=== PATIENT | male | born 1960 | race Caucasian/White ===

== ENCOUNTER → 2022-09-23 | Outpatient (CLI) | payer MEDICAID, SELFPAY ==
--- NOTE | 2022-09-24 12:21 | BRONCHALL ---
Bronchoprovocation Challenge Bronchoprovocation Challenge Bronchoprovocation Challenge: INTRODUCTION: The patient is a 62-year-old male who presents for a methacholine inhalation challenge secondary to a diagnosis of shortness of breath. Respiratory therapy reported good patient effort and reproducible results. INTERPRETATION: Initial spirometry did not show any large airways obstructive ventilatory defect with preserved airflows throughout. The patient was then given progressively increasing doses of methacholine in a standardized fashion. At no point during testing did the patient's FEV1 drop to the threshold level to be considered a positive test. IMPRESSION: Negative methacholine inhalation challenge.
== END | disposition home or self-care (01) ==
PROVIDERS: PCP Family Medicine
DX: R06.02 Shortness of breath (principal)
CPT/HCPCS: 94070; 95070; J3490; J7674

== ENCOUNTER → 2024-01-14 | Outpatient (CLI) | payer MEDICAID, SELFPAY ==
[2024-01-14 10:29] LABS: Absolute Lymphocyte Count 1.19 X10^3/uL (0.83-4.51); Absolute Neutrophil Count 2.8 X10^3/uL (2.0-7.7); Basophil# 0.03 X10^3/uL; Basophil% 0.7 % (0-1); Eosinophils% 2.2 % (0-5); Hematocrit 45.6 % (40-54); Hemoglobin 14.8 g/dL (13.0-16.5); Lymphocyte # 1.19 X10^3/ul (0.83-4.51); Mean Corp Hgb Conc 32.5 g/dL (32-36); Mean Corpuscular Volume 92.3 fL (80-94); Mean Platelet Vol. 10.8 fl (6.2-12.0); Monocyte# 0.41 X10^3/uL; NRBC Flagged by Analyzer 0 % (0-5); Neutrophil # 2.82 X10^3/uL (2.7-7.7); Neutrophil % 61.7 % (47-70); Platelet Count 156 K/mm3 (150-450); RBC Distribution Width CV 14.6 % (11.6-14.6); RBC Distribution Width SD 49.7 fl (35.1-43.9); Red Blood Count 4.94 M/mm3 (4.6-6.2); White Blood Count 4.6 K/mm3 (4.4-11.0)
[2024-01-14 11:15] LABS: Anion Gap 5 (5-15); BUN 21 mg/dL (7-18); BUN/Creat Ratio 24.9 RATIO (10-20); Chloride 110 mmol/L (98-107); Creatinine, Serum 0.84 mg/dL (0.70-1.30); EST Glomerular Filtration Rate 98 mL/min (>60); Est Glom Filt Rate - Afr Amer 119 mL/min (>60); Glucose 113 mg/dL (74-106); Potassium 4.2 mmol/L (3.5-5.1); Sodium Level 140 mmol/L (136-145)
== END | disposition home or self-care (01) ==
PROVIDERS: PCP Family Medicine; Referring Provider Internal Medicine Cardiovascular Disease; Visit Provider Internal Medicine Cardiovascular Disease
DX: R06.02 Shortness of breath (principal); I10 Essential (primary) hypertension
CPT/HCPCS: 36415; 80048; 85025

== ENCOUNTER 2024-02-11 06:51 | Day surgery (SDC) | payer MEDICAID, SELFPAY ==
[2024-01-29 08:23] VITALS: BMI 30.2
[2024-02-11 08:59] LABS: Base Excess -5 mmol/L (-2 to +2); Blood Gas Specimen Type ART; Mode Not entered; O2 Delivery Device Not entered; PO2 69 mmHG (75-100); SITE Not entered; SO2 92 % (95-99); Total Carbon Dioxide 22 mmol/L; pCO2 40.1 mmHg (35-45); pH 7.33 (7.35-7.45)
[2024-02-11 09:01] LABS: Blood Gas Specimen Type VEN; O2 Delivery Device Not entered; SITE Not entered; VBG BASE EXCESS -4 mmol/L (-1.0-3.5); VBG Bicarbonate 22 mmol/L (22-26); VBG PO2 45 mmHg (25-40); VBG SO2 77 % (50-70); VBG TCO2 23 mmol/L (23-33); VBG pCO2 41.5 mmHg (41-51); VBG pH 7.33 (7.32-7.42)
[2024-02-11 09:06] LABS: Blood Gas Specimen Type VEN; O2 Delivery Device Not entered; SITE Not entered; VBG BASE EXCESS -4 mmol/L (-1.0-3.5); VBG Bicarbonate 22 mmol/L (22-26); VBG PO2 41 mmHg (25-40); VBG SO2 73 % (50-70); VBG TCO2 24 mmol/L (23-33); VBG pCO2 42.2 mmHg (41-51); VBG pH 7.33 (7.32-7.42)
--- NOTE | 2024-02-11 09:30 | CL.D_ITS ---
Patient Name: BERNARDO CARVER Study Date: 02/11/2024 Performing: Lavon Frost MD Ht: 71 inches 180.34 cm : 1960 Wt: 217 lbs 98.43 kg Age: 63 Gender: male BSA: 2.18 PROCEDURE(S) PERFORMED DC05-(34956)RHC/LHC/COR/LV IC12-(06777/C9600)SEEMA W/WO PTCA, SINGLE CORONARY ARTERY CLINICAL PROFILE AND INDICATIONS Indications: Other Heart Failure: None Stress/Imaging Date: 01/20/24Cardiac CTA: 1VDStress Test with SPECT MPI: Negative CONCLUSIONS Moderately severe one-vessel disease in the large codominant right coronary artery with preserved ejection fraction RECOMMENDATIONS Consider IFR and PCI. Especially with progressive shortness of breath. DESCRIPTION OF PROCEDURE The patient arrived to the procedure lab. The risks and benefits of the procedure as well as a full description of our services here and current unavailability of surgical backup were fully explained to the patient and/or their significant other prior to the catheterization. The Timeout was completed, verifying the correct patient and procedure. The patient's procedural site was prepped and draped in the usual fashion. Local anesthetic was given subcutaneously to right brachial region with Lidocaine 2%. Local anesthetic was given subcutaneously to right radial region with Lidocaine 2%. Using a modified Seldinger technique, arterial access was obtained via the right radial artery, a 6Fr sheath was inserted. Venous access was obtained via the right brachiocephalic vein, a 7Fr sheath was inserted. Left Coronary Artery selective angiography was performed in multiple views using a 5 Fr. 4.0 [place] catheter. Right Coronary Artery selective angiography was then performed in multiple views using a 5 Fr. 4.0 [place] catheter. Left Ventriculography was performed in MULLER projection using a 5 Fr. Pigtail catheter. LV to AO pullback pressures were then recorded. Arterial O2 Saturations were obtained. A 7Fr thermal dilution catheter was inserted and right heart pressures were recorded, it was then advanced to PA position for cardiac outputs. Thermal dilution cardiac outputs were then recorded. The Thermal dilution catheter was then removed.The venous sheath was then pulled and manual compression applied until hemostasis achieved CORONARY ANGIOGRAPHY DOMINANCE: Co- Dominant LEFT HEART ASSESSMENT Left Ventricular Ejection Fraction: by LV Gram 60 % Normal LV wall motion Normal Left Ventricular systolic function RIGHT HEART ASSESSMENT Thermal CO: 7 Thermal CI: 3.2 PW: 21 PA: 41/ 28 RV: 41/11 21 RA: 17 PVR: 80 SVR: 480 Right Heart pressures - elevated LEFT MAIN: Angiographically normal LEFT ANTERIOR DESCENDING ARTERY: No significant disease noted CIRCUMFLEX ARTERY: No significant disease noted RIGHT CORONARY ARTERY: PROX RCA: Large codominant vessel with almost 70% stenosis noted in the proximal area with an eccentric plaque. Minimal distal disease is noted. COMPLICATIONS PROCEDURE MEDICATIONS Versed 1 mg IV Fentanyl 50 mcg IV Brilinta 180 mg PO @ 02/11/2024 09:12:35 Heparin given IA 02/11/2024 08:36:21 Heparin 7000 unit(s) IV 02/11/2024 09:21:45 Verapamil 2.5mg, Ntg 100mcgs, 3000 units of Heparin given IA 02/11/2024 08:36:21 IV Bolus: .9 NaCl ml total 02/11/2024 08:39:34 SUMMARY OF HEMODYNAMIC DATA Time AIR REST ECG 07:12:52 AO 72/51 (59) SA 08:41:14 AO 84/58 (70) 08:47:56 LV 91/11, 17 08:49:44 LV 89/12, 18 08:49:52 LV 86/16, 19 08:50:24 LV 87/14, 18 08:50:32 LVp 78/10, 19 08:50:37 AOp 93/58 (72) 08:50:44 RA (17) SV 08:54:07 RV 41/11, 21 08:54:26 PA (28) PA 08:54:57 PW (21) PV 08:55:13 PW (20) 08:59:04 PA 42/11 (24) 08:59:33 RA (18) 09:00:01 AO 108/67 (87) 09:22:33 AO 118/70 (92) 09:34:15 09:48:28 Type SV CO (l/m) CI (l/m/ HR Time AIR REST Thermal 106.00 7.00 3.20 66 07:12:53 Label % O2 Pres/Loc Time AIR REST AO 92 PV 09:05:09 RA 77 SV 09:05:14 PA 73 PA 09:05:18 Signed By Lavon Frost MD On 02/11/2024 09:53:54 Signed By Lavon Frost MD On 02/11/2024 09:29:21 Lavon Frost MD
--- NOTE | 2024-02-11 10:51 | CL.I_ITS ---
Patient Name: BERNARDO CARVER Study Date: 02/11/2024 Performing: Henny Hanely MD Ht: 71 inches 180.34 cm : 1960 Wt: 217 lbs 98.43 kg Age: 63 Gender: male BSA: 2.18 PROCEDURE(S) PERFORMED IC12-(97002/C9600)SEEMA W/WO PTCA, SINGLE CORONARY ARTERY CLINICAL PROFILE AND CO-MORBIDITIES Indications: Other Heart Failure: None Stress/Imaging Date: 01/20/24 Cardiac CTA: 1VDStress Test with SPECT MPI: Negative CONCLUSIONS Successful SEEMA to mRCA RECOMMENDATIONS DESCRIPTION OF PROCEDURE The patient arrived to the procedure lab. The risks and benefits of the procedure as well as a full description of our services here and current unavailability of surgical backup were fully explained to the patient and/or their significant other prior to the catheterization. The Timeout was completed, verifying the correct patient and procedure. The patient's procedural site was prepped and draped in the usual fashion. Local anesthetic was given subcutaneously to right brachial region with Lidocaine 2%. Local anesthetic was given subcutaneously to right radial region with Lidocaine 2% Using a modified Seldinger technique,arterial access was obtained via the right radial artery, a 6Fr sheath was inserted.Venous access was obtained via the right brachiocephalic vein, a 7Fr sheath was inserted. Left Coronary Artery selective angiography was performed in multiple views using a 5 Fr. 4.0 [place] catheter. Right Coronary Artery selective angiography was then performed in multiple views using a 5 Fr. 4.0 [place] catheter. Left Ventriculography was performed in MULLER projection using a 5 Fr. Pigtail catheter. LV to AO pullback pressures were then recorded. Arterial O2 Saturations were obtained. A 7Fr thermal dilution catheter was inserted and right heart pressures were recorded, it was then advanced to PA position for cardiac outputs. Thermal dilution cardiac outputs were then recorded. The Thermal dilution catheter was then removed.The images were reviewed and options discussed. A decision was then made to proceed with an Intervention, IVUS or other adjunct procedure. JR4 Guide catheter was inserted and engaged into the RCA. BMW Guide wire was advanced to the RCA. Edvin [place] 3.5x18 Drug Eluting stent was inserted. The venous sheath was then pulled and manual compression applied until hemostasis achieved. The arterial sheath was pulled and a TR Band was applied for hemostasis w/ 10ml air INTERVENTION INFORMATION LESION SITE: RCA (Mid) Lesion Complexity: High/C, chronic total occlusion: No, lesion at bifurcation: No, thrombus present: No, lesion length: 15 mm, culprit lesion: Yes, Previously treated lesion: No Pre Stenosis: 70 % Pre intervention MARGARITA flow: 3 PROCEDURE: Drug Eluting Stent Post Stenosis: 0 % Post intervention MARGARITA flow: 3 Lesion Devices: Turner .014 190cm BMW [place] Straight Cordis 6 Fr JR4 100cm Guide Catheter [place] 3.5 x 18 EDVIN FRONTIER SEEMA COMPLICATIONS No Complications PROCEDURE MEDICATIONS Versed 1 mg IV Fentanyl 50 mcg IV Brilinta 180 mg PO @ 02/11/2024 09:12:35 Heparin given IA 02/11/2024 08:36:21 Heparin 7000 unit(s) IV 02/11/2024 09:21:45 Nitro 200 mcg IC 02/11/2024 09:33:08 Verapamil 2.5mg, Ntg 100mcgs, 3000 units of Heparin given IA 02/11/2024 08:36:21 IV Bolus: .9 NaCl 425ml total 02/11/2024 08:39:34 SUMMARY OF HEMODYNAMIC DATA Time AIR REST ECG 07:12:52 AO 72/51 (59) SA 08:41:14 AO 84/58 (70) 08:47:56 LV 91/11, 17 08:49:44 LV 89/12, 18 08:49:52 LV 86/16, 19 08:50:24 LV 87/14, 18 08:50:32 LVp 78/10, 19 08:50:37 AOp 93/58 (72) 08:50:44 RA (17) SV 08:54:07 RV 41/11, 21 08:54:26 PA 41/21 (28) PA 08:54:57 PW (21) PV 08:55:13 PW (20) 08:59:04 PA 42/11 (24) 08:59:33 RA (18) 09:00:01 AO 108/67 (87) 09:22:33 AO 118/70 (92) 09:34:15 AIR REST 09:55:01 Type SV CO (l/m) CI (l/m/ HR Time AIR REST Thermal 106.00 7.00 3.20 66 07:12:53 Label % O2 Pres/Loc Time AIR REST AO 92 PV 09:05:09 RA 77 SV 09:05:14 PA 73 PA 09:05:18 Signed By Henny Hanley MD On 02/11/2024 10:50:19 Henny Hanley MD
--- NOTE | 2024-02-11 11:50 | CRPHASE1 ---
Patient Communication Patient Information Former Patient:: Phase I PHII Cardiac Rehab Discussed with Patient:: Yes Guide to Cardiac Rehab Given to Patient:: Yes Cardiac Rehab Facility Choice List Given to Patient:: Yes Communication to Cardiac Rehab Choice Program [facility] CR PHII:: Communication Given to CR Choice Program Other:: Communication Given to CR Motor Boss:: Regla Hanley Sessions:: 36 sessions - 3 days/wk, 12 weeks Cardiac Rehabilitation Info Program Information Cardiac Rehabilitation Program Information: Cardiac Rehab The cardiac rehab team at [facility] consists of highly skilled exercise physiologists, nurses, respiratory therapists and physicians working together with you. Our purpose is to help you have a full recovery and achieve the goals you set for yourself. Over the years many of our patients have returned to activities they assumed they would never do again! We can help restore your confidence and motivation to make lifestyle changes that can have a significant impact on your health and quality of life! We can help answer questions and concerns you may have about exercise, lifestyle, medications, diet, stress and anxiety which are common following a hospitalization. WE monitor ECG and vital signs during exercise and discuss your progress with you and report to your physician(s). Cardiac Rehab is proven to help reduce readmissions, improve functional capacity and lower recurrence of problems with your heart. Our Cardiac Rehab program is Certified by the [place] [employer]monary [employer] (AACVPR) and Accredited by the [place] [employer] through our [facility]. You can contact us at . We invite you to call us with your questions or to get started in our program. If you have other questions or concerns be sure to ask your physician/provider during your follow-up visit. WE look forward to seeing you!
--- NOTE | 2024-02-11 11:51 | CRPH1.INST_ITS ---
General Education Discussed with Patient CAD and cardiac anatomy and function:: Patient communicates acknowledgment Explanation of diagnoses and procedures:: Patient communicates acknowledgment Sign/Symptoms of [place]:: Patient communicates acknowledgment Antiplatelet therapy: Patient communicates acknowledgment Proper use of NTG-SL: Patient communicates acknowledgment Emergency procedures and activation of EMS: Patient communicates acknowledgment Compliance of all prescribed medications: Patient communicates acknowledgment Smoking Risk Factors Patient Nicotine/Smoking Risk Factors Are:: Second-hand smoke Recommendations Recommendations Include:: Previous smoker; encourage continued cessation Response Code Nicotine/Smoking Response Code:: Patient communicates acknowledgment Dyslipidemia Risk Factors Patient Dyslipidemia Risk Factors Are:: Total Cholesterol, Triglycerides, HDL and LDL Recommendations Recommendations Include:: Lipid profile not available, Reviewed NCEP/ATP guidelines and Therapeutic Lifestyle Change dietary guidelines Response Code Dyslipidemia Response Code:: Patient communicates acknowledgment Overweight/Obesity Risk Factors Patient Overweight/Obesity Risk Factors Are:: Obesity - > or = 30 Recommendations Recommendations Include:: Weight loss of 5-10%, Reduced calorie diet and E xercise 5-7 times/week Response Code Overweight/Obesity:: Patient communicates acknowledgment Hypertension Recommendations Recommendations Include:: Maintain BP <130/85, DASH dietary guidelines, Decrease/maintain normal body weight and Moderation of ETOH Response Code Hypertension:: Patient communicates acknowledgment Heart Disease Risk Factors Patient Heart Disease Risk Factors Are:: Family history of heart disease < 65 years old Recommendations Recommendations Include:: Educated family members of their risk and Educated family members of importance of prevention of heart disease Response Code Heart Disease Response Code:: Patient communicates acknowledgment Metabolic Syndrome Risk Factors Patient Metabolic Syndrome Risk Factors Are [3 of 5]:: Waist circumference > 35 [female] or 40 [male], High triglyceride >150 and Hypertension Recommendations Recommendations Include:: Does not meet criteria, Reinforce compliance to risk factor modifications and Encouraged follow-up with Primary Care Physician Response Code Metabolic Syndrome Response Code:: Patient communicates acknowledgment Sedentary Risk Factors Patient Sedentary Risk Factors Are:: Lack of regular exercise Recommendations Recommendations Include:: Aerobic exercise 5-7 times/week for 20-30 minutes continuously, Benefits of regular exercise, Discussed home walking program and Monitored Outpatient Cardiac Rehab Response Code Sedentary Response Code:: Patient communicates acknowledgment Stress Risk Factors Patient Stress Risk Factors Are:: Patient denies stress as a risk factor Recommendations Recommendations Include:: Identification of stressors, and assessment of coping skills and Stress management techniques Response Code Stress Response Code:: Patient communicates acknowledgment
== END 2024-02-11 13:40 | disposition home or self-care (01) ==
PROVIDERS: PCP Family Medicine; Referring Provider Internal Medicine Cardiovascular Disease; Visit Provider Internal Medicine Cardiovascular Disease
DX: I25.10 Atherosclerotic heart disease of native coronary artery without angina pectoris (principal); R06.02 Shortness of breath; Z79.82 Long term (current) use of aspirin; Z79.899 Other long term (current) drug therapy; E78.5 Hyperlipidemia, unspecified; I10 Essential (primary) hypertension; Z87.891 Personal history of nicotine dependence; Z95.5 Presence of coronary angioplasty implant and graft
CPT/HCPCS: 92928; 82803; 93005; 93460; 99152; 99153; J7040; Q9967; C1751; C1769; C1874; C1887; C1894; C9600; J1327

== ENCOUNTER → 2025-04-11 | Outpatient (CLI) | payer MEDICAID, SELFPAY ==
--- OUTSIDE RECORDS SUMMARY | 2025-04-11 06:04 | XMS RPT_ITS | CCD ---
Author Organization [facility] CliniSyfl Care Team Providers Care Zone Maintenance Technician Name Role Phone Michael Jarquin MD Primary Care Provider Reji Galvez Unavailable Reji Galvez Unavailable Brad Cui MD Unavailable Dr. Sonja Jackson Referring Provider Dr. Sonja Jackson Other Provider Dr. Eveline Cruz Primary Care Provider Dr. Navneet Jackson Attending Provider Michael Jarquin MD Primary Care Provider Reji Galvez Unavailable Reji Galvezk Unavailable Brad Cui MD Unavailable MICHAEL JARQUIN Primary Care Unavailable CHRISTIANO VASQUES Referring Unavailable Michael Jarquin Primary Care Provider Michael Jarquin MD Primary Care Provider DR MICHAEL JARQUIN MD Primary Care Unavailab Norberto FOREMAN, MR DARWIN S Attending Unavailable Brad Cui MD Unavailable DR MICHAEL JARQUIN MD Primary Care Physician DR MICHAEL JARQUIN MD Primary Care Unavailab Norberto FOREMAN, MR DARWIN S Attending Unavailable Michael Jarquin Primary Care Provider Jose Eduardo CASTING MACHINE SET UP OPERATOR.Jen CHAVES Unavailable Clarence CASTING MACHINE SET UP OPERATOR.PROFESSOR OF COMMUNICATION AND WRITING, Adriano Unavailable DESTINEE MANN Attending Unavailable ELDERBROCK, MICHAEL Primary Care Unavailable Tannhof CASTING MACHINE SET UP OPERATOR.Jen CHAVES Unavailable MIKEY NERI Admitting Unavailable MIKEY NERI Attending Unavailable ELDERBROCK, MICHAEL D Primary Care Unavailable Tannhof CLOSET BUILDER-C, Jen Primary Care Provider Tannhof CLOSET BUILDER-C, Jen Referring Provider Ginny Arenas Attending Provider TRISTAN URBINA Attending Unavailable ELDERBROCK, MICHAEL D Primary Care Unavailable Tannhof, Jen Primary Care Unavailable Ginny Arenas Referring Unavail able Ginny Arenas Attending Unavail able Denilson Marinelli NP Attending Unavailable Eveline Cruz Referring Unavailable Elderbrock, Michael Primary Care Unavailable Tannhof, Jen Referring Unavailable Tannhof, Jen Primary Care Unavailable Ginny Arenas Attending Unavail able Denilson Marinelli NP Attending Unavailable Tannhof, Jen Primary Care Unavailable Elderbrock, Michael Referring Unavailable SHAILESH CONCEPCION Attending Unavailabl e ELDERBROCK, MICHAEL D Primary Care Unavailable DAVID JACOBSEN Attending Unavailable ELDERBROCK, MICHAEL D Primary Care Unavailable ELDERBROCK, MICHAEL D Primary Care Unavailable ESPERANZA OWENS Attending Unavailabl e CLARENCE, ADRIANO Referring Unavailable ELDERBROCK, MICHAEL D Primary Care Unavailable TANNHOF, JEN ARLYN Referring Unavailabl ELENA Moreno Attending Unavailable ELDERBROCK, MICHAEL D Primary Care Unavailable TANNHOF, JEN ARLYN Referring Unavailabl e ELDERBROCK, MICHAEL D Primary Care Unavailable RUSSELL KAY Attending Unavailable ELDERBROCK, MICHAEL D Primary Care Unavailable ELDERBROCK, MICHAEL D Referring Unavailable CLARENCE, ADRIANO Referring Unavailable ELDERBROCK, MICHAEL D Primary Care Unavailable MIKEY NERI Attending Unavailable ELDERBROCK, MICHAEL D Primary Care Unavailable MIKEY NERI Referring Unavailable CLARENCEADRIANO BELLO Referring Unavailable GEO LORENZO Attending Unavailable ELDERBROCK, MICHAEL D Primary Care Unavailable CLARENCE, ADRIANO Referring Unavailable ELDERBROCK, MICHAEL D Primary Care Unavailable ELDERBROCK, MICHAEL D Primary Care Unavailable MIKEY NERI Referring Unavailable MIKEY NERI Attending Unavailable ELDERBROCK, MICHAEL D Primary Care Unavailable ELDERBROCK, MICHAEL D Primary Care Unavailable SELF Referring Unavailable MADSEN, TIMMY Attending Unavailable ELDERBROCK, MICHAEL D Primary Care Unavailable YUDITH MOSQUERA Attending Unavailable ELDERBROCK, MICHAEL D Primary Care Unavailable MELLORS, ANAIS Referring Unavailable ELDERBROCK, MICHAEL D Primary Care Unavailable CALE, TIMMY Attending Unavailable DAVID JACOBSEN Attending Unavailable ELDERBROCK, MICHAEL D Primary Care Unavailable JEN WHITT Attending Unavailabl e ELDERBROCK, MICHAEL D Primary Care Unavailable TANNHOJEN Maldonado Referring Unavailabl e ELDERBROCK, MICHAEL D Primary Care Unavailable ELDERBROCK, MICHAEL D Primary Care Unavailable MELLORS, ANAIS Referring Unavailable MELLORS, ANAIS Attending Unavailable BRETT LIMAE Attending Unavailable ELDERBROCK, MICHAEL D Primary Care Unavailable VANESSA BENAVIDES Attending Unavailable ELENA CABRAL Referring Unavailable ELDERBROCK, MICHAEL D Primary Care Unavailable CLARENCE, ADRIANO Referring Unavailable ELDERBROCK, MICHAEL D Primary Care Unavailable FRANCES BARAKAT Attending Unavailable CLARENCE, ADRIANO Referring Unavailable ELDERBROCK, MICHAEL D Primary Care Unavailable CLARENCE, ADRIANO Referring Unavailable ELDERBROCK, MICHAEL D Primary Care Unavailable ELDERBROCK, MICHAEL D Primary Care Unavailable DAVID JACOBSEN Referring Unavailable ELDERBROCK, MICHAEL Wilfredo Primary Care Unavailable ROBERT HURLEY Attending Unavailable CLARENCE, ADRIANO Referring Unavailable GOLMAYELIN GUARDADONT Attending Unavailable ELDERBROCK, MICHAEL D Primary Care Unavailable CLARENCE, ADRIANO Referring Unavailable MAYELIN LORENZONT Attending Unavailable ELDERBROCK, MICHAEL D Primary Care Unavailable ELDERBROCK, MICHAEL D Primary Care Unavailable TESTELOY ROBERT Referring Unavailable Allergies Allergy Classification Reported Allergen(s) Allergy Type Date of Onset Reaction(s) Facility (20 sources) Seasonal allergy; Translations: [SEASONAL ALLERGIES] Allergy to substance 07-26-2014 Itching [facility] Work Phone: (4 sources) beta Sitosterol / ZINC CITRATE Drug Allergy 07-26-2014 Itching [facility] Medications Current Medications Medication Drug Class(es) Dates Sig (Normalized) Sig (Original) acetaminophen 325 mg / HYDROcodone bitartrate 5 mg oral tablet (1 source) Opioid Agonist Start: 02-09-2025 End: 08-13-2025 take 1 tablet by mouth every six hours as needed for pain HYDROcodone-acetam inophen (NORCO) 5-325 mg per tablet Indications: Tear of lateral meniscus of left knee, current, unspecified tear type, subsequent encounter Take 1 tablet by mouth every 6 hours as needed for pain for up to 7 days. 28 tablet 02/09/2025 02/16/2025 Active acetaminophen 325 mg / oxyCODONE hydrochloride 5 mg oral tablet (1 source) Opioid Agonist Start: 08-13-2017 take 1 tablet by mouth every four hours as needed for pain Percocet 325/5 oral tablet Dose = 1 tab(s), Oral, q4h, PRN as needed for pain, # 28 tab(s), 0 Refill(s) Start Date: 08/13/17 Status: Ordered amoxicillin 875 mg / clavulanate 125 mg oral tablet (1 source) Penicillin-class Antibacterial Start: 11-23-2021 End: 11-28-2021 take 1 tablet by mouth twice daily amoxicillin-clavul anic acid (AUGMENTIN) 875-125 mg per tablet Take 1 tablet by mouth twice daily for 5 days. 10 tablet 0 11/23/2021 11/28/2021 Active Comment on above: Take 1 tablet by evelyn th twice daily for 5 days. aspirin 81 mg delayed release oral tablet (20 sources) Platelet Aggregation Inhibitor, Nonsteroidal Anti-inflammatory Drug Start: 06-12-2023 End: 04-15-2025 take 1 tablet by mouth once daily aspirin, enteric coated (ADULT LOW DOSE ASPIRIN) 81 mg EC tablet Indications: Hyperlipidemia, mixed Take 1 tablet by mouth once daily. 30 tablet 11 04/15/2024 04/15/2025 Active Comment on above: Take 1 tablet by evelyn th once daily. atorvastatin 40 mg oral tablet (20 sources) HMG-CoA Reductase Inhibitor Start: 06-12-2023 End: 02-07-2025 take 1 tablet by mouth once daily at bedtime atorvastatin (LIPITOR) 40 mg tablet Take 40 mg by mouth daily at bedtime. 05/15/2024 Active Comment on above: Take 1 tablet by evelyn th once daily. Take 1 tablet by evelyn th daily at bedtime. For cholesterol. benoxinate hydrochloride 4 mg/ml / fluorescein sodium 3 mg/ml ophthalmic solution (5 sources) Diagnostic Dye Start: 03-23-2025 End: 03-23-2025 fluorescein-benoxi dejuan 0.3-0.4 % 1 drop (FLURESS) Start: 02-16-2025 End: 02-16-2025 fluorescein-benoxinate 0.3-0 .4 % 1 drop (FLURESS) Start: 02-16-2025 End: 02-16-2025 1 drop, BOTH EYES, DIRECT ED, Starting on Fri02/16/25 at 0900, Until Fri02/16/25 at 2059, Administer for applanation tonometry. In the event of a Fluress shortage, administer [place]-Fluor 1 drop into both eyes as directed for applanation tonometry, OPHT CLINIC MED ORDERS Start: 02-03-2025 End: 02-04-2025 fluorescein-benoxinate 0.3-0 .4 % 1 drop (FLURESS) Start: 02-03-2025 End: 02-04-2025 1 drop, BOTH EYES, DIRECT ED, Starting on Ruth 02/03/25 at 1330, Until Fri02/04/25 at 0129, Administer for applanation tonometry. In the event of a Fluress shortage, administer [place]-Fluor 1 drop into both eyes as directed for applanation tonometry cetirizine hydrochloride 10 mg oral tablet (20 sources) Histamine-1 Receptor Antagonist Start: 07-28-2023 take 1 tablet by mouth once daily cetirizine (ZYRTEC) 10 mg tablet Take 1 tablet by mouth once daily. 90 tablet 3 07/28/2023 Active Start: 08-10-2017 End: 07-26-2023 take 1 tablet by mouth in the morning cetirizine (ZyrTEC) 10 MG tablet Take 10 mg by mouth in the morning. 09/10/2021 Active Comment on above: Take 1 tablet by evelyn once daily. clopidogrel 75 mg oral tablet (8 sources) P2Y12 Platelet Inhibitor Start: 01-21-2025 clopidogrel (PLAVIX) 75 mg tablet TAKE 1 TABLET BY MOUTH TAKE 4 TABLETS ON DAY 1 FOLLOWED BY 1 TABLET DAILY 01/21/2025 Active Start: 07-21-2024 clopidogrel (P lavix) 75 MG tablet 75 mg. 07/21/2024 Active Start: 07-21-2024 take 2 tablets by mo [facility] once daily Clopidogrel (Plavix) 75 mg tablet Active 75 mg PO daily 93 July 21, 2024 1:00am 300mg (4 pills) on day one followed by 75mg (1 pill) Daily on day 2 CPAP (20 sources) Start: 08-06-2021 CPAP Indicatio ns: JEFFREY on CPAP Initiate CPAP @ 12 cm of water with humidification. Mask (per patient preference) optional chin strap (if indicated) , filters, tubing, humidifier and lifetime supplies. ResMed Mirage Quattro, size medium 1 Each 08/06/2021 Active Start: 08-06-2021 CPAP Indicatio ns: JEFFREY on CPAP Initiate CPAP @ 12 cm of water with humidification. Mask (per patient preference) optional chin strap (if indicated) , filters, tubing, humidifier and lifetime supplies. ResMed Mirage Quattro, size medium 1 Each 0 08/06/2021 Active Comment on above: Initiate CPAP @ 12 c m of water with humidification. Mask (per patient preference) optional chin strap (if indicated) , filters, tubing, humidifier and lifetime supplies. ResMed Mirage Quattro, size medium dutasteride 0.5 mg oral capsule (20 sources) 5-alpha Reductase Inhibitor Start: 04-15-20 End: 08-08-19 take 1 capsule by mouth once daily dutasteride (AVODART) 0.5 mg capsule Take 1 capsule by mouth once daily. 90 capsule 05/10/2024 Active Start: 08-05-2022 End: 06-26-2023 take 1 capsule by mouth once daily dutasteride (AVODART) 0.5 mg capsule Take 1 capsule by mouth once daily. 90 capsule 3 08/05/2022 06/26/2023 Discontinued Comment on above: Take 1 capsule by [facility] once daily. fexofenadine hydrochloride 180 mg oral tablet (12 sources) Histamine-1 Receptor Antagonist Start: take 1 tablet by mouth once daily fexofenadine (TANESHA) 180 mg tablet Take 1 tablet by mouth once daily. 01/16/2025 Active Start: 04-15-2024 End: 08-08-2024 take 1 tablet by mouth once daily fexofenadine (TANESHA) 180 mg tablet Take 1 tablet by mouth once daily. 01/16/2025 Active fluticasone propionate 0.05 mg/actuat metered dose nasal spray (15 sources) Corticosteroid Start: 04-15-2024 End: 11-22-2024 take 2 spray(s) by mouth once daily fluticasone (FLONASE) 50 mcg/actuation nasal spray Use 2 Sprays in each nostril once daily. Rinse mouth after use. 18.2 mL 5 04/15/2024 11/22/2024 Discontinued (Course of therapy completed) iv contrast (will be provided with radiology test) (2 sources) Start: 03-21-2023 End: 03-22-2023 inject 1 dose intravenously once iv contrast (will be provided with radiology test) CTA Coronary. No IV access, insert saline lock prior to the sedation, infusion, injection for imaging exam. Discontinue saline lock post exam. If Pt. has a central line or IVAD, may access for administration according to line specific nursing protocol. Once exam is complete flush line and de-access according to line specific nursing protocol in the CT contrast administration guidelines link. 1 Each 0 03/21/2023 03/22/2023 Active Start: 01-14-2023 End: 01-15-2023 inject 1 dose intravenously once iv contrast (will be provided with radiology test) MRI Brain Inject, intravenously, once for 1 dose.No IV access, insert saline lock prior to beginning of sedation, infusion, injection of imaging exam.Discontinue saline lock post exam. If Pt. has a central line or IVAD, may access for administration according to line specific nursing protocol.Once exam is complete flush line and de-access according to line specific nursing protocol in the MR contrast administration guidelines link 1 Each 0 01/14/2023 01/15/2023 Active Comment on above: MRI Brain Inject, in travenously, once for 1 dose.No IV access, insert saline lock prior to beginning of sedation, infusion, injection of imaging exam.Discontinue saline lock post exam. If Pt. has a central line or IVAD, may access for administration according to line specific nursing protocol.Once exam is complete flush line and de-access according to line specific nursing protocol in the MR contrast administration guidelines link CTA Coronary. No IV access, insert saline lock prior to the sedation, infusion, injection for imaging exam. Discontinue saline lock post exam. If Pt. has a central line or IVAD, may access for administration according to line specific nursing protocol. Once exam is complete flush line and de-access according to line specific nursing protocol in the CT contrast administration guidelines link. lisinopril 20 mg oral tablet (20 sources) Angiotensin Converting Enzyme Inhibitor Start : 08-10 End: 11-22 take 1 tablet by mouth once daily lisinopril (ZESTRIL) 20 mg tablet Take 1 tablet by mouth once daily. 90 tablet 3 11/22/2024 11/22/2025 Active Comment on above: Take 1 tablet by evelyn th once daily. take 1 tablet by evelyn th once daily methylPREDNISolone (3 sources) Corticosteroid Start : 11-22 End: 11-28 methylPREDNISolone (MEDROL, PRIMITIVO,) 4 mg Dose-Pack Indications: Acute pain of left knee Follow dosing instructions, take with food. 21 tablet 11/22/2024 11/28/2024 Active phenylephrine hydrochloride 25 mg/ml ophthalmic solution (9 sources) alpha-1 Adrenergic Agonist Start : 03-23 End: 03-23 PHENYLephrine 2.5 % 1 drop (AK-DILATE, SHARI-SYNEPHRINE) Start: 02-16-2025 End: 02-16-2025 PHENYLephrine 2.5 % 1 drop ( AK-DILATE, SHARI-SYNEPHRINE) Start: 02-16-2025 End: 02-16-2025 1 drop, BOTH EYES, DIRECT ED, Starting on Fri02/16/25 at 0900, Until Fri02/16/25 at 2059, Administer for dilation PROTECT FROM LIGHT, OPHT CLINIC MED ORDERS Start: 02-03-2025 End: 02-04-2025 PHENYLephrine 2.5 % 1 drop ( AK-DILATE, SHARI-SYNEPHRINE) Start: 02-03-2025 End: 02-04-2025 1 drop, BOTH EYES, DIRECT ED, Starting on Fri02/03/25 at 1330, Until Fri02/04/25 at 0129, Administer for dilation PROTECT FROM LIGHT Start: 01-10-2025 End: 01-11-2025 PHENYLephrine 2.5 % 1 drop ( AK-DILATE, SHARI-SYNEPHRINE) Start: 01-10-2025 End: 01-11-2025 1 drop, BOTH EYES, DIRECT ED, Starting on Fri01/10/25 at 1400, Until Fri01/11/25 at 0159, Administer for dilation PROTECT FROM LIGHT Start: 08-25-2023 End: 08-25-2023 PHENYLephrine 2.5 % 1 Drop ( AK-DILATE, SHARI-SYNEPHRINE) polyethylene glycol 3350 822410 mg / potassium chloride 2970 mg / sodium bicarbonate 6740 mg / sodium chloride 5860 mg / sodium sulfate 89624 mg powder for oral solution (1 source) Osmotic Laxative Start: 05-31-2024 End: 05-31-2024 peg 3350-Electrolytes (GOLYTELY) 236-22.74-6.74 -5.86 gram suspension Indications: Colon cancer screening Take 4,000 mL by mouth one time only for 1 dose. Refer to printed prep instructions from your provider. 4000 mL 05/31/2024 05/31/2024 Active predniSONE 10 mg oral tablet (3 sources) Start: 12-14-2024 End: 12-26-2024 predniSONE (DELTASONE) 10 mg tablet Take 4 tabs daily x 3 days, then 3 tabs x 3 days, 2 tabs x 3 days, then 1 tab x3 days with food. 30 tablet 12/14/2024 12/26/2024 Active proparacaine hydrochloride 5 mg/ml ophthalmic solution (6 sources) Local Anesthetic Start: 03-23-2025 End: 03-23-2025 proparacaine 0.5 % 1 drop (ALCAINE) Start: 02-16-2025 End: 02-16-2025 proparacaine 0.5 % 1 drop (A LCAINE) Start: 01-10-2025 End: 01-11-2025 proparacaine 0.5 % 1 drop (A LCAINE) Start: 01-10-2025 End: 01-11-2025 1 drop, BOTH EYES, DIRECT ED, Starting on Fri01/10/25 at 1400, Until Fri01/11/25 at 0159, Administer for pneumo tonometry, tonopen tonometry, or pachymetry. In the event of a proparacaine shortage, administer tetracaine 0.5% ophthalmic drops 1 drop in the left eye as directed for pneumo tonometry, tonopen tonometry, or pachymetry Start: 08-25-2023 End: 08-25-2023 proparacaine 0.5 % 1 Drop (A LCAINE) tamsulosin hydrochloride 0.4 mg oral capsule (20 sources) alpha-Adrenergic Marilia Start: 03-15-2022 End: 01-27-2025 take 2 capsules by mouth at bedtime Tamsulosin 0.4 mg capsule Active 0.8 mg PO AT BEDTIME August 01, 2023 1:00am Start: 08-06-2021 End: 03-15-2022 take 1 capsule by mouth once daily at bedtime tamsulosin (FLOMAX) 0.4 mg Indications: Benign prostatic hyperplasia with weak urinary stream Take 1 capsule by mouth daily at bedtime. 90 capsule 3 08/06/2021 03/15/2022 Discontinued (Adjust Sig - Block E-Cancel) Comment on above: Take 1 capsule by mo uth daily at bedtime. Take 2 capsules by m outh daily at bedtime. tropicamide 10 mg/ml ophthalmic solution (9 sources) Anticholinergic Start: 03-23-2025 End: 03-23-2025 tropicamide 1 % 1 drop (MYDRIACYL) Start: 02-16-2025 End: 02-16-2025 tropicamide 1 % 1 drop (MYDR IACYL) Start: 02-16-2025 End: 02-16-2025 1 drop, BOTH EYES, DIRECT ED, Starting on Fri02/16/25 at 0900, Until Fri02/16/25 at 2059, Administer for dilation, OPHT CLINIC MED ORDERS Start: 02-03-2025 End: 02-04-2025 tropicamide 1 % 1 drop (MYDR IACYL) Start: 02-03-2025 End: 02-04-2025 1 drop, BOTH EYES, DIRECT ED, Starting on Ruth 02/03/25 at 1330, Until Fri02/04/25 at 0129, Administer for dilation Start: 01-10-2025 End: 01-11-2025 tropicamide 1 % 1 drop (MYDR IACYL) Start: 01-10-2025 End: 01-11-2025 1 drop, BOTH EYES, DIRECT ED, Starting on Fri01/10/25 at 1400, Until Fri01/11/25 at 0159, Administer for dilation Start: 08-25-2023 End: 08-25-2023 tropicamide 1 % 1 Drop (MYDR IACYL) Completed/Discontinued Medications Medication Drug Class(es) Dates Sig (Normalized) Sig (Original) [id number] 200 actuat albuterol 0.09 mg/actuat metered dose inhaler (8 sources) beta2-Adrenergic Agonist Start: 08-01-2023 End: 01-14-2024 Albuterol Sulfate 90 mcg/actuation HFA aerosol inhaler Discontinued 2 NMA INHALATION Q4H as needed for shortness of breath or wheezing August 01, 2023 1:00am January 14, 2024 8:51am Start: 06-26-2023 End: 09-09-2023 take 2 puff(s) by inhalation every four hours as needed for wheezing albuterol HFA (VENTOLIN HFA) 90 mcg/actuation inhaler Indications: SOB (shortness of breath) Inhale 2 Puffs as instructed every 4 hours as needed for wheezing/shortness of breath. 1 Each 3 06/26/2023 09/09/2023 Discontinued Comment on above: Inhale 2 Puffs as in structed every 4 hours as needed for wheezing/shortness of breath. benzonatate 100 mg oral capsule (7 sources) Non-narcotic Antitussive Start: End: take 2 capsules by mouth three times daily as needed benzonatate (TESSALON PERLE) 100 mg capsule Indications: Viral bronchitis Take 2 capsules by mouth three times a day as needed. 30 capsule 0 07/14/2023 09/09/2023 Discontinued Start: 11-19-2021 End: 03-15-2022 take 1 capsule by mouth every eight hours as needed benzonatate (TESSALON PERLE) 100 mg capsule Take 1 capsule by mouth three times daily as needed. 30 capsule 0 11/19/2021 03/15/2022 Discontinued (Course of therapy completed) Comment on above: Take 1 capsule by mo uth three times daily as needed. Take 2 capsules by m outh three times a day as needed. bevacizumab (Daisy's) 1.25 mg intravitreal syringe (AVASTIN) (8 sources) Start: 03-23-2025 End: 09-17-2025 bevacizumab (Daisy's) 1.25 mg intravitreal syringe (AVASTIN) Start: 03-23-2025 End: 03-23-2025 1.25 mg, ONCE, 1 dose, Start ing on Fri03/23/25 at 1225, Until Fri03/23/25 at 1225 Start: 02-16-2025 End: 02-16-2025 bevacizumab (Daisy's) 1.25 mg intravitreal syringe (AVASTIN) Start: 02-16-2025 End: 02-16-2025 1.25 mg, ONCE, 1 dose, Start ing on Fri02/16/25 at 1045, Until Fri02/16/25 at 1045 30 ml bupivacaine hydrochloride 5 mg/ml injection (1 source) Amide Local Anesthetic Start: 09-09-2023 End: 09-09-2023 BUPivacaine (PF) 0.5 % (5 mg/mL) 2.5 mg injection Start: 09-09-2023 End: 09-09-2023 BUPivacaine (PF) 0.5 % (5 mg /mL) 2.5 mg injection calcium chloride 0.0014 meq/ml / potassium chloride 0.004 meq/ml / sodium chloride 0.103 meq/ml / sodium lactate 0.028 meq/ml injectable solution (1 source) Start: 09-08-2024 End: 09-08-2024 take 30 mL intravenously every hour 30 mL/hr, INTRAVENOUS, CONTINUOUS, Starting on Fri09/08/24 at 0830, Until Fri09/08/24 at 1032, Preprocedure cephalexin 500 mg oral capsule (2 sources) Cephalosporin Antibacterial Start: 08-18-2024 End: 08-18-2024 cephALEXin 500 mg cap(s) (KEFLEX) Start: 08-18-2024 End: 08-18-2024 take 1 dose by mouth once 500 mg, ORAL, ONCE, 1 dose, On Fri08/18/24 at 0930, Antimicrobial indication: Prophylaxis 1 ml dexamethasone phosphate 4 mg/ml injection (1 source) Corticosteroid Start: 09-09-2023 End: 09-09-2023 dexAMETHasone sodium phosphate 2 mg injection (DECADRON) Start: 09-09-2023 End: 09-09-2023 dexAMETHasone sodium phospha te 2 mg injection (DECADRON) 1 ml fentaNYL 0.05 mg/ml injection (1 source) Opioid Agonist Start: 09-08-2024 End: 09-08-2024 25-100 mcg, INTRAVENOUS, DIRECTED, Starting on Fri09/08/24 at 1030, Until Fri09/08/24 at 1429, DOSING DIRECTED BY PHYSICIAN FOR PROCEDURAL SEDATION ONLY, Intraprocedure 12 hr guaiFENesin 600 mg extended release oral tablet (2 sources) Start: 11-19-2021 End: 03-15-2022 take 2 tablets by mouth twice daily guaiFENesin (MUCINEX) 600 mg 12 hr tablet Take 2 tablets by mouth twice daily. 24 tablet 0 11/19/2021 03/15/2022 Discontinued (Course of therapy completed) Comment on above: Take 2 tablets by [facility] twice daily. lidocaine hydrochloride 0.02 mg/mg topical gel (2 sources) Antiarrhythmic, Amide Local Anesthetic Start: 08-18-2024 End: 08-18-2024 lidocaine urojet 2 % 11 mL topical gel (GLYDO) Start: 08-18-2024 End: 08-18-2024 11 mL, URETHRAL, ONCE (UP TO 30 DAYS AMB), 1 dose, On Fri08/18/24 at 0930, FOR EXTERNAL USE ONLY APPLY TO: PENIS meloxicam 15 mg oral tablet (13 sources) Nonsteroidal Anti-inflammatory Drug Start: 12-13-2024 End: 01-27-2025 take 1 tablet by mouth once daily meloxicam (MOBIC) 15 mg tablet Indications: Acute pain of left knee Take 1 tablet by mouth once daily. 14 tablet 1 12/13/2024 01/27/2025 Discontinued 5 ml midazolam 1 mg/ml injection (1 source) Benzodiazepine Start: 09-08-2024 End: 09-08-2024 1-5 mg, INTRAVENOUS, DIRECTED, Starting on Fri09/08/24 at 1030, Until Fri09/08/24 at 1429, DOSING DIRECTED BY PHYSICIAN FOR PROCEDURAL SEDATION ONLY, Intraprocedure naproxen 500 mg oral tablet (2 sources) Nonsteroidal Anti-inflammatory Drug Start: 06-20-2021 End: 03-15-2022 take 1 tablet by mouth twice daily as needed for pain naproxen (NAPROSYN) 500 mg tablet Indications: Lateral epicondylitis of right elbow Take 1 tablet by mouth twice daily as needed (for pain/inflammation). Take with food. 30 tablet 1 06/20/2021 03/15/2022 Discontinued (Course of therapy completed) Comment on above: Take 1 tablet by evelyn th twice daily as needed (for pain/inflammation). Take with food. nitroglycerin 0.3 mg sublingual tablet (10 sources) Nitrate Vasodilator Start: 03-21-2023 End: 09-09-2023 take 1 tablet under the tongue once nitroglycerin sublingual (NITROQUICK) 0.3 mg SL tablet Dissolve 1 tablet under the tongue one time only for 1 dose. To be administered in Radiology for CTA exam 1 tablet 03/21/2023 09/09/2023 Discontinued Comment on above: Dissolve 1 tablet un jose juan the tongue one time only for 1 dose. To be administered in Radiology for CTA exam perflutren lipid microspheres 1.3 mL in NaCl (PF) 0.9% 10 mL injection (DEFINITY) (20 sources) Start: 03-15-2022 End: 06-14-2023 perflutren lipid microspheres 1.3 mL in NaCl (PF) 0.9% 10 mL injection (DEFINITY) 125 ml sodium chloride 9 mg/ml prefilled syringe (20 sources) Start: 03-15-2022 End: 06-14-2023 sodium chloride 0.9 % (flush) 10 mL (BD POSIFLUSH) ticagrelor 90 mg oral tablet (20 sources) Start: 02-11-2024 End: 07-21-2024 take 1 tablet by mouth twice daily Ticagrelor (Brilinta) 90 mg tablet Discontinued 90 mg PO TWICE A DAY 60 11 February 11, 2024 12:00am July 21, 2024 10:28am triamcinolone acetonide 10 mg/ml injectable suspension (1 source) Corticosteroid Start: 09-09-2023 End: 09-09-2023 triamcinolone acetonide 5 mg injection (KeNALog 10) Start: 09-09-2023 End: 09-09-2023 triamcinolone acetonide 5 mg injection (KeNALog 10) Problems Active Problems Problem Classification Problem Date Documented Da te Episodic/Chronic Allergic reactions (1 source) H/O: non-drug allergy; Translations: [Other allergy status, other than to drugs and biological substances] Episodic Blindness and vision defects (7 sources) Bilateral hyperopia of eyes; Translations: [Hypermetropia, bilateral] 08-25-2023 Episodic Coronary atherosclerosis and other heart disease (10 sources) Coronary arteriosclerosis; Translations: [Atherosclerotic heart disease of [place] coronary artery without angina pectoris] Onset: 01-27-2025 01-27-2025 Chronic Coronary atherosclerosis and other heart disease (4 sources) History of cardiovascular surgery; Translations: [Presence of coronary angioplasty implant and graft] Onset: 05-27-2024 01-17-2025 Episodic Disorders of lipid metabolism (20 sources) Mixed hyperlipidemia; Translations: [Mixed hyperlipidemia] Onset: 08-22-2014 04-10-2017 Chronic Essential hypertension (20 sources) Hypertensive disorder; Translations: [Essential (primary) hypertension] Onset: 08-09-2014 07-02-2021 Chronic Headache; including migraine (1 source) Headache 08-10-2017 Episodic Hyperplasia of prostate (20 sources) Weak urinary stream due to benign prostatic hypertrophy; Translations: [Benign prostatic hyperplasia with lower urinary tract symptoms] Onset: 08-18-2024 Chronic Immunizations and screening for infectious disease (1 source) Contact with or exposure to other viral diseases; Translations: [Exposure to COVID-19 virus] Episodic Joint disorders and dislocations; trauma-related (20 sources) Tear of lateral meniscus of knee; Translations: [Acute tear of medial meniscus of left knee] Onset: 01-12-2025 01-13-2025 Episodic Mycoses (3 sources) Histoplasmosis syndrome of bilateral eyes; Translations: [Histoplasmosis, unspecified] Onset: 01-10-2025 01-10-2025 Episodic Neoplasms of unspecified nature or uncertain behavior (1 source) Intracranial tumor 08-10-2017 Chronic Neoplasms of unspecified nature or uncertain behavior (5 sources) Neoplasm of uncertain behavior of skin; Translations: [Neoplasm of uncertain behavior of skin] Onset: 07-27-2024 Episodic Nonspecific chest pain (2 sources) Chest pain; Translations: [Other chest pain] Episodic Osteoarthritis (3 sources) Osteoarthritis of left knee joint; Translations: [Unilateral primary osteoarthritis, left knee] Onset: 01-17-2025 01-17-2025 Chronic Other and unspecified benign neoplasm (20 sources) Acoustic neuroma; Translations: [Benign neoplasm of cranial nerves] Onset: 11-13-2016 11-22-2016 Chronic Other and unspecified benign neoplasm (1 source) Benign neoplasm of cranial nerves; Translations: [Vestibular schwannoma (HCC)] Onset: 11-22-2016 Chronic Other and unspecified benign neoplasm (3 sources) Multiple benign melanocytic nevi ; Translations: [Melanocytic nevi of right upper limb, including shoulder] 07-21-2023 Episodic Other and unspecified benign neoplasm (3 sources) Senile angioma; Translations: [Hemangioma of skin and subcutaneous tissue] 07-21-2023 Episodic Other and unspecified benign neoplasm (2 sources) Melanocytic nevi of right upper limb, including shoulder; Translations: [Melanocytic nevi of right upper limb, including shoulder] Onset: 07-27-2024 Episodic Other and unspecified benign neoplasm (2 sources) Melanocytic nevi of trunk; Translations: [Melanocytic nevi of trunk] Onset: 07-27-2024 Episodic Other and unspecified benign neoplasm (2 sources) Melanocytic nevi of left upper limb, including shoulder; Translations: [Melanocytic nevi of left upper limb, including shoulder] Onset: 07-27-2024 Episodic Other and unspecified benign neoplasm (2 sources) Melanocytic nevi of right lower limb, including hip; Translations: [Melanocytic nevi of right lower limb, including hip] Onset: 07-27-2024 Episodic Other and unspecified benign neoplasm (2 sources) Melanocytic nevi of left lower limb, including hip; Translations: [Melanocytic nevi of left lower limb, including hip] Onset: 07-27-2024 Episodic Other and unspecified benign neoplasm (2 sources) Hemangioma of skin and subcutaneous tissue; Translations: [Hemangioma of skin and subcutaneous tissue] Onset: 07-27-2024 Episodic Other congenital anomalies (1 source) Discoid lateral meniscus; Translations: [Discoid meniscus] 01-17-2025 Chronic Other congenital anomalies (1 source) Discoid meniscus of left knee; Translations: [Discoid meniscus] 01-19-2025 Chronic Other congenital anomalies (1 source) Discoid meniscus; Translations: [Discoid lateral meniscus of left knee] Onset: 01-17-2025 Chronic Other connective tissue disease (1 source) Plantar fasciitis; Translations: [Plantar fascial fibromatosis] 09-09-2023 Episodic Other connective tissue disease (1 source) Pain of left heel; Translations: [Pain in left foot] 09-09-2023 Episodic Other connective tissue disease (1 source) Plantar fascial fibromatosis; Translations: [Plantar fasciitis] Onset: 04-04-2025 Episodic Other connective tissue disease (1 source) Calcaneal spur, left foot; Translations: [Heel spur, left] Onset: 04-04-2025 Episodic Other ear and sense organ disorders (20 sources) Hearing loss in left ear; Translations: [Unspecified hearing loss, left ear] Onset: 10-25-2016 10-25-2016 Chronic Other eye disorders (2 sources) Bilateral chorioretinal scar of eyes; Translations: [Unspecified chorioretinal scars, bilateral] 08-25-2023 Chronic Other eye disorders (5 sources) Hemorrhage of left vitreous body; Translations: [Vitreous hemorrhage, left eye] 01-10-2025 Chronic Other eye disorders (1 source) Vitreous hemorrhage, left eye; Translations: [Vitreous hemorrhage of left eye (HCC)] Onset: 02-16-2025 Chronic Other eye disorders (1 source) Chorioretinal disorders in diseases classified elsewhere; Translations: [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] Onset: 01-10-2025 Chronic Other eye disorders (2 sources) Disorder of lacrimal gland; Translations: [Dry eye syndrome of bilateral lacrimal glands] 08-25-2023 Episodic Other lower respiratory disease (9 sources) Dyspnea; Translations: [Shortness of breath] Episodic Other lower respiratory disease (1 source) Dyspnea on exertion; Translations: [Shortness of breath] Episodic Other lower respiratory disease (3 sources) Shortness of breath; Translations: [SOB (shortness of breath)] Onset: 06-12-2023 Episodic Other nutritional; endocrine; and metabolic disorders (11 sources) Simple obesity ; Translations: [Other obesity due to excess calories] Onset: 11-13-2016 11-13-2016 Chronic Other nutritional; endocrine; and metabolic disorders (20 sources) Obese class I; Translations: [Obesity, unspecified] Onset: 07-19-2019 07-19-2019 Chronic Other nutritional; endocrine; and metabolic disorders (20 sources) Obesity caused by energy imbalance; Translations: [Other obesity due to excess calories] Onset: 11-13-2016 11-13-2016 Chronic Other nutritional; endocrine; and metabolic disorders (1 source) Obesity; Translations: [Obesity, unspecified] 08-01-2023 Chronic Other nutritional; endocrine; and metabolic disorders (3 sources) Overweight in adulthood with body mass index of 25 or more but less than 30; Translations: [Overweight] 11-22-2024 Episodic Other skin disorders (3 sources) Seborrheic keratosis; Translations: [Other seborrheic keratosis] 07-21-2023 Episodic Other skin disorders (3 sources) Solar lentigo; Translations: [Other melanin hyperpigmentation] 07-21-2023 Episodic Other skin disorders (2 sources) Inflamed seborrheic keratosis; Translations: [Inflamed seborrheic keratosis] 07-27-2024 Episodic Other skin disorders (2 sources) Other seborrheic keratosis; Translations: [Other seborrheic keratosis] Onset: 07-27-2024 Episodic Other skin disorders (2 sources) Other melanin hyperpigmentation; Translations: [Other melanin hyperpigmentation] Onset: 07-27-2024 Episodic Other upper respiratory disease (20 sources) Allergic rhinitis; Translations: [Allergic rhinitis, unspecified] Onset: 01-12-2016 01-12-2016 Chronic Other upper respiratory disease (3 sources) Seasonal allergy; Translations: [Other seasonal allergic rhinitis] 04-15-2024 Chronic Other upper respiratory disease (1 source) Other seasonal allergic rhinitis; Translations: [Seasonal allergies] Onset: 05-27-2024 Chronic Other upper respiratory infections (1 source) Viral upper respiratory tract infection; Translations: [Acute upper respiratory infection, unspecified] Episodic Pancreatic disorders (not diabetes) (1 source) Pancreatitis 08-10-2017 Episodic Residual codes; unclassified (20 sources) Sleep apnea; Translations: [Sleep apnea, unspecified] Onset: 08-22-2014 08-22-2014 Chronic Residual codes; unclassified (20 sources) Obstructive sleep apnea syndrome; Translations: [Obstructive sleep apnea (adult) (pediatric)] Onset: 11-13-2016 11-13-2016 Chronic Residual codes; unclassified (1 source) Obstructive sleep apnea (adult) (pediatric); Translations: [JEFFREY on CPAP] Onset: 11-13-2016 Chronic Retinal detachments; defects; vascular occlusion; and retinopathy (10 sources) Hemorrhage of left retina; Translations: [Retinal hemorrhage, left eye] Onset: 01-10-2025 01-10-2025 Chronic Retinal detachments; defects; vascular occlusion; and retinopathy (5 sources) Retinal "U" tear; Translations: [Horseshoe tear of retina without detachment, left eye] Onset: 02-16-2025 01-10-2025 Episodic Substance-related disorders (20 sources) Moderate smoker (20 or less per day) ; Translations: [Nicotine dependence, cigarettes, uncomplicated] Onset: 11-13-2016 11-13-2016 Chronic Unclassified (5 sources) Acute pain of left knee 11-22-2024 Unclassified (1 source) Acute tear of medial meniscus of left knee 01-13-2025 Unclassified (1 source) Post Op Onset: 03-21-2025 Past or Other Problems Problem Classification Problem Date Documented Date Episodic/Chronic Diabetes mellitus without complication (20 sources) Increased glucose level; Translations: [Other abnormal glucose] Onset: 08-22-2014 08-22-2014 Episodic Genitourinary symptoms and ill-defined conditions (5 sources) Nocturia; Translations: [Nocturia] Onset: 07-19-2024 05-27-2024 Episodic Other nervous system disorders (20 sources) Postoperative pain ; Translations: [Other acute postprocedural pain] Onset: 11-22-2016 Resolved: 12-05-2016 12-05-2016 Episodic Other non-traumatic joint disorders (20 sources) Chronic pain of right upper limb; Translations: [Pain in right shoulder] Onset: 10-03-2015 10-03-2015 Episodic Other non-traumatic joint disorders (20 sources) Pain in left knee; Translations: [Pain in joint, lower leg] Onset: 12-01-2024 11-22-2024 Episodic Other nutritional; endocrine; and metabolic disorders (1 source) Overweight; Translations: [Overweight with body mass index (BMI) of 29 to 29.9 in adult] Onset: 11-22-2024 Episodic Other nutritional; endocrine; and metabolic disorders (1 source) Body mass index (BMI) 29.0-29.9, adult; Translations: [Overweight with body mass index (BMI) of 29 to 29.9 in adult] Onset: 11-22-2024 Episodic Other screening for suspected conditions (not mental disorders or infectious disease) (10 sources) Patient encounter status; Translations: [Encounter for screening for malignant neoplasm of colon] Onset: 05-27-2024 05-27-2024 Episodic Respiratory failure; insufficiency; arrest (adult) (20 sources) Acute respiratory failure; Translations: [Acute respiratory failure, unspecified whether with hypoxia or hypercapnia] Onset: 11-22-2016 Resolved: 12-05-2016 12-05-2016 Episodic Screening and history of mental health and substance abuse codes (9 sources) Ex-smoker; Translations: [Personal history of nicotine dependence] Onset: 11-13-2016 01-27-2025 Episodic Spondylosis; intervertebral disc disorders; other back problems (20 sources) Lumbago with sciatica; Translations: [Lumbago with sciatica, right side] Onset: 03-06-2016 03-06-2016 Episodic Unclassified (1 source) Patient encounter status 09-08-2024 Results Test Name Value Interpretation Reference Range Facility [facility] 04-04-2025 CNOV Office Visit (PODIWS ) BERNARDO CARVER ([id number]) 1960 M Date Time Provider Department 04/04/25 3:15 PM ROBERT HURLEY PODIWS During your visit today, we recorded the following information about you: Arpita Conley RN 04/04/2025 9:47 PM Signed Patient presents with: Left Foot - Established Patient, Follow Up, Pain AMB ROOMING INTAKE FLOWSHEET DATA Pain Pain Level: 7 Pain Location: Heel-Left Duration Amount of Time: 5 Duration Units: Weeks Frequency: Intermittent Intervention/Comfort measure: Relaxation, Reposition Patient presents for left heel pain. States that it is similar to the pain he had last year. Recent left knee surgery and pain began again after that. Pain worse in the mornings and when getting up after a period of rest. Does wear powerstep inserts. Hx of plantar fasciitis to left foot and received steroid injection and Powerstep inserts at [facility]. [facility] 09/09/23 Robert Hurley 04/04/2025 3:26 PM Signed Powerstep Original Full length. Can purchase at [facility] [employer] and boots,shoes and more here in [place], [employer] in [place] or [place]. Also can find in [place] in [facility]. Powersteps can also be purchased online, starting around $45.00 If you have a metatarsal or dancer pad for your feet apply the pad directly to the insole so you can interchange between your shoes. Find a shoe with a removable insole and take this out and replace with your powerstep insole. Always bring powersteps with you when shopping for shoes so that you can make sure that everything fits well together What is Plantar Fasciitis? Plantar fasciitis is the most common cause of heel pain. The pain is caused by inflammation of the plantar fascia. If you strain your plantar fascia, it becomes weak, swollen and irritated (inflamed). The resulting pain may be isolated in the heel or may appear at different points on the bottom of the foot, from time to time; it may occur in one foot or both. Some think that plantar fasciitis pain is caused by irritation of nerves from tissue swelling or inflammation, but it is debatable. Plantar fasciitis is common in middle-aged people; it also occurs in younger people who are on their feet a lot, such as athletes or soldiers. The plantar fascia is a strong band of connective tissue that extends from the base of the toes, along the bottom of the foot, to the bottom of the heel (calcaneous bone); it acts like a bowstring to maintain the arch of the foot. What are heel spurs? The inflammatory reaction of the heel bone may produce spike-like projections of new bone, called heel spurs. The spurs sometimes show on X-rays. They neither cause the initial pain nor do they cause the initial problem. However, later, having to walk on spurs may cause sharp pain. What causes plantar fasciitis? Plantar fasciitis is caused by straining the ligament that supports your arch. Repeated strain can cause tiny tears in the ligament. These lead to pain and swelling. During walking, the plantar fascia experiences tension up to twice the body weight with each step. While this is normal, those who spend much time on their feet, such as nurses, brake drum molder/waiters, and mail carriers, often experience plantar fasciitis. Athletes involved in tennis or other racquet sports, race walking, jogging or running also show a higher incidence of plantar fasciitis than do those participating in other activities. Thus, it's clear that plantar fasciitis is predominantly an overuse injury. In fact, any activity that results in prolonged tension and stress on the plantar fascia may cause plantar fasciitis. It is possible that changes in footwear may play a role in causing plantar fasciitis, no matter what activity is occurring. Those who are overweight are prone to plantar fasciitis. This is true even for sedentary people who get little physical activity. Abnormalities of the foot and ankle joints may predispose some individuals to development of plantar fasciitis (specifically, over pronation of the subtalar joint). Contributing Factors * Flat feet * Toe running, hill running * Sudden weight increase * High-arched, rigid feet * Soft terrain, e.g. running on sand * Obesity * Pronated feet (rolled inward) * Sudden increase in activity * Family tendency * Poor shoe support * Worn out or poorly fitted shoes * Increasing age * Walking, standing or running for long periods of time, especially on hard surfaces. How is the Injury Treated? Rest Your Feet: Limit, or if possible, stop activities that are causing your heel pain. Try to avoid running or walking on hard surfaces, such as concrete. Use pain as your guide. If your foot is too painful, rest it. Ice: Ice the sore area for 30 to 60 minutes, several times a day, to reduce inflammation and relieve pain. Apply a plastic bag of crushed ice (or a (more content not included)... Normal [facility] XR FOOT 3V AP/LAT/OBL LTon 0 04-04-2025 XR FOOT 3V AP/LAT/OBL LT * * *Final Report* * * DATE OF EXAM: Apr 04 2025 4:01PM [id number] - XR FOOT 3V AP/LAT/OBL LT / PROCEDURE REASON: multiple diagnoses * * * * Physician Interpretation * * * * Left foot HISTORY: 64 years old Clinical information: Plantar fasciitis Heel spur, left PT STATES LEFT FOOT HEEL PAIN TECHNIQUE: Images: XR FOOT 3V AP/LAT/OBL LT Comparison: 09/09/2023. RESULT: Findings: There is a calcaneal enthesophyte at the origin the plantar fascia. The enthesophyte appears unchanged from prior study. No evidence of recent fracture or bony destruction. Joint spaces unremarkable. Soft tissue calcification. IMPRESSION: No acute bony finding. Calcaneal spur. Medical Intern: PSCB Transcribe Date/Time: Apr 08 2025 4:59P Dictated by : MICHAEL FORD MD This examination was interpreted and the report reviewed and electronically signed by: MICHAEL FORD MD on Apr 08 2025 5:01PM EST [id number] Normal [facility] AVASTIN (BEVACIZUMAB) 1.25MG INTRAVITREAL INJECTION OD (RIGHT EYE)on 03-23-2025 [facility] AVASTIN (BEVACIZUMAB) 1.25MG INTRAVITREAL INJECTION OS (LEFT EYE)on 03-23-2025 [facility] OCT ANGIOGRAPHY OU (BOTH EYE S)on 03-23-2025 [facility] Radiology Study observation (narrative) [facility] OCT MACULA CIRRUS OU (BOTH E YES)on 03-23-2025 [facility] Radiology Study observation (narrative) [facility] Cardiology Visit Reporton Cardiology Visit Report [facility] [address] [place] [address] OFFICE VISIT Date of Service: 02/24/25 MR#: [id number] Acct: [id number] Name: BERNARDO CARVER Rep #: [id number] : 1960 Provider: MISAEL Omer Age/Sex: 64/M Location: [facility] Status: Signed HPI HPI History of Present Illness Details: Pleasant 64-year-old man who presented for evaluation and a second opinion regarding persistent shortness of breath in January of 2024. He has been evaluated extensively at the [facility] with a stress test with a treadmill in June 2022 where he exercised 8 metabolic equivalents without any evidence of ischemia. He also had a stress echocardiogram and it demonstrated no wall motion abnormalities. In September 2022, he underwent a pulmonary function test with a bronco provocation challenge which did not show any evidence of large airways obstructive ventilatory defect and there was a negative methacholine inhalation challenge. He also subsequently underwent an event monitor for 10 days and the predominant rhythm was sinus rhythm with isolated premature ventricular and ventricular ectopic beats. He then underwent a coronary CTA angiogram (07/2022) which demonstrated no plaque in the left main coronary artery, left anterior descending artery with no plaque or luminal irregularities, circumflex artery with no significant stenosis in the right coronary artery which is dominant with no significant stenosis. The estimated intermediate severity of luminal stenosis was approximately 50%. His previous NT proBNP has been normal. Patient underwent a diagnostic heart catheterization on 02/2024 which demonstrated large codominant proximal RCA with almost 70% stenosis noted in the proximal area with eccentric plaque. He did undergo stenting of this vessel. Pt notes that until approx 2 months ago he was not SOB. Initially this had resolved after his stenting. He notes that at times he is SOB with both rest and exertion and then other times he is okay. These symptoms are similar to what he had prior to his stenting. He does not have any chest pain. Intake Vital Signs 07/21/24 08:58 02/24/25 07:29 Height 5 ft 11 in 5 ft 11 in Weight: 211 lb 218 lb BMI 29.4 30.4 BP 118/78 133/89 H Blood Pressure Location Lt brachial Lt brachial Position Sitting Sitting Respiration 16 18 Pulse 61 57 L Pulse Source NIBP Monitor Pulse Oximetry (%) 93 95 Oxygen Delivery Method room air Intake Visit Reasons: 6 M FU Dog Breeder Required: No Is patient in pain?: No Allergies No Known Allergies Allergy (Verified 07/21/24 09:02) Medications ???Medication ???Instructions ???Recorded ???Confirmed ???Type aspirin 81 mg tablet,delayed 81 mg PO DAILY 08/01/23 02/24/25 H istory release cetirizine 10 mg tablet 10 mg PO DAILY 08/01/23 02/24/25 H istory lisinopril 20 mg tablet 20 mg PO DAILY 08/01/23 02/24/25 H istory tamsulosin 0.4 mg capsule 0.8 mg PO QHS 08/01/23 02/24/25 Hi story clopidogrel 75 mg tablet (Plavix) 75 mg PO QDAY #93 tabs 07/21/24 0 02/24/25 Rx dutasteride 0.5 mg capsule 0.5 mg PO QDAY 07/21/24 02/24/25 H istory fexofenadine 180 mg tablet 180 mg PO QDAY 07/21/24 02/24/25 H istory atorvastatin 40 mg tablet 40 mg PO QHS #90 tabs 02/07/25 Rx Have you fallen in the past year?: No PFSH Medical History Atherosclerosis of coronary artery of [place] heart without angina pectoris CAD S/P percutaneous coronary angioplasty COVID Obesity Hyperlipidemia SOB (shortness of breath) Vestibular schwannoma Allergies Snoring JEFFREY on CPAP Essential hypertension Surgical History History of coronary artery stent placement (02/11/24) Hx of craniotomy Hx laparoscopic cholecystectomy Family History Mother No problems noted. Social History Smoking Status: Former smoker quit date: 06/02/19 how long ago did patient quit smokin06/02/2019 alcohol intake: never substance use type: does not use caffeine: Yes Type: coffee Number of servings: 6 ROS Const Const: Negative for fatigue, weakness, headache(s) or frequent falls Eyes Eyes: Negative for blurry vision ENT ENT: Negative for headache(s), dizziness or Nosebleed/epistaxis Cardio Chest Pain: No Palpitations: No Edema: None Muscle aches with walking: None Resp Respiratory: Positive for SOB with activity and SOB at rest; Negative for SOB orthopnea SOB lying down GI GI: Negative nausea, vomiting, heartburn, bright, red blood in stools or black,tarry stools (more content not included)... [facility]ZAIDA [facility] BERNARDO CARVER ([id number]) 1960 M Date Time Provider Department 02/21/25 8:30 AM YUDITH MOSQUERA During your visit today, we recorded the following information about you: Jannette BardalesROYA 02/21/2025 10:39 AM Signed Patient presents with: Left Knee - Post Op: 1 week 5 days post op Left knee arthroscopic medial menisectomy, medial and PF chondroplasties AMB ROOMING INTAKE FLOWSHEET DATA Pain Pain Level: 2 Pain Location: Knee-Left Description: Dull Duration Amount of Time: (Post op) Frequency: Continuous Intervention/Comfort measure: (None) Patient taking no med's for the pain. No redness or drainage at incision sites. Yudith Mosquera PA-C 02/21/2025 10:39 AM Signed Yudith Mosquera PA-C Department of Orthopaedics Orthopaedics [address] [facility] [address] Dept: [phone] Dept February 21, 2025 CHIEF COMPLAINT: Post Op of the Left Knee (1 week 5 days post op Left knee arthroscopic medial menisectomy, medial and PF chondroplasties). ASSESSMENT: S83.242A Acute medial meniscus tear of left knee, initial encounter (primary encounter diagnosis) SUMMARY/PLAN: Patient presents 1 week and 5 days status post a left knee arthroscopy with medial meniscectomy and patellofemoral chondroplasty. He is doing well, complains of some 2 out of 10 tightness in the knee, overall is doing much better. We discussed continuing with activities as tolerated, discussed compression, [id number] NSAIDs and icing for residual swelling. Will see him back in 1 month as planned. Exam: Incision sites are all well-approximated, there is mild but appropriate edema in the knee, no significant joint effusion noted. Some resolving ecchymosis along the medial distal thigh. Full extension of the knee with flexion to about 120 degrees. Imaging: Deferred today. Mr. Bernardo Carver was advised as to contrast therapies and/or to take analgesics/anti-inflammator ies as needed and all contraindications were reviewed. Supporting Information Below: Medications: Current Outpatient Medications Medication Sig fexofenadine (TANESHA) 180 mg tablet Take 1 tablet by mouth once daily. clopidogrel (PLAVIX) 75 mg tablet TAKE 1 TABLET BY MOUTH TAKE 4 TABLETS ON DAY 1 FOLLOWED BY 1 TABLET DAILY lisinopril (ZESTRIL) 20 mg tablet Take 1 tablet by mouth once daily. BRILINTA 90 mg tablet Take 90 mg by mouth two times a day. atorvastatin (LIPITOR) 40 mg tablet Take 40 mg by mouth daily at bedtime. aspirin, enteric coated (ADULT LOW DOSE ASPIRIN) 81 mg EC tablet Take 1 tablet by mouth once daily. cetirizine (ZYRTEC) 10 mg tablet Take 1 tablet by mouth once daily. CPAP Initiate CPAP @ 12 cm of water with humidification. Mask (per patient preference) optional chin strap (if indicated) , filters, tubing, humidifier and lifetime supplies. [employer]Med [employer] Quattro, size medium dutasteride (AVODART) 0.5 mg capsule Take 1 capsule by mouth once daily. No current facility-administered medications for this visit. Allergies: Seasonal Allergies This note was partially generated using [employer] voice recognition system, and there may be some incorrect words, spellings, and punctuation that were not noted in checking the note before saving. Yudith Mosquera PA-C Allergies As of Date: 02/21/2025 Noted Allergy Reaction SEASONAL ALLERGIES 07/26/2014 9 - Itching Date Reviewed: 02/21/2025 Reviewed by: Jannette Bardales MA - Fully Assessed Reason for Visit: Post Op [174] Cmt: 1 week 5 days post op Left knee arthroscopic medial menisectomy, medial and PF chondroplasties Primary Visit Diagnosis:Acute medial meniscus tear of left knee, initial encounter [S83.242A] Prescriptions as of 02/21/2025 - fexofenadine (TANESHA) 180 mg tablet Take 1 tablet by mouth once daily. - clopidogrel (PLAVIX) 75 mg tablet TAKE 1 TABLET BY MOUTH TAKE 4 TABLETS ON DAY 1 FOLLOWED BY 1 TABLET DAILY - lisinopril (ZESTRIL) 20 mg tablet Take 1 tablet by mouth once daily. - BRILINTA 90 mg tablet Take 90 mg by mouth two times a day. - atorvastatin (LIPITOR) 40 mg tablet Take 40 mg by mouth daily at bedtime. - dutasteride (AVODART) 0.5 mg capsule Take 1 capsule by mouth once daily. - aspirin, enteric coated (ADULT LOW DOSE ASPIRIN) 81 mg EC tablet Take 1 tablet by mouth once daily. - cetirizine (ZYRTEC) 10 mg tablet Take 1 tablet by mouth once daily. - CPAP Initiate CPAP @ 12 cm of water with humidification. Mask (per patient preference) optional chin strap (if indicated) , filters, tubing, humidifier and lifetime supplies. [employer] Mirage Quattro, size medium Problem List As Of Date 02/21/2025 Noted Resolved Hypertension [I10] 08/09/2014 Sleep apnea [G47.30] 08/22/2014 Hyperlipidemia, mixed [E78.2] 08/22/2014 Elevated glucose [R73.09] 08/22/2014 Chronic right shoulder pain [M25.511 (more content not included)... Normal [facility] AVASTIN (BEVACIZUMAB) 1.25MG INTRAVITREAL INJECTION OD (RIGHT EYE)on 02-16-2025 [facility] AVASTIN (BEVACIZUMAB) 1.25MG INTRAVITREAL INJECTION OS (LEFT EYE)on 02-16-2025 [facility] OCT ANGIOGRAPHY OU (BOTH EYE S)on 02-16-2025 [facility] Radiology Study observation (narrative) [facility] OCT MACULA CIRRUS OU (BOTH E YES)on 02-16-2025 [facility] Radiology Study observation (narrative) [facility] ANES POSTPROC EVALon 025 ANES POSTPROC EVAL HNO ID: [id number] Author: NACHO MINAYA DO Service: Anesthesiology Author Type: Anesthesiologist Type: Anesthesia Postprocedure Evaluation Filed: 02/09/2025 11:22 Note Text: POST ANESTHESIA EVALUATION NOTE : 1960 Procedure Summary Date: 02/09/25 Room / Location: [place] [address] / [place] Anesthesia Start: 730 Anesthesia Stop: 845 Procedure: ARTHROSCOPY KNEE MENISCECTOMY MEDIAL OR LATERAL (Left: Knee) Diagnosis: Acute pain of left knee Acute medial meniscus tear of left knee, initial encounter Osteoarthritis of left knee, unspecified osteoarthritis type Discoid meniscus of left knee (Acute pain of left knee [M25.562]) (Acute medial meniscus tear of left knee, initial encounter [S83.242A]) (Osteoarthritis of left knee, unspecified osteoarthritis type [M17.12]) (Discoid meniscus of left knee [Q68.6]) Surgeons: Mikey Neri MD Responsible Provider: Nacoh Minaya DO Anesthesia Type: general ASA Status: 3 Anesthesia Type: general Airway Type: LMA Last Vitals Vitals Value Taken Time BP 155/79 02/09/25 0918 Temp 36.7 ?C (98.1 ?F) 02/09/25 0850 Pulse 42 02/09/25 0921 Resp 11 02/09/25 0921 SpO2 97 % 02/09/25920 Vitals shown include unfiled device data. Post Anesthesia Patient Status Patient Evaluation: PACU. PACU/ICU Patient Condition: stable. Anticipated Disposition: phase 2 then home. Neurological Status: aware and responsive. Pulmonary Status: breathing comfortably on room air Airway Control: returned to baseline unsupported. Cardiovascular Status: stable. Pain Management: clinically adequate - multimodal analgesia pain management approach Postoperative Hydration: acceptable. Intraoperative Events: no significant anesthesia events Post Operative Nausea/Vomiting Status: no significant post operative nausea or vomiting Recommendation: continue current plan of care and further care per PACU/ICU/floor team. Anesthesia Observations No Documentation SIGNATURE: Nacho Minaya DO PATIENT NAME: Bernardo Carver DATE: February 09, 2025 TIME: 11:21 AM CSN: [id number] [facility] ANES PRE-OPon 02-09-2025 ANES PRE-OP HNO ID: [id number] Author: NACHO MINAYA DO Service: Anesthesiology Author Type: Anesthesiologist Type: Anesthesia Preprocedure Evaluation Filed: 02/09/2025 06:59 Note Text: ANESTHESIOLOGY DAY OF SURGERY NOTE : 1960 Procedure Information Date/Time: 02/09/25729 Procedure: ARTHROSCOPY KNEE MENISCECTOMY MEDIAL OR LATERAL (Left: K[place] Surgeons: Mikey Neri MD Estimated body mass index is 30.68 kg/m? as calculated from the following: Height as of this encounter: 180.3 cm (5' 11"). Weight as of this encounter: 99.8 kg (220 lb). Most recent hematocrit and potassium results: Hematocrit 46.6 11/22/2024 Potassium 4.6 11/22/2024 Relevant Problems ANESTHESIA (+) JEFFREY on CPAP (+) Sleep apnea CARDIO (+) Coronary artery disease involving [place] coronary artery of [place] heart without angina pectoris (+) Essential hypertension (+) Hypertension PULMONARY (+) JEFFREY on CPAP (+) Sleep apnea I - PHYSICAL EVALUATION AIRWAY Patient intubated: No. Tracheostomy tube not present Mallampati: II. TM distance: >3 FB. Neck ROM: full ROM without neurological symptoms. Mouth opening: adequate. Short neck: no. Thick neck: no DENTAL Dental findings: teeth intact. II - ANESTHESIA PLAN ASA Score: 3 Anesthetic Plan: general Airway type: LMA NPO Status: adequate Beta Marilia Monitoring Plan Monitoring plan: standard ASA. Post Procedure Analgesic Plan Postoperative analgesic plan: parenteral or oral opioids, multimodal analgesia and per surgical service. Informed Consent Anesthetic risks, benefits, alternatives, personnel and consent discussed: yes. Patient / Responsible Democrat agrees to proceed: yes Patient / Surrogate agrees to blood products: Yes DNR status not reviewed with patient and/or family prior to surgery. Significant changes in the patient condition since the History and Physical, not otherwise documented in primary service progress note: no. Potential Anesthesia issues that may suggest increased risk of complications or contraindication to planned procedure: none. Discussed the possibility of lip / dental damage: yes Vitals Value Taken Time BP 161/90 02/09/25619 Pulse 47 02/09/25619 Resp 18 02/09/25619 Temp 36 ?C (96.8 ?F) 02/09/25619 SpO2 98 % 02/09/25619 Facility-Administered Medications as of 02/09/2025 Medication Dose Route Frequency lidocaine (PF) 10 mg/mL (1 %) 1-2 mg injection (XYLOCAINE) 0.1-0.2 mL INTRADERMAL PRN lactated ringers iv infusion 5-30 mL/hr INTRAVENOUS CONTINUOUS NaCl 0.9% iv flush bag 20 mL INTRAVENOUS PRN ceFAZolin iv piggyback 2 g in D5W (iso-osmotic) 100 mL (ANCEF) 2 g INTRAVENOUS Pre-Op Once [COMPLETED] acetaminophen 1,000 mg tab(s) (TYLENOL) 1,000 mg ORAL Pre-Op Once [COMPLETED] promethazine 12.5 mg tab(s) (PHENERGAN) 12.5 mg ORAL Pre-Op Once lactated ringers iv infusion 30 mL/hr INTRAVENOUS CONTINUOUS Outpatient Medications as of 02/09/2025 Medication Sig fexofenadine (TANESHA) 180 mg tablet Take 1 tablet by mouth once daily. lisinopril (ZESTRIL) 20 mg tablet Take 1 tablet by mouth once daily. atorvastatin (LIPITOR) 40 mg tablet Take 40 mg by mouth daily at bedtime. aspirin, enteric coated (ADULT LOW DOSE ASPIRIN) 81 mg EC tablet Take 1 tablet by mouth once daily. cetirizine (ZYRTEC) 10 mg tablet Take 1 tablet by mouth once daily. BRILINTA 90 mg tablet Take 90 mg by mouth two times a day. dutasteride (AVODART) 0.5 mg capsule Take 1 capsule by mouth once daily. CPAP Initiate CPAP @ 12 cm of water with humidification. Mask (per patient preference) optional chin strap (if indicated) , filters, tubing, humidifier and lifetime supplies. [employer]ustic Graphicso, size medium I have interviewed and examined the patient. I have reviewed the medical record and/or the pre-anesthesia evaluation, pertinent labs, and test results. This contains updated information obtained within 48 hours of Surgery/Procedure. SIGNATURE: Nacho Minaya DO PATIENT NAME: Bernardo Carver DATE: February 09, 2025 TIME: 6:57 AM CSN: [id number] [facility] OPERATIVE NOon 02-09-2025 OPERATIVE NO HNO ID: [id number] Author: MIKEY NERI MD Service: Orthopaedic Surgery Author Type: Physician Type: Operative Report Filed: 02/09/2025 08:55 Note Text: OPERATIVE/PROCEDURE REPORT LOG ID: [id number] Surgery/Procedure Date: 02/09/2025 Incision/Procedure Start Time: 8:00 AM Incision Close/Procedure End Time: 8:38 AM Surgeon(s)/Proceduralist(s) and Drainlayer(s): Surgeons and Role: * Mikey Neri MD - Primary Nurse Practitioner: Tarah Flores APRN Physician Drainlayer: Yudith Mosquera PA-C Procedure(s): Left knee, arthroscopic medial meniscectomy, medial and patellofemoral chondroplast(ies). Anesthesia: General with Intraarticular analgesia. 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 Please contact your linux network systems administrator to configure this SmartLink., who had an injury to the knee causing mechanical symptoms, recurrent swelling and pain. Patient attempted conservative management with activity modification, medications, and an MRI reported a meniscus tear medially, with an intact discoid laterally and some scattered OA. I discussed with him multiple options including the risks, benefits, alternatives, and potential complications involving surgery and he wished to pursue surgical intervention. Procedure Details: On 02/09/2025, the patient was clearly identified in the preoperative area and marked accordingly on the left knee by myself. He received 2g of Ancef in the IV within 1 hour incision or tourniquet. Patient was taken to the operative suite and placed in the supine position. Anesthesia assumed care of the head and neck for the remainder of the case and began a general anesthetic. All other bony landmarks were appropriately padded in standard fashion. The well lower extremity was placed in a semi-lithotomy position, again with neurovascular bundles appropriately padded. The surgical lower extremity had a well-padded upper thigh tourniquet placed with Webril padding and set at 250 mmHg, but not yet inflated. After a betadine swab, the patient was provided a intra-articular injection with 20 mL of 0.5% ropivacaine plain and 2 mg of morphine sulfate at the superior lateral knee joint. Patient was then placed in a well-padded arthroscopic leg rankin. Patient was sterilely prepped and draped in standard fashion. Appropriate time-out was conducted and all in the room were in agreement, signed consent form was on the chart and images were available for viewing. The lower extremity was then exsanguinated with an Esmarch bandage and the tourniquet was applied at 300 mmHg. Next, the portal incisions were injected with 1% lidocaine with 1:100,000 epinephrine and 0.5% ropivacaine for total of 10 mL. A stab incision was then made with an #11 blade at the inferolateral, parapatellar area and I entered into the joint atraumatically with 1 pass with blunt trocar and camera. A stab incision was made at the superomedial joint for placement of an outflow cannulae. Arthroscopic diagnostic exam was completed that showed Grade I chondrosis and Grade II chondrosis on the undersurface of the both medial and lateral patellar facets as well as in the trochlea. I came down in the medial and lateral gutters, which were free of any debris. I entered into the medial joint line and under spinal needle identification, made my standard working portal at the inferomedial, parapatellar tendon location. I entered in with a hooked probe and explored the joint. The medial distal femoral condyle was showing focal, Grade II chondrosis. The medial tibial plateau surface appeared with Grade I chondrosis. The ACL and PCL were found to be intact and rather funes. The lateral joint line showed Pristine cartilage of the lateral distal femoral condyle. The lateral tibial plateau surface appeared with Pristine cartilage and a minor, discoid meniscus was identified with only some frayed edges that did not require a take down, just some shaving of the internal rim. I next identified a tear of the medial meniscus; characterized as medial, chronic, complex, and posterior from the posterior horn to the posterior mid body of about 2cm total. I worked my way with both arthroscopic biter tools as well as the 4.5mm resector shaver and made a stable rim in the meniscus, without any fragments or flaps noted. Again, the entire meniscus was taken to a stable base without any further concerns. I did an appropriate chondroplasty of the medial and patellofemoral compartments to smoothen out any areas of fibrillation and smaller flaps which appeared unstable. Arthroscopic chondroplasty, performed as a substantiative procedure needed to produce a significant improvement in the patient?s condition, performed in difference compartment of the same knee, where no other coded procedure was performed. I did excise a medial plicae, I then explored the three compartments one last time for any loo (more content not included)... [facility] 02-04-2025 [facility] Telephone ([facility]) BERNARDO CARVER ([id number]) 1960 M Date Time Provider Department 02/04/25 ESPERANZA MORRIS During your visit today, we recorded the following information about you: Edmund, Kaitlyn 02/04/2025 10:24 AM Signed Bernardo Carver [id number] (home) Pt was supposed to be seen in [facility] today with Dr. Gambino but the pt waited over an hour and had to leave. It is for a retinal tear. I saw Dr. Morris has 8am new pt slot open on Friday02/08/25. Is it ok to add the pt then? LV 02/03/[address] Jacobsen Assessment AND Plan David Jacobsen, OD filed at 02/03/2025 4:32 PM Status: Signed 1. Horseshoe retinal tear of left eye (Primary) S/P: RETINOPEXY LASER PROPHYLAXIS BREAK(S) OS (LEFT EYE) 01/10/2025 Retinal intact upon dilated exam 02/03/25 2. Vitreous hemorrhage of left eye (HCC) Trauma to left eye (tree branch) Vitreous heme along with pre-retinal heme and dot blot hemes still apparent with minimal resolution Sent patient to [facility] clinic today and has appt at 3:45 with residents 3. 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 Presbyopia Finalized spec rx today for computer/work-shop glasses +worsening sub-retinal fluid OD with decrease in BCVA since 01/10 Stable SRF left eye Patient supposed to have follow-up with retina around 01/24/25 for PO laser and FA +ICGA but not scheduled Patient scheduled tomorrow with Dr. Owens I have confirmed and edited as necessary the relevant HPI, ophthalmic history, ROS, and the neuro exam findings as obtained by others. I have seen and examined Bernardo Carver. I have discussed the case and the management of this patient's care with the Resident/Fellow, if applicable. I also have reviewed and agree with the assessment and plan as stated above and agree with all of its relevant components. David Jacobsen, OD February 03, 2025 4:21 PM Kaitlyn Shaffer 02/04/2025 11:29 AM Signed Cortes, it?s actually an 8:30 AM new patient slough that I took for patient Murtaza Carter just scheduled her. We don?t have any more availability on Friday It looks like possibly there?s a [address] Lala?s on Friday Kaitlyn Adame 02/04/2025 11:29 AM Signed Kylah Lala or Erica, Would either of you be able to see this pt this coming Friday02/08/25 for horseshoe retinal tear? They were supposed to be seen in [facility] today, but left due to waiting over an hour. Kaitlyn Shaffer 02/04/2025 2:07 PM Signed We do not have an opening. Erica can see Friday at 3pm Reese Kaitlyn Li 02/04/2025 2:07 PM Signed Called pt and offered with Erica at 3pm. He refused and said he is already busy Friday and will make an appt on Mismi to see someone else. Lela Villareal 02/08/2025 9:48 AM Signed Patient called and lm for him to come in at either 10:30am or 2:00pm with Dr. Garcia in [place]. [employer] message also sent to patient about appointment today. Allergies As of Date: 02/04/2025 Noted Allergy Reaction SEASONAL ALLERGIES 07/26/2014 9 - Itching Date Reviewed: 02/03/2025 Reviewed by: Rufina Klein COA - Fully Assessed Reason for Visit: Appointment [186] Prescriptions as of 02/08/2025 - fexofenadine (TANESHA) 180 mg tablet Take 1 tablet by mouth once daily. - clopidogrel (PLAVIX) 75 mg tablet TAKE 1 TABLET BY MOUTH TAKE 4 TABLETS ON DAY 1 FOLLOWED BY 1 TABLET DAILY - lisinopril (ZESTRIL) 20 mg tablet Take 1 tablet by mouth once daily. - BRILINTA 90 mg tablet Take 90 mg by mouth two times a day. - atorvastatin (LIPITOR) 40 mg tablet Take 40 mg by mouth daily at bedtime. - dutasteride (AVODART) 0.5 mg capsule Take 1 capsule by mouth once daily. - aspirin, enteric coated (ADULT LOW DOSE ASPIRIN) 81 mg EC tablet Take 1 tablet by mouth once daily. - cetirizine (ZYRTEC) 10 mg tablet Take 1 tablet by mouth once daily. - CPAP Initiate CPAP @ 12 cm of water with humidification. Mask (per patient preference) optional chin strap (if indicated) , filters, tubing, humidifier and lifetime supplies. [employer] Quattro, size medium Problem List As Of Date 02/04/2025 Noted Resolved Hypertension [I10] 08/09/2014 Sleep apnea [G47.30] 08/22/2014 Hyperlipidemia, mixed [E78.2] 08/22/2014 Elevated glucose [R73.09] 08/22/2014 Chronic right shoulder pain [M25.511, G89.29] 10/03/2015 Allergic rhinitis [J30.9] 01/12/2016 Right-sided low back pain with right-sided scia*03/06/2016 Hearing loss in left ear [H91.92] 10/25/2016 Vestibular schwannoma (HCC) [D33.3] 11/13/2016 Essential hypertension [I10] 11/13/2016 JEFFREY on CPAP [G47.33] 11/13/2016 Non morbid obesity due to excess calories [E66.*11/13/2016 Former smoker [Z87.891] 11/13/2016 Post-op pain [G89.18] 11/22/2016 12/05/2016 Acute respiratory failure (HCC) [J96.00] 11/22/2016 12/05/2016 Obesity, Class I (more content not included)... Normal [facility] OCT MACULA CIRRUS OU (BOTH E YES)on 02-03-2025 [facility] Radiology Study observation (narrative) [facility] HISTORY PHYSICALon HISTORY PHYSICAL HNO ID: [id number] Author: CARLOTA HUFFMAN APRN.PROFESSOR OF COMMUNICATION AND WRITING Service: ? Author Type: Nurse Practitioner Type: H&P Filed: 01/27/2025 08:54 Note Text: [facility] HISTORY AND PHYSICAL EXAMINATION SERVICE DATE: 01/27/2025 SERVICE TIME: 8:54 AM PRIMARY CARE PHYSICIAN: Michael Jarquin MD Assessment Patient has the following medical conditions which may affect michele-operative course: Essential hypertension Assessment: controlled on rx Last 14 BP Last 14 Encounter BP Readings: Date: BP: 01/27/2025 120/64 12/01/2024 118/75 11/22/2024 118/76 09/08/2024 110/65 08/18/2024 112/68 07/19/2024 104/70 05/31/2024 117/72 05/27/2024 104/66 07/09/2023 130/82 06/26/2023 130/84 06/12/2023 100/60 03/21/2023 120/70 01/16/2023 122/76 07/11/2022 128/80 Hyperlipidemia, mixed Assessment: c/w statin Coronary artery disease involving [place] coronary artery of [place] heart without angina pectoris Assessment: s/p stent, c/w Brilinta and ASA, following WHG, received AC instructions and optimization with last OV below: Scan on 01/18/2025 8:07 AM by Provider, External, PA-C: Presurgical Documents Vestibular schwannoma (HCC) Assessment: s/p resection, left ear hearing loss JEFFREY on CPAP Assessment: c/w CPAP Former smoker Assessment: 0.3ppd/30 years, denies asthma or COPD, lungs CTA pulse ox 95% on RA Elevated glucose Assessment: diet controlled Hemoglobin A1C (%) Date Value 03/15/2022 5.7 06/11/2021 5.8 Obesity, Class I, BMI 30-34.9 Assessment: Body mass index is 30.71 kg/m?. BPH (benign prostatic hyperplasia) Assessment: controlled on rx ANESTHESIA FINDINGS: Intubation History: No history of difficult intubation Significant Anesthesia Considerations: none Airway History: No history of difficult airway Olson Activity Status Index: METS: Climb a flight of stairs or walk up a hill (5.50 METs) DASI Score: 5.5 Patient denies any chest pain or undue shortness of breath with the above physical activity. Clinical Frailty Scale: 3. Well, with treated comorbid disease STOP-Bang Score: Snores loudly Often feels tired, fatigued, or sleepy during the daytime Has been observed to stop breathing or choking/gasping during sleep Has or is being treated for high blood pressure Patient over 50 years old Has a large neck Male patient BMI less than or equal to 35 kg/m2 STOP-Bang Score: 7 [id number] Score: Age: <65 Sex: male CHF history: No Hypertension history: Yes Stroke/TIA/thromboembolism history: No Vascular disease history: Yes Diabetes history: No [id number] Score: 2 ARISCAT Score: Age: 51-80 Preoperative SpO2: 91-95% Respiratory infection in the last month: No Preoperative anemia: No Surgical incision: peripheral Duration of surgery: <2 hrs Emergency procedure: No ARISCAT Score: 11 I - PHYSICAL EVALUATION AIRWAY Patient intubated: No. Tracheostomy tube not present Mallampati: I. TM distance: >3 FB. Neck ROM: full ROM without neurological symptoms. Mouth opening: adequate. Short neck: no. Thick neck: yes Polo present: yes Lip Bite Test: I Microretrognathia/Micronagt hia/Recessed Chin: No DENTAL Dental findings: teeth intact. II - ANESTHESIA PLAN Anesthetic Plan: other Beta Marilia Monitoring Plan Post Procedure Analgesic Plan Prepared for Surgery: optimally prepared for surgery. CONSULTS: Patient does not require consults for optimization at this time Planned Anesthetic: other anesthesia choice The Following Tests/Procedures Have Been Initiated: No orders of the defined types were placed in this encounter. REASON FOR VISIT: Bernardo Carver is a 64 year old male who is scheduled for Procedure(s): ARTHROSCOPY KNEE MENISCECTOMY MEDIAL OR LATERAL (Left) at the request of Dr. Mikey Neri for consultation. My final recommendation will be communicated back to the requesting physician by way of shared medical record or letter. Subjective The patient has the following: COVID-19 Immunization Status This patient has no relevant Health Maintenance data. CHIEF COMPLAINT: Pre-op exam HPI: Bernardo Carver is a 64 year old seen for PAC due to scheduled above surgery because of left knee pain. 01/17/25, Dr. Mikey Neri HPI Eliceo Carver is a 64-year-old male presenting with left knee pain. Eliceo reports left knee pain that began after assisting his niece with moving into a new house. The pain is localized to the medial and posterior aspects of the knee and is described as soreness. The onset of pain was gradual, with no specific traumatic event preceding it. The pain became severe enough that Eliceo had difficulty ambulating the following day. He notes that the pain is exacerbated by lateral movements and pressure. 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 (more content not included)... [facility] BERNARDO CARVER ([id number]) 1960 [place] Date Time Provider Department 01/19/25 MIKEY NERI During your visit today, we recorded the following information about you: Jannette Bardales MA 01/19/2025 11:35 AM Signed Patient scheduled for Left knee arthroscopic medial menisectomy on 02/09/25. Jannette Bardales MA 01/19/2025 2:47 PM Signed Surgical clearance letter sent to Dr Frost. Patient is on Brilinta and had a heart stent placement 02/27. Jannette Bardales MA 01/20/2025 4:25 PM Signed Received letter from Dr Frost's office. Per Denilson Marinelli CLOSET BUILDER patient is to stop Plavix 5 days prior to surgery. Records scanned into [employer]. Patient was notified. Surgical request completed. Post op appointments mailed to the patient. Liliana Andrews MA 01/21/2025 7:56 AM Signed Surgery has been scheduled as requested. 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 - lisinopril (ZESTRIL) 20 mg tablet Take 1 tablet by mouth once daily. - BRILINTA 90 mg tablet Take 90 mg by mouth two times a day. - atorvastatin (LIPITOR) 40 mg tablet Take 40 mg by mouth daily at bedtime. - dutasteride (AVODART) 0.5 mg capsule Take 1 capsule by mouth once daily. - tamsulosin (FLOMAX) 0.4 mg Take 2 capsules by mouth daily at bedtime. - aspirin, enteric coated (ADULT LOW DOSE ASPIRIN) 81 mg EC tablet Take 1 tablet by mouth once daily. - cetirizine (ZYRTEC) 10 mg tablet Take 1 tablet by mouth once daily. - CPAP Initiate CPAP @ 12 cm of water with humidification. Mask (per patient preference) optional chin strap (if indicated) , filters, tubing, humidifier and lifetime supplies. ResMed Mirage Quattro, size medium Problem List As Of Date 01/19/2025 Noted Resolved Hypertension [I10] 08/09/2014 Sleep apnea [G47.30] 08/22/2014 Hyperlipidemia, mixed [E78.2] 08/22/2014 Elevated glucose [R73.09] 08/22/2014 Chronic right shoulder pain [M25.511, G89.29] 10/03/2015 Allergic rhinitis [J30.9] 01/12/2016 Right-sided low back pain with right-sided scia*03/06/2016 Hearing loss in left ear [H91.92] 10/25/2016 Vestibular schwannoma (HCC) [D33.3] 11/13/2016 Essential hypertension [I10] 11/13/2016 JEFFREY on CPAP [G47.33] 11/13/2016 Non morbid obesity due to excess calories [E66.*11/13/2016 Moderate smoker (20 or less per day) [F17.210] 11/13/2016 Post-op pain [G89.18] 11/22/2016 12/05/2016 Acute respiratory failure (HCC) [J96.00] 11/22/2016 12/05/2016 Obesity, Class I, BMI 30-34.9 [E66.811] 07/19/2019 Acute pain of left knee [M25.562] 12/01/2024 Acute medial meniscus tear of left knee [S83.24*01/12/2025 Tear of lateral meniscus of left knee, current *01/12/2025 Letter Text Encounter Status:Closed by LILIANA ANDREWS on 01/21/25 [facility] CNOVon 01-17-2025 CNOV Office Visit (ORTHWS ) BERNARDO CARVER ([id number]) 1960 M Date Time Provider Department 01/17/25 8:15 AM MIKEY NERI During your visit today, we recorded the following information about you: Mikey Neri MD 01/17/2025 8:51 AM Signed AMB ROOMING INTAKE FLOWSHEET DATA Pain Pain Level: 3 Description: Aching, Dull, Sore, Tightness Duration Amount of Time: 24 Duration Units: Hours Frequency: Continuous Patient presents with: Left Knee - New, Knee Pain Patient present to office for left knee meniescus tear. Referred by adriano lima. Xray 11/22/2024 MRI 01/12/2024. 2.5 month ago patient injured knee while helping niece move. SHIVA Pastrana MD Department of Orthopaedics Orthopaedics [address] [place] [id number] Dept: [phone] Dept January 17, 2025 CHIEF COMPLAINT: New and Knee Pain of the Left Knee HPI Eliceo Carver is a 64-year-old male presenting with left knee pain. Eliceo reports left knee pain that began after assisting his niece with moving into a new house. The pain is localized to the medial and posterior aspects of the knee and is described as soreness. The onset of pain was gradual, with no specific traumatic event preceding it. The pain became severe enough that Eliceo had difficulty ambulating the following day. He notes that the pain is exacerbated by lateral movements and pressure. 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 He has completed 2 months of physical therapy, which he reports aggravated the pain. He has been taking meloxicam without relief but notes significant improvement with a previous steroid taper. Eliceo has a history of a cardiac stent placement in February of last year, following a cardiac catheterization due to dyspnea. He was prescribed a blood thinner for 6-8 months post-procedure. He denies any history of blood clots. ASSESSMENT: M25.562 Acute pain of left knee (primary encounter diagnosis) S83.242A Acute medial meniscus tear of left knee, initial encounter M17.12 Primary osteoarthritis of left knee Q68.6 Discoid lateral meniscus of left knee Z95.5 Presence of coronary angioplasty implant and graft 1. Acute medial meniscus tear of left knee, initial encounter (S83.242A) Acute pain of left knee (M25.562) MRI reveals a tear in the medial meniscus, correlating with tenderness along the medial joint line. Effusion and mild fullness in the popliteal space noted. Cyndee's test positive; ligamentous exam stable. Previous treatments, including meloxicam and physical therapy, were ineffective; steroid taper provided temporary relief. - Discussed surgical intervention via arthroscopic meniscectomy to address the meniscal tear. - Patient educated on the procedure, including risks and benefits, and agreed to proceed. - Jannette to assist with scheduling the surgery; patient to coordinate timing based on work commitments. - Advised patient to consult with stem sizer Dr. Santiago for clearance due to history of coronary stent placement. 2. Primary osteoarthritis of left knee (M17.12) MRI indicates mild degenerative changes; cartilage appears well-preserved. 3. Discoid lateral meniscus of left knee (Q68.6) MRI shows a discoid lateral meniscus with minor fraying at the inner margin; no significant pathology. No surgical intervention required for the discoid meniscus. 4. Presence of coronary angioplasty implant and graft (Z95.5) Coronary stent placed in February of the previous year; patient on antiplatelet therapy. - Patient to confirm current antiplatelet regimen with stem sizer. - Obtain cardiology clearance prior to surgical intervention. Will continue to monitor patient for Acute medial meniscus tear of left knee, initial encounter Acute pain of left knee (primary encounter diagnosis) Primary osteoarthritis of left knee Discoid lateral meniscus of left knee Presence of coronary angioplasty implant and graft, patient to schedule visit as per follow up discussed. We have made the decision to move forward with a major orthopaedic surgery today, and this represents the moderate form of medical decision-making complexity. The patient's diagnosis of Acute medial meniscus tear of left knee, initial encounter Acute pain of left knee (primary encounter diagnosis) Primary osteoarthritis of left knee Discoid lateral meniscus of left knee Presence of coronary angioplasty implant and graft represents an acute pathology/diagnosis/injury that represents a current or possible direct threat to bodily function. The risks, benefits, alternatives and potential complications involving both operative and nonoperative treatment were reviewed patient understands and wishes to pursue surgical procedure outlined. Will get the pa (more content not included)... Normal [facility] MR Knee - left WO contraston 01-12-2025 IMPRESSION: 1. Medial meniscus tear with a component extruded to the inferomedial gutter. 2. Mild discoid lateral meniscus with inner margin fraying. 3. Osteoarthritis, moderate in the patellofemoral compartment and mild to moderate in the medial compartment.. 4. Joint effusion with small leaking Oneal's cyst. Medical Intern: DINO Transcribe Date/Time: Jan 11 2025 8:28A Dictated by : POLO GARCIA, DO This examination was interpreted and the report reviewed and electronically signed by: SRI BRUSH MD on Jan 12 2025 5:53AM [facility] DIVISION OF RADIOLOGY * * *Final Report* * * DATE OF EXAM: Jan 11 2025 7:34AM [facility] 0212 - MRI KNEE WO IVCON LT / PROCEDURE REASON: Acute pain of left knee * * * * Physician Interpretation * * * * EXAMINATION: MRI LEFT KNEE WITHOUT CONTRAST CLINICAL HISTORY: Internal derangement Knee pain, chronic, negative xray (Age >= 5y) TECHNIQUE: Routine non-contrast MRI of the knee MQ: MRK_2B COMPARISON: Knee radiograph dated 11/22/2024 RESULT: MENISCI: Medial Meniscus: Complex tear in the posterior horn and body with a component extruded towards the medial gutter. Lateral Meniscus: Nonspecific changes in the body with mild discoid meniscus and horizontal signal which reaches to some inner margin fraying at the body LIGAMENTS: ACL: Intact PCL: Intact MCL: Intact with medial bowing and adjacent edema from extruded meniscus component LCL Complex: Intact CARTILAGE: Medial Femoral Condyle: Moderate sized area(s) of predominantly low grade (less than 50% thickness) cartilage loss and or fissuring with smaller area(s) of full thickness cartilage loss and or fissuring Medial Tibial Plateau: Moderate sized area(s) of low grade (less than 50% thickness) partial thickness cartilage loss and or fissuring Lateral Femoral Condyle: Normal Lateral Tibial Plateau: Normal Patella: Moderate sized area(s) of predominantly high grade (greater than 50% thickness) cartilage loss and or fissuring with smaller area(s) of full thickness cartilage loss and or fissuring Trochlea: Moderate sized area(s) of predominantly low grade (less than 50% thickness) cartilage loss and or fissuring with smaller area(s) of full thickness cartilage loss and or fissuring TENDONS: The distal quadriceps tendon is intact. The popliteus tendon is intact. Intact patellar tendon with some deeper surface enthesophytes and associated focal deeper surface fraying at the insertion. BONES AND MARROW: No evidence of fracture or bone marrow replacing process. MUSCLES: Muscle bulk and signal intensity are normal. JOINT FLUID AND SYNOVIUM: Moderate joint effusion. Mild synovitis. Small leaking Oneal's cyst. OTHER: No other significant abnormality identified. Localizer images: Unremarkable. DIVISION OF RADIOLOGY Provider, [facility] - 01/12/2025 * * *Final Report* * * DATE OF EXAM: Jan 11 2025 7:34AM [facility] 0212 - MRI KNEE WO IVCON LT / PROCEDURE REASON: Acute pain of left knee * * * * Physician Interpretation * * * * EXAMINATION: MRI LEFT KNEE WITHOUT CONTRAST CLINICAL HISTORY: Internal derangement Knee pain, chronic, negative xray (Age >= 5y) TECHNIQUE: Routine non-contrast MRI of the knee MQ: MRK_2B COMPARISON: Knee radiograph dated 11/22/2024 RESULT: MENISCI: Medial Meniscus: Complex tear in the posterior horn and body with a component extruded towards the medial gutter. Lateral Meniscus: Nonspecific changes in the body with mild discoid meniscus and horizontal signal which reaches to some inner margin fraying at the body LIGAMENTS: ACL: Intact PCL: Intact MCL: Intact with medial bowing and adjacent edema from extruded meniscus component LCL Complex: Intact CARTILAGE: Medial Femoral Condyle: Moderate sized area(s) of predominantly low grade (less than 50% thickness) cartilage loss and or fissuring with smaller area(s) of full thickness cartilage loss and or fissuring Medial Tibial Plateau: Moderate sized area(s) of low grade (less than 50% thickness) partial thickness cartilage loss and or fissuring Lateral Femoral Condyle: Normal Lateral Tibial Plateau: Normal Patella: Moderate sized area(s) of predominantly high grade (greater than 50% thickness) cartilage loss and or fissuring with smaller area(s) of full thickness cartilage loss and or fissuring Trochlea: Moderate sized area(s) of predominantly low grade (less than 50% thickness) cartilage loss and or fissuring with smaller area(s) of full thickness cartilage loss and or fissuring TENDONS: The distal quadriceps tendon is intact. The popliteus tendon is intact. Intact patellar tendon with some deeper surface enthesophytes and associated focal deeper surface fraying at the insertion. BONES AND MARROW: No evidence of fracture or bone marrow replacing process. MUSCLES: Muscle bulk and signal intensity are normal. JOINT FLUID AND SYNOVIUM: Moderate joint effusion. Mild synovitis. Small leaking Oneal's cyst. OTHER: No other significant abnormality identified. Localizer images: Unremarkable. IMPRESSION IMPRESSION: 1. Medial meniscus tear with a component extruded to the inferomedial gutter. 2. Mild discoid lateral meniscus with inner margin fraying. 3. Osteoarthritis, moderate in the patellofemoral compartment and mild to moderate in the medial compartment.. 4. Joint effusion with small leaking Oneal's cyst. Medical Intern: DINO Transcribe Date/Time: Jan 11 2025 8:28A Dictated by : POLO GARCIA DO This examination was interpreted and the report reviewed and electronically signed by: SRI BRUSH MD on Jan 12 2025 5:53AM EST [facility] MR Knee - left WO contrastOr dered By: [facility] Provider on 01-12-2025 [facility] MR Knee - left WO contraston 01-11-2025 Radiology Study observation (narrative) [facility] MRI KNEE WO IVCON LTon 01-11 MRI KNEE WO IVCON LT * * *Final Report* * * DATE OF EXAM: Jan 11 2025 7:34AM [facility] 0212 - MRI KNEE WO IVCON LT / PROCEDURE REASON: Acute pain of left knee * * * * Physician Interpretation * * * * EXAMINATION: MRI LEFT KNEE WITHOUT CONTRAST CLINICAL HISTORY: Internal derangement Knee pain, chronic, negative xray (Age >= 5y) TECHNIQUE: Routine non-contrast MRI of the knee MQ: MRK_2B COMPARISON: Knee radiograph dated 11/22/2024 RESULT: MENISCI: Medial Meniscus: Complex tear in the posterior horn and body with a component extruded towards the medial gutter. Lateral Meniscus: Nonspecific changes in the body with mild discoid meniscus and horizontal signal which reaches to some inner margin fraying at the body LIGAMENTS: ACL: Intact PCL: Intact MCL: Intact with medial bowing and adjacent edema from extruded meniscus component LCL Complex: Intact CARTILAGE: Medial Femoral Condyle: Moderate sized area(s) of predominantly low grade (less than 50% thickness) cartilage loss and or fissuring with smaller area(s) of full thickness cartilage loss and or fissuring Medial Tibial Plateau: Moderate sized area(s) of low grade (less than 50% thickness) partial thickness cartilage loss and or fissuring Lateral Femoral Condyle: Normal Lateral Tibial Plateau: Normal Patella: Moderate sized area(s) of predominantly high grade (greater than 50% thickness) cartilage loss and or fissuring with smaller area(s) of full thickness cartilage loss and or fissuring Trochlea: Moderate sized area(s) of predominantly low grade (less than 50% thickness) cartilage loss and or fissuring with smaller area(s) of full thickness cartilage loss and or fissuring TENDONS: The distal quadriceps tendon is intact. The popliteus tendon is intact. Intact patellar tendon with some deeper surface enthesophytes and associated focal deeper surface fraying at the insertion. BONES AND MARROW: No evidence of fracture or bone marrow replacing process. MUSCLES: Muscle bulk and signal intensity are normal. JOINT FLUID AND SYNOVIUM: Moderate joint effusion. Mild synovitis. Small leaking Oneal's cyst. OTHER: No other significant abnormality identified. Localizer images: Unremarkable. IMPRESSION: 1. Medial meniscus tear with a component extruded to the inferomedial gutter. 2. Mild discoid lateral meniscus with inner margin fraying. 3. Osteoarthritis, moderate in the patellofemoral compartment and mild to moderate in the medial compartment.. 4. Joint effusion with small leaking Oneal's cyst. Medical Intern: DINO Transcribe Date/Time: Jan 11 2025 8:28A Dictated by : POLO GARCIA, DO This examination was interpreted and the report reviewed and electronically signed by: SRI BRUSH MD on Jan 12 2025 5:53AM EST [id number] Normal [facility] RETINOPEXY LASER PROPHYLAXIS BREAK(S) OS (LEFT EYE)on 01-11-2025 [facility] OCT MACULA CIRRUS OU (BOTH E YES)on 01-10-2025 [facility] Radiology Study observation (narrative) [facility] CNTHERAPYon 12-27-2024 CNTHERAPY OT/PT/Speech Visit ( PTWS) BERNARDO CARVER ([id number]) 1960 M Date Time Provider Department 12/27/24 7:45 AM GEO LORENZO PTJUSTO Date Time Provider Department Center 12/27/2024 7:45 AM [id number], BRENT PTJUSTO Aponte Reason for Visit: Physical Therapy [503] PT Discharge [752] Primary Visit Diagnosis:Acute pain of left knee [M25.562] Allergies As of Date: 12/27/2024 Noted Allergy Reaction SEASONAL ALLERGIES 07/26/2014 9 - Itching Date Reviewed: 11/22/2024 Reviewed by: Deb Moseley LPN - Fully Assessed Prescriptions as of 12/27/2024 - meloxicam (MOBIC) 15 mg tablet Take 1 tablet by mouth once daily. - lisinopril (ZESTRIL) 20 mg tablet Take 1 tablet by mouth once daily. - BRILINTA 90 mg tablet Take 90 mg by mouth two times a day. - atorvastatin (LIPITOR) 40 mg tablet Take 40 mg by mouth daily at bedtime. - dutasteride (AVODART) 0.5 mg capsule Take 1 capsule by mouth once daily. - tamsulosin (FLOMAX) 0.4 mg Take 2 capsules by mouth daily at bedtime. - aspirin, enteric coated (ADULT LOW DOSE ASPIRIN) 81 mg EC tablet Take 1 tablet by mouth once daily. - cetirizine (ZYRTEC) 10 mg tablet Take 1 tablet by mouth once daily. - CPAP Initiate CPAP @ 12 cm of water with humidification. Mask (per patient preference) optional chin strap (if indicated) , filters, tubing, humidifier and lifetime supplies. ResMed Mirage Quattro, size medium [facility]PT/Speech Visit ( PTWS) BERNARDO CARVER ([id number]) 1960 M Date Time Provider Department 12/21/24 11:00 AM BETZAIDA VELASQUEZ PTWS Date Time Provider Department Center 12/21/2024 11:00 AM [id number], MARIAH PTJUSTO Aponte Reason for Visit: Physical Therapy [503] Primary Visit Diagnosis:Acute pain of left knee [M25.562] Allergies As of Date: 12/21/2024 Noted Allergy Reaction SEASONAL ALLERGIES 07/26/2014 9 - Itching Date Reviewed: 11/22/2024 Reviewed by: Deb Moseley LPN - Fully Assessed Prescriptions as of 12/21/2024 - predniSONE (DELTASONE) 10 mg tablet Take 4 tabs daily x 3 days, then 3 tabs x 3 days, 2 tabs x 3 days, then 1 tab x3 days with food. - meloxicam (MOBIC) 15 mg tablet Take 1 tablet by mouth once daily. - lisinopril (ZESTRIL) 20 mg tablet Take 1 tablet by mouth once daily. - BRILINTA 90 mg tablet Take 90 mg by mouth two times a day. - atorvastatin (LIPITOR) 40 mg tablet Take 40 mg by mouth daily at bedtime. - dutasteride (AVODART) 0.5 mg capsule Take 1 capsule by mouth once daily. - tamsulosin (FLOMAX) 0.4 mg Take 2 capsules by mouth daily at bedtime. - aspirin, enteric coated (ADULT LOW DOSE ASPIRIN) 81 mg EC tablet Take 1 tablet by mouth once daily. - cetirizine (ZYRTEC) 10 mg tablet Take 1 tablet by mouth once daily. - CPAP Initiate CPAP @ 12 cm of water with humidification. Mask (per patient preference) optional chin strap (if indicated) , filters, tubing, humidifier and lifetime supplies. ResMed Mirage Quattro, size medium Mat Sewer: Therapy (PT/OT/Speech/Resp) ID: [id number] 12/21/2024 11:13 AM Author: BETZAIDA VELASQUEZ Signed by BETZAIDA VELASQUEZ LOG SCALER on 12/21/2024 at 11:13 AM Document text: Program_ID:[id number] Access Code: [email or web address] URL: [email or web address] Date: 12-21-2024 Prepared By: Geo Lorenzo Program Notes Exercises - Supine Heel Slide - 3 x daily - 7 x weekly - 2 sets - 10 reps - Lying Prone - 3 x daily - 5-7 x weekly - sets - reps - Static Prone on Elbows - 3 x daily - 5-7 x weekly - sets - reps - Prone Press Up - 3 x daily - 5-7 x weekly - 2 sets - 10 reps - Seated Transversus Abdominis Bracing - 2-3 x daily - 7 x weekly - 2 sets - 10 reps - Seated March - 2-3 x daily - 7 x weekly - 2 sets - 10 reps - Seated Marching with Opposite Shoulder Flexion - 2-3 x daily - 7 x weekly - 2 sets - 10 reps Normal [facility] THERAPY NTon 12-21-2024 THERAPY NT HNO ID: [id number] Author: BETZAIDA VELASQUEZ PTA Service: ? Author Type: Spray Blender Type: Therapy (PT/OT/Speech/Resp) Filed: 12/21/2024 11:13 Note Text: Program_ID:[id number] Access Code: [email or web address] URL: [email or web address] Date: 12-21-2024 Prepared By: Geo Lorenzo Program Notes Exercises - Supine Heel Slide - 3 x daily - 7 x weekly - 2 sets - 10 reps - Lying Prone - 3 x daily - 5-7 x weekly - sets - reps - Static Prone on Elbows - 3 x daily - 5-7 x weekly - sets - reps - Prone Press Up - 3 x daily - 5-7 x weekly - 2 sets - 10 reps - Seated Transversus Abdominis Bracing - 2-3 x daily - 7 x weekly - 2 sets - 10 reps - Seated March - 2-3 x daily - 7 x weekly - 2 sets - 10 reps - Seated Marching with Opposite Shoulder Flexion - 2-3 x daily - 7 x weekly - 2 sets - 10 reps Normal [facility] CNTHERAPYon 12-16-2024 CNTHERAPY OT/PT/Speech Visit ( PTWS) BERNARDO CARVER ([id number]) 1960 Date Time Provider Department 12/16/24 11:45 AM BETZAIDA VELASQUEZ PTJUSTO Date Time Provider Department Center 12/16/2024 11:45 AM [id number], MARIAH PTJUSTO Aponte Reason for Visit: Physical Therapy [503] Primary Visit Diagnosis:Acute pain of left knee [M25.562] Allergies As of Date: 12/16/2024 Noted Allergy Reaction SEASONAL ALLERGIES 07/26/2014 9 - Itching Date Reviewed: 11/22/2024 Reviewed by: Deb Moseley LPN - Fully Assessed Prescriptions as of 12/17/2024 - predniSONE (DELTASONE) 10 mg tablet Take 4 tabs daily x 3 days, then 3 tabs x 3 days, 2 tabs x 3 days, then 1 tab x3 days with food. - meloxicam (MOBIC) 15 mg tablet Take 1 tablet by mouth once daily. - lisinopril (ZESTRIL) 20 mg tablet Take 1 tablet by mouth once daily. - BRILINTA 90 mg tablet Take 90 mg by mouth two times a day. - atorvastatin (LIPITOR) 40 mg tablet Take 40 mg by mouth daily at bedtime. - dutasteride (AVODART) 0.5 mg capsule Take 1 capsule by mouth once daily. - tamsulosin (FLOMAX) 0.4 mg Take 2 capsules by mouth daily at bedtime. - aspirin, enteric coated (ADULT LOW DOSE ASPIRIN) 81 mg EC tablet Take 1 tablet by mouth once daily. - cetirizine (ZYRTEC) 10 mg tablet Take 1 tablet by mouth once daily. - CPAP Initiate CPAP @ 12 cm of water with humidification. Mask (per patient preference) optional chin strap (if indicated) , filters, tubing, humidifier and lifetime supplies. ResMed Mirage Quattro, size medium Normal [facility] CNTHERAPYon 12-08-2024 CNTHERAPY OT/PT/Speech Visit ( PTWS) BERNARDO CARVER ([id number]) 1960 M Date Time Provider Department 12/08/24 10:00 AM GEO LORENZO PTWS Date Time Provider Department Center 12/08/2024 10:00 AM [id number], BRENT PTWS Jesus Aponte Reason for Visit: Physical Therapy [503] Primary Visit Diagnosis:Acute pain of left knee [M25.562] Allergies As of Date: 12/08/2024 Noted Allergy Reaction SEASONAL ALLERGIES 07/26/2014 9 - Itching Date Reviewed: 11/22/2024 Reviewed by: Deb Moseley LPN - Fully Assessed Prescriptions as of 12/08/2024 - lisinopril (ZESTRIL) 20 mg tablet Take 1 tablet by mouth once daily. - BRILINTA 90 mg tablet Take 90 mg by mouth two times a day. - atorvastatin (LIPITOR) 40 mg tablet Take 40 mg by mouth daily at bedtime. - dutasteride (AVODART) 0.5 mg capsule Take 1 capsule by mouth once daily. - tamsulosin (FLOMAX) 0.4 mg Take 2 capsules by mouth daily at bedtime. - aspirin, enteric coated (ADULT LOW DOSE ASPIRIN) 81 mg EC tablet Take 1 tablet by mouth once daily. - cetirizine (ZYRTEC) 10 mg tablet Take 1 tablet by mouth once daily. - CPAP Initiate CPAP @ 12 cm of water with humidification. Mask (per patient preference) optional chin strap (if indicated) , filters, tubing, humidifier and lifetime supplies. ResMed Mirage Quattro, size medium Normal [facility] [id number] 12-01-2024 [id number] HNO ID: [id number] Author: GEO LORENZO PT Service: ? Author Type: Physical Therapist Type: [id number] Filed: 12/01/2024 19:59 Note Text: [facility] Physical Therapy Plan of Care Certification Patient Name: Bernardo Carver : 1960 CC #: [id number] Date: 12/01/2024 To: Adriano Lima APRN.PROFESSOR OF COMMUNICATION AND WRITING From Therapist: Geo Lorenzo PT RE: Patient Certification/ Recertification Your review, approval and electronic signature are required in order to comply with Payor: [facility] MEDICAID / Plan: [facility] COMMUNITY PLAN MEDICAID [facility] / Product Type: Medicaid / regulations. The identified Physical Therapy PLAN OF CARE for the patient is as follows: M25.562 Acute pain of left knee PLAN OF CARE: Assessment: Bernardo Carver presents with chief complaint of L knee, hip and calf pain that interferes with working, walking, squatting, stair negotiation, sleeping (climbing) . The patient presents with impairments in ADL's, gait, independence in exercise, overall function, patient reported outcome measures, posture, range of motion, strength, and symptom management. PROMIS? (Patient-Reported Outcomes Measurement Information System) scores were reviewed and identified as a rehabilitation concern. Prognosis for therapy is Good due to: current objective clinical presentation, good overall health status, within-session changes. The patient will benefit from skilled therapy services to meet the goals established for this plan of care as noted below. Classification Pain Mechanism Classification: Neuropathic Low Back Pain Classification: Symptom Modulation Goals for Episode of Care: established 12/01/24 Patient reported outcome of physical function will increase T-score by a minimum 5 points. Independent in home exercises. Patient will decrease pain to 0/10 at rest and with functional activities to allow patient to improve ambulation, transfers, and standing tolerance for ADLs. Restore pain-free lumbar ROM to WFL to allow for improved work tolerance. Stand / Walk without limitations, without pain/symptoms. Sleep through night without pain/symptoms. Patient will be able to tolerate walking, squatting, stairs, climbing and sleeping without increased symptoms. Patient will increase strength of posture muscles to WFL to allow for return to prior functional status. Patient Goals: eliminate pain Time Frame for Goals and Treatment : 01/12/25 Planned Interventions, Frequency, and Duration: Current Frequency: 1x/week Duration: 6 weeks Total Number of Visits Planned: 6 Planned Treatment Interventions: Therapeutic exercise (46419), Neuromuscular re-education (08994), Manual therapy (27609), Therapeutic activities (78265), Self-long term management (62979), Patient/Family/Caregiver Education, Body Mechanics Training PLAN FOR NEXT VISIT: Review, correct and progress HEP to tolerance. Continue with plan of care to address L knee ROM, pain and functional difficulties but focus on likely L lumbar radiculopathy with extension directional preference. Continue with postural stretching and strengthening with extension directional preference. Consider manual lumbar belt traction prn. Patient demonstrates good understanding of plan of care and treatment. The above goals and plan of care were discussed and agreed upon by patient/family. For further details regarding this patient refer to the Physical Therapy electronically documented visit dated 12/01/2024. Provider Attestation I have reviewed the treatment plan for Bernardo Carver, [facility]# [id number] for the period of 12/01/24 -- 01/12/25, established on 12/01/2024. Signature certifies the need for therapy services. Normal [facility] CNTHERAPYon 12-01-2024 CNTHERAPY OT/PT/Speech Visit ( PTWS) BERNARDO CARVER ([id number]) 1960 M Date Time Provider Department 12/01/24 4:00 PM GEO LORENZO PTWS Date Time Provider Department Center 12/01/2024 4:00 PM [id number], [facility] PTWS Jesus Aponte Reason for Visit: PT Eval [747] Physical Therapy [503] Visit Diagnosis:Acute pain of left knee [M25.562] Allergies As of Date: 12/01/2024 Noted Allergy Reaction SEASONAL ALLERGIES 07/26/2014 9 - Itching Date Reviewed: 11/22/2024 Reviewed by: Deb Moseley LPN - Fully Assessed Prescriptions as of 12/01/2024 - lisinopril (ZESTRIL) 20 mg tablet Take 1 tablet by mouth once daily. - BRILINTA 90 mg tablet Take 90 mg by mouth two times a day. - atorvastatin (LIPITOR) 40 mg tablet Take 40 mg by mouth daily at bedtime. - dutasteride (AVODART) 0.5 mg capsule Take 1 capsule by mouth once daily. - tamsulosin (FLOMAX) 0.4 mg Take 2 capsules by mouth daily at bedtime. - aspirin, enteric coated (ADULT LOW DOSE ASPIRIN) 81 mg EC tablet Take 1 tablet by mouth once daily. - cetirizine (ZYRTEC) 10 mg tablet Take 1 tablet by mouth once daily. - CPAP Initiate CPAP @ 12 cm of water with humidification. Mask (per patient preference) optional chin strap (if indicated) , filters, tubing, humidifier and lifetime supplies. ResMed Mirage Quattro, size medium Mat Sewer: Addendum Therapy (PT/OT/Speech/Resp) ID: [id number] 12/01/2024 4:40 PM Author: GEO LORENZO Signed by GEO LORENZO PT on 12/01/2024 at 4:40 PM * * * This document replaces document [id number] * * * Document text: Program_ID:[id number] Access Code: [email or web address] URL: [email or web address]/ Date: 12-01-2024 Prepared By: Geo Lorenzo Program Notes Exercises - Supine Heel Slide - 3 x daily - 7 x weekly - 2 sets - 10 reps - Lying Prone - 3 x daily - 5-7 x weekly - sets - reps - Static Prone on Elbows - 3 x daily - 5-7 x weekly - sets - reps - Prone Press Up - 3 x daily - 5-7 x weekly - 2 sets - 10 reps Normal [facility] THERAPY NTon 12-01-2024 THERAPY NT HNO ID: [id number] Author: GEO LORENZO PT Service: ? Author Type: Physical Therapist Type: Therapy (PT/OT/Speech/Resp) Filed: 12/01/2024 16:40 Note Text: Program_ID:[id number] Access Code: [email or web address] URL: [email or web address] Date: 12-01-2024 Prepared By: Geo Lorenzo Program Notes Exercises - Supine Heel Slide - 3 x daily - 7 x weekly - 2 sets - 10 reps - Lying Prone - 3 x daily - 5-7 x weekly - sets - reps - Static Prone on Elbows - 3 x daily - 5-7 x weekly - sets - reps - Prone Press Up - 3 x daily - 5-7 x weekly - 2 sets - 10 reps Normal [facility] CBC W Auto Differential pane l (Bld)on 11-22-2024 Basophils (Bld) [#/Vol] 0.04 10*3/uL Normal <0.11 [facility] Comment on above: Order Comment: Speci men Type: BLOOD SPECIMENOrdering Facility: [facility] Address: [address] [place] [address] Performed By: #### 5 7021-8 ####[facility] LABCLIA [id number] [place] [address] [place] Basophils/100 WBC (Bld) 0.7 % Normal [facility] Comment on above: Order Comment: Speci men Type: BLOOD SPECIMENOrdering Facility: [facility] Address: [address] [place] [address] Performed By: #### 5 7021-8 ####[facility] LABCLIA [id number] [place] [address] [place] Differential cell count method Nom (Bld) Auto Normal [facility] Comment on above: Order Comment: Speci men Type: BLOOD SPECIMENOrdering Facility: [facility] Address: [address] [place] [address] Performed By: #### 5 7021-8 ####[facility] LABCLIA [id number] [place] [address] [place] Eosinophils (Bld) [#/Vol] 0.12 10*3/uL Normal <0.46 [facility] Comment on above: Order Comment: Speci men Type: BLOOD SPECIMENOrdering Facility: [facility] Address: [address] [place] [address] Performed By: #### 5 7021-8 ####[facility] LABCLIA [id number] [address] [place] Eosinophils/100 WBC (Bld) 2.2 % Normal [facility] Comment on above: Order Comment: Speci men Type: BLOOD SPECIMENOrdering Facility: [facility] Address: [address] [place] [address] Performed By: #### 5 7021-8 ####[facility] LABCLIA [id number] [place] [address] [place] Erythrocyte distribution width (RBC) [Ratio] 14.4 % Normal 11.5-15.0 [facility] Comment on above: Order Comment: Speci men Type: BLOOD SPECIMENOrdering Facility: [facility] Address: [address] [place] [address] Performed By: #### 5 7021-8 ####[facility] LABCLIA [id number] [place] [address] [place] Hematocrit (Bld) [Volume fraction] 46.6 % Normal 39.0-51.0 [facility] Comment on above: Order Comment: Speci men Type: BLOOD SPECIMENOrdering Facility: [facility] Address: [address] [place] [address] Performed By: #### 5 7021-8 ####[facility] LABIA [id number] [place] [address] [place] Hemoglobin (Bld) [Mass/Vol] 15.4 g/dL Normal 13.0-17.0 [facility] Comment on above: Order Comment: Speci men Type: BLOOD SPECIMENOrdering Facility: [facility] Address: [address] [place] [address] Performed By: #### 5 7021-8 ####[facility] LABIA [id number] [place] [address] [place] Immature granulocytes (Bld) [#/Vol] 0.03 10*3/uL Normal <0.10 [facility] Comment on above: Order Comment: Speci men Type: BLOOD SPECIMENOrdering Facility: [facility] Address: [address] [place] [address] Performed By: #### 5 7021-8 ####[facility] LABIA [id number] [place] [address] [place] Immature granulocytes/100 WBC (Bld) 0.5 % Normal [facility] Comment on above: Order Comment: Speci men Type: BLOOD SPECIMENOrdering Facility: [facility] Address: [address] [place] [address] Performed By: #### 5 7021-8 ####[facility] LABIA [id number] [place] [address] [place] Lymphocytes (Bld) [#/Vol] 1.31 10*3/uL Normal 1.00-4.00 [facility] Comment on above: Order Comment: Speci men Type: BLOOD SPECIMENOrdering Facility: [facility] Address: [address] [place] [address] Performed By: #### 5 7021-8 ####[facility] LABIA [id number] [place] [address] [place] Lymphocytes/100 WBC (Bld) 23.6 % Normal [facility] Comment on above: Order Comment: Speci men Type: BLOOD SPECIMENOrdering Facility: [facility] Address: [address] [place] [address] Performed By: #### 5 7021-8 ####[facility] LABIA [id number] [place] [address] [place] MCH (RBC) [Entitic mass] 30.1 pg Normal 26.0-34.0 [facility] Comment on above: Order Comment: Speci men Type: BLOOD SPECIMENOrdering Facility: [facility] Address: [address] [place] [address] Performed By: #### 5 7021-8 ####[facility] LABIA [id number] [place] [address] [place] MCHC (RBC) [Mass/Vol] 33.0 g/dL Normal 30.5-36.0 [facility] Comment on above: Order Comment: Speci men Type: BLOOD SPECIMENOrdering Facility: [facility] Address: [address] [place] [address] Performed By: #### 5 7021-8 ####[facility] LABIA [id number] [place] [address] [place] MCV (RBC) [Entitic vol] 91.2 fL Normal 80.0-100.0 [facility] Comment on above: Order Comment: Speci men Type: BLOOD SPECIMENOrdering Facility: [facility] Address: [address] [place] [address] Performed By: #### 5 7021-8 ####[facility] LABCLIA [id number] [facility] [address], [facility] [place] Monocytes (Bld) [#/Vol] 0.57 10*3/uL Normal <0.87 [facility] Comment on above: Order Comment: Speci men Type: BLOOD SPECIMENOrdering Facility: [facility] Address: [address] [place] [address] Performed By: #### 5 7021-8 ####[facility] LABCLIA [id number] [address], [place] [address] [place] Monocytes/100 WBC (Bld) 10.3 % Normal [facility] Comment on above: Order Comment: Speci men Type: BLOOD SPECIMENOrdering Facility: [facility] Address: [address] [place] [address] Performed By: #### 5 7021-8 ####[facility] LABCLIA [id number] [address], [facility] [place] Neutrophils (Bld) [#/Vol] 3.49 10*3/uL Normal 1.45-7.50 [facility] Comment on above: Order Comment: Speci men Type: BLOOD SPECIMENOrdering Facility: [facility] Address: [address] [place] [address] Performed By: #### 5 7021-8 ####[facility] LABCLIA [id number] [place] [address] [place] Neutrophils/100 WBC (Bld) 62.7 % Normal [facility] Comment on above: Order Comment: Speci men Type: BLOOD SPECIMENOrdering Facility: [facility] Address: [address] [place] [address] Performed By: #### 5 7021-8 ####[facility] LABCLIA [id number] [address] [place] [address] [place] Nucleated RBC (Bld) [#/Vol] 10*3/uL Normal <0.01 [facility] Comment on above: Order Comment: Speci men Type: BLOOD SPECIMENOrdering Facility: [facility] Address: [address] [place] [address] Performed By: #### 5 7021-8 ####[facility] LABCLIA [id number] [place] [address] [place] Nucleated RBC/100 WBC (Bld) [Ratio] 0.0 /100 WBC Normal [facility] Comment on above: Order Comment: Speci men Type: BLOOD SPECIMENOrdering Facility: [facility] Address: [address] [place] [address] Performed By: #### 5 7021-8 ####[facility] LABCLIA [id number] [place] [address] [place] Platelet mean volume (Bld) [Entitic vol] 11.0 fL Normal 9.0-12.7 [facility] Comment on above: Order Comment: Speci men Type: BLOOD SPECIMENOrdering Facility: [facility] Address: [address] [place] [address] Performed By: #### 5 7021-8 ####[facility] LABIA [id number] [place] [address] [place] Platelets (Bld) [#/Vol] 171 10*3/uL Normal 150-400 [facility] Comment on above: Order Comment: Speci men Type: BLOOD SPECIMENOrdering Facility: [facility] Address: [address] [place] [address] Performed By: #### 5 7021-8 ####[facility] LABCLIA [id number] [place] [address] [place] RBC (Bld) [#/Vol] 5.11 10*6/uL Normal 4.20-6.00 [facility] Comment on above: Order Comment: Speci men Type: BLOOD SPECIMENOrdering Facility: [facility] Address: [address] [place] [address] Performed By: #### 5 7021-8 ####[facility] [id number] [place] [address] [place] WBC (Bld) [#/Vol] 5.56 10*3/uL Normal 3.70-11.00 [facility] Comment on above: Order Comment: Speci men Type: BLOOD SPECIMENOrdering Facility: [facility] Address: [address] [place] [address] Performed By: #### 5 7021-8 ####[facility] [id number] [place] [address] [place] CNOVon 11-22-2024 CNOV Office Visit (FAMWS ) BERNARDO CARVER ([id number]) 1960 M Date Time Provider Department 11/22/24 7:20 AM [facility] During your visit today, we recorded the following information about you: Pulse Respiration Blood pressure Weight 52/minute 16/minute 118/76 96.6 kg Adriano Lima APRN.PROFESSOR OF COMMUNICATION AND WRITING 11/22/2024 7:47 AM Signed Chief Complaint Patient presents with: 6 Month Exam HPI Bernardo Jolly Mehul is a 64 year old male who presents here today for above reason. Eliceo is a 64-year-old male with a history of HTN, BPH, CAD s/p stent placement 6-8 months ago, and JEFFREY, presenting for follow-up and medication refill. Eliceo reports well-controlled blood pressure at home and denies any side effects from lisinopril, including dry cough or tongue swelling. He requests a refill of lisinopril. He is also taking Flomax and Avodart for BPH but reports they are ineffective. He is awaiting a TURP procedure and is currently on Brilinta due to a stent placement 6-8 months ago. He follows up with [facility] and is due for a follow-up in 2 months. He denies ongoing chest pain, syncope, or dyspnea, noting that dyspnea is "95% gone." He is also on a cholesterol medication and uses a CPAP machine nightly with good benefit. Eliceo also reports left knee pain that started 1.5 months ago, initially presenting as severe pain upon waking, making ambulation difficult. The pain is now constant and prevents him from using the treadmill. He denies swelling, popping, or snapping sounds in the knee. The pain is located on the sides of the patella and is described as deep. He denies pain with palpation. 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 Patient is frustrated by difficulty in weight loss efforts. He goes to the gym, eats no processed foods. No sugar. Does not go out to eat. Drinks about 100 oz of water daily. He keeps carbs to a minimium. No results. Wants ideas to improve diet. Past medical history, appointments, medications, allergies reviewed. EXAM: BP 118/76 (BP Position: Sitting) Pulse (!) 52 Resp 16 Wt 96.6 kg (213 lb) SpO2 97% BMI 29.71 kg/m? General Appearance: Well appearing, alert, in no acute distress, well-hydrated, well nourished.. Lungs: Lungs clear to auscultation. No wheezing, rhonchi, rales.. Heart: RRR without murmur, gallop, or rubs. No ectopy. Musculoskeletal: KNEE:Location: Left Redness: No. Warmth: No. Crepitus: No. Effusion: No. Joint line tenderness: No. Lateral tenderness: No. Medial tenderness: No. Drawer sign negative: No. Medial or lateral laxity: No. Cyndee's sign: No. Assessment and plan 1. Essential hypertension (I10) Blood pressure is well-controlled on current regimen of lisinopril without any reported side effects such as cough or angioedema. - Refilled lisinopril prescription and sent to [facility] in [place]. - Scheduled follow-up in 6 months. 2. Hyperlipidemia, mixed (E78.2) Patient is on cholesterol medication. Last labs in May were within normal limits. - Ordered lipid panel. 3. Benign prostatic hyperplasia with weak urinary stream (N40.1) Currently managed with Flomax and Avodart, but patient reports inadequate symptom relief. Patient is considering TURP procedure; awaiting confirmation due to current Brilinta therapy. - Continue current medications. - Follow up with urology regarding TURP procedure. 4. JEFFREY on CPAP (G47.33) Patient is compliant with CPAP therapy and reports significant benefit. 5. H/O right coronary artery stent placement (Z95.5) Stent placed approximately 6 months ago. Patient is on Brilinta and cholesterol medication. No reports of chest pain, syncope, or significant dyspnea. - Ordered lipid panel and liver function tests. - Advised patient to contact [facility] to schedule follow-up. 6. Acute pain of left knee (M25.562) Persistent pain for 1.5 months, localized to the sides of the knee, with difficulty ambulating and inability to perform usual physical activities. No swelling or tenderness on examination, but crepitus noted. Lateral and medial menisci appear intact. - Ordered X-ray of the left knee. - Initiated short course of Medrol to reduce inflammation. - Referred to physical therapy. - If no improvement in 2-3 weeks, consider MRI. 7. Overweight with body mass index (BMI) of 29 to 29.9 in adult (E66.3) - Appears that he is doing everything he can in terms of lifestyle. - Not eligible for Adipex. - Likely insurance will not cover GLP-1 - Refer to nutrition. Adriano Lima APRN.PROFESSOR OF COMMUNICATION AND WRITING RTO in 6 months, sooner if needed. This note was partly generated using [employer] voice recognition dictation and may contain some misspelled or inaccurate words missed on review. Recording using [employer] software for draft documentation of the visit was discussed with the (more content not included)... Normal [facility] Comprehensive metabolic 2000 panelon 11-22-2024 Albumin [Mass/Vol] 4.5 g/dL Normal 3.9-4.9 [facility] Comment on above: Order Comment: Speci men Type: BLOOD SPECIMENOrdering Facility: [facility] Address: [address] [place] [address] Performed By: #### 2 4323-8, 55090-3 ####[facility] LABCLIA [id number] [facility] [address] [place] [address] [place] ALP [Catalytic activity/Vol] 49 U/L Normal 38-113 [facility] Comment on above: Order Comment: Speci men Type: BLOOD SPECIMENOrdering Facility: [facility] Address: [address] [place], [place] [address] Performed By: #### 2 4323-8, 44369-2 ####[facility] LABCLIA [id number] [facility] [address] [place] [address] [place] ALT [Catalytic activity/Vol] 21 U/L Normal 10-54 [facility] Comment on above: Order Comment: Speci men Type: BLOOD SPECIMENOrdering Facility: [facility] Address: [address] [place], [place] [address] Performed By: #### 2 4323-8, 68279-8 ####[facility] LABCLIA [id number] [facility] [address] [place] [address] [place] Anion gap [Moles/Vol] 9 mmol/L Normal 8-15 [facility] Comment on above: Order Comment: Speci men Type: BLOOD SPECIMENOrdering Facility: [facility] Address: [address] [place], [place] [id number] Performed By: #### 2 4323-8, 51596-8 ####[facility] LABCLIA [id number] [facility] [address] [place] [address] [place] AST [Catalytic activity/Vol] 23 U/L Normal 14-40 [facility] Comment on above: Order Comment: Speci men Type: BLOOD SPECIMENOrdering Facility: [facility] Address: [address] [place], [place] [address] Performed By: #### 2 4323-8, 40596-1 ####[facility] LABCLIA [id number] [facility] [address], [facility] [place] Bilirubin [Mass/Vol] 0.4 mg/dL Normal 0.2-1.3 [facility] Comment on above: Order Comment: Speci men Type: BLOOD SPECIMENOrdering Facility: [facility] Address: [address] [place] [address] Performed By: #### 2 4323-8, 31726-7 ####[facility] LABCLIA [id number] [address], [facility] [place] Calcium [Mass/Vol] 9.3 mg/dL Normal 8.5-10.2 [facility] Comment on above: Order Comment: Speci men Type: BLOOD SPECIMENOrdering Facility: [facility] Address: [address] [place] [address] Performed By: #### 2 4323-8, 39718-2 ####[facility] LABCLIA [id number] [place] [address] [place] Chloride [Moles/Vol] 103 mmol/L Normal 98-107 [facility] Comment on above: Order Comment: Speci men Type: BLOOD SPECIMENOrdering Facility: [facility] Address: [address] [place] [address] Performed By: #### 2 4323-8, 09303-3 ####[facility] LABCLIA [id number] [address], [facility] [place] CO2 [Moles/Vol] 24 mmol/L Normal 22-30 [facility] Comment on above: Order Comment: Speci men Type: BLOOD SPECIMENOrdering Facility: [facility] Address: [address] [place], [place] [address] Performed By: #### 2 4323-8, 84474-9 ####[facility] LABCLIA [id number] [address], [facility] [place] Creatinine [Mass/Vol] 0.88 mg/dL Normal 0.73-1.22 [facility] Comment on above: Order Comment: Speci men Type: BLOOD SPECIMENOrdering Facility: [facility] Address: [address] [place] [address] Performed By: #### 2 4323-8, 47353-3 ####[facility] LABIA [id number] [place] [address] [place] Creatinine and Glomerular filtration rate.predicted panel (S/P/Bld) 97 mL/min/1.73m??? Normal >=60 [facility] Comment on above: Order Comment: Jen ying Type: BLOOD SPECIMENOrdering Facility: [facility] Address: [address] [place] [address] Result Comment: Filomena mated Glomerular Filtration Rate (eGFR) is calculated using the 2020 CKD-EPI creatinine equation. This equation utilizes serum creatinine, sex, and age as parameters. The creatinine assay has traceable calibration to isotope dilution-mass spectrometry. Refer to KDIGO guidelines for clinical interpretation. In patients with unstable renal function, e.g. those with acute kidney injury, the eGFR may not accurately reflect actual GFR. Performed By: #### 2 4323-8, 60731-4 ####[facility] LABIA [id number] [place] [id number] [place] Glucose [Mass/Vol] 116 mg/dL High 74-99 [facility] Comment on above: Order Comment: Jen ying Type: BLOOD SPECIMENOrdering Facility: [facility] Address: [address] [place] [address] Result Comment: The [place] Diabetes Association (ADA) provides guidance for cutoff values for fasting glucose and random glucose. The ADA defines fasting as no caloric intake for at least 8 hours. Fasting plasma glucose results between 100 to 125 mg/dL indicate increased risk for diabetes (prediabetes). Fasting plasma glucose results greater than or equal to 126 mg/dL meet the criteria for diagnosis of diabetes. In the absence of unequivocal hyperglycemia, results should be confirmed by repeat testing. In a patient with classic symptoms of hyperglycemia or hyperglycemic crisis, random plasma glucose results greater than or equal to 200 mg/dL meet the criteria for diagnosis of diabetes. Reference: Standards of Medical Care in Diabetes 2016, [place] Diabetes Association. Diabetes Care. 2016.39(Suppl 1). Performed By: #### 2 4323-8, 69215-0 ####[facility] LABCLIA [id number] [address] [address] [place] Potassium [Moles/Vol] 4.6 mmol/L Normal 3.7-5.1 [facility] Comment on above: Order Comment: Speci men Type: BLOOD SPECIMENOrdering Facility: [facility] Address: [address] [place] [address] Performed By: #### 2 4323-8, 55737-6 ####[facility] LABCLIA [id number] [address] [address] [place] Protein [Mass/Vol] 6.9 g/dL Normal 6.3-8.0 [facility] Comment on above: Order Comment: Speci men Type: BLOOD SPECIMENOrdering Facility: [facility] Address: [address] [place] [address] Performed By: #### 2 4323-8, 52524-1 ####[facility] LABCLIA [id number] [place] [address] [place] Sodium [Moles/Vol] 136 mmol/L Normal 136-144 [facility] Comment on above: Order Comment: Speci men Type: BLOOD SPECIMENOrdering Facility: [facility] Address: [address] [place] [address] Performed By: #### 2 4323-8, 63779-6 ####[facility] LABCLIA [id number] [address] [address] [place] Urea nitrogen [Mass/Vol] 25 mg/dL High 9-24 [facility] Comment on above: Order Comment: Speci men Type: BLOOD SPECIMENOrdering Facility: [facility] Address: [address] [place], [place] [address] Performed By: #### 2 4323-8, 58123-1 ####[facility] LABCLIA [id number] [address] [address] [place] Lipid 1996 panelon 5 Cholesterol [Mass/Vol] 175 mg/dL Normal <200 [facility] Comment on above: Order Comment: Speci men Type: BLOOD SPECIMENOrdering Facility: [facility] Address: [address] [place] [address] Result Comment: <200 mg/dL, Desirable 200-239 mg/dL, Borderline high >239 mg/dL, High Performed By: #### 2 4323-8, 15708-8 ####[facility] LABCLIA [id number] [place] [address] [place] Cholesterol in HDL [Mass/Vol] 46 mg/dL Normal >39 [facility] Comment on above: Order Comment: Speci men Type: BLOOD SPECIMENOrdering Facility: [facility] Address: [address] [place] [address] Result Comment: 40-5 9 mg/dL, Acceptable >59 mg/dL, High: Negative risk factor for coronary heart disease <40 mg/dL, Low: Positive risk factor for coronary heart disease Performed By: #### 2 4323-8, 56422-5 ####[facility] LABCLIA [id number] [address], [address] [place] Cholesterol in LDL [Mass/Vol] 118 mg/dL High <100 [facility] Comment on above: Order Comment: Speci men Type: BLOOD SPECIMENOrdering Facility: [facility] Address: [address] [place] [address] Result Comment: <100 mg/dL, Optimal 100-129 mg/dL, Near optimal/above optimal 130-159 mg/dL, Borderline high 160-189 mg/dL, High >189 mg/dL, Very high Secondary prevention optimal LDL Cholesterol levels are recommended to be <70 mg/dL LDL cholesterol is calculated using the Koch-NIH equation. Performed By: #### 2 4323-8, 45713-9 ####[facility] LABCLIA [id number] [address] [facility] Cholesterol in LDL/Cholesterol in HDL [Mass ratio] 2.57 {ratio} High <2.54 [facility] Comment on above: Order Comment: Jen men Type: BLOOD SPECIMENOrdering Facility: [facility] Address: [address] [place] [address] Result Comment: Aryan veloz: 1. National Cholesterol Education Program ATP III Guideline At-A-Glance Quick Desk Reference: National Heart, Lung, and Blood [place]. National Institutes of Health. 2001: NIH Publication No. 01-3305. 2. An International Atherosclerosis Society position paper: global recommendations for the management of dyslipidemia: executive summary, Atherosclerosis. 2014: 232(2):410-413. Performed By: #### 2 4323-8, 60342-8 ####[facility] LABCLIA [id number] [address] [place] Cholesterol in VLDL [Mass/Vol] 10 mg/dL Normal <30 [facility] Comment on above: Order Comment: Jen ying Type: BLOOD SPECIMENOrdering Facility: [facility] Address: [address] [place] [address] Performed By: #### 2 4323-8, 66790-8 ####[facility] LABCLIA [id number] [place] [address] [place] [facility] Cholesterol non HDL [Mass/Vol] 129 mg/dL Normal <130 [facility] Comment on above: Order Comment: Sergeyi men Type: BLOOD SPECIMENOrdering Facility: [facility] Address: [address] [place] [address] Result Comment: <130 mg/dL, Optimal 130-159 mg/dL, Near optimal/above optimal 160-189 mg/dL, Borderline high 190-219 mg/dL, High >219 mg/dL, Very high Secondary prevention optimal non HDL Cholesterol levels are recommended to be <100 mg/dL Performed By: #### 2 4323-8, 26552-5 ####[facility] LABCLIA [id number] [place] [id number] [place] [address] [place] Cholesterol.total/ Cholesterol in HDL [Mass ratio] 3.80 {ratio} Normal <5.10 [facility] Comment on above: Order Comment: Speci men Type: BLOOD SPECIMENOrdering Facility: [facility] Address: [address] [place] [address] Performed By: #### 2 4323-8, 62449-2 ####[facility] LABCLIA [id number] [address] [place] FASTING TIME 12 hrs Normal [facility] Comment on above: Order Comment: Speci men Type: BLOOD SPECIMENOrdering Facility: [facility] Address: [address] [place] [address] Performed By: #### 2 4323-8, 68904-1 ####[facility] LABCLIA [id number] [address] [place] Triglyceride [Mass/Vol] 59 mg/dL Normal <150 [facility] Comment on above: Order Comment: Speci men Type: BLOOD SPECIMENOrdering Facility: [facility] Address: [address] [place] [address] Result Comment: <150 mg/dL, Normal 150-199 mg/dL, Borderline high 200-499 mg/dL, High >499 mg/dL, Very high Performed By: #### 2 4323-8, 34147-4 ####[facility] LABCLIA [id number] [place] [address] [place] XR KNEE 4V AP/PA BOTH+LAT/ME R LTon 11-22-2024 XR KNEE 4V AP/PA BOTH+LAT/BRENDON LT * * *Final Report* * * DATE OF EXAM: Nov 22 2024 8:24AM WOX [id number] - XR KNEE 4V AP/PA BOTH+LAT/BRENDON LT / PROCEDURE REASON: Acute pain of left knee * * * * Physician Interpretation * * * * EXAMINATION / TECHNIQUE: XR KNEE 4V AP/PA BOTH+LAT/BRENDON LT HISTORY: left knee pain x 1 month, no known injury. Acute pain of left knee COMPARISON: None RESULT: No acute fracture or dislocation. Joint spaces are maintained. Chronic ossification in the distal patellar tendon. Small joint effusion. IMPRESSION: No acute bony abnormality. Medical Intern: PSCB Transcribe Date/Time: Nov 24 2024 8:30P Dictated by : ESPERANZA STATON MD This examination was interpreted and the report reviewed and electronically signed by: ESPERANZA STATON MD on Nov 24 2024 8:30PM EST [id number] Normal [facility] CNPNon 11-10-2024 CNPN Telephone (URCANT) BERNARDO CARVER ([id number]) 1960 Date Time Provider Department 11/10/24 TRISTAN URBINA During your visit today, we recorded the following information about you: Albert Connelly 11/10/2024 12:09 PM Signed Called to set up surgery but pt states he had a stent placed 3-4 months ago. Aware we cannot schedule until he is cleared. Albert Arceo 12/21/2024 4:01 PM Signed Called [facility] to check on clearance and they state they need it re-sent. Confirmed fax number and re sent it. Albert Arceo 01/04/2025 1:36 PM Signed Called [facility] ) and the nurse has the form. Albert Arceo 01/12/2025 11:10 AM Signed Called [facility] ) and she is going to check with the nurse why it has not be finished yet. Sana Rangel MA 01/13/2025 9:25 AM Signed [facility] called, unfortunately they lost the copy of the fax that was sent. Can you refax it to them at [phone]? Thank you, ROYA MckeonAlbert leie 01/13/2025 9:54 AM Signed Re faxed form. Albert Sullivan Maricel ConnellyAlberte 01/25/2025 12:12 PM Signed Pt is cleared called pt to schedule surgery and had to leave message Albert Sullivan MinDorisJocelynequique MaricelAlberte 02/09/2025 3:09 PM Signed Called to schedule surgery and had to leave message. Albert Sullivan Maricel Connelly Albert Christiane 02/17/2025 3:08 PM Signed Called pt and he wants to see heart doctor first and then call us. RochelleTristan Blanca MD 03/24/2025 2:29 PM Signed OK.It has been a while since we saw him. After he sees cardiology, we should see him a well to review procedure. Allergies As of Date: 11/10/2024 Noted Allergy Reaction SEASONAL ALLERGIES 07/26/2014 9 - Itching Date Reviewed: 11/09/2024 Reviewed by: Meghna Su - Fully Assessed Reason for Visit: surgery [Other] Prescriptions as of 03/24/2025 - fexofenadine (TANESHA) 180 mg tablet Take 1 tablet by mouth once daily. - clopidogrel (PLAVIX) 75 mg tablet TAKE 1 TABLET BY MOUTH TAKE 4 TABLETS ON DAY 1 FOLLOWED BY 1 TABLET DAILY - lisinopril (ZESTRIL) 20 mg tablet Take 1 tablet by mouth once daily. - BRILINTA 90 mg tablet Take 90 mg by mouth two times a day. - atorvastatin (LIPITOR) 40 mg tablet Take 40 mg by mouth daily at bedtime. - dutasteride (AVODART) 0.5 mg capsule Take 1 capsule by mouth once daily. - aspirin, enteric coated (ADULT LOW DOSE ASPIRIN) 81 mg EC tablet Take 1 tablet by mouth once daily. - cetirizine (ZYRTEC) 10 mg tablet Take 1 tablet by mouth once daily. - CPAP Initiate CPAP @ 12 cm of water with humidification. Mask (per patient preference) optional chin strap (if indicated) , filters, tubing, humidifier and lifetime supplies. [employer] Quattro, size medium Problem List As Of Date 11/10/2024 Noted Resolved Hypertension [I10] 08/09/2014 Sleep apnea [G47.30] 08/22/2014 Hyperlipidemia, mixed [E78.2] 08/22/2014 Elevated glucose [R73.09] 08/22/2014 Chronic right shoulder pain [M25.511, G89.29] 10/03/2015 Allergic rhinitis [J30.9] 01/12/2016 Right-sided low back pain with right-sided scia*03/06/2016 Hearing loss in left ear [H91.92] 10/25/2016 Vestibular schwannoma (HCC) [D33.3] 11/13/2016 Essential hypertension [I10] 11/13/2016 JEFFREY on CPAP [G47.33] 11/13/2016 Non morbid obesity due to excess calories [E66.*11/13/2016 Moderate smoker (20 or less per day) [F17.210] 11/13/2016 Post-op pain [G89.18] 11/22/2016 12/05/2016 Acute respiratory failure (HCC) [J96.00] 11/22/2016 12/05/2016 Obesity, Class I, BMI 30-34.9 [E66.811] 07/19/2019 Encounter Status:Closed by ALBERT CONNELLY on 11/10/24 [facility] BLADDER SCANon 11-09-2024 78mL [facility] CNOVon 11-09-2024 CNOV Office Visit (URCANT ) BERNARDO CARVER ([id number]) 1960 M Date Time Provider Department 11/09/24 10:00 AM TRISTAN URBINA During your visit today, we recorded the following information about you: Tristan Urbina MD 11/09/2024 10:28 AM Signed ESTABLISHED PATIENT OFFICE VISIT The patient is a 64-year-old male with a history of BPH, presenting for evaluation of persistent nocturia and urinary frequency. The patient reports minimal improvement in urinary symptoms despite current pharmacological management with Avodart and tamsulosin. He continues to experience nocturia, waking up four times per night to urinate. He expresses a desire to discontinue medication and is interested in exploring procedural options for symptom relief. LAB RESULTS Creatinine Date Value Ref Range Status 05/27/2024 0.85 0.73 - 1.22 mg/dL Final PSA (ng/mL) Date Value 03/15/2022 1.04 06/11/2021 1.0 PSA Screening (ng/mL) Date Value 05/27/2024 1.33 08/09/2014 0.88 GLUCOSE UA (POCT) (mg/dL) Date Value 08/18/2024 Negative BILIRUBIN UA (POCT) (no units) Date Value 08/18/2024 Negative KETONE UA (POCT) (mg/dL) Date Value 08/18/2024 Negative SPECIFIC GRAVITY UA (POCT) (no units) Date Value 08/18/2024 1.020 HEMOGLOBIN/BLOOD UA (POCT) (no units) Date Value 08/18/2024 Negative PH UA (POCT) (no units) Date Value 08/18/2024 5.5 PROTEIN UA (POCT) (mg/dL) Date Value 08/18/2024 Negative UROBILINOGEN UA (POCT) (E.U./dL) Date Value 08/18/2024 0.2 NITRITE UA (POCT) (no units) Date Value 08/18/2024 Negative LEUKOCYTES UA (POCT) (no units) Date Value 08/18/2024 Negative COLOR UA (POCT) (no units) Date Value 08/18/2024 Yellow CLARITY UA (POCT) (no units) Date Value 08/18/2024 Clear ] ALLERGIES Allergen Reactions Seasonal Allergies Itching MEDICATIONS: lisinopril (ZESTRIL) 20 mg tablet Take 1 tablet by mouth once daily. BRILINTA 90 mg tablet Take 90 mg by mouth two times a day. atorvastatin (LIPITOR) 40 mg tablet Take 40 mg by mouth daily at bedtime. tamsulosin (FLOMAX) 0.4 mg Take 2 capsules by mouth daily at bedtime. aspirin, enteric coated (ADULT LOW DOSE ASPIRIN) 81 mg EC tablet Take 1 tablet by mouth once daily. fluticasone (FLONASE) 50 mcg/actuation nasal spray Use 2 Sprays in each nostril once daily. Rinse mouth after use. cetirizine (ZYRTEC) 10 mg tablet Take 1 tablet by mouth once daily. CPAP Initiate CPAP @ 12 cm of water with humidification. Mask (per patient preference) optional chin strap (if indicated) , filters, tubing, humidifier and lifetime supplies. [employer] Mirage Quattro, size medium dutasteride (AVODART) 0.5 mg capsule Take 1 capsule by mouth once daily. REVIEW OF SYSTEMS GENERAL:no unintentional weight loss, malaise or fevers. NEUROLOGIC: pt is alert and oriented GASTROINTESTINAL: No nausea, vomiting, or diarrhea GENITOURINARY: See HPI MUSCULOSKELETAL: Negative for joint pain or swelling, back pain or muscle pain SKIN: Negative for lesions, rash, and itching. ACTIVE PROBLEM LIST Hypertension Sleep Apnea Hyperlipidemia, Mixed Elevated Glucose Chronic Right Shoulder Pain Allergic Rhinitis Right-Sided Low Back Pain With Right-Sided Sciatica Hearing Loss in Left Ear Vestibular Schwannoma (Hcc) Essential Hypertension Jeffrey On Cpap Non Morbid Obesity Due to Excess Calories Moderate Smoker (20 Or Less Per Day) Obesity, Class I, Bmi 30-34.9 HISTORIES PAST MEDICAL HISTORY Diagnosis Date Allergies Hypertension JEFFREY on CPAP 2014 Snoring 2014 Vestibular schwannoma (HCC) 2016 PAST SURGICAL HISTORY Procedure Laterality Date COLONOSCOPY FLX DX W/COLLJ SPEC WHEN PFRMD 09/05/2014 Colonoscopy [facility] CHOLECYSTECTOMY 08/12/2017 Dr. Rolando Valdez PAST SURGICAL HISTORY OF Craniotomy. Vestibular Schwannoma FAMILY HISTORY Problem Relation Age of Onset other (Pacemaker) Mother other (HTN) Mother No Known Problems Father No Known Problems Half-brother No Known Problems Half-sister SOCIAL HISTORY Social History Tobacco Use Smoking status: Former Current packs/day: 0.00 Average packs/day: 0.3 packs/day for 30.0 years (9.0 ttl pk-yrs) Types: Cigarettes Start date: 07/16/2015 Quit date: 03/09/2019 Years since quittin.6 Smokeless tobacco: Never Tobacco comments: Father smoked occasional cigar in home. NO ETS in adult home. Vaping Use Vaping status: Never Used Substance Use Topics Alcohol use: Yes Comment: weekends Drug use: No PHYSICAL EXAMINATION General appearance: Well appearing, alert, in no acute distress, well-hydrated, well nourished Psych Alert and oriented to person, place and time Cardiac: no peripheral edema Pulmonary: normal respiratory effort Genitourinary: MALE EXAM: Exam NOT Indicated ASSESSMENT/PLAN: 1. Benign prostatic hyperplasia with urinary frequency [N40 (more content not included)... [facility] BERNARDO CARVER ([id number]) 1960 M Date Time Provider Department 10/06/24 TRISTAN URBINA During your visit today, we recorded the following information about you: Bushra Dunne 10/06/2024 9:23 AM Signed Please refer this patient to see Dr. Urbina for BPH management, possible UroLift versus I-Tind. Notify patient of appointment date and time I called and left a message and I also sent a message in his [employer] Allergies As of Date: 10/06/2024 Noted Allergy Reaction SEASONAL ALLERGIES 07/26/2014 9 - Itching Date Reviewed: 09/08/2024 Reviewed by: Nicolle Suárez, NETTIE - Fully Assessed Reason for Visit: Appointment [186] Prescriptions as of 10/06/2024 - lisinopril (ZESTRIL) 20 mg tablet Take 1 tablet by mouth once daily. - BRILINTA 90 mg tablet Take 90 mg by mouth two times a day. - atorvastatin (LIPITOR) 40 mg tablet Take 40 mg by mouth daily at bedtime. - dutasteride (AVODART) 0.5 mg capsule Take 1 capsule by mouth once daily. - tamsulosin (FLOMAX) 0.4 mg Take 2 capsules by mouth daily at bedtime. - aspirin, enteric coated (ADULT LOW DOSE ASPIRIN) 81 mg EC tablet Take 1 tablet by mouth once daily. - fluticasone (FLONASE) 50 mcg/actuation nasal spray Use 2 Sprays in each nostril once daily. Rinse mouth after use. - cetirizine (ZYRTEC) 10 mg tablet Take 1 tablet by mouth once daily. - CPAP Initiate CPAP @ 12 cm of water with humidification. Mask (per patient preference) optional chin strap (if indicated) , filters, tubing, humidifier and lifetime supplies. [employer], size medium Problem List As Of Date 10/06/2024 Noted Resolved Hypertension [I10] 08/09/2014 Sleep apnea [G47.30] 08/22/2014 Hyperlipidemia, mixed [E78.2] 08/22/2014 Elevated glucose [R73.09] 08/22/2014 Chronic right shoulder pain [M25.511, G89.29] 10/03/2015 Allergic rhinitis [J30.9] 01/12/2016 Right-sided low back pain with right-sided scia*03/06/2016 Hearing loss in left ear [H91.92] 10/25/2016 Vestibular schwannoma (HCC) [D33.3] 11/13/2016 Essential hypertension [I10] 11/13/2016 JEFFREY on CPAP [G47.33] 11/13/2016 Non morbid obesity due to excess calories [E66.*11/13/2016 Moderate smoker (20 or less per day) [F17.210] 11/13/2016 Post-op pain [G89.18] 11/22/2016 12/05/2016 Acute respiratory failure (HCC) [J96.00] 11/22/2016 12/05/2016 Obesity, Class I, BMI 30-34.9 [E66.811] 07/19/2019 Encounter Status:Closed by BUSHRA DUNNE on 10/06/24 [facility] [id number] 09-08-2024 [id number] HNO ID: [id number] Author: NICOLLE SUÁREZ RN Service: ? Author Type: Registered Nurse Type: [id number] Filed: 09/08/2024 10:39 Note Text: The patient received a copy of Colonoscopy discharge instructions that contain information for how to contact the physician who performed the procedure and when to seek medical care. Normal [facility] Colonoscopyon 09-08-2024 Colonoscopy [facility] Gastrointestinal Endoscopy Patient Name: Bernardo Carver Procedure Date: 09/08/2024 9:46 AM Date of : 1960 Admit Type: Outpatient Age: 63 Gender: Male Note Status: Price Analyst Override Procedure: Colonoscopy Indications: Screening for colorectal malignant neoplasm Providers: Vanessa Benavides MD Patient Profile: This is a 63 year old male. Refer to note in patient chart for documentation of history and physical. Last Colonoscopy: 10 years ago. Referring Physician: Elena Cabral (Referring MD) Medicines: Fentanyl 100 micrograms IV, Midazolam 5 mg IV Complications: No immediate complications. Requesting Provider: Procedure: Pre-Anesthesia Assessment: - Prior to the procedure, a History and Physical was performed, and patient medications and allergies were reviewed. The patient is competent. The risks and benefits of the procedure and the sedation options and risks were discussed with the patient. All questions were answered and informed consent was obtained. Patient identification and proposed procedure were verified by the physician and the nurse in the procedure room. Mental Status Examination: alert and oriented. Respiratory Examination: clear to auscultation. Prophylactic Antibiotics: The patient does not require prophylactic antibiotics. Prior Anticoagulants: The patient has taken Brilinta (ticagrelor), last dose was 1 day prior to procedure. ASA Grade Assessment: III - A patient with severe systemic disease. After reviewing the risks and benefits, the patient was deemed in satisfactory condition to undergo the procedure. The anesthesia plan was to use moderate sedation / analgesia (conscious sedation). Immediately prior to administration of medications, the patient was re-assessed for adequacy to receive sedatives. The heart rate, respiratory rate, oxygen saturations, blood pressure, adequacy of pulmonary ventilation, and response to care were monitored throughout the procedure. The physical status of the patient was re-assessed after the procedure. After I obtained informed consent, the scope was passed under direct vision. Throughout the procedure, the patient's blood pressure, pulse, and oxygen saturations were monitored continuously. The Colonoscope was introduced through the anus and advanced to the cecum, identified by the appendiceal orifice, ileocecal valve and palpation. The colonoscopy was performed without difficulty. The patient tolerated the procedure well. The quality of the bowel preparation was good. The ileocecal valve, appendiceal orifice, and rectum were photographed. Moderate Sedation: Moderate (conscious) sedation was personally administered by the endoscopist. The following parameters were monitored: oxygen saturation, heart rate, blood pressure, and response to care. Total physician intraservice time was 18 minutes. The administration of moderate sedation was initiated at 10:05. Findings: The perianal and digital rectal examinations were normal. Multiple medium-mouthed diverticula were found in the entire colon. The exam was otherwise without abnormality on direct and retroflexion views. Impression: - Diverticulosis in the entire examined colon. - The examination was otherwise normal on direct and retroflexion views. - No specimens collected. Recommendation: - Discharge patient to home. - Resume previous diet. - Continue present medications. - Repeat colonoscopy in 10 years for screening purposes. - Resume Brilinta (ticagrelor) at prior dose today. - Resume Brilinta (ticagrelor) today at prior dose. - Patient has a contact number available for emergencies. The signs and symptoms of potential delayed complications were discussed with the patient. Return to normal activities tomorrow. Written discharge instructions were provided to the patient. Procedure Code(s): --- Professional --- 00469, Colonoscopy, flexible; diagnostic, including collection of specimen(s) by brushing or washing, when performed (separate procedure) G0500, Moderate sedation services provided by the same physician or other qualified health director medicare sales performing a gastrointestinal endoscopic service that sedation supports, requiring the presence of an independent trained observer to assist in the monitoring of the patient's level of consciousness and physiological status; initial 15 minutes of intra-service time; patient age 5 years or older (additional time may be reported with 28465, as appropriate) CPT copyright 2020 [employer]. All rights reserved. The codes documented in this report are preliminary and upon steam and power supervisor review may be revised to meet current compliance requirements. Attending Participation: I was present and participated during the entire procedure, including non-crooks portions, and during the administration and monitoring of Moder (more content not included)... Normal [facility] Colonoscopy Study observatio non 09-08-2024 [facility] Gastrointestinal Endoscopy Patient Name: Bernardo Carver Procedure Date: 09/08/2024 9:46 AM Date of : 1960 Admit Type: Outpatient Age: 63 Gender: Male Note Status: Finalized Procedure: Colonoscopy Indications: Screening for colorectal malignant neoplasm Providers: Vanessa Benavides MD Patient Profile: This is a 63 year old male. Refer to note in patient chart for documentation of history and physical. Last Colonoscopy: 10 years ago. Referring Physician: Elena Cabral (Referring ) Medicines: Fentanyl 100 micrograms IV, Midazolam 5 mg IV Complications: No immediate complications. Requesting Provider: Procedure: Pre-Anesthesia Assessment: - Prior to the procedure, a History and Physical was performed, and patient medications and allergies were reviewed. The patient is competent. The risks and benefits of the procedure and the sedation options and risks were discussed with the patient. All questions were answered and informed consent was obtained. Patient identification and proposed procedure were verified by the physician and the nurse in the procedure room. Mental Status Examination: alert and oriented. Respiratory Examination: clear to auscultation. Prophylactic Antibiotics: The patient does not require prophylactic antibiotics. Prior Anticoagulants: The patient has taken Brilinta (ticagrelor), last dose was 1 day prior to procedure. ASA Grade Assessment: III - A patient with severe systemic disease. After reviewing the risks and benefits, the patient was deemed in satisfactory condition to undergo the procedure. The anesthesia plan was to use moderate sedation / analgesia (conscious sedation). Immediately prior to administration of medications, the patient was re-assessed for adequacy to receive sedatives. The heart rate, respiratory rate, oxygen saturations, blood pressure, adequacy of pulmonary ventilation, and response to care were monitored throughout the procedure. The physical status of the patient was re-assessed after the procedure. After I obtained informed consent, the scope was passed under direct vision. Throughout the procedure, the patient's blood pressure, pulse, and oxygen saturations were monitored continuously. The Colonoscope was introduced through the anus and advanced to the cecum, identified by the appendiceal orifice, ileocecal valve and palpation. The colonoscopy was performed without difficulty. The patient tolerated the procedure well. The quality of the bowel preparation was good. The ileocecal valve, appendiceal orifice, and rectum were photographed. Moderate Sedation: Moderate (conscious) sedation was personally administered by the endoscopist. The following parameters were monitored: oxygen saturation, heart rate, blood pressure, and response to care. Total physician intraservice time was 18 minutes. The administration of moderate sedation was initiated at 10:05. Findings: The perianal and digital rectal examinations were normal. Multiple medium-mouthed diverticula were found in the entire colon. The exam was otherwise without abnormality on direct and retroflexion views. Impression: - Diverticulosis in the entire examined colon. - The examination was otherwise normal on direct and retroflexion views. - No specimens collected. Recommendation: - Discharge patient to home. - Resume previous diet. - Continue present medications. - Repeat colonoscopy in 10 years for screening purposes. - Resume Brilinta (ticagrelor) at prior dose today. - Resume Brilinta (ticagrelor) today at prior dose. - Patient has a contact number available for (more content not included)... PROVATION [facility] Radiology Study observation (narrative) [facility] HISTORY PHYSICALon HISTORY PHYSICAL HNO ID: [id number] Author: VANESSA BENAVIDES MD Service: General Surgery Author Type: Physician Type: H&P Filed: 09/08/2024 09:51 Note Text: HISTORY AND PHYSICAL Bernardo Carver : 1960 REFERRING PHYSICIAN: Jen Whitt [address] [facility] [id number] CHIEF COMPLAINT: Patient presents with: Consult: Colonoscopy consultation HPI: Bernardo is a 63 year old male referred for endoscopy. Bernardo notes due for screening colonoscopy. Bernardo denies abdominal pain.. Bernardo denies diarrhea. Bernardo denies constipation. Bernardo denies a change in bowel habits. Bernardo denies melena. Bernardo denies bright red blood per rectum. Bernardo denies hemorrhoids. Bernardo denies heartburn. Bernardo denies dysphagia. Bernardo denies a history of ulcers/ peptic ulcer disease. Bernardo denies family history of colon issues. Medical history is significant for HLD, HTN, JEFFREY compliant with CPAP. Eliceo follows with [facility] for CAD with stent placement in February. Must continue Brilinta for 1 year. Last OV 02/25/24. Denies CP, dizziness, palpitations, syncope, edema, recent hospitalizations. Eliceo refers some residual SOB, but nothing new or worsening. Bernardo has undergone prior endoscopy. Last colonoscopy was 09/[address] Troy at [facility]. Sedation:Fentanyl 50 micrograms IV, Diphenhydramine 50 mg IV,Midazolam 5 mg IV Impression: - Diverticulosis in the sigmoid colon. CURRENT MEDICATIONS Current Outpatient Medications Medication Sig BRILINTA 90 mg tablet Take 90 mg by mouth two times a day. atorvastatin (LIPITOR) 40 mg tablet Take 40 mg by mouth daily at bedtime. lisinopril (ZESTRIL) 20 mg tablet Take 1 tablet by mouth once daily. dutasteride (AVODART) 0.5 mg capsule Take 1 capsule by mouth once daily. fexofenadine (TANESHA ALLERGY) 180 mg tablet Take 1 tablet by mouth once daily. tamsulosin (FLOMAX) 0.4 mg Take 2 capsules by mouth daily at bedtime. aspirin, enteric coated (ADULT LOW DOSE ASPIRIN) 81 mg EC tablet Take 1 tablet by mouth once daily. fluticasone (FLONASE) 50 mcg/actuation nasal spray Use 2 Sprays in each nostril once daily. Rinse mouth after use. cetirizine (ZYRTEC) 10 mg tablet Take 1 tablet by mouth once daily. CPAP Initiate CPAP @ 12 cm of water with humidification. Mask (per patient preference) optional chin strap (if indicated) , filters, tubing, humidifier and lifetime supplies. ResMed Mirage Quattro, size medium peg 3350-Electrolytes (GOLYTELY) 236-22.74-6.74 -5.86 gram suspension Take 4,000 mL by mouth one time only for 1 dose. Refer to printed prep instructions from your provider. No current facility-administered medications for this visit. ALLERGIES: Seasonal Allergies PAST MEDICAL HISTORY PAST MEDICAL HISTORY Diagnosis Date Allergies Hypertension JEFFREY on CPAP 2014 Snoring 2014 Vestibular schwannoma (HCC) 2016 PAST SURGICAL HISTORY PAST SURGICAL HISTORY Procedure Laterality Date COLONOSCOPY FLX DX W/COLLJ SPEC WHEN PFRMD 09/05/2014 Colonoscopy L'SCOPE CHOLECYSTECTOMY 08/12/2017 Dr. Rolando Valdez PAST SURGICAL HISTORY OF Craniotomy. Vestibular Schwannoma FAMILY HISTORY FAMILY HISTORY Problem Relation Age of Onset other (Pacemaker) Mother other (HTN) Mother No Known Problems Father No Known Problems Half-brother No Known Problems Half-sister SOCIAL HISTORY Social History Tobacco Use Smoking status: Former Current packs/day: 0.00 Average packs/day: 0.3 packs/day for 30.0 years (9.0 ttl pk-yrs) Types: Cigarettes Start date: 07/16/2015 Quit date: 03/09/2019 Years since quittin.2 Smokeless tobacco: Never Tobacco comments: Father smoked occasional cigar in home. NO ETS in adult home. Vaping Use Vaping status: Never Used Substance Use Topics Alcohol use: Yes Comment: weekends Drug use: No REVIEW OF SYMPTOMS: REVIEW OF SYSTEMS: General: The patient denies fatigue, denies weight loss, denies weight gain, denies feeling hot, and feelings of cold. Eyes: The patient denies glaucoma, denies eye injury/surgery, denies glasses or contacts. Ear/Nose/Throat: The patient denies allergies, denies hayfever, denies ear infections, and denies bloody noses. Cardiovascular: The patient denies chest pain, denies heart disease, denies high blood pressure, denies high cholesterol, and denies poor circulation. Respiratory: The patient denies tuberculosis, denies pneumonia, denies frequent cough, + shortness of breath, and denies coughing up blood. Gastrointestinal: The patient denies difficulty swallowing, denies acid reflux, denies ulcers, denies jaundice/hepatitis, denies gallbladder problems, denies vomiting, denies black or tarry stools, denies hemorrhoids, denies bleeding from rectum, denies diverticulitis, denies constipation, denies diarrhea, denies loss of stool control, and denies hernias. Kidney/Bladder: The patient denies kidney stones, denies urine infections, and denies bloody uri (more content not included)... Normal [facility] MR Brain WO and W contrast I Von 09-06-2024 IMPRESSION: Postop changes with slight interval reduction in caliber of the residual left vestibular schwannoma since 03/04/2023. Otherwise stable appearance of the brain. Medical Intern: [facility] Transcribe Date/Time: Sep 06 2024 10:28A Dictated by : ELIZABETH RG MD This examination was interpreted and the report reviewed and electronically signed by: ELIZABETH RG MD on Sep 06 2024 10:41AM [facility] DIVISION OF RADIOLOGY * * *Final Report* * * DATE OF EXAM: Sep 06 2024 9:17AM [facility] 0295 - MRI BRAIN WO/W IVCON / PROCEDURE REASON: Vestibular schwannoma (HCC) * * * * Physician Interpretation * * * * EXAMINATION: MRI BRAIN WO/W IVCON CLINICAL HISTORY: Prior subtotal resection of left vestibular schwannoma November 2016 with subsequent gamma knife therapy June 2017. TECHNIQUE: IAC protocol with and without gadolinium. MQ: [id number]_2 Contrast: 10 mL Elucirem IV COMPARISON: 03/04/2023 RESULT: Acute Change: There is no evidence of an acute intracranial process. Hemorrhage: No clear evidence of prior parenchymal hemorrhage within the constraints of the acquisition. Mass Lesion/ Mass Effect: Again noted is evidence of a left retrosigmoid craniectomy and mesh cranioplasty with underlying encephalomalacia involving arreguin and white matter in the lateral aspect of left cerebellar hemisphere and left brachium pontis. There continues to be mild hyperintensity along the margins of the proximal defect on FLAIR and T2 which is stable in appearance. There continues to be residual extra-axial soft tissue mass in the left CP angle cistern that marginally extends into the left IAC, extend superiorly to the tentorial hiatus and caudally to the level of the vestibular aqueduct. This mass remains hyperintense on FLAIR, hypointense on T1 and prominently enhances with gadolinium. Overall, the residual mass measures approximately 1.2 x 2.1 x 1.8 cm in greatest AP, transverse, and CC dimensions, respectively. When compared to the prior study, this residual mass is mildly reduced in size. The mass again causes mild mass effect on the adjacent basis pontis and focal mass effect in the region of the root entry zone for the left 5th cranial nerve. There is also made of a vertically oriented vein abutting the medial margin of the root entry zone of the right 5th cranial nerve. There is no evidence of an intracranial mass elsewhere. No abnormal parenchymal or leptomeningeal enhancement is appreciated otherwise following gadolinium administration. Chronic Change: The white matter is otherwise within normal limits of signal intensity for age. Parenchyma: No significant volume loss for age. The brain parenchyma is otherwise within normal limits of signal intensity and morphology. Ventricles: Normal caliber and morphology. Skull Base: Hypothalamic and pituitary region are normal. Craniocervical junction is normal. No significant marrow replacement process. Vasculature: There is uniform enhancement of the superior sagittal, straight, and both transverse and both sigmoid sinuses suggesting patency. Other: The visualized paranasal sinuses and mastoid air cells are clear. The orbits and extracranial soft tissues are unremarkable. DIVISION OF RADIOLOGY Provider, [facility] - 09/06/2024 * * *Final Report* * * DATE OF EXAM: Sep 06 2024 9:17AM [facility] 0295 - MRI BRAIN WO/W IVCON / PROCEDURE REASON: Vestibular schwannoma (HCC) * * * * Physician Interpretation * * * * EXAMINATION: MRI BRAIN WO/W IVCON CLINICAL HISTORY: Prior subtotal resection of left vestibular schwannoma November 2016 with subsequent gamma knife therapy June 2017. TECHNIQUE: IAC protocol with and without gadolinium. MQ: [id number]_2 Contrast: 10 mL Elucirem IV COMPARISON: 03/04/2023 RESULT: Acute Change: There is no evidence of an acute intracranial process. Hemorrhage: No clear evidence of prior parenchymal hemorrhage within the constraints of the acquisition. Mass Lesion/ Mass Effect: Again noted is evidence of a left retrosigmoid craniectomy and mesh cranioplasty with underlying encephalomalacia involving arreguin and white matter in the lateral aspect of left cerebellar hemisphere and left brachium pontis. There continues to be mild hyperintensity along the margins of the proximal defect on FLAIR and T2 which is stable in appearance. There continues to be residual extra-axial soft tissue mass in the left CP angle cistern that marginally extends into the left IAC, extend superiorly to the tentorial hiatus and caudally to the level of the vestibular aqueduct. This mass remains hyperintense on FLAIR, hypointense on T1 and prominently enhances with gadolinium. Overall, the residual mass measures approximately 1.2 x 2.1 x 1.8 cm in greatest AP, transverse, and CC dimensions, respectively. When compared to the prior study, this residual mass is mildly reduced in size. The mass again causes mild mass effect on the adjacent basis pontis and focal mass effect in the region of the root entry zone for the left 5th cranial nerve. There is also made of a vertically oriented vein abutting the medial margin of the root entry zone of the right 5th cranial nerve. There is no evidence of an intracranial mass elsewhere. No abnormal parenchymal or leptomeningeal enhancement is appreciated otherwise following gadolinium administration. Chronic Change: The white matter is otherwise within normal limits of signal intensity for age. Parenchyma: No significant volume loss for age. The brain parenchyma is otherwise within normal limits of signal intensity and morphology. Ventricles: Normal caliber and morphology. Skull Base: Hypothalamic and pituitary region are normal. Craniocervical junction is normal. No significant marrow replacement process. Vasculature: There is uniform enhancement of the superior sagittal, straight, and both transverse and both sigmoid sinuses suggesting patency. Other: The visualized paranasal sinuses and mastoid air cells are clear. The orbits and extracranial soft tissues are unremarkable. IMPRESSION IMPRESSION: Postop changes with slight interval reduction in caliber of the residual left vestibular schwannoma since 03/04/2023. Otherwise stable appearance of the brain. Medical Intern: [facility] Transcribe Date/Time: Sep 06 2024 10:28A Dictated by : ELIZABETH RG MD This examination was interpreted and the report reviewed and electronically signed by: ELIZABETH RG MD on Sep 06 2024 10:41AM EST [facility] Radiology Study observation (narrative) [facility] MR Brain WO and W contrast I VOrdered By: [facility] Provider on 09-06-2024 [facility] MRI BRAIN WO/W IVCONon 09-06 MRI BRAIN WO/W IVCON * * *Final Report* * * DATE OF EXAM: Sep 06 2024 9:17AM [facility] 0295 - MRI BRAIN WO/W IVCON / PROCEDURE REASON: Vestibular schwannoma (HCC) * * * * Physician Interpretation * * * * EXAMINATION: MRI BRAIN WO/W IVCON CLINICAL HISTORY: Prior subtotal resection of left vestibular schwannoma November 2016 with subsequent gamma knife therapy June 2017. TECHNIQUE: IAC protocol with and without gadolinium. MQ: [id number]_2 Contrast: 10 mL Elucirem IV COMPARISON: 03/04/2023 RESULT: Acute Change: There is no evidence of an acute intracranial process. Hemorrhage: No clear evidence of prior parenchymal hemorrhage within the constraints of the acquisition. Mass Lesion/ Mass Effect: Again noted is evidence of a left retrosigmoid craniectomy and mesh cranioplasty with underlying encephalomalacia involving arreguin and white matter in the lateral aspect of left cerebellar hemisphere and left brachium pontis. There continues to be mild hyperintensity along the margins of the proximal defect on FLAIR and T2 which is stable in appearance. There continues to be residual extra-axial soft tissue mass in the left CP angle cistern that marginally extends into the left IAC, extend superiorly to the tentorial hiatus and caudally to the level of the vestibular aqueduct. This mass remains hyperintense on FLAIR, hypointense on T1 and prominently enhances with gadolinium. Overall, the residual mass measures approximately 1.2 x 2.1 x 1.8 cm in greatest AP, transverse, and CC dimensions, respectively. When compared to the prior study, this residual mass is mildly reduced in size. The mass again causes mild mass effect on the adjacent basis pontis and focal mass effect in the region of the root entry zone for the left 5th cranial nerve. There is also made of a vertically oriented vein abutting the medial margin of the root entry zone of the right 5th cranial nerve. There is no evidence of an intracranial mass elsewhere. No abnormal parenchymal or leptomeningeal enhancement is appreciated otherwise following gadolinium administration. Chronic Change: The white matter is otherwise within normal limits of signal intensity for age. Parenchyma: No significant volume loss for age. The brain parenchyma is otherwise within normal limits of signal intensity and morphology. Ventricles: Normal caliber and morphology. Skull Base: Hypothalamic and pituitary region are normal. Craniocervical junction is normal. No significant marrow replacement process. Vasculature: There is uniform enhancement of the superior sagittal, straight, and both transverse and both sigmoid sinuses suggesting patency. Other: The visualized paranasal sinuses and mastoid air cells are clear. The orbits and extracranial soft tissues are unremarkable. IMPRESSION: Postop changes with slight interval reduction in caliber of the residual left vestibular schwannoma since 03/04/2023. Otherwise stable appearance of the brain. Medical Intern: [facility] Transcribe Date/Time: Sep 06 2024 10:28A Dictated by : ELIZABETH RG MD This examination was interpreted and the report reviewed and electronically signed by: ELIZABETH RG MD on Sep 06 2024 10:41AM EST [id number] Normal [facility] CNOVon 08-18-2024 CNOV Office Visit (UROLMD ) BERNARDO CARVER ([id number]) 1960 M Date Time Provider Department 08/18/24 8:30 AM SHAILESH CONCEPCION UROELANA During your visit today, we recorded the following information about you: Pulse Respiration Blood pressure Weight 55/minute 14/minute 112/68 95.7 kg Height 1.803 m Shailesh Concepcion MD 10/05/2024 11:42 PM Signed CYSTOSCOPY PROCEDURE History and physical exam within the last 30 days: yes. Exam notes reviewed: yes Risks, benefits, alternatives, and personnel discussed with patient who consents to proceed with Cystoscopy and Transrectal ultrasound of the prostate exam . Patient verified by name and date of : Yes Procedure/Site verified: Yes Physician: Dr. Shailesh Concepcion Asst: David Herbert MA Audible Time Out: Yes Anesthetics given: 10 cc 2% Lidocaine-Urethral and Administered by nurse - see Pre-Procedure Nurse's Notes. Operative Findings Urethra: Normal Prostate:Bilobar hypertrophy Bladder: no stones, no tumors, no lesions Radiologic Studies Urogram: N/A Complications: None Recommendations: Discussed findings with patient TRUS PROCEDURE without Biopsy History and physical exam within the last 30 days: yes. Exam notes reviewed: yes Informed consent obtained Yes. Discussed procedure, risks, and options with patient. Patient agrees to proceed. Pre-Op Diagnosis: BPH with LUTS Anesthetic given: None Findings Prostate volume: 41.80 grams Complications: None Recommendations: Discussed findings with patient. 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 David Herbert MA [facility] UROLOGY PROCEDURE NOTE [facility]) FLEXIBLE CYSTOURETHROSCOPY AND TRUS UROLOGY OUTPATIENT PROCEDURE NOTE UNIVERSAL PROTOCOL AND SAFETY CHECKLISTUNIVERSAL PROTOCOL / SAFETY CHECKLIST Procedure to be Performed: Cysto/TRUS Indication: BPH with LUTS Referred by Niall Kay APRN.PROFESSOR OF COMMUNICATION AND WRITING.DNP sign In: A Moment of CARE was completed. Personnel directly involved with the procedure wore the appropriate PPE (Personal Protective Equipment). Patient/Surrogate Stated/Verified: PATIENT VERIFIED(optional for EMERGENT procedures): Patient name, Date of , Relevant allergies and The intended procedure Time Out Communication: Intended patient and procedure match the source documents. Consent documented and matches the intended procedure. Sign Out: SIGN OUT (optional for EMERGENT procedures): All specimen containers correctly labeled. PHYSICIAN NOTE: FLEXIBLE CYSTOURETHROSCOPY AND TRANSRECTAL ULTRASOUND PROCEDURE DATE: October 05, 2024 FINDINGS Urethra: Normal Sphincter: Normal / Coapted Prostate: Enlarged lateral Lobes /relatively normal median Lobe Bladder Neck: Patent Urothelium: normal appearing, no evidence of tumor, no erythema, no foreign body Trabeculation: No Inflammation: No Diverticulum: No Ureteral Orifices: normal appearing, orthotopic position, clear efflux bilaterally Trigone: normal appearing Procedure: Flexible cystoscopy and transrectal ultrasound Anesthesia: Lidocaine Gel Procedure Details: In the cystoscopy suite, the patient was placed in the supine position, prepped, and draped in the usual manner. Lidocaine gel was placed per urethra for local anasthesia. No michele-procedural antibiotics were given. Cystourethroscopy was performed using a flexible scope. Sterile technique was maintained throughout. The urethra, prostate, and bladder were inspected in their entirety. Specific findings from the procedure are detailed in the corresponding section of this note. The cystoscope was carefully removed. The patient was placed in the lateral decubitus position. Digital rectal exam was normal. The ultrasound probe was placed into the rectum and the prostate visualized. The prostate was visualized in sagittal and transverse planes and no hypoechoic lesion identified. The total prostate volume was 41.80 gm Complications: None Estimated Blood Loss: None Preoperative diagnosis: BPH with obstruction Postoperative diagnosis: Same Disposition / Plan: - I discussed the potential etiologies of his urinary symptoms which sound most consistent with an enlarged prostate - I discussed the treatment options which include medications, which he is already on dutasteride and tamsulosin, or surgery - We discussed surgical options for BPH including transurethral resection of prostate (TURP), versus Urolift, I-TIND, since he has bilobar enlargement -Patient would like to proceed with surgical option therefore he will be referred to urologic surgery. Shailesh Lewis (more content not included)... Normal [facility] UA DIP, URINE (POC)on 2024 BILIRUBIN UA (POCT) Negative Negative [facility] CLARITY UA (POCT) Clear [facility] COLOR UA (POCT) Yellow [facility] GLUCOSE UA (POCT) Negative Negative mg/dL [facility] Hemoglobin Ql (U) Negative Negative [facility] KETONE UA (POCT) Negative Negative mg/dL [facility] LEUKOCYTES UA (POCT) Negative Negative [facility] NITRITE UA (POCT) Negative Negative [facility] PH UA (POCT) 5.5 4.5 - 8.0 [facility] Protein Ql (U) Negative Negative mg/dL [facility] SPECIFIC GRAVITY UA (POCT) 1.02 1.005 - 1.030 [facility] UROBILINOGEN UA (POCT) 0.2 Normal E.U./dL [facility] Location:[facility], [address] [place], [address] [facility] POINT OF CARE [facility] US Prostate transrectalon [facility] Radiology Study observation (narrative) [facility] 36on 07-29-2024 36 Spoke with patient - aware. No concerns or issues. Healing well Normal [facility] 36 ----- Message from Destinee Mann DO sent at 07/29/2024 11:25 AM EST ----- Please call patient and after confirming name and inform patient of the following results: Biopsy results on left malar cheek revealed Inflamed seborrheic keratosis. This is a benign lesion, and no further treatment is needed at this time. Remind patient to return for any additional follow up as scheduled, including annual full skin exam, or call for sooner appointment if issues or concerns arise. Destinee Mann DO Normal [facility] 37on 07-27-2024 37 BIOPSY / SURGICAL AF TERCARE 1. If a dressing is in place, please leave it for 24 hours unless given other instructions. 2. After that time, remove the initial bandage, and cleanse the area with a mild, fragrance free soap such as Dove, Cetaphil, or CeraVe. 3. Apply Vaseline to the area and cover with a new bandage. Please do not use Neosporin, Polysporin, or Bacitracin, as these may cause unwanted allergic reactions in some patients, and are not necessary for good healing. 4. Repeat the above steps every day for 7 days unless otherwise directed by physician or nurse. 5. If any bleeding occurs, use a clean cotton or gauze, apply firm, direct pressure to the area for 10 to 15 minutes. If the bleeding does not stop, call our office at [phone]. 6. The wound should improve daily. If you notice any increased redness, swelling, drainage, warmth, or pain in the area, please notify our office. Please be advised that it can take up to 2 weeks for these sites to heal. In some patients it may take even longer depending on location (lower legs / feet) and / or if the patient has history of diabetes. Our office will notify you of the results in about 2 weeks. Sunscreen Use & Sun Safety It is recommended a water-resistant, broad-spectrum sunscreen with SPF of at least 15 to 30. Apply sunscreen to all exposed skin 30 minutes before sun exposure, and then every 2 hours. Apply sooner if sweating or coming out of pool/water. Using the proper amount of sunscreen in important. An adult should use about 1-1.5 oz of sunscreen to the entire body, about 2-3 tablespoons per application. Use a lip balm with SPF 30 or higher to protect the lips from sun damage. Limit time in the sun, especially between 10 AM and 2 PM when the sun?s rays are the strongest. Clothing labeled with a UPF (ultra-emanuel protection factor) rating indicates that it?s protective against UV rays. Also, wear wide-brimmed hats, and sunglasses for sun protection. Normal [facility] No Panel Informationon 07-27 [facility] Type of biopsy: guzman ential Informed consent: discussed and consent obtained Timeout: patient name, date of , surgical site, and procedure verified Procedure prep: Patient was prepped and draped in usual sterile fashion Prep type: Isopropyl alcohol Anesthesia: the lesion was anesthetized in a standard fashion Anesthetic: 1% lidocaine w/ epinephrine 1-100,000 buffered w/ 8.4% NaHCO3 Instrument used: DermaBlade Outcome: patient tolerated procedure well Post-procedure details: sterile dressing applied and wound care instructions given Dressing type: bandage and petrolatum [facility] Office Visiton 07-27-2024 Follow-up visit [id number] Eliceo Carver 1960 M Date Provider Department Center 07/27/2024 [id number] None No family history on file Level of Service:19037 PA OFFICE/OUTPATIENT NEW LOW MDM 30 MINUTES (25) Reason for Visit and Comments: Annual Exam [83] - Karson 07/21/2023 (ds) [facility] Progress Noteon 07-27-2024 Progress Note DATE OF SERVICE: 07/08 PATIENT NAME: Bernardo Carver : 1960 AGE: 63 y.o. CLINIC NUMBER: [id number] Visit type: Established patient Chief Complaint Patient presents with Annual Exam Karson 07/21/2023 (ds) Subjective HISTORY OF PRESENT ILLNESS: Bernardo Carver is a 63 y.o. who presents to the office for a check up. Patient's last FSE was done on 07/21/2023. Pt has lesions on bilateral temples and under left eye that he reports are enlarging and itching. The lesion under left eye has grown. Denies any other new, changing or symptomatic lesions. Patient has no h/o of ATN. Patient has no h/o of AKs. ? Patient has no personal h/o skin cancer. Patient has no family h/o melanoma. Up to date on dental and eye exams. History of pacemaker/ defibrillator? No History of HIV/ Hep C? No Allergies to Lidocaine, Epinephrine, Latex or Adhesive? No Social History: Born/raised in [place]. Excessive sun exposure: Yes Used tanning beds: No Patient does not wear SPF. Patient does use additional sun protection measures. Review of Systems Dermatology: as per HPI, otherwise negative There were no vitals filed for this visit. PHYSICAL EXAM: GENERAL APPEARANCE:?alert and oriented x3, well developed and well nourished. PSYCH: appropriate mood and affect DERMATOLOGY: Declined removal of socks and underwear. 1. Neoplasm of uncertain behavior of skin Left Malar Cheek 4 mm soft brown pedunculated papule Skin Biopsy Type of biopsy: tangential Informed consent: discussed and consent obtained Timeout: patient name, date of , surgical site, and procedure verified Procedure prep: Patient was prepped and draped in usual sterile fashion Prep type: Isopropyl alcohol Anesthesia: the lesion was anesthetized in a standard fashion Anesthetic: 1% lidocaine w/ epinephrine 1-100,000 buffered w/ 8.4% NaHCO3 Instrument used: DermaBlade Outcome: patient tolerated procedure well Post-procedure details: sterile dressing applied and wound care instructions given Dressing type: bandage and petrolatum Specimen A - Tissue exam Differential Diagnosis: r/o isk vs irritated skin tag Check Margins: No Biopsy recommended. Patient expresses understanding and is in agreement with the plan. Biopsy (x1) obtained today. Patient educated that we will call with the biopsy results within 2 weeks. Care instructions reviewed and written instructions provided to patient. Confirmed with pt after biopsy completed that vision intact and pt able to see without disturbances to vision. No swelling or visual changes following biopsy. 2. Multiple benign melanocytic nevi of both upper extremities, both lower extremities, and trunk Multiple uniformly pigmented brown macules/ papules with regular network pattern on dermoscopy; please see diagram under patient examination Reassured that this is a benign lesion and does not require any treatment. Educated that if the lesion changes color, becomes larger, bleeds, becomes bothersome or painful then it should be reevaluated. Patient expresses understanding and is agreeable to plan. Patient advised to perform monthly skin exams; checking the skin for any new or changing lesions. Any lesions that are new, elevated, firm and/or growing should be evaluated in our office. Also look for ABCDEs of Melanoma (warning signs): Asymmetry- the appearance of one side of the mole doesn't look like the other side. Borders- the borders of the mole are jagged, notched or smeared. Color- there are multiple colors in the mole, or it has changed colors. It can become darker, red or even lose pigment. Diameter- diameter greater than 6mm or the size of a pencil eraser. Evolution- Any change or evolving in size, shape or color of a mole. Also, any new symptom like bleeding, pain or itching may be a warning sign. You can visit the [employer] Cancer [employer] at skincancer.org for more information on melanoma and other skin cancers. 3. Seborrheic keratosis (6) Generalized, Left Lower Leg - Anterior, Left Parietal Scalp, Left Orthodox, Right Orthodox (2) Kurtz-brown waxy papule(s) and plaque(s) with stuck on appearance Reassured that this is a benign lesion and does not require any treatment. Educated that if the lesion changes color, becomes larger, bleeds, becomes bothersome or painful then it should be reevaluated. Patient expresses understanding and is agreeable to plan. 4. Solar lentigo Light brown well-circumscribed macule(s) Educated and reassured, benign finding secondary to sun exposure. Patient educated on the proper use of sunscreen, SPF, and how often to reapply. Recommend use of OTC mineral sun block, like Neutrogena or [place] Posay. Patient advised to look for zinc or titanium as the active ingredient(s). Try to limit sun exposure to clerk specialist or late evening hours. Patient advised to perform self-skin checks and call for follow up appointment if any new or (more content not included)... Normal [facility] Cardiology Visit Reporton Cardiology Visit Report [facility] Heart [facility] [address] [place] [address] OFFICE VISIT Date of Service: 07/21/24 MR#: [id number] Acct: [id number] Name: BERNARDO CARVER Rep #: [id number] : 1960 Provider: ENRIQUE maldonado Age/Sex: 63/M Location: [facility] Status: Signed HPI HPI History of Present Illness Details: Pleasant 63-year-old man who presented for evaluation and a second opinion regarding persistent shortness of breath. He denies chest pain per se but he has had significant shortness of breath with exertion. He tells me that this has been getting worse over the last few months. He has been evaluated extensively at the [facility] with a stress test with a treadmill in June 2022 where he exercised 8 metabolic equivalents without any evidence of ischemia. He also had a stress echocardiogram and it demonstrated no wall motion abnormalities. In September 2022, he underwent a pulmonary function test with a bronco provocation challenge which did not show any evidence of large airways obstructive ventilatory defect and there was a negative methacholine inhalation challenge. He also subsequently underwent an event monitor for 10 days and the predominant rhythm was sinus rhythm with isolated premature ventricular and ventricular ectopic beats. He then underwent a coronary CTA angiogram which demonstrated no plaque in the left main coronary artery, left anterior descending artery with no plaque or luminal irregularities, circumflex artery with no significant stenosis in the right coronary artery which is dominant with no significant stenosis. The estimated intermediate severity of luminal stenosis was approximately 50%. His previous NT proBNP has been normal. Patient underwent a diagnostic heart catheterization on 02/2024 which demonstrated large codominant proximal RCA with almost 70% stenosis noted in the proximal area with eccentric plaque. He did undergo stenting of this vessel. He denies chest, arm, jaw, or neck discomfort. He denies palpitations. He denies bilateral lower extremity edema. He denies claudication. He states shortness of breath with activity ans shortness of breath at rest. This is intermittent, random, and not self limiting. He denies orthopnea or PND. He denies chronic cough. He denies significant, sudden weight gain. He denies lightheadedness, dizziness, near-syncope, or syncope. He denies blood in urine, blood in stool, or epistaxis. He denies fever with chills. He denies myalgia. He denies fatigue. His exercise level has remained stable with regular trips to the gym. Intake Vital Signs 02/25/24 09:24 07/21/24 08:58 Height 5 ft 11 in 5 ft 11 in Weight: 211 lb BMI 29.4 BP 118/78 Blood Pressure Location Lt brachial Position Sitting Respiration 16 Pulse 61 Pulse Source NIBP Pulse Oximetry (%) 93 Oxygen Delivery Method room air Intake Visit Reasons: 6 M FU Dog Breeder Required: No Is patient in pain?: No Allergies No Known Allergies Allergy (Verified 07/21/24 09:02) Medications ???Medication ???Instructions ???Recorded ???Confirmed ???Type aspirin 81 mg tablet,delayed 81 mg PO DAILY 08/01/23 07/21/24 History release cetirizine 10 mg tablet 10 mg PO DAILY 08/01/23 07/21/24 History lisinopril 20 mg tablet 20 mg PO DAILY 08/01/23 07/21/24 History tamsulosin 0.4 mg capsule 0.8 mg PO QHS 08/01/23 07/21/24 History atorvastatin 40 mg tablet 40 mg PO QHS #30 tabs 02/11/24 07/21/24 Rx clopidogrel 75 mg tablet (Plavix) 75 mg PO QDAY #93 tabs 07/21/24 07/21/24 Rx dutasteride 0.5 mg capsule 0.5 mg PO QDAY 07/21/24 07/21/24 History fexofenadine 180 mg tablet 180 mg PO QDAY 07/21/24 07/21/24 History Ejection fraction %: 66 Have you fallen in the past year?: No PFSH Medical History Atherosclerosis of coronary artery of [place] heart without angina pectoris CAD S/P percutaneous coronary angioplasty COVID Obesity Hyperlipidemia SOB (shortness of breath) Vestibular schwannoma Allergies Snoring JEFFREY on CPAP Essential hypertension Surgical History History of coronary artery stent placement (02/11/24) Hx of craniotomy Hx laparoscopic cholecystectomy Family History Mother No problems noted. Social History (Updated 07/21/24 @ 09:05 by Rosa Delaney) Smoking Status: Former smoker quit date: 06/02/19 how long ago did patient quit smokin06/02/2019 alcohol intake: never substance use type: does not use caffeine: Yes Type: coffee Number of servings: 6 ROS Const Const: Negative for fatigue or weakness Eyes Eyes: Negative for change in vision ENT ENT: Negative for dizziness or balance problems Cardio Chest Pain: No (more content not included)... [facility] (UROLWS ) BERNARDO CARVER ([id number]) 1960 M Date Time Provider Department 07/19/24 9:00 AM RUSSELL KAY During your visit today, we recorded the following information about you: Respiration Blood pressure Weight 12/minute 104/70 96.6 kg Russell Kay APRN.PROFESSOR OF COMMUNICATION AND WRITING, CARA 07/19/2024 10:05 AM Signed [facility] MALE PATIENT - HISTORY AND PHYSICAL EXAMINATION PATIENT: Bernardo Carver (63 year old) PCP: Michael Jarquin MD Consultation requested by Dr. Jen Whitt [address] [facility] [address] for an opinion regarding BPH/LUTS and my final recommendations will be communicated back to the requesting physician by way of shared Medical record or letter via US mail. CHIEF COMPLAINT: BPH/LUTS HISTORY OF PRESENT ILLNESS: 63 year old year old male with BPH/LUTS. Worsening symptoms Past med Hx: JEFFREY, Overweight, HTN, HLD, BPH On Flomax 2 cap a day and dutasteride 0.5mg daily. PSA in MAY 2024 = 1.33 Worst urinary symptom is = weak stream, NTF and daytime freq. No family hx of prostate cancer. PRESENTING HISTORY: Hematuria: none Obstructive voiding symptoms: weak stream. Irritative voiding symptoms: frequency and nocturia Urinary retention: no Urinary incontinence: no Urinary tract infection: no Patient Entered Questionnaires: INTERNATIONAL PROSTATE SYMPTOM SCORE (I-PSS) 1)INCOMPLETE EMPTYING Over the past month, how often have you had a sensation of not emptying your bladder completely after you finished urinating? SCORE: 4- More than half the time 2)FREQUENCY Over the past month, how often have you had to urinate again less than two hours after you finished urinating? SCORE: 5- Almost always 3)INTERMITTENCY Over the past month, how often have you found you stopped and started again several times when you urinated? SCORE: 3- About half the time 4)URGENCY Over the past month, how often have you found it difficult to postpone urination? SCORE: 1- Less than 1 time in 5 5)WEAK STREAM Over the past month, how often have you had a weak stream? SCORE: 5- Almost always 6)STRAINING Over the past month, how often have you had to push or strain to begin urination SCORE: 0- Not at all 7)NOCTURIA Over the past month, how many times did you most typically get up to urinate from the time you went to bed at night until the time you get up in the morning? SCORE:3 TOTAL I-PSS SCORE: 18 QUALITY OF LIFE DUE TO URINARY SYMPTOMS If you were to spend the rest of yur life with your urinary condition just the way it is now, how would you feel about that? 0- Delighted PROMIS Global Health 01/14/2023 06/23/2023 05/27/2024 PROMIS Global Health Scale Physical Health Percentile 78 78 66 Mental Health Percentile 96 96 96 Percentiles provide an indication of how the patient's score ranks in relation to the general population. Higher percentile rankings indicate better function/quality of life. 50th percentile is the average of the general population and indicates half of respondents had a worse score. HISTORY: PAST MEDICAL HISTORY Diagnosis Date Allergies Hypertension JEFFREY on CPAP 2014 Snoring 2014 Vestibular schwannoma (HCC) 2016 PAST SURGICAL HISTORY Procedure Laterality Date COLONOSCOPY FLX DX W/COLLJ SPEC WHEN PFRMD 09/05/2014 Colonoscopy L'SCOPE CHOLECYSTECTOMY 08/12/2017 Dr. Rolando Valdez PAST SURGICAL HISTORY OF Craniotomy. Vestibular Schwannoma Social History Tobacco Use Smoking status: Former Current packs/day: 0.00 Average packs/day: 0.3 packs/day for 30.0 years (9.0 ttl pk-yrs) Types: Cigarettes Start date: 07/16/2015 Quit date: 03/09/2019 Years since quittin.3 Smokeless tobacco: Never Tobacco comments: Father smoked occasional cigar in home. NO ETS in adult home. Vaping Use Vaping status: Never Used Substance Use Topics Alcohol use: Yes Comment: weekends Drug use: No FAMILY HISTORY Problem Relation Age of Onset other (Pacemaker) Mother other (HTN) Mother No Known Problems Father No Known Problems Half-brother No Known Problems Half-sister MEDICATIONS: Current Outpatient Medications Medication Sig BRILINTA 90 mg tablet Take 90 mg by mouth two times a day. atorvastatin (LIPITOR) 40 mg tablet Take 40 mg by mouth daily at bedtime. lisinopril (ZESTRIL) 20 mg tablet Take 1 tablet by mouth once daily. dutasteride (AVODART) 0.5 mg capsule Take 1 capsule by mouth once daily. fexofenadine (TANESHA ALLERGY) 180 mg tablet Take 1 tablet by mouth once daily. tamsulosin (FLOMAX) 0.4 mg Take 2 capsules by mouth daily at bedtime. aspirin, enteric coated (ADULT LOW DOSE ASPIRIN) 81 mg EC tablet Take 1 tablet by mouth once daily. cetirizine (ZYRTEC) 10 mg tablet Take 1 tablet by mouth once daily. CPAP Initiate CPAP @ 12 cm of water with humidification. Mask (per patient (more content not included)... Normal [facility] UA DIP, URINE (POC)on 2024 BILIRUBIN UA (POCT) Negative Negative [facility] CLARITY UA (POCT) Clear [facility] COLOR UA (POCT) Yellow [facility] GLUCOSE UA (POCT) Negative Negative mg/dL [facility] Hemoglobin Ql (U) Negative Negative [facility] KETONE UA (POCT) Negative Negative mg/dL [facility] LEUKOCYTES UA (POCT) Negative Negative [facility] NITRITE UA (POCT) Negative Negative [facility] PH UA (POCT) 5.5 4.5 - 8.0 [facility] Protein Ql (U) Negative Negative mg/dL [facility] SPECIFIC GRAVITY UA (POCT) 1.020 1.005 - 1.030 [facility] UROBILINOGEN UA (POCT) 0.2 Normal E.U./dL [facility] Location:[facility], [address], [place], [address] [facility] POINT OF CARE [facility] CNOVon 05-31-2024 CNOV Office Visit (GENSWS ) BERNARDO CARVER ([id number]) 1960 Date Time Provider Department 05/31/24 9:30 AM ELENA CABRAL GENSWS During your visit today, we recorded the following information about you: Temperature Pulse Blood pressure Weight 97.3 degrees 65/minute 117/72 96.5 kg Height 1.803 m Elena Cabral APRN.CNP 05/31/2024 9:43 AM Signed HISTORY AND PHYSICAL Bernardo Carver : 1960 REFERRING PHYSICIAN: Jen Whitt [address] [id number] CHIEF COMPLAINT: Patient presents with: Consult: Colonoscopy consultation HPI: Bernardo is a 63 year old male referred for endoscopy. Bernardo notes due for screening colonoscopy. Bernardo denies abdominal pain.. Bernardo denies diarrhea. Bernardo denies constipation. Bernardo denies a change in bowel habits. Bernardo denies melena. Bernardo denies bright red blood per rectum. Bernardo denies hemorrhoids. Bernardo denies heartburn. Bernardo denies dysphagia. Bernardo denies a history of ulcers/ peptic ulcer disease. Bernardo denies family history of colon issues. Medical history is significant for HLD, HTN, JEFFREY compliant with CPAP. Eliceo follows with [facility] for CAD with stent placement in February. Must continue Brilinta for 1 year. Last OV 02/25/24. Denies CP, dizziness, palpitations, syncope, edema, recent hospitalizations. Eliceo refers some residual SOB, but nothing new or worsening. Bernardo has undergone prior endoscopy. Last colonoscopy was 09/[address] Troy at [facility]. Sedation:Fentanyl 50 micrograms IV, Diphenhydramine 50 mg IV,Midazolam 5 mg IV Impression: - Diverticulosis in the sigmoid colon. Current Outpatient Medications Medication Sig BRILINTA 90 mg tablet Take 90 mg by mouth two times a day. atorvastatin (LIPITOR) 40 mg tablet Take 40 mg by mouth daily at bedtime. lisinopril (ZESTRIL) 20 mg tablet Take 1 tablet by mouth once daily. dutasteride (AVODART) 0.5 mg capsule Take 1 capsule by mouth once daily. fexofenadine (TANESHA ALLERGY) 180 mg tablet Take 1 tablet by mouth once daily. tamsulosin (FLOMAX) 0.4 mg Take 2 capsules by mouth daily at bedtime. aspirin, enteric coated (ADULT LOW DOSE ASPIRIN) 81 mg EC tablet Take 1 tablet by mouth once daily. fluticasone (FLONASE) 50 mcg/actuation nasal spray Use 2 Sprays in each nostril once daily. Rinse mouth after use. cetirizine (ZYRTEC) 10 mg tablet Take 1 tablet by mouth once daily. CPAP Initiate CPAP @ 12 cm of water with humidification. Mask (per patient preference) optional chin strap (if indicated) , filters, tubing, humidifier and lifetime supplies. [employer] Quattro, size medium peg 3350-Electrolytes (GOLYTELY) 236-22.74-6.74 -5.86 gram suspension Take 4,000 mL by mouth one time only for 1 dose. Refer to printed prep instructions from your provider. No current facility-administered medications for this visit. ALLERGIES: Seasonal Allergies PAST MEDICAL HISTORY Diagnosis Date Allergies Hypertension JEFFREY on CPAP 2014 Snoring 2014 Vestibular schwannoma (HCC) 2016 PAST SURGICAL HISTORY Procedure Laterality Date COLONOSCOPY FLX DX W/COLLJ SPEC WHEN PFRMD 09/05/2014 Colonoscopy L'SCOPE CHOLECYSTECTOMY 08/12/2017 Dr. Rolando Valdez PAST SURGICAL HISTORY OF Craniotomy. Vestibular Schwannoma FAMILY HISTORY Problem Relation Age of Onset other (Pacemaker) Mother other (HTN) Mother No Known Problems Father No Known Problems Half-brother No Known Problems Half-sister Social History Tobacco Use Smoking status: Former Current packs/day: 0.00 Average packs/day: 0.3 packs/day for 30.0 years (9.0 ttl pk-yrs) Types: Cigarettes Start date: 07/16/2015 Quit date: 03/09/2019 Years since quittin.2 Smokeless tobacco: Never Tobacco comments: Father smoked occasional cigar in home. NO ETS in adult home. Vaping Use Vaping status: Never Used Substance Use Topics Alcohol use: Yes Comment: weekends Drug use: No REVIEW OF SYMPTOMS: REVIEW OF SYSTEMS: General: The patient denies fatigue, denies weight loss, denies weight gain, denies feeling hot, and feelings of cold. Eyes: The patient denies glaucoma, denies eye injury/surgery, denies glasses or contacts. Ear/Nose/Throat: The patient denies allergies, denies hayfever, denies ear infections, and denies bloody noses. Cardiovascular: The patient denies chest pain, denies heart disease, denies high blood pressure, denies high cholesterol, and denies poor circulation. Respiratory: The patient denies tuberculosis, denies pneumonia, denies frequent cough, + shortness of breath, and denies coughing up blood. Gastrointestinal: The patient denies difficulty swallowing, denies acid reflux, denies ulcers, denies jaundice/hepatitis, denies gallbladder problems, denies vomiting, denies black or tarry stools, denies hemorrhoids, denies bleeding from rectum, denies divert (more content not included)... Normal [facility] Janak 05-31-2024 CNPN Telephone (iAdvizeS) CARVERBERNARDO CABRAL ([id number]) 1960 M Date Time Provider Department 05/31/24 ELENA CABRAL During your visit today, we recorded the following information about you: María Sheth 05/31/2024 9:43 AM Signed 09-08-[address] [facility], provider went over all prep information and gave direct number to call if they have any questions. María Sheth Allergies As of Date: 05/31/2024 Noted Allergy Reaction SEASONAL ALLERGIES 07/26/2014 9 - Itching Date Reviewed: 05/31/2024 Reviewed by: Elena Cabral APRN.PROFESSOR OF COMMUNICATION AND WRITING - Fully Assessed Reason for Visit: 09-08-2024 Colon [facility] [Other] Prescriptions as of 09/29/2024 - BRILINTA 90 mg tablet Take 90 mg by mouth two times a day. - atorvastatin (LIPITOR) 40 mg tablet Take 40 mg by mouth daily at bedtime. - lisinopril (ZESTRIL) 20 mg tablet Take 1 tablet by mouth once daily. - dutasteride (AVODART) 0.5 mg capsule Take 1 capsule by mouth once daily. - tamsulosin (FLOMAX) 0.4 mg Take 2 capsules by mouth daily at bedtime. - aspirin, enteric coated (ADULT LOW DOSE ASPIRIN) 81 mg EC tablet Take 1 tablet by mouth once daily. - fluticasone (FLONASE) 50 mcg/actuation nasal spray Use 2 Sprays in each nostril once daily. Rinse mouth after use. - cetirizine (ZYRTEC) 10 mg tablet Take 1 tablet by mouth once daily. - CPAP Initiate CPAP @ 12 cm of water with humidification. Mask (per patient preference) optional chin strap (if indicated) , filters, tubing, humidifier and lifetime supplies. [employer] Quattro, size medium Problem List As Of Date 05/31/2024 Noted Resolved Hypertension [I10] 08/09/2014 Sleep apnea [G47.30] 08/22/2014 Hyperlipidemia, mixed [E78.2] 08/22/2014 Elevated glucose [R73.09] 08/22/2014 Chronic right shoulder pain [M25.511, G89.29] 10/03/2015 Allergic rhinitis [J30.9] 01/12/2016 Right-sided low back pain with right-sided scia*03/06/2016 Hearing loss in left ear [H91.92] 10/25/2016 Vestibular schwannoma (HCC) [D33.3] 11/13/2016 Essential hypertension [I10] 11/13/2016 JEFFREY on CPAP [G47.33] 11/13/2016 Non morbid obesity due to excess calories [E66.*11/13/2016 Moderate smoker (20 or less per day) [F17.210] 11/13/2016 Post-op pain [G89.18] 11/22/2016 12/05/2016 Acute respiratory failure (HCC) [J96.00] 11/22/2016 12/05/2016 Obesity, Class I, BMI 30-34.9 [E66.811] 07/19/2019 Encounter Status:Closed by MARÍA SHETH on 09/29/24 Normal [facility] CBC W Auto Differential pane l (Bld)on 05-27-2024 Basophils (Bld) [#/Vol] 0.03 10*3/uL [facility] Basophils/100 WBC (Bld) 0.6 % [facility] Differential cell count method Nom (Bld) Auto [facility] Eosinophils (Bld) [#/Vol] 0.08 10*3/uL [facility] Eosinophils/100 WBC (Bld) 1.5 % [facility] Erythrocyte distribution width (RBC) [Ratio] 14.5 % 11.5 - 15.0 % [facility] Hematocrit (Bld) [Volume fraction] 47.4 % 39.0 - 51.0 % [facility] Hemoglobin (Bld) [Mass/Vol] 15.6 g/dL 13.0 - 17.0 g/dL [facility] Immature granulocytes (Bld) [#/Vol] 0.04 10*3/uL [facility] Immature granulocytes/100 WBC (Bld) 0.7 % [facility] Lymphocytes (Bld) [#/Vol] 1.41 10*3/uL [facility] Lymphocytes/100 WBC (Bld) 26.2 % [facility] MCH (RBC) [Entitic mass] 30.1 pg 26.0 - 34.0 pg [facility] MCHC (RBC) [Mass/Vol] 32.9 g/dL 30.5 - 36.0 g/dL [facility] MCV (RBC) [Entitic vol] 91.5 fL 80.0 - 100.0 fL [facility] Monocytes (Bld) [#/Vol] 0.45 10*3/uL [facility] Monocytes/100 WBC (Bld) 8.3 % [facility] Neutrophils (Bld) [#/Vol] 3.38 10*3/uL [facility] Neutrophils/100 WBC (Bld) 62.7 % [facility] Nucleated RBC (Bld) [#/Vol] [facility] Nucleated RBC/100 WBC (Bld) [Ratio] 0.0 % /100 WBC [facility] Platelet mean volume (Bld) [Entitic vol] 11.5 fL 9.0 - 12.7 fL [facility] Platelets (Bld) [#/Vol] 198 10*3/uL [facility] RBC (Bld) [#/Vol] 5.18 10*6/uL 4.20 - 6.0 0 m/uL [facility] WBC (Bld) [#/Vol] 5.39 10*3/uL [facility] Basophils (Bld) [#/Vol] 0.03 10*3/uL Normal <0.11 [facility] Comment on above: Order Comment: Speci men Type: BLOOD SPECIMENOrdering Facility: [facility] Address: [address] [place] [address] Performed By: #### 5 7021-8 ####[facility] LABCLIA [id number] [address] [place] Basophils/100 WBC (Bld) 0.6 % Normal [facility] Comment on above: Order Comment: Speci men Type: BLOOD SPECIMENOrdering Facility: [facility] Address: [address] [place] [address] Performed By: #### 5 7021-8 ####[facility] LABCLIA [id number] [place] [address] [place] Differential cell count method Nom (Bld) Auto Normal [facility] Comment on above: Order Comment: Speci men Type: BLOOD SPECIMENOrdering Facility: [facility] Address: [address] [place] [address] Performed By: #### 5 7021-8 ####[facility] LABCLIA [id number] [place] [address] [place] Eosinophils (Bld) [#/Vol] 0.08 10*3/uL Normal <0.46 [facility] Comment on above: Order Comment: Speci men Type: BLOOD SPECIMENOrdering Facility: [facility] Address: [address] [place] [address] Performed By: #### 5 7021-8 ####[facility] LABCLIA [id number] [place] [address] [place] Eosinophils/100 WBC (Bld) 1.5 % Normal [facility] Comment on above: Order Comment: Speci men Type: BLOOD SPECIMENOrdering Facility: [facility] Address: [address] [place] [address] Performed By: #### 5 7021-8 ####[facility] LABCLIA [id number] [place] [address] [place] Erythrocyte distribution width (RBC) [Ratio] 14.5 % Normal 11.5-15.0 [facility] Comment on above: Order Comment: Speci men Type: BLOOD SPECIMENOrdering Facility: [facility] Address: [address] [place] [address] Performed By: #### 5 7021-8 ####[facility] LABCLIA [id number] [place] [address] [place] Hematocrit (Bld) [Volume fraction] 47.4 % Normal 39.0-51.0 [facility] Comment on above: Order Comment: Speci men Type: BLOOD SPECIMENOrdering Facility: [facility] Address: [address] [place] [address] Performed By: #### 5 7021-8 ####[facility] LABCLIA [id number] [place] [address] [place] Hemoglobin (Bld) [Mass/Vol] 15.6 g/dL Normal 13.0-17.0 [facility] Comment on above: Order Comment: Speci men Type: BLOOD SPECIMENOrdering Facility: [facility] Address: [address] [place] [address] Performed By: #### 5 7021-8 ####[facility] LABCLIA [id number] [place] [address] [place] Immature granulocytes (Bld) [#/Vol] 0.04 10*3/uL Normal <0.10 [facility] Comment on above: Order Comment: Speci men Type: BLOOD SPECIMENOrdering Facility: [facility] Address: [address] [place] [address] Performed By: #### 5 7021-8 ####[facility] LABCLIA [id number] [place] [address] [place] Immature granulocytes/100 WBC (Bld) 0.7 % Normal [facility] Comment on above: Order Comment: Speci men Type: BLOOD SPECIMENOrdering Facility: [facility] Address: [address] [place] [address] Performed By: #### 5 7021-8 ####[facility] LABCLIA [id number] [place] [address] [place] Lymphocytes (Bld) [#/Vol] 1.41 10*3/uL Normal 1.00-4.00 [facility] Comment on above: Order Comment: Speci men Type: BLOOD SPECIMENOrdering Facility: [facility] Address: [address] [place] [address] Performed By: #### 5 7021-8 ####[facility] LABCLIA [id number] [place] [address] [place] Lymphocytes/100 WBC (Bld) 26.2 % Normal [facility] Comment on above: Order Comment: Speci men Type: BLOOD SPECIMENOrdering Facility: [facility] Address: [address] [place] [address] Performed By: #### 5 7021-8 ####[facility] LABIA [id number] [place] [address] [place] MCH (RBC) [Entitic mass] 30.1 pg Normal 26.0-34.0 [facility] Comment on above: Order Comment: Speci men Type: BLOOD SPECIMENOrdering Facility: [facility] Address: [address] [place] [address] Performed By: #### 5 7021-8 ####[facility] LABIA [id number] [place] [address] [place] MCHC (RBC) [Mass/Vol] 32.9 g/dL Normal 30.5-36.0 [facility] Comment on above: Order Comment: Speci men Type: BLOOD SPECIMENOrdering Facility: [facility] Address: [address] [place] [address] Performed By: #### 5 7021-8 ####[facility] LABIA [id number] [place] [address] [place] MCV (RBC) [Entitic vol] 91.5 fL Normal 80.0-100.0 [facility] Comment on above: Order Comment: Speci men Type: BLOOD SPECIMENOrdering Facility: [facility] Address: [address] [place] [address] Performed By: #### 5 7021-8 ####[facility] LABIA [id number] [place] [address] [place] Monocytes (Bld) [#/Vol] 0.45 10*3/uL Normal <0.87 [facility] Comment on above: Order Comment: Speci men Type: BLOOD SPECIMENOrdering Facility: [facility] Address: [address] [place] [address] Performed By: #### 5 7021-8 ####[facility] LABCLIA [id number] [place] [address] [place] Monocytes/100 WBC (Bld) 8.3 % Normal [facility] Comment on above: Order Comment: Speci men Type: BLOOD SPECIMENOrdering Facility: [facility] Address: [address] [place] [address] Performed By: #### 5 7021-8 ####[facility] LABCLIA [id number] [place] [address] [place] Neutrophils (Bld) [#/Vol] 3.38 10*3/uL Normal 1.45-7.50 [facility] Comment on above: Order Comment: Speci men Type: BLOOD SPECIMENOrdering Facility: [facility] Address: [address] [place] [address] Performed By: #### 5 7021-8 ####[facility] LABCLIA [id number] [place] [address] [place] Neutrophils/100 WBC (Bld) 62.7 % Normal [facility] Comment on above: Order Comment: Speci men Type: BLOOD SPECIMENOrdering Facility: [facility] Address: [address] [place] [address] Performed By: #### 5 7021-8 ####[facility] LABCLIA [id number] [place] [address] [place] Nucleated RBC (Bld) [#/Vol] 10*3/uL Normal <0.01 [facility] Comment on above: Order Comment: Speci men Type: BLOOD SPECIMENOrdering Facility: [facility] Address: [address] [place] [address] Performed By: #### 5 7021-8 ####[facility] LABCLIA [id number] [place] [address] [place] Nucleated RBC/100 WBC (Bld) [Ratio] 0.0 /100 WBC Normal [facility] Comment on above: Order Comment: Speci men Type: BLOOD SPECIMENOrdering Facility: [facility] Address: [address] [place] [address] Performed By: #### 5 7021-8 ####[facility] LABCLIA [id number] [place] [address] [place] Platelet mean volume (Bld) [Entitic vol] 11.5 fL Normal 9.0-12.7 [facility] Comment on above: Order Comment: Speci men Type: BLOOD SPECIMENOrdering Facility: [facility] Address: [address] [place] [address] Performed By: #### 5 7021-8 ####[facility] LABIA [id number] [place] [address] [place] Platelets (Bld) [#/Vol] 198 10*3/uL Normal 150-400 [facility] Comment on above: Order Comment: Speci men Type: BLOOD SPECIMENOrdering Facility: [facility] Address: [address] [place] [address] Performed By: #### 5 7021-8 ####[facility] LABIA [id number] [place] [address] [place] RBC (Bld) [#/Vol] 5.18 10*6/uL Normal 4.20-6.00 [facility] Comment on above: Order Comment: Speci men Type: BLOOD SPECIMENOrdering Facility: [facility] Address: [address] [place] [address] Performed By: #### 5 7021-8 ####[facility] LABIA [id number] [address] [id number] [address] [place] WBC (Bld) [#/Vol] 5.39 10*3/uL Normal 3.70-11.00 [facility] Comment on above: Order Comment: Speci men Type: BLOOD SPECIMENOrdering Facility: [facility] Address: [address] [place] [address] Performed By: #### 5 7021-8 ####[facility] LABCLIA [id number] [address] [address] [place] CNOVon 05-27-2024 CNOV Office Visit (FAMPWS ) BERNARDO CARVER ([id number]) 1960 [place] Date Time Provider Department 05/27/24 2:20 PM [facility] During your visit today, we recorded the following information about you: Pulse Respiration Blood pressure Weight 56/minute 16/minute 104/66 94.9 kg Height 1.76 m Jen Whitt APRN.PROFESSOR OF COMMUNICATION AND WRITING 05/27/2024 3:55 PM Signed This is a 63 year old male who presents today with: Patient presents with: Medicare Wellness Exam HISTORY OF PRESENT ILLNESS: Bernardo Jolly Mehul is a 63 year old male. Patient presents with: Medicare Wellness Exam Wellness Exam Diet: Eating a we balanced diet. Exercise: Cardiac rehab 3 times weekly and gym 3 times weekly. Vision: Had exam, wearing readers as needed. Dental: Had exam. Sleep: 8 hours per night. Mood: Denies any increased sadness, anxiety, or SI/Hi. HTN/Stent: Taking lisinopril 20 mg daily. Not currently checking blood pressure at home. Denies chest pain, palpitations, dizziness, or edema. Had 1 stent placed about 4 months ago. Following with Cardiology, [facility]. Next Follow up in July. Taking Liptor 40 mg daily, Brilinta 90 mg BID, and ASA 81 mg daily/ BPH: Taking Flomax 0.4 mg, 2 capsules at bedtime. Avodart 0.5 mg daily. Still getting up 2 times at night to urinate. No difficulty with urine stream. JEFFREY: Using CPAP, tolerating well. Seasonal allergies: Using Tanesha and Flonase as needed. Vestibular schwannoma: Follow-up with neurology. Will complete MRI brain. Colonoscopy: completed in 2014 due in 2024 PSA: Last completed in 2021 WNL Vaccines: Denies wanting any vaccines at this time. PAST MEDICAL HISTORY: PAST MEDICAL HISTORY Diagnosis Date Allergies Hypertension JEFFREY on CPAP 2014 Snoring 2014 Vestibular schwannoma (HCC) 2016 PAST SURGICAL HISTORY Procedure Laterality Date COLONOSCOPY FLX DX W/COLLJ SPEC WHEN PFRMD 09/05/2014 Colonoscopy L'SCOPE CHOLECYSTECTOMY 08/12/2017 Dr. Rolando Valdez PAST SURGICAL HISTORY OF Craniotomy. Vestibular Schwannoma ALLERGIES Seasonal Allergies MEDICATIONS Current Outpatient Medications Medication Sig lisinopril (ZESTRIL) 20 mg tablet Take 1 tablet by mouth once daily. dutasteride (AVODART) 0.5 mg capsule Take 1 capsule by mouth once daily. fexofenadine (TANESHA ALLERGY) 180 mg tablet Take 1 tablet by mouth once daily. tamsulosin (FLOMAX) 0.4 mg Take 2 capsules by mouth daily at bedtime. aspirin, enteric coated (ADULT LOW DOSE ASPIRIN) 81 mg EC tablet Take 1 tablet by mouth once daily. fluticasone (FLONASE) 50 mcg/actuation nasal spray Use 2 Sprays in each nostril once daily. Rinse mouth after use. cetirizine (ZYRTEC) 10 mg tablet Take 1 tablet by mouth once daily. CPAP Initiate CPAP @ 12 cm of water with humidification. Mask (per patient preference) optional chin strap (if indicated) , filters, tubing, humidifier and lifetime supplies. [employer] Quattro, size medium No current facility-administered medications for this visit. FAMILY HISTORY Problem Relation Age of Onset other (Pacemaker) Mother other (HTN) Mother No Known Problems Father No Known Problems Half-brother No Known Problems Half-sister Social History Tobacco Use Smoking status: Former Current packs/day: 0.00 Average packs/day: 0.3 packs/day for 30.0 years (9.0 ttl pk-yrs) Types: Cigarettes Start date: 07/16/2015 Quit date: 03/09/2019 Years since quittin.2 Smokeless tobacco: Never Tobacco comments: Father smoked occasional cigar in home. NO ETS in adult home. Vaping Use Vaping status: Never Used Substance Use Topics Alcohol use: Yes Comment: weekends Drug use: No REVIEW OF SYSTEMS GENERAL: No weight loss, malaise or fevers/chills HEENT: Negative for frequent or significant headaches, No changes in hearing or vision. NECK: Negative for lumps, goiter, pain and significant neck swelling RESPIRATORY: Negative for cough, hemoptysis, wheezing, dyspnea or shortness of breath CARDIOVASCULAR: Negative for chest pain, leg swelling, orthopnea, or palpitations GI: No nausea, vomiting, or diarrhea/constipation. No hematochezia/melena. No heartburn or reflux symptoms. : No history of dysuria, frequency or incontinence MUSCULOSKELETAL: Negative for joint pain or swelling. SKIN: Negative for lesions, rash, and itching ENDOCRINE: Negative for cold or heat intolerance, polyuria, polydipsia and goiter NEURO: No history of headaches, syncope, paralysis, seizures or tremors MOOD: Negative for depression, anxiety, or suicidal ideation. EXAM: BP 104/66 Pulse (!) 56 Resp 16 Ht 176 cm (5' 9.29") Wt 94.9 kg (209 lb 3.5 oz) SpO2 94% BMI 30.64 kg/m? PHYSICAL EXAM: General Appearance: Well appearing, alert, in no acute distress, well-hydrated, well nourished. Skin: Skin color, texture, turgor normal, no suspicious rashes or lesions. Head: N (more content not included)... Normal [facility] Comprehensive metabolic 2000 panelon 05-27-2024 Albumin [Mass/Vol] 4.6 g/dL Normal 3.9-4.9 [facility] Comment on above: Order Comment: Speci men Type: BLOOD SPECIMENOrdering Facility: [facility] Address: [address] [place] [address] Performed By: #### 2 4331-1, 33367-8 ####[facility] LABCLIA [id number] [place] [address] [place] ALP [Catalytic activity/Vol] 63 U/L Normal 38-113 [facility] Comment on above: Order Comment: Speci men Type: BLOOD SPECIMENOrdering Facility: [facility] Address: [address] [place] [id number] Performed By: #### 2 4331-1, 69022-5 ####[facility] LABCLIA [id number] [place] [address] [place] ALT [Catalytic activity/Vol] 22 U/L Normal 10-54 [facility] Comment on above: Order Comment: Speci men Type: BLOOD SPECIMENOrdering Facility: [facility] Address: [address] [place] [address] Performed By: #### 2 4331-1, 46157-0 ####[facility] LABCLIA [id number] [place] [address] [place] Anion gap [Moles/Vol] 13 mmol/L Normal 8-15 [facility] Comment on above: Order Comment: Speci men Type: BLOOD SPECIMENOrdering Facility: [facility] Address: [address] [place], [place] [id number] Performed By: #### 2 4331-1, 60127-8 ####[facility] LABCLIA [id number] [place] [address] [place] AST [Catalytic activity/Vol] 18 U/L Normal 14-40 [facility] Comment on above: Order Comment: Speci men Type: BLOOD SPECIMENOrdering Facility: [facility] Address: [address] [id number] Performed By: #### 2 4331-1, 50956-5 ####[facility] LABCLIA [id number] [place] [address] [place] Bilirubin [Mass/Vol] 0.4 mg/dL Normal 0.2-1.3 [facility] Comment on above: Order Comment: Speci men Type: BLOOD SPECIMENOrdering Facility: [facility] [facility] Address: [address] [place] [address] Performed By: #### 2 4331-1, 20780-2 ####[facility] LABCLIA [id number] [address] [address] [place] Calcium [Mass/Vol] 9.2 mg/dL Normal 8.5-10.2 [facility] Comment on above: Order Comment: Speci men Type: BLOOD SPECIMENOrdering Facility: [facility] Address: [address] [place] [address] Performed By: #### 2 4331-1, 03767-3 ####[facility] LABCLIA [id number] [place] [address] [place] Chloride [Moles/Vol] 106 mmol/L Normal 98-107 [facility] Comment on above: Order Comment: Speci men Type: BLOOD SPECIMENOrdering Facility: [facility] Address: [address] [place] [address] Performed By: #### 2 4331-, ####[facility] LABCLIA [id number] [place] [address] [place] CO2 [Moles/Vol] 21 mmol/L Low 22-30 [facility] Comment on above: Order Comment: Speci men Type: BLOOD SPECIMENOrdering Facility: [facility] Address: [address] [place], [place] [address] Performed By: #### 2 4331-1, 08629-3 ####[facility] LABCLIA [id number] [address] [address] [place] Creatinine [Mass/Vol] 0.85 mg/dL Normal 0.73-1.22 [facility] Comment on above: Order Comment: Speci men Type: BLOOD SPECIMENOrdering Facility: [facility] Address: [address] [place], [place] [address] Performed By: #### 2 4331-1, 99830-7 ####[facility] LABCLIA [id number] [place] [address] [place] Creatinine and Glomerular filtration rate.predicted panel (S/P/Bld) 99 mL/min/1.73m??? Normal >=60 [facility] Comment on above: Order Comment: Jen ying Type: BLOOD SPECIMENOrdering Facility: [facility] Address: [address] [place] [address] Result Comment: Filomena mated Glomerular Filtration Rate (eGFR) is calculated using the 2020 CKD-EPI creatinine equation. This equation utilizes serum creatinine, sex, and age as parameters. The creatinine assay has traceable calibration to isotope dilution-mass spectrometry. Refer to KDIGO guidelines for clinical interpretation. In patients with unstable renal function, e.g. those with acute kidney injury, the eGFR may not accurately reflect actual GFR. Performed By: #### 2 4331-1, 94101-6 ####[facility] LABIA [id number] [place] [address] [place] Glucose [Mass/Vol] 95 mg/dL Normal 74-99 [facility] Comment on above: Order Comment: Jen ying Type: BLOOD SPECIMENOrdering Facility: [facility] Address: [address] [place] [address] Result Comment: The [place] Diabetes Association (ADA) provides guidance for cutoff values for fasting glucose and random glucose. The ADA defines fasting as no caloric intake for at least 8 hours. Fasting plasma glucose results between 100 to 125 mg/dL indicate increased risk for diabetes (prediabetes). Fasting plasma glucose results greater than or equal to 126 mg/dL meet the criteria for diagnosis of diabetes. In the absence of unequivocal hyperglycemia, results should be confirmed by repeat testing. In a patient with classic symptoms of hyperglycemia or hyperglycemic crisis, random plasma glucose results greater than or equal to 200 mg/dL meet the criteria for diagnosis of diabetes. Reference: Standards of Medical Care in Diabetes 2016, [place] Diabetes Association. Diabetes Care. 2016.39(Suppl 1). Performed By: #### 2 4331-1, 86909-4 ####[facility] LABIA [id number] [place] [id number] [place] Potassium [Moles/Vol] 4.3 mmol/L Normal 3.7-5.1 [facility] Comment on above: Order Comment: Speci men Type: BLOOD SPECIMENOrdering Facility: [facility] Address: [address] [place] [address] Performed By: #### 2 4331-1, ####[facility] LABCLIA [id number] [place] [address] [place] Protein [Mass/Vol] 7.1 g/dL Normal 6.3-8.0 [facility] Comment on above: Order Comment: Speci men Type: BLOOD SPECIMENOrdering Facility: [facility] Address: [address] [place] [address] Performed By: #### 2 4331-1, ####[facility] LABCLIA [id number] [place] [address] [place] Sodium [Moles/Vol] 140 mmol/L Normal 136-144 [facility] Comment on above: Order Comment: Speci men Type: BLOOD SPECIMENOrdering Facility: [facility] Address: [address] [place] [address] Performed By: #### 2 4331-1, ####[facility] LABCLIA [id number] [place] [address] [place] Urea nitrogen [Mass/Vol] 26 mg/dL High 9-24 [facility] Comment on above: Order Comment: Speci men Type: BLOOD SPECIMENOrdering Facility: [facility] Address: [address] [place] [address] Performed By: #### 2 4331-1, ####[facility] LABCLIA [id number] [place] [id number] [place] Lipid 1996 panelon 4 Cholesterol [Mass/Vol] 143 mg/dL Normal <200 [facility] Comment on above: Order Comment: Speci men Type: BLOOD SPECIMENOrdering Facility: [facility] Address: [address] [place] [address] Result Comment: <200 mg/dL, Desirable 200-239 mg/dL, Borderline high >239 mg/dL, High Performed By: #### 2 4331-1, 39354-0 ####[facility]CLIA [id number] [facility] [address] [place] Cholesterol in HDL [Mass/Vol] 49 mg/dL Normal >39 [facility] Comment on above: Order Comment: Speci men Type: BLOOD SPECIMENOrdering Facility: [facility] Address: [address] [place] [address] Result Comment: 40-5 9 mg/dL, Acceptable >59 mg/dL, High: Negative risk factor for coronary heart disease <40 mg/dL, Low: Positive risk factor for coronary heart disease Performed By: #### 2 4331-1, 73181-8 ####[facility] LABCLIA [id number] [address] [place] Cholesterol in LDL [Mass/Vol] 84 mg/dL Normal <100 [facility] Comment on above: Order Comment: Speci men Type: BLOOD SPECIMENOrdering Facility: [facility] Address: [address] [place] [address] Result Comment: <100 mg/dL, Optimal 100-129 mg/dL, Near optimal/above optimal 130-159 mg/dL, Borderline high 160-189 mg/dL, High >189 mg/dL, Very high Secondary prevention optimal LDL Cholesterol levels are recommended to be < 70 mg/dL Performed By: #### 2 4331-1, 27313-5 ####[facility] LABCLIA [id number] [address] [place] Cholesterol in LDL/Cholesterol in HDL [Mass ratio] 1.71 {ratio} Normal <2.54 [facility] Comment on above: Order Comment: Speci men Type: BLOOD SPECIMENOrdering Facility: [facility] Address: [address] [place] [address] Result Comment: Refe rence: 1. National Cholesterol Education Program ATP III Guideline At-A-Glance Quick Desk Reference: National Heart, Lung, and Blood [place]. National Institutes of Health. 2001: NIH Publication No. 01-3305. 2. An International Atherosclerosis Society position paper: global recommendations for the management of dyslipidemia: executive summary, Atherosclerosis. 2014: 232(2):410-413. Performed By: #### 2 4331-1, 03999-8 ####[facility] LABCLIA [id number] [place] [address] [place] Cholesterol in VLDL [Mass/Vol] 10 mg/dL Normal <30 [facility] Comment on above: Order Comment: Sergeyi men Type: BLOOD SPECIMENOrdering Facility: [facility] Address: [address] [place] [address] Performed By: #### 2 4331-1, 51872-5 ####[facility] LABCLIA [id number] [place] [address] [place] Cholesterol non HDL [Mass/Vol] 94 mg/dL Normal <130 [facility] Comment on above: Order Comment: Jen ying Type: BLOOD SPECIMENOrdering Facility: [facility] Address: [address] [place] [address] Result Comment: <130 mg/dL, Optimal 130-159 mg/dL, Near optimal/above optimal 160-189 mg/dL, Borderline high 190-219 mg/dL, High >219 mg/dL, Very high Secondary prevention optimal non HDL Cholesterol levels are recommended to be <100 mg/dL Performed By: #### 2 4331-1, 10114-9 ####[facility] LABCLIA [id number] [place] [address] [place] Cholesterol.total/ Cholesterol in HDL [Mass ratio] 2.92 {ratio} Normal <5.10 [facility] Comment on above: Order Comment: Jen men Type: BLOOD SPECIMENOrdering Facility: [facility] Address: [address] [place] [address] Performed By: #### 2 4331-1, 72056-3 ####[facility] LABCLIA [id number] [place] [address] [place] FASTING TIME 15 hrs Normal [facility] Comment on above: Order Comment: Speci men Type: BLOOD SPECIMENOrdering Facility: [facility] Address: [address] [place] [address] Performed By: #### 2 4331-1, 47218-4 ####[facility] LABCLIA [id number] [place] [address] [place] Triglyceride [Mass/Vol] 50 mg/dL Normal <150 [facility] Comment on above: Order Comment: Speci men Type: BLOOD SPECIMENOrdering Facility: [facility] Address: [address] [place] [address] Result Comment: <150 mg/dL, Normal 150-199 mg/dL, Borderline high 200-499 mg/dL, High >499 mg/dL, Very high Performed By: #### 2 4331-1, 93763-7 ####[facility] LABIA [id number] [place] [address] [place] PSA/PROSTATE SPECIFIC ANTIGE N SCREENINGon 05-27-2024 Prostate specific Ag [Mass/Vol] 1.33 ng/mL Normal <2.60 [facility] Comment on above: Order Comment: Speci men Type: BLOOD SPECIMENOrdering Facility: [facility] Address: [address] [place] [address] Result Comment: Tota l PSA test methodology used is the Electrochemiluminescence Immunoassay by [employer]. Total PSA values by differing methodologies cannot be interchanged. Performed By: #### P SAS1 ####[facility] LABCLIA [id number] [place] [address] [place] CNPBrianna 04-15-2024 CNPN Telephone (FAMPWS) MEHULBERNARDO ([id number]) 1960 M Date Time Provider Department 04/15/24 MICHAEL JARQUIN FAMPWS During your visit today, we recorded the following information about you: Josefwilma Bushra 04/15/2024 2:03 PM Signed Eliceo is calling Michael Jarquin MD today with concern regarding Medication Problem cetirizine (ZYRTEC) 10 mg tablet is not helping him anymore. Patient calling stating that medication Patient has been identified by name and birthdate. Duration of symptoms: N/A Person calling: self Call patient at: on cell [phone] (home) [phone] (cell) Was an appointment scheduled: No Closing statement: Results or non-symptom based questions: Thank you for calling [facility], your call will be returned within the next business day. Bushra Michael Mortensen MD 04/15/2024 2:43 PM Signed He may try using Tanesha rather than Zyrtec, and may also use Flonase nasal spray. Rxs for Flonase and Tanesha done. MD Dashawn Nagel Kathryn, MA 04/15/2024 2:47 PM Signed Pt notified and voiced understanding. He states that his "pee pills" Flomax is not working, is up 2-3 x a night, asking if there is anything else he can use. Last OV with Jen in Jun 2023. Advised I would send message to provider but he may need an appointment to discuss. ROYA Saeed Mark D, MD 04/15/2024 4:41 PM Signed OK to add Avodart to the Flomax to see if it helps with urinating; if it does not help in 2-3 months I would recommend Urology consult MD Javad Nagel Rilee, MA 04/15/2024 4:48 PM Signed Called and left message on patients voicemail to return call to the office and ask to speak with a triage nurse. ROYA Membreno Laurie Lynn, LPN 04/16/2024 10:59 AM Signed Left a message for pt to call the office and ask to speak to a nurse. SHIVA Morin Kathryn, MA 04/20/2024 12:49 PM Signed Pt notified. Needs rx for Flomax sent to [facility] as [facility] closed. ROYA Saeed Mark D, MD 04/20/2024 2:34 PM Signed OK to refill as ordered Michael Jarquin MD Allergies As of Date: 04/15/2024 Noted Allergy Reaction SEASONAL ALLERGIES 07/26/2014 9 - Itching Date Reviewed: 09/12/2023 Reviewed by: Rufina Valle OA - Fully Assessed Reason for Visit: Medication Problem [65] Primary Visit Diagnosis:Seasonal allergies [J30.2] Other Visit Diagnosis:Benign prostatic hyperplasia with weak urinary stream [N40.1, R39.12] Order(s):fexofenadine (TANESHA ALLERGY) 180 mg tabletTake 1 tablet by mouth once daily.Disp: 30 tabletRfl: 11 fluticasone (FLONASE) 50 mcg/actuation nasal sprayUse 2 Sprays in each nostril once daily. Rinse mouth after use.Disp: 18.2 mLRfl: 5 dutasteride (AVODART) 0.5 mg capsuleTake 1 capsule by mouth once daily.Disp: 30 capsuleRfl: 5 tamsulosin (FLOMAX) 0.4 mgTake 2 capsules by mouth daily at bedtime.Disp: 180 capsuleRfl: 3 Prescriptions as of 04/20/2024 - tamsulosin (FLOMAX) 0.4 mg Take 2 capsules by mouth daily at bedtime. - aspirin, enteric coated (ADULT LOW DOSE ASPIRIN) 81 mg EC tablet Take 1 tablet by mouth once daily. - fexofenadine (TANESHA ALLERGY) 180 mg tablet Take 1 tablet by mouth once daily. - fluticasone (FLONASE) 50 mcg/actuation nasal spray Use 2 Sprays in each nostril once daily. Rinse mouth after use. - dutasteride (AVODART) 0.5 mg capsule Take 1 capsule by mouth once daily. - cetirizine (ZYRTEC) 10 mg tablet Take 1 tablet by mouth once daily. - lisinopril (ZESTRIL) 20 mg tablet take 1 tablet by mouth once daily - CPAP Initiate CPAP @ 12 cm of water with humidification. Mask (per patient preference) optional chin strap (if indicated) , filters, tubing, humidifier and lifetime supplies. [employer] Mirage Quattro, size medium Problem List As Of Date 04/15/2024 Noted Resolved Hypertension [I10] 08/09/2014 Sleep apnea [G47.30] 08/22/2014 Hyperlipidemia, mixed [E78.2] 08/22/2014 Elevated glucose [R73.09] 08/22/2014 Chronic right shoulder pain [M25.511, G89.29] 10/03/2015 Allergic rhinitis [J30.9] 01/12/2016 Right-sided low back pain with right-sided scia*03/06/2016 Hearing loss in left ear [H91.92] 10/25/2016 Vestibular schwannoma (HCC) [D33.3] 11/13/2016 Essential hypertension [I10] 11/13/2016 JEFFREY on CPAP [G47.33] 11/13/2016 Non morbid obesity due to excess calories [E66.*11/13/2016 Moderate smoker (20 or less per day) [F17.210] 11/13/2016 Post-op pain [G89.18] 11/22/2016 12/05/2016 Acute respiratory failure (HCC) [J96.00] 11/22/2016 12/05/2016 Obesity, Class I, BMI 30-34.9 [E66.811] 07/19/2019 Prescriptions ordered this encounter Disp Refills Start End FEXOFENADINE 180 MG TABLET 30 t* 11 04/15/2024 Route: ORAL Sig: Take 1 tablet by mouth once daily. FLUTICASONE PROPIONATE 50 MCG/ACTUAT* 18.2* 5 04/15/2024 Route: EACH NOST (more content not included)... Normal [facility] XR Chest PA and Lateralon IMPRESSION: No acute radiographic abnormality. Medical Intern: DINO Transcribe Date/Time: Jul 09 2023 8:19A Dictated by : JODIE LORENZANA MD This examination was interpreted and the report reviewed and electronically signed by: JODIE LORENZANA MD on Jul 09 2023 8:20AM [facility] DIVISION OF RADIOLOGY * * *Final Report* * * DATE OF EXAM: Jul 09 2023 8:13AM WOX 5291 - XR CHEST 2V FRONTAL/LAT / PROCEDURE REASON: Acute cough * * * * Physician Interpretation * * * * EXAMINATION: CHEST RADIOGRAPH (2 VIEW FRONTAL & LATERAL) CLINICAL HISTORY: Acute cough MQ: XC2_6 EXAM DATE/TIME: 07/09/2023 8:13 AM COMPARISON: Chest x-ray 07/19/2019 RESULT: Lines, tubes, and devices: None. Lungs and pleura: No consolidation. No lung mass. Calcified granuloma mid right lung. No pleural effusion. No pneumothorax. Cardiomediastinal silhouette: Normal cardiomediastinal silhouette. Bones and soft tissues: Unremarkable. DIVISION OF RADIOLOGY Provider, [facility] - 07/09/2023 * * *Final Report* * * DATE OF EXAM: Jul 09 2023 8:13AM WOX 5291 - XR CHEST 2V FRONTAL/LAT / PROCEDURE REASON: Acute cough * * * * Physician Interpretation * * * * EXAMINATION: CHEST RADIOGRAPH (2 VIEW FRONTAL & LATERAL) CLINICAL HISTORY: Acute cough MQ: XC2_6 EXAM DATE/TIME: 07/09/2023 8:13 AM COMPARISON: Chest x-ray 07/19/2019 RESULT: Lines, tubes, and devices: None. Lungs and pleura: No consolidation. No lung mass. Calcified granuloma mid right lung. No pleural effusion. No pneumothorax. Cardiomediastinal silhouette: Normal cardiomediastinal silhouette. Bones and soft tissues: Unremarkable. IMPRESSION IMPRESSION: No acute radiographic abnormality. Medical Intern: PSCB Transcribe Date/Time: Jul 09 2023 8:19A Dictated by : JODIE LORENZANA MD This examination was interpreted and the report reviewed and electronically signed by: JODIE LORENZANA MD on Jul 09 2023 8:20AM [facility] Radiology Study observation (narrative) [facility] XR Chest PA and LateralOrder ed By: [facility] Provider on 07-09-2023 [facility] CREATININE, BLOOD (POC)on Creatinine [Mass/Vol] 1.00 mg/dL 0.7 - 1.4 mg/dL [facility] eGFR (POCT) [facility] CTA CORONARY W IVCONon 06-12 Radiology Result ACTIONABLE Abnormal [facility] CTA CORONARY W IVCON * * *Final Report* * * DATE OF EXAM: Jun 12 2023 9:15AM FVC 0470 - CTA CORONARY W IVCON / PROCEDURE REASON: SOB (shortness of breath) * * * * Physician Interpretation * * * * CTA CORONARY ARTERIES acquired at [facility] Direct Image Comparison: None HISTORY: 62 years old Male patient with chronic h/o dyspnea on exertion. There is concern for CAD Evaluation for diagnostic clarification and further treatment options.. There is request to define coronary anatomy. TECHNIQUE: SCANNER: Siemens Definition Flash Dual source [id number] scanner PROTOCOL: Spiral imaging of the heart with retrospective gating and submillimeter slice reconstruction throughout the cardiac cycle following administration of contrast material. Scan Range: yamil to the base of the heart CT Dose-Length Product (DLP): 585 mGy*cm CT Dose Reduction Employed: Automated exposure control (AEC) CONTRAST: IV administration of 90 ml Omnipaque 350 Premedication per [facility] protocol/documentation. Scan acquisition: uncomplicated For optimization of anatomic evaluation, advanced 3-D off-line postprocessing was performed on a dedicated workstation by the interpreting physician. Crooks images reconstructed, saved, and available in [employer] 'Get Images'. STUDY LIMITATIONS: None. RESULT: LINES, TUBES and DEVICES: None limited CHEST: visualized Chest wall anatomy: unremarkable. visualized LUNGS: calcified granuloma in the right upper lobe. visualized MEDIASTINUM: small mediastinal lymph nodes, which are not pathologic by size criteria. PERICARDIUM: unremarkable CENTRAL PULMONARY ARTERY: incompletely visualized CARDIAC CHAMBERS: Left ventricle: normal size with normal systolic function; LV EF > 70 %; LV EDV 175 ml; LVmass 137 g Right ventricle: normal size and normal function on qualitative assessment. LV/RV reference values: [normal values LV EDV 77-195 ml; LVmass 118-238 g normal value RV EDV 88-227 ml] Left atrium: normal size. KENDY: normal Right atrium: normal size CENTRAL VENOUS and PULMONARY VENOUS RETURN: normal Coronary Sinus: normal size MITRAL and TRICUSPID VALVE: unremarkable. - no leaflet calcification., No annular calcification. PULMONIC VALVE: assessment is limited, appears trileaflet. No leaflet calcification. AORTIC VALVE: Trileaflet. No leaflet calcification. visualized AORTA: Size: Normal size visualized thoracic aorta. Pathology: No aortic pathology. STJ: maintained Minimal calcification Wall Changes: no evidence of wall changes. AORTIC DIMENSIONS: AORTIC ROOT: 3.6 cm measured [id number] mid ASCENDING THORACIC AORTA: 2.8 cm mid DESCENDING THORACIC AORTA: 2.2 cm CORONARY ANATOMY: Normal origin of the coronary arteries. LEFT MAIN Coronary Artery: Normal sized vessel, which bifurcates into the LAD and circumflex. LM Stenosis and Plaque: No plaque or luminal stenosis. LAD (Left Anterior Descending Coronary Artery): Normal size vessel, which wraps around the apex. Short epicardial course of the mid LAD, with thin layer of muscle bundles crossing from LV to RV myocardium. Gives rise to two diagonal branches and small septal branches. LAD Stenosis and Plaque: No plaque or luminal stenosis. LCX (Left Circumflex Coronary Artery): Normal size vessel, which is non-dominant. Gives rise to a high-lateral branch, lateral branch, and a posterolateral branch. LCX Stenosis and Plaque: No plaque or luminal stenosis. RCA (Right Coronary Artery): Normal size vessel, which is dominant. Gives rise to a conus branch, SA sis branch, acute marginal branch. In its distal segment it bifurcates into the PDA and PV branch. RCA Stenosis and Plaque: Partially calcified plaque in the proximal RCA, with focal luminal narrowing associated with calcium blooming artifact. Estimated luminal stenosis of approximately 50%. However precise assessment is limited in the current study. limited upper ABDOMEN: limited images are without acute abnormalities or significant changes Speech Coach (topogram) images: No additional findings. IMPRESSION: CORONARY ANATOMY: Normal origin of the coronary arteries. LEFT MAIN: No plaque or luminal stenosis. LAD: -Short epicardial course of the mid LAD, with thin layer of muscle bundles crossing from LV to RV myocardium. -No plaque or luminal stenosis. LCX: -No plaque or luminal stenosis. RCA (Right Coronary Artery): Normal size vessel, which is dominant. -Partially calcified plaque in the proximal RCA, with focal luminal narrowing associated with calcium blooming artifact. Estimated intermediate severity of luminal stenosis of approximately 50%. However precise assessment is limited in the current study. CAD-RAD 3: Moderate luminal stenosis (50-69%). Moderate obstructive disease. - Overall Plaque [place]: P1: mild amount of RCA plaque Clinical Correlation And Correlation With Prior Functional Studies Is Recommended ACTI (more content not included)... Invalid Interpretation Code [facility] NURSING PROGon 06-12-2023 NURSING PROG HNO ID: [id number] Author: Jovon Pelletier RN Service: Radiology Author Type: Registered Nurse Type: Nursing Progress Note Filed: 06/12/2023 9:30 AM Note Text: Radiology Service Progress Note PATIENT NAME: Bernardo Carver DATE OF SERVICE: June 12, 2023 TIME: 0905 AM PATIENT IDENTITY VERIFICATION COMPLETED USING TWO (2) STANDARD IDENTIFIERS: Name and Date of confirmed by patient verbally and Name and Date of confirmed by identification band. PATIENT GENDER DATA: Male PATIENT RELEVANT IMPLANT DATA REVIEWED: Yes ALLERGIES: Reviewed and unchanged MEDICATIONS REVIEWED: YES PROCEDURE TYPE: CT: Other Cardiac CTA PATIENT SCREENING: Coronary Artery Disease CARDIAC MEDICATIONS: Nitroglycerin 0.3 mg SL given PATIENT DISCHARGED TO: Home/Self Care SIGNED BY: Jovno Pelletier RN June 12, 2023 9:27 AM Normal [facility] NURSING PROG HNO ID: [id number] Author: Marjorie Agrawal RN Service: Interventional Radiology Author Type: Registered Nurse Type: Nursing Progress Note Filed: 06/12/2023 8:56 AM Note Text: Radiology Service Progress Note DATE OF SERVICE: June 12, 2023 TIME: 8:44 AM PATIENT WEIGHT: 221 LBS PATIENT IDENTITY VERIFICATION COMPLETED USING TWO (2) STANDARD IDENTIFIERS: Name and Date of confirmed by patient verbally and Name and Date of confirmed by identification band. FALL SCREENING: Has the patient had 2 falls in the last year or 1 fall with injury or currently using an Ambulatory Assistive Device (Walker, Cane, Wheelchair, Crutches, etc.)? No PATIENT GENDER DATA: Male ALLERGIES: Reviewed and unchanged CONTRAST ALLERGY: No EXAM: CT -CONTRAST INDUCED NEPHROPATHY RISK FACTORS: Patient age > 60 years CREATININE: Creatinine Date Value Ref Range Status 03/21/2023 0.84 0.73 - 1.22 mg/dL Final 01/16/2023 0.97 0.73 - 1.22 mg/dL Final 03/15/2022 0.90 0.73 - 1.22 mg/dL Final Estimated Glomerular Filtration Rate Date Value Ref Range Status 03/21/2023 100 >=60 mL/min/1.73m? Final Comment: Estimated Glomerular Filtration Rate (eGFR) is calculated using the 2020 CKD-EPI creatinine equation. This equation utilizes serum creatinine, sex, and age as parameters. The creatinine assay has traceable calibration to isotope dilution-mass spectrometry. Refer to KDIGO guidelines for clinical interpretation. In patients with unstable renal function, e.g. those with acute kidney injury, the eGFR may not accurately reflect actual GFR. eGFR- Date Value Ref Range Status 06/11/2021 >60 Final P.O.C.T. RESULTS: POC done: Yes, See Lab Tab June 12, 2023 TREATMENT: N/A IV SITE: Ambulatory: A peripheral IV was started in the Right antecubital site with a Angio cath: 20 gauge. IV SITE APPEARANCE: Clean,Dry and Intact Creatinine 1.0 GFR 86.2 SIGNATURE: Marjorie Agrawal RN PATIENT NAME: Bernardo Carver DATE: June 12, 2023 TIME: 8:44 AM Normal [facility] MRI BRAIN WO/W IVCONon 03-04 [facility] XR Chest PA and Lateralon IMPRESSION: Stable exam without acute findings. Medical Intern: DINO Transcribe Date/Time: Jan 16 2023 9:49A Dictated by : FROYLAN KULKARNI MD This examination was interpreted and the report reviewed and electronically signed by: FROYLAN KULKARNI MD on Jan 16 2023 9:59AM [facility] DIVISION OF RADIOLOGY * * *Final Report* * * DATE OF EXAM: Jan 16 2023 8:07AM WOX [id number] - XR CHEST 2V FRONTAL/LAT / PROCEDURE REASON: SOB (shortness of breath) * * * * Physician Interpretation * * * * EXAMINATION: CHEST RADIOGRAPH (2 VIEW FRONTAL & LATERAL) CLINICAL HISTORY: SOB (shortness of breath) MQ: XC2_6 EXAM DATE/TIME: 01/16/2023 8:07 AM COMPARISON: Chest x-ray on 07/19/2019 RESULT: Lines, tubes, and devices: None. Lungs and pleura: Stable calcified granuloma in the right middle lobe. No consolidation. No lung mass. No pleural effusion. No pneumothorax. Cardiomediastinal silhouette: Normal cardiomediastinal silhouette. Bones and soft tissues: The spine shows degenerative changes. DIVISION OF RADIOLOGY Provider, [facility] - 01/16/2023 * * *Final Report* * * DATE OF EXAM: Jan 16 2023 8:07AM WOX [id number] - XR CHEST 2V FRONTAL/LAT / PROCEDURE REASON: SOB (shortness of breath) * * * * Physician Interpretation * * * * EXAMINATION: CHEST RADIOGRAPH (2 VIEW FRONTAL & LATERAL) CLINICAL HISTORY: SOB (shortness of breath) MQ: XC2_6 EXAM DATE/TIME: 01/16/2023 8:07 AM COMPARISON: Chest x-ray on 07/19/2019 RESULT: Lines, tubes, and devices: None. Lungs and pleura: Stable calcified granuloma in the right middle lobe. No consolidation. No lung mass. No pleural effusion. No pneumothorax. Cardiomediastinal silhouette: Normal cardiomediastinal silhouette. Bones and soft tissues: The spine shows degenerative changes. IMPRESSION IMPRESSION: Stable exam without acute findings. Medical Intern: PSCB Transcribe Date/Time: Jan 16 2023 9:49A Dictated by : FROYLAN KULKARNI MD This examination was interpreted and the report reviewed and electronically signed by: FROYLAN KULKARNI MD on Jan 16 2023 9:59AM EST [facility] Radiology Study observation (narrative) [facility] XR Chest PA and LateralOrder ed By: Bibiana Provider on 01-16-2023 [facility] Skin Biopsyon 08-20-2022 Type of biopsy: guzman ential Informed consent: discussed and consent obtained Timeout: patient name, date of , surgical site, and procedure verified Procedure prep: Patient was prepped and draped in usual sterile fashion Prep type: Isopropyl alcohol Anesthesia: the lesion was anesthetized in a standard fashion Anesthetic: 1% lidocaine w/ epinephrine 1-100,000 buffered w/ 8.4% NaHCO3 Instrument used: DermaBlade Hemostasis achieved with: electrodesiccation Outcome: patient tolerated procedure well Post-procedure details: sterile dressing applied and wound care instructions given Dressing type: petrolatum and bandage [facility] SPIROMETRY - BASELINE AND PO ST DILATORon 07-11-2022 ANX32-99% PRE (L/S) 4.18 L/S [facility] FEV1 PRE (L) 4.93 L [facility] FEV1/FVC PRE (%) 76 % [facility] FVC PRE (L) 6.50 L [facility] PEF PRE (L/S) 9.51 L/S [facility] LVEF STRESS ECHO TREADMILLon 06-17-2022 LV Ejection Fraction 66 % [facility] STRESS ECHO TREADMILLon 06-06 [facility] Vital Signs Date Time Vital Sign Value Performing Clinician Elsi brothers 02-24-2025 07:29-0400 Body height 180.34 cm Jendave Krugerhof CLOSET BUILDER-C Work Phone: 1([phone] [address] 02-24-2025 07:29-0400 Body mass index (BMI) [Ratio] 30.4 kg/m2 Jen Tannhof CLOSET BUILDER-C Work Phone: 2(360)[phone] [place] [address] 02-24-2025 07:29-0400 Body weight 98.88 kg Jen Saskiahof CLOSET BUILDER-C Work Phone: 6(578)[phone] [place] [address] 02-24-2025 07:29-0400 Diastolic blood pressure 89 mm[Hg] Jen Saskiahof CLOSET BUILDER-C Work Phone: 3(512)[phone] [place] [address] 02-24-2025 07:29-0400 Heart rate 57 /min Jen Saskiahof CLOSET BUILDER-C Work Phone: 4(348)[phone] [place] [address] 02-24-2025 07:29-0400 Respiratory rate 18 /min Jen Saskiahof CLOSET BUILDER-C Work Phone: 4([phone])[phone] [place] [address] 02-24-2025 07:29-0400 SaO2% (BldA) [Mass fraction] 95 % Jen Saskiahof CLOSET BUILDER-C Work Phone: 6(177)[phone] [place] [address] 02-24-2025 07:29-0400 Systolic blood pressure 133 mm[Hg] Jen Saskiahof CLOSET BUILDER-C Work Phone: 7(017)[phone] [place] [address] 01-27-2025 07:57-0400 Body height 180.3 cm [facility] 1 Work Phone: [facility] 01-27-2025 07:57-0400 Body mass index (BMI) [Ratio] 30.71 kg/m2 Pac 1 Work Phone: [facility] 01-27-2025 07:57-0400 Body temperature 97.2 [degF] Pacc 1 Work Phone: [facility] 01-27-2025 07:57-0400 Body weight 99.88 kg Pacc 1 Work Phone: [facility] 01-27-2025 07:57-0400 Diastolic blood pressure 64 mm[Hg] Pacc 1 Work Phone: [facility] 01-27-2025 07:57-0400 Heart rate 57 /min Pacc 1 Work Phone: [facility] 01-27-2025 07:57-0400 Respiratory rate 12 /min Pacc 1 Work Phone: [facility] 01-27-2025 07:57-0400 SaO2% (BldA) [Mass fraction] 95 % Pacc 1 Work Phone: [facility] 01-27-2025 07:57-0400 Systolic blood pressure 120 mm[Hg] Pacc 1 Work Phone: [facility] 12-20-2024 07:58-0400 Body height 180.[address] [facility] 12-20-2024 07:58-0400 Body mass index (BMI) [Ratio] 28.87 kg/m2 Frances Barakat RD [facility] 12-20-2024 07:58-0400 Body weight 93.[address] [facility] 12-01-2024 16:00-0400 Diastolic blood pressure 75 mm[Hg] Geo Golias PT Work Phone: [facility] 12-01-2024 16:00-0400 Heart rate 67 /min Geo Golias PT Work Phone: [facility] 12-01-2024 16:00-0400 Systolic blood pressure 118 mm[Hg] Geo Golias PT Work Phone: [facility] 11-22-2024 07:12-0400 Body mass index (BMI) [Ratio] 29.71 kg/m2 Adriano Clarence CASTING MACHINE SET UP OPERATOR.PROFESSOR OF COMMUNICATION AND WRITING Work Phone: [facility] 11-22-2024 07:12-0400 Body weight 96.62 kg Adriano Clarence CASTING MACHINE SET UP OPERATOR.PROFESSOR OF COMMUNICATION AND WRITING Work Phone: [facility] 11-22-2024 07:12-0400 Diastolic blood pressure 76 mm[Hg] Adriano Clarence CASTING MACHINE SET UP OPERATOR.PROFESSOR OF COMMUNICATION AND WRITING Work Phone: [facility] 11-22-2024 07:12-0400 Heart rate 52 /min Adriano Clarence CASTING MACHINE SET UP OPERATOR.PROFESSOR OF COMMUNICATION AND WRITING Work Phone: [facility] 11-22-2024 07:12-0400 Respiratory rate 16 /min Adriano Clarence CASTING MACHINE SET UP OPERATOR.PROFESSOR OF COMMUNICATION AND WRITING Work Phone: [facility] 11-22-2024 07:12-0400 SaO2% (BldA) [Mass fraction] 97 % Adriano Clarence CASTING MACHINE SET UP OPERATOR.PROFESSOR OF COMMUNICATION AND WRITING Work Phone: [facility] 11-22-2024 07:12-0400 Systolic blood pressure 118 mm[Hg] Adriano Clarence CASTING MACHINE SET UP OPERATOR.PROFESSOR OF COMMUNICATION AND WRITING Work Phone: [facility] 09-08-2024 11:00-0500 Diastolic blood pressure 65 mm[Hg] Vanessa Benavides MD Work Phone: [facility] 09-08-2024 11:00-0500 Heart rate 51 /min Vanessa Benavides MD Work Phone: [facility] 09-08-2024 11:00-0500 Respiratory rate 16 /min Vanessa Benavides MD Work Phone: [facility] 09-08-2024 11:00-0500 SaO2% (BldA) [Mass fraction] 96 % Vanessa Benavides MD Work Phone: [facility] 09-08-2024 11:00-0500 Systolic blood pressure 110 mm[Hg] Vanessa Benavides MD Work Phone: [facility] 09-08-2024 08:35-0500 Body mass index (BMI) [Ratio] 29.43 kg/m2 Vanessa Benavides MD Work Phone: [facility] 09-08-2024 08:35-0500 Body temperature 97.11 [degF] Vanessa Benavides MD Work Phone: [facility] 09-08-2024 08:35-0500 Body weight 95.7 kg Vanessa Benavides MD Work Phone: [facility] 08-18-2024 08:36-0500 Body height 180.3 cm Shailesh Concepcion MD Work Phone: [facility] 08-18-2024 08:36-0500 Body mass index (BMI) [Ratio] 29.43 kg/m2 Shailesh Concepcion MD Work Phone: [facility] 08-18-2024 08:36-0500 Body weight 95.71 kg Shailesh Concepcion MD Work Phone: [facility] 08-18-2024 08:36-0500 Diastolic blood pressure 68 mm[Hg] Shailesh Concepcion MD Work Phone: [facility] 08-18-2024 08:36-0500 Heart rate 55 /min Shailesh Concepcion MD Work Phone: [facility] 08-18-2024 08:36-0500 Respiratory rate 14 /min Shailesh Concepcion MD Work Phone: [facility] 08-18-2024 08:36-0500 SaO2% (BldA) [Mass fraction] 94 % Shailesh Concepcion MD Work Phone: [facility] 08-18-2024 08:36-0500 Systolic blood pressure 112 mm[Hg] Shailesh Concepcion MD Work Phone: [facility] 07-19-2024 09:07-0500 Body mass index (BMI) [Ratio] 29.71 kg/m2 Russell Kay APRN.PROFESSOR OF COMMUNICATION AND WRITING, DNP Work Phone: [facility] 07-19-2024 09:07-0500 Body weight 96.62 kg Russell Kay CASTING MACHINE SET UP OPERATOR.PROFESSOR OF COMMUNICATION AND WRITING , DNP Work Phone: [facility] 07-19-2024 09:07-0500 Diastolic blood pressure 70 mm[Hg] Russell Kay CASTING MACHINE SET UP OPERATOR.PROFESSOR OF COMMUNICATION AND WRITING, DNP Work Phone: [facility] 07-19-2024 09:07-0500 Respiratory rate 12 /min Russell Kay CASTING MACHINE SET UP OPERATOR.PROFESSOR OF COMMUNICATION AND WRITING , DNP Work Phone: [facility] 07-19-2024 09:07-0500 Systolic blood pressure 104 mm[Hg] Russell Kay CASTING MACHINE SET UP OPERATOR.PROFESSOR OF COMMUNICATION AND WRITING, DNP Work Phone: [facility] 05-31-2024 09:22-0500 Body height 180.3 cm Elena Cabral CASTING MACHINE SET UP OPERATOR.PROFESSOR OF COMMUNICATION AND WRITING Work Phone: [facility] 05-31-2024 09:22-0500 Body mass index (BMI) [Ratio] 29.68 kg/m2 Elena Cabral CASTING MACHINE SET UP OPERATOR.PROFESSOR OF COMMUNICATION AND WRITING Work Phone: [facility] 05-31-2024 09:22-0500 Body temperature 97.3 [degF] Elena Cordonir CASTING MACHINE SET UP OPERATOR.PROFESSOR OF COMMUNICATION AND WRITING Work Phone: [facility] 05-31-2024 09:22-0500 Body weight 96.53 kg Elena Cabral CASTING MACHINE SET UP OPERATOR.PROFESSOR OF COMMUNICATION AND WRITING Work Phone: [facility] 05-31-2024 09:22-0500 Diastolic blood pressure 72 mm[Hg] Elena Cordonir CASTING MACHINE SET UP OPERATOR.PROFESSOR OF COMMUNICATION AND WRITING Work Phone: [facility] 05-31-2024 09:22-0500 Heart rate 65 /min Elena Cordonir CASTING MACHINE SET UP OPERATOR.PROFESSOR OF COMMUNICATION AND WRITING Work Phone: [facility] 05-31-2024 09:22-0500 SaO2% (BldA) [Mass fraction] 94 % Elena Cordonir CASTING MACHINE SET UP OPERATOR.PROFESSOR OF COMMUNICATION AND WRITING Work Phone: [facility] 05-31-2024 09:22-0500 Systolic blood pressure 117 mm[Hg] Elena Mehrdad CASTING MACHINE SET UP OPERATOR.PROFESSOR OF COMMUNICATION AND WRITING Work Phone: [facility] 05-27-2024 14:08-0500 Body height 176 cm Jen Tannhof CASTING MACHINE SET UP OPERATOR.PROFESSOR OF COMMUNICATION AND WRITING Work Phone: [facility] 05-27-2024 14:08-0500 Body mass index (BMI) [Ratio] 30.64 kg/m2 Jen Tannhof CASTING MACHINE SET UP OPERATOR.PROFESSOR OF COMMUNICATION AND WRITING Work Phone: [facility] 05-27-2024 14:08-0500 Body weight 94.9 kg Jen Tannhof CASTING MACHINE SET UP OPERATOR.PROFESSOR OF COMMUNICATION AND WRITING Work Phone: [facility] 05-27-2024 14:08-0500 Diastolic blood pressure 66 mm[Hg] Jen Tannhof CASTING MACHINE SET UP OPERATOR.PROFESSOR OF COMMUNICATION AND WRITING Work Phone: [facility] 05-27-2024 14:08-0500 Heart rate 56 /min Jen Tannhof CASTING MACHINE SET UP OPERATOR.PROFESSOR OF COMMUNICATION AND WRITING Work Phone: [facility] 05-27-2024 14:08-0500 Respiratory rate 16 /min Jen Tannhof CASTING MACHINE SET UP OPERATOR.PROFESSOR OF COMMUNICATION AND WRITING Work Phone: [facility] 05-27-2024 14:08-0500 SaO2% (BldA) [Mass fraction] 94 % Jen Tannhof CASTING MACHINE SET UP OPERATOR.PROFESSOR OF COMMUNICATION AND WRITING Work Phone: [facility] 05-27-2024 14:08-0500 Systolic blood pressure 104 mm[Hg] Jen Tannhof CASTING MACHINE SET UP OPERATOR.PROFESSOR OF COMMUNICATION AND WRITING Work Phone: [facility] 06-26-2023 07:33-0500 Body weight 102.06 kg Jen Tannhof CASTING MACHINE SET UP OPERATOR.PROFESSOR OF COMMUNICATION AND WRITING Work Phone: [facility] 06-26-2023 07:33-0500 Diastolic blood pressure 84 mm[Hg] Jen Tannhof CASTING MACHINE SET UP OPERATOR.PROFESSOR OF COMMUNICATION AND WRITING Work Phone: [facility] 06-26-2023 07:33-0500 Heart rate 50 /min Jen Tannhof CASTING MACHINE SET UP OPERATOR.PROFESSOR OF COMMUNICATION AND WRITING Work Phone: [facility] 06-26-2023 07:33-0500 Respiratory rate 16 /min Jen Tannhof CASTING MACHINE SET UP OPERATOR.PROFESSOR OF COMMUNICATION AND WRITING Work Phone: [facility] 06-26-2023 07:33-0500 SaO2% (BldA) [Mass fraction] 94 % Jendave Whitt CASTING MACHINE SET UP OPERATOR.PROFESSOR OF COMMUNICATION AND WRITING Work Phone: [facility] 06-26-2023 07:33-0500 Systolic blood pressure 130 mm[Hg] Jen Whitt CASTING MACHINE SET UP OPERATOR.PROFESSOR OF COMMUNICATION AND WRITING Work Phone: [facility] 06-12-2023 09:39-0500 Diastolic blood pressure 60 mm[Hg] [facility] 06-12-2023 09:39-0500 Systolic blood pressure 100 mm[Hg] [facility] 06-12-2023 09:10-0500 Heart rate 51 /min [facility] 06-12-2023 09:05-0500 Respiratory rate 16 /min [facility] 06-12-2023 09:05-0500 SaO2% (BldA) [Mass fraction] 95 % [facility] 03-21-2023 08:18-0400 Body height 175.3 cm Christiano Vasques MD Work Phone: [facility] 03-21-2023 08:18-0400 Body temperature 98.6 [degF] Christiano Vasques MD Work Phone: [facility] 03-21-2023 08:18-0400 Body weight 100.43 kg Christiano Vasques MD Work Phone: [facility] 03-21-2023 08:18-0400 Diastolic blood pressure 70 mm[Hg] Christiano Vasques MD Work Phone: [facility] 03-21-2023 08:18-0400 Heart rate 56 /min Christiano Vasques MD Work Phone: [facility] 03-21-2023 08:18-0400 Systolic blood pressure 120 mm[Hg] Christiano Vasques MD Work Phone: [facility] 07-11-2022 08:29-0500 Body height 180.3 cm Sonja Jackson MD Work Phone: [facility] 07-11-2022 08:29-0500 Body weight 98.88 kg Sonja Jackson MD Work Phone: [facility] 07-11-2022 08:29-0500 Diastolic blood pressure 80 mm[Hg] Sonja Jackson MD Work Phone: [facility] 07-11-2022 08:29-0500 Heart rate 68 /min Sonja Jackson MD Work Phone: [facility] 07-11-2022 08:29-0500 Respiratory rate 14 /min Sonja Jackson MD Work Phone: [facility] 07-11-2022 08:29-0500 SaO2% (BldA) [Mass fraction] 93 % Sonja Jackson MD Work Phone: [facility] 07-11-2022 08:29-0500 Systolic blood pressure 128 mm[Hg] Sonja Jackson MD Work Phone: [facility] 07-11-2022 08:15-0500 Body height 178.3 cm Pulm Wstr Work Phone: [facility] 07-11-2022 08:15-0500 Body weight 98.88 kg Pulm Wstr Work Phone: [facility] 07-11-2022 08:15-0500 Heart rate 68 /min Pulm Wstr Work Phone: [facility] 07-11-2022 08:15-0500 Respiratory rate 14 /min Pulm Wstr Work Phone: [facility] 07-11-2022 08:15-0500 SaO2% (BldA) [Mass fraction] 93 % Pulm Wstr Work Phone: [facility] 03-15-2022 12:56-0400 Body temperature 97.81 [degF] Adriano Lima APRN.PROFESSOR OF COMMUNICATION AND WRITING Work Phone: [facility] 03-15-2022 12:56-0400 Body weight 97.52 kg Adriano Lima APRN.PROFESSOR OF COMMUNICATION AND WRITING Work Phone: [facility] 03-15-2022 12:56-0400 Diastolic blood pressure 86 mm[Hg] Adriano Claernce CASTING MACHINE SET UP OPERATOR.PROFESSOR OF COMMUNICATION AND WRITING Work Phone: [facility] 03-15-2022 12:56-0400 Heart rate 68 /min Adriano Clarence CASTING MACHINE SET UP OPERATOR.PROFESSOR OF COMMUNICATION AND WRITING Work Phone: [facility] 03-15-2022 12:56-0400 Respiratory rate 16 /min Adriano Clarence CASTING MACHINE SET UP OPERATOR.PROFESSOR OF COMMUNICATION AND WRITING Work Phone: [facility] 03-15-2022 12:56-0400 Systolic blood pressure 130 mm[Hg] Adriano Clarence CASTING MACHINE SET UP OPERATOR.PROFESSOR OF COMMUNICATION AND WRITING Work Phone: [facility] 11-19-2021 15:21-0400 Body temperature 97.7 [degF] Marlena Lund CASTING MACHINE SET UP OPERATOR.PROFESSOR OF COMMUNICATION AND WRITING Work Phone: [facility] 11-19-2021 15:21-0400 Body weight 101.42 kg Marlena Lund CASTING MACHINE SET UP OPERATOR.PROFESSOR OF COMMUNICATION AND WRITING Work Phone: [facility] 11-19-2021 15:21-0400 Diastolic blood pressure 82 mm[Hg] Marlena Tomask CASTING MACHINE SET UP OPERATOR.PROFESSOR OF COMMUNICATION AND WRITING Work Phone: [facility] 11-19-2021 15:21-0400 Heart rate 50 /min Marlena Lund CASTING MACHINE SET UP OPERATOR.PROFESSOR OF COMMUNICATION AND WRITING Work Phone: [facility] 11-19-2021 15:21-0400 Respiratory rate 21 /min Marlena Lund CASTING MACHINE SET UP OPERATOR.PROFESSOR OF COMMUNICATION AND WRITING Work Phone: [facility] 11-19-2021 15:21-0400 SaO2% (BldA) [Mass fraction] 98 % Marlena Lund CASTING MACHINE SET UP OPERATOR.PROFESSOR OF COMMUNICATION AND WRITING Work Phone: [facility] 11-19-2021 15:21-0400 Systolic blood pressure 160 mm[Hg] Marlena Lund CASTING MACHINE SET UP OPERATOR.PROFESSOR OF COMMUNICATION AND WRITING Work Phone: [facility] Encounters Encounter Date Encounter Type Care Provider Facility Start: 04-11-2025 [facility] Facility :[facility] Start: 04-04-2025 End: 04-04-2025 ambulatory MICHAEL JARQUIN Facility:[facility] Start: 03-23-2025 End: 03-23-2025 Office outpatient visit 15 minutes Timmy Madsen MD Work Phone: [facility] Comment on above: 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; Vitreous hemorrhage of left eye (HCC); Choroidal neovascularization of both eyes Start: 03-23-2025 End: 03-23-2025 ambulatory MICHAEL JARQUIN Facility:[facility] Start: 03-21-2025 End: 03-21-2025 [facility] Start: 02-24-2025 End: 02-24-2025 [facility] Start: 02-24-2025 End: 02-24-2025 ambulatory Jen Whitt CLOSET BUILDER-C Work Phone: -[place] [employer] [facility] Start: 02-21-2025 End: 02-21-2025 Patient encounter procedure Yudith Mosquera PA-C Work Phone: Orthopaedics Comment on above: Acute medial meniscu s tear of left knee, initial encounter (Primary Dx) Start: 02-21-2025 End: 02-21-2025 ambulatory MICHAEL JARQUIN Facility:[facility] Start: 02-16-2025 End: 02-16-2025 ambulatory MICHAEL JARQUIN Facility:[facility] Start: 02-16-2025 End: 02-16-2025 Office outpatient visit 25 minutes Timmy Madsen MD Work Phone: [facility] Comment on above: 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 Start: 02-04-2025 End: 02-04-2025 Telephone encounter Esperanza Morris MD Work Phone: Ophthalmology Comment on above: Appointment Start: 02-04-2025 ambulatory MICHAEL JARQUIN Facil ity:[facility] Start: 02-04-2025 ambulatory 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; Presbyopia Start: 02-03-2025 End: 02-03-2025 ambulatory DAVID JACOBSEN Facility:[facility] Start: 01-27-2025 End: 01-27-2025 Admission to establishment [facility] [place] [facility] Work Phone: Pre Anesthesia Start: 01-27-2025 End: 01-27-2025 Anesthesia consultation [facility] [place] [facility] Work Phone: Pre Anesthesia Comment on above: Pre-operative examin ation (Primary Dx); Essential hypertension; Hyperlipidemia, mixed; Coronary artery disease involving [place] coronary artery of [place] heart without angina pectoris; Vestibular schwannoma (HCC); JEFFREY on CPAP; Former smoker; Elevated glucose; Obesity, Class I, BMI 30-34.9; Benign prostatic hyperplasia with lower urinary tract symptoms, symptom details unspecified Start: 01-27-2025 End: 01-27-2025 Preprocedural examination done [facility] [place] [facility] Work Phone: [facility] Start: 01-27-2025 End: 01-27-2025 ambulatory MICHAEL Wilfredo VARGAS Facility:[facility] Start: 01-19-2025 End: 01-21-2025 Telephone encounter Mikey Neri MD Work Phone: Orthopaedics Comment on above: Schedule Surgery Start: 01-17-2025 End: 01-17-2025 Patient encounter procedure Mikey Neri MD Work Phone: Orthopaedics Comment on above: Acute pain of left k nee (Primary Dx); Acute medial meniscus tear of left knee, initial encounter; Primary osteoarthritis of left knee; Discoid lateral meniscus of left knee; Presence of coronary angioplasty implant and graft Start: 01-17-2025 End: 01-17-2025 ambulatory ADRIANO LIMA Facility:[facility] Start: 01-12-2025 End: 01-13-2025 Follow-up encounter Adriano Lima APRN.CNP Work Phone: [facility] [place] Comment on above: Results Start: 01-11-2025 ambulatory MICHAEL JARQUIN Facil ity:[facility] Start: 01-11-2025 End: 01-11-2025 Subsequent hospital visit by physician [facility] (I-Stat/1.5t) Work Phone: Radiology Comment on above: Acute pain of left k nee [M25.562] Start: 01-10-2025 End: 01-10-2025 ambulatory MICHAEL JARQUIN Facility:[facility] Start: 01-10-2025 End: 01-10-2025 Office outpatient visit 15 minutes Eden Mendes MD Work Phone: Ophthalmology Comment on above: Vitreous hemorrhage of left eye (HCC) (Primary Dx); 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; Retinal edema; Choroidal neovascularization of both eyes; Horseshoe retinal tear of left eye Start: 01-10-2025 End: 01-10-2025 Patient encounter procedure David Jacobsen OD Work Phone: Ophthalmology Comment on above: Vitreous hemorrhage of left eye (HCC) (Primary Dx); Retinal hemorrhage, left eye; Choroidal neovascularization of both eyes Start: 01-10-2025 End: 01-10-2025 ambulatory DAVID JACOBSEN Facility:[facility] Start: 12-27-2024 End: 12-28-2024 ambulatory Geo Lorenzo PT Work Phone: [facility] Physical Therapy Comment on above: Acute pain of left k nee (Primary Dx) MRI Start: 12-21-2024 End: 12-21-2024 ambulatory Betzaida Velasquez LOG SCALER Work Phone: [facility] Physical Therapy Comment on above: Acute pain of left k nee (Primary Dx) Start: 12-20-2024 End: 12-20-2024 Nutrition therapy Frances Roshni RD Nutrition Therapy Comment on above: Overweight with body mass index (BMI) of 29 to 29.9 in adult Start: 12-20-2024 End: 12-20-2024 Telemedicine consultation with patient Frances Moorekhloe JORDAN Nutrition Therapy Start: 12-20-2024 End: 12-20-2024 ambulatory ADRIANO LIMA Facility:[facility] Start: 12-16-2024 End: 12-16-2024 ambulatory Betzaida Velasquez LOG SCALER Work Phone: [facility] Physical Therapy Comment on above: Acute pain of left k nee (Primary Dx) Start: 12-12-2024 End: 12-13-2024 ambulatory Adriano Lima APRN.PROFESSOR OF COMMUNICATION AND WRITING Work Phone: [facility] Comment on above: Knee Pain Start: 12-08-2024 End: 12-08-2024 ambulatory Geo Golias PT Work Phone: [facility] Physical Therapy Comment on above: Acute pain of left k nee (Primary Dx) Start: 12-06-2024 End: 12-06-2024 ambulatory Adriano Lima CASTING MACHINE SET UP OPERATOR.PROFESSOR OF COMMUNICATION AND WRITING Work Phone: [facility] Comment on above: PT Start: 12-01-2024 End: 12-01-2024 ambulatory Goe Golias PT Work Phone: [facility] Physical Therapy Comment on above: Acute pain of left k nee Start: 11-23-2024 End: 11-23-2024 Follow-up encounter Adriano Lima APRN.PROFESSOR OF COMMUNICATION AND WRITING Work Phone: [facility] [place] Start: 11-22-2024 End: 11-22-2024 Subsequent hospital visit by physician [facility] [place] Work Phone: Radiology Comment on above: Acute pain of left k nee [M25.562] Start: 11-22-2024 End: 11-22-2024 Office outpatient visit 25 minutes Adriano Lima APRN.PROFESSOR OF COMMUNICATION AND WRITING Work Phone: [facility] Comment on above: Essential hypertensi on (Primary Dx); Hyperlipidemia, mixed; Benign prostatic hyperplasia with weak urinary stream; JEFFREY on CPAP; H/O right coronary artery stent placement; Acute pain of left knee; Overweight with body mass index (BMI) of 29 to 29.9 in adult Start: 11-22-2024 End: 11-22-2024 ambulatory ADRIANO LIMA Facility:[facility] Start: 11-10-2024 End: 11-10-2024 Telephone encounter Tristan Urbina MD Work Phone: Urology Start: 11-09-2024 End: 11-09-2024 Patient encounter procedure Tristan Urbina MD Work Phone: Urology Comment on above: Benign prostatic hyp erplasia with urinary frequency [N40.1, R35.0] (Primary Dx) Start: 11-09-2024 End: 11-09-2024 ambulatory TRISTAN URBINA Facility:[id number] Start: 10-06-2024 End: 10-06-2024 Telephone encounter Tristan Urbina MD Work Phone: Urology Comment on above: Appointment Start: 09-29-2024 End: 09-29-2024 Refill Michael Jarquin MD Work Phone: [facility] Comment on above: Refill Request Start: 09-08-2024 End: 09-08-2024 Telemedicine consultation with patient Anais Joaquin PROFESSOR OF COMMUNICATION AND WRITING Work Phone: [facility] [place] Start: 09-08-2024 End: 09-08-2024 ambulatory Anais John Paul GARCÍA.PROFESSOR OF COMMUNICATION AND WRITING Work Phone: [facility] [place] Comment on above: Vestibular schwannom a (HCC) (Primary Dx) Start: 09-08-2024 End: 09-08-2024 Subsequent hospital visit by physician Vanessa Benavides MD Work Phone: Ambulatory Surgery Comment on above: Colon cancer screeni ng [Z12.11] Start: 09-06-2024 End: 09-06-2024 ambulatory MICHAEL JARQUIN Facility:[facility] Start: 09-06-2024 End: 09-06-2024 Subsequent hospital visit by physician Mri Radio [facility] (I-Stat/1.5t) Work Phone: Radiology Comment on above: Vestibular schwannom a (HCC) [D33.3] Start: 08-18-2024 End: 08-18-2024 ambulatory SHAILESH CONCEPCION Facility:[facility] Start: 08-18-2024 End: 08-18-2024 Patient encounter procedure Shailesh Concepcion MD Work Phone: Urology Comment on above: Benign prostatic hyp erplasia with nocturia (Primary Dx); Benign prostatic hyperplasia with weak urinary stream Start: 07-27-2024 End: 07-27-2024 Office outpatient new 30 minutes Sepior DO Work Phone: [employer] [facility] - [place] Comment on above: Neoplasm of uncertai n behavior of skin (Primary Dx); Multiple benign melanocytic nevi of both upper extremities, both lower extremities, and trunk; Seborrheic keratosis; Solar lentigo; Lamas angioma; Inflamed seborrheic keratosis Start: 07-27-2024 End: 07-27-2024 ambulatory [employer] [facility] Start: 07-21-2024 End: 07-21-2024 ambulatory Denilson Marinelli NP Facility[facility] Start: 07-19-2024 End: 07-19-2024 ambulatory [facility] Facility:[facility] Start: 07-19-2024 End: 07-19-2024 Patient encounter procedure Russell Kay APRN.PROFESSOR OF COMMUNICATION AND WRITING, DNP Work Phone: Urology Comment on above: Benign prostatic hyp erplasia with nocturia (Primary Dx); Benign prostatic hyperplasia with weak urinary stream Start: 05-31-2024 End: 09-29-2024 Telephone encounter Elena Cabral APRN.CNP Work Phone: General Surgery Comment on above: 09-08-2024 Colon [facility] Start: 05-31-2024 End: 05-31-2024 ambulatory [facility] Facility:[facility] Start: 05-31-2024 End: 05-31-2024 Patient encounter procedure Elena Cabral CASTING MACHINE SET UP OPERATOR.PROFESSOR OF COMMUNICATION AND WRITING Work Phone: General Surgery Comment on above: Colon cancer screeni ng Start: 05-27-2024 End: 05-27-2024 Patient encounter procedure Jen Whitt RAQUEL.PROFESSOR OF COMMUNICATION AND WRITING Work Phone: [facility] [place] Comment on above: Wellness examination (Primary Dx); Essential hypertension; Hyperlipidemia, mixed; H/O right coronary artery stent placement; Benign prostatic hyperplasia with weak urinary stream; Nocturia; JEFFREY on CPAP; Seasonal allergies; Vestibular schwannoma (HCC); Colon cancer screening; Encounter for screening examination for other mental health and behavioral disorders; Screening for depression; Screening for prostate cancer Start: 05-27-2024 End: 05-27-2024 Patient encounter status Jen Whitt RAQUEL.PROFESSOR OF COMMUNICATION AND WRITING Work Phone: [facility] Work Phone: Start: 05-27-2024 End: 05-27-2024 ambulatory JEN WHITT Facility:[facility] Start: 05-27-2024 Encounter for genera l adult medical examination without abnormal findings JEN WHITT [facility] Start: 05-10-2024 ambulatory Denilson Marinelli NP Facility :[facility] Start: 05-09-2024 End: 05-17-2024 Get Medical Advice Michael Jarquin MD Work Phone: [facility] [place] Comment on above: Refills Start: 04-15-2024 End: 04-20-2024 Refill Michael Jarquin MD Work Phone: [facility] [place] Comment on above: Refill Request Medication Problem Start: 03-01-2024 End: 06-09-[address] MICHAEL JARQUIN MD Facility:[facility] Start: 03-01-2024 End: 06-09-2024 Cardiac Rehab MR DARWIN FROST MD [facility] Start: 11-18-2023 Telephone encounter Michael cai MD Work Phone: [facility] [place] Comment on above: Forms ([employer]; CPAP supplies) Start: 10-24-2023 Telephone encounter Michael cai MD Work Phone: [facility] Comment on above: Order Issue Start: 10-19-2023 Get Medical Advice Michael bautista MD Work Phone: [facility] Comment on above: Refill Start: 09-12-2023 End: 09-12-2023 Patient encounter procedure David Jacobsen OD Work Phone: Ophthalmology Comment on above: Hypermetropia, bilat eral (Primary Dx); Regular astigmatism of both eyes; Presbyopia; Chorioretinal scar of both eyes; Dry eye syndrome of bilateral lacrimal glands Start: 09-09-2023 End: 09-09-2023 Patient encounter procedure Robert Hurley Work Phone: Podiatry Comment on above: Plantar fasciitis (P rimary Dx) Start: 09-09-2023 End: 09-09-2023 Subsequent hospital visit by physician Zeus [facility] [place] Work Phone: Radiology Comment on above: Pain of left heel [M 79.672] Start: 08-28-2023 Telephone encounter Jen dominguez APRN.PROFESSOR OF COMMUNICATION AND WRITING Work Phone: [facility] Comment on above: Results (Labs ) Start: 08-25-2023 End: 08-25-2023 Patient encounter procedure David Jacobsen OD Work Phone: Ophthalmology Comment on above: Chorioretinal scar o f both eyes (Primary Dx); Dry eye syndrome of bilateral lacrimal glands; Hypermetropia, bilateral; Regular astigmatism of both eyes; Presbyopia Start: 08-15-2023 ambulatory Jen Whitt APRN.PROFESSOR OF COMMUNICATION AND WRITING Work Phone: [facility] Comment on above: Mei Downing Start: 08-14-2023 ambulatory Jen Whitt APRN.PROFESSOR OF COMMUNICATION AND WRITING Work Phone: [facility] Comment on above: Foot Doctor Start: 07-21-2023 End: 07-21-2023 Office outpatient visit 15 minutes Ann Fuentes PA-C Work Phone: [facility] Comment on above: Multiple benign bacilio nocytic nevi of both upper extremities, both lower extremities, and trunk (Primary Dx); Seborrheic keratosis; Solar lentigo; Lamas angioma Start: 07-09-2023 End: 07-09-2023 Subsequent hospital visit by physician Xr [facility] Work Phone: Radiology Comment on above: Acute cough [R05.1] Start: 06-26-2023 End: 06-26-2023 Patient encounter procedure Jen Whitt APRN.PROFESSOR OF COMMUNICATION AND WRITING Work Phone: [facility] Comment on above: SOB (shortness of br eath) (Primary Dx); Hyperlipidemia, mixed Start: 06-12-2023 ambulatory MICHAEL JARQUIN [facility] ity:[facility] Start: 06-12-2023 End: 06-12-2023 Subsequent hospital visit by physician Ct [facility] Radiology Comment on above: SOB (shortness of br eath) [R06.02] Start: 06-06-2023 Refill Adriano MENDEZ RN.PROFESSOR OF COMMUNICATION AND WRITING Work Phone: [facility] Comment on above: Refill Request Start: 06-03-2023 Telephone encounter Christiano alcaraz MD Work Phone: Cardiovascular Medicine [facility] Comment on above: Appointment (Resched ule following CTA (needs scheduled)) Start: 03-21-2023 End: 03-21-2023 Office outpatient visit 25 minutes Christiano Vasques MD Work Phone: Cardiovascular [facility] Comment on above: SOB (shortness of br eath) (Primary Dx); Primary hypertension; Dyslipidemia Start: 03-04-2023 End: 03-04-2023 Subsequent hospital visit by physician Mri Radio [facility] (I-Stat/1.5t) Work Phone: Radiology Comment on above: Vestibular schwannom a (HCC) [D33.3] Start: 02-27-2023 Telephone encounter Jen dominguez CASTING MACHINE SET UP OPERATOR.PROFESSOR OF COMMUNICATION AND WRITING Work Phone: [facility] [place] Comment on above: Results (Zio ) Start: 01-31-2023 ambulatory Jen Whitt APRN.PROFESSOR OF COMMUNICATION AND WRITING Work Phone: [facility] Comment on above: Zio-xt. Start: 01-16-2023 End: 01-16-2023 Subsequent hospital visit by physician Xr [facility] Work Phone: Radiology Comment on above: SOB (shortness of br eath) [R06.02] Start: 01-14-2023 ambulatory Michael woodard MD Work Phone: [facility] Comment on above: Cardio test result Vestibular schwannom a (HCC) (Primary Dx) Start: 10-14-2022 Orders Only Sonja Jackson MD Work Phone: Pulmonary Medicine Comment on above: SOB (shortness of br eath) on exertion (Primary Dx) Start: 2022 Non-patient / Non-visit Dr. Anoop Jackson Work Phone: [facility] Start: 09-23-2022 End: 09-23-[address] Sonja Jackson Work Phone: [facility] Work Phone: Start: 09-23-2022 End: 09-23-[address] Sonja Jackson Work Phone: [facility]/Neurology Start: 08-20-2022 End: 08-20-2022 Patient encounter procedure Ann Fuentes PA-C Work Phone: Dermatology [facility] Comment on above: Neoplasm of uncertai n behavior of skin (Primary Dx) Start: 08-03-2022 ambulatory Michael woodard MD Work Phone: [facility] Comment on above: TAMSULOSIN Start: 07-22-2022 Telephone encounter Sonja Jackson MD Work Phone: Pulmonary Medicine Comment on above: Patient Question Start: 07-11-2022 End: 07-11-2022 ambulatory Pulm Lab [facility] Work Phone: PULM LAB [facility] Comment on above: Spirometry Start: 07-11-2022 End: 07-11-2022 Patient encounter procedure Pulm Lab [facility] Work Phone: [facility] Comment on above: SOB (shortness of br eath) (Primary Dx); History of environmental allergies Start: 06-18-2022 ambulatory Michael woodard MD Work Phone: [facility] Comment on above: Stress test results Start: 06-17-2022 End: 06-17-2022 Patient encounter procedure Nurse Card Admin [facility] Work Phone: Cardiology Comment on above: Other chest pain Start: 04-23-2022 ambulatory Nurse Card Adm in [facility] Work Phone: Cardiology Comment on above: Stress Test Instruct ions Start: 04-23-2022 E-mail encounter ofelia m caregiver Nurse Card Admin [facility] Work Phone: [facility] Start: 03-18-2022 Telephone encounter Adriano dowd APRN.PROFESSOR OF COMMUNICATION AND WRITING Work Phone: [facility] Comment on above: Results Start: 03-15-2022 End: 03-15-2022 Office outpatient visit 25 minutes Adriano Lima APRN.PROFESSOR OF COMMUNICATION AND WRITING Work Phone: [facility] Comment on above: Essential hypertensi on (Primary Dx); Hyperlipidemia, mixed; Pre-diabetes; Benign prostatic hyperplasia with weak urinary stream; JEFFREY on CPAP; Other chest pain Start: 11-19-2021 End: 11-19-2021 Patient encounter procedure Marlena Lund APRN.PROFESSOR OF COMMUNICATION AND WRITING Work Phone: [facility] Comment on above: Viral URI with cough (Primary Dx); Exposure to COVID-19 virus Procedures Date Procedure Procedure Detail Performing Clinician Start: 03-23-2025 End: 03-23-2025 Intravitreal njx pharmacologic agt spx Timmy Madsen MD Work Phone: Start: 03-23-2025 OCT ANGIOGRAPHY OU ( BOTH EYES) Timmy Madsen MD Work Phone: Start: 03-23-2025 Computerized ophthal leelee imaging retina Timmy Madsen MD Work Phone: Start: 02-16-2025 End: 02-16-2025 Intravitreal njx pharmacologic agt spx Timmy Madsen MD Work Phone: Start: 02-16-2025 OCT ANGIOGRAPHY OU ( BOTH EYES) Timmy Madsen MD Work Phone: Start: 02-16-2025 Computerized ophthal leelee imaging retina Timmy Madsen MD Work Phone: Start: 02-03-2025 Computerized ophthal leelee imaging retina David Jacobsen OD Work Phone: Start: 01-11-2025 Mri any jt lower ext rem w/o contrast matrl Michael Jarquin MD Work Phone: Start: 01-10-2025 Proph rta dtchmnt w/ o drg 1/> sess Eden Mendes MD Work Phone: Start: 01-10-2025 Computerized ophthal leelee imaging retina David Jacobsen OD Work Phone: Start: 11-22-2024 Lipid 1996 panel - S jennifer or Plasma Xr [place] Work Phone: Start: 11-09-2024 BLADDER SCAN Tristan Urbina MD Work Phone: Start: 09-08-2024 Colonoscopy flx dx w/collj spec when pfrmd Elena Cabral CASTING MACHINE SET UP OPERATOR.PROFESSOR OF COMMUNICATION AND WRITING Work Phone: Start: 09-08-2024 Colonoscopy Anais millard CASTING MACHINE SET UP OPERATOR.PROFESSOR OF COMMUNICATION AND WRITING Work Phone: Start: 09-06-2024 Mri brain brain stem w/o w/contrast material Anais Joaquin CASTING MACHINE SET UP OPERATOR.PROFESSOR OF COMMUNICATION AND WRITING Work Phone: Start: 08-18-2024 Us transrct prstate vol brachytx plnning spx Shailesh Concepcion MD Work Phone: Start: 08-18-2024 Urnls dip stick/tabl et rgnt auto w/o microscopy Shailesh Concepcion MD Work Phone: Start: 07-27-2024 CRYOTHERAPY SKIN LESION Destinee Mann DO Work Phone: Start: 07-27-2024 SKIN BIOPSY Alonzo Pena carlos SHANNON Start: 07-19-2024 Urnls dip stick/tabl et rgnt auto w/o microscopy Russell Kay CASTING MACHINE SET UP OPERATOR.PROFESSOR OF COMMUNICATION AND WRITING, DNP Work Phone: Start: 05-27-2024 Adult depression screening assessment Jen Whitt CASTING MACHINE SET UP OPERATOR.PROFESSOR OF COMMUNICATION AND WRITING Work Phone: Start: 05-27-2024 Lipid 1996 panel - S jennifer or Plasma Elena Cabral CASTING MACHINE SET UP OPERATOR.PROFESSOR OF COMMUNICATION AND WRITING Work Phone: Start: 02-11-2024 History of placement of stent for coronary artery disease History of coronary artery stent placement Ginny Ruiz PA Comment on above: 3.5 x 18 mm Mihai Fro ntier SEEMA to mRCA 02/11/24 Start: 08-25-2023 Lipid 1996 panel - S jennifer or Plasma David Jacobsen OD Work Phone: Start: 07-09-2023 Radiologic exam ches t 2 views Esperanza Tony CASTING MACHINE SET UP OPERATOR.PROFESSOR OF COMMUNICATION AND WRITING Work Phone: Start: 06-12-2023 Cta hrt cornry art/bypass grfts contrst 3d post Christiano Vasques MD Work Phone: Start: 06-12-2023 Creatinine [Mass/vol ume] in Serum or Plasma [facility] Provider Start: 03-21-2023 Ecg routine ecg w/le ast 12 lds i&r only [facility] Provider Start: 03-04-2023 Mri brain brain stem w/o w/contrast material Anais Joaquin CASTING MACHINE SET UP OPERATOR.PROFESSOR OF COMMUNICATION AND WRITING Work Phone: Start: 01-16-2023 Radiologic exam ches t 2 views Jen Whitt CASTING MACHINE SET UP OPERATOR.PROFESSOR OF COMMUNICATION AND WRITING Work Phone: Start: 08-20-2022 SKIN BIOPSY Ann Fuentes PA-C Work Phone: Start: 07-11-2022 Brncdilat rspse spmt ry pre&post-brncdilat admn Adriano Lima APRN.[facility] Work Phone: Start: 06-17-2022 Echo tthrc r-t 2d w/ wo m-mode complete rest&st Adriano Lima CASTING MACHINE SET UP OPERATOR.PROFESSOR OF COMMUNICATION AND WRITING Work Phone: Start: 06-17-2022 LVEF STRESS ECHO TREADMILL Adriano Lima CASTING MACHINE SET UP OPERATOR.PROFESSOR OF COMMUNICATION AND WRITING Work Phone: Start: 03-15-2022 Ecg routine ecg w/le ast 12 lds w/i&r [facility] Provider Start: 03-15-2022 Lipid 1996 panel - S jennifer or Plasma Christiano Vasques MD Work Phone: Start: 03-12-2022 Adult depression screening assessment Adriano Lima APRN.[facility] Work Phone: Start: 12-07-2020 Adult depression screening assessment Marlena Lund CASTING MACHINE SET UP OPERATOR.[facility] Work Phone: Start: 09-05-2014 Colonoscopy Marlena Lund CASTING MACHINE SET UP OPERATOR.[facility] Work Phone: History of percutane ous transluminal coronary angioplasty MR DARWIN FROST MD History of placement of stent for coronary artery disease H/O right coronary artery stent placement Jen Whitt CASTING MACHINE SET UP OPERATOR.[facility] Work Phone: History of placement of stent for coronary artery disease H/O right coronary artery stent placement Adriano Lima CASTING MACHINE SET UP OPERATOR.[facility] Work Phone: Radiation (physical force) MR DARWIN FROST MD Comment on above: " [place]" Surgery (qualifier value) MR DARWIN FROST MD Comment on above: brain tumor removal Plan of Treatment Date Care Activity Detail Author Start: 2037 RSV Immunization for Adults (1 - 1-dose 75+ series) RSV Immunization for Adults (1 - 1-dose 75+ series) [employer] Start: 2037 RSV Vaccine (1 - 1-dose 75+ series) RSV Vaccine (1 - 1-dose 75+ series) [facility] Start: 09-08-2034 Screening for malignant neoplasm of colon [facility] Start: 11-22-2029 Lipid panel Lipid Screening [facility] Start: 05-27-2029 Lipid panel Lipid Screening [facility] Start: 05-27-2029 Prostate specific antigen measurement Prostate Cancer Screening Discussion [facility] Start: 08-25-2028 Lipid panel Lipid Screening [facility] Start: 11-23-2027 Diabetes Screening Diabetes Screening [facility] Start: 05-27-2027 Diabetes Screening Diabetes Screening [facility] Start: 03-15-2027 Lipid 1996 panel - Serum or Plasma Lipid Screening [facility] Start: 03-15-2027 Lipid panel Lipid Screening [facility] Start: 03-15-2027 LIPID SCREEN LIPID SCREEN [facility] Start: 03-15-2027 PROSTATE CANCER SCREENING DISCUSSION PROSTATE CANCER SCREENING DISCUSSION [facility] Start: 03-15-2027 Prostate specific antigen measurement Prostate Cancer Screening Discussion [facility] Start: 08-25-2026 Diabetes Screening Diabetes Screening [facility] Start: 06-11-2026 PROSTATE CANCER SCREENING DISCUSSION PROSTATE CANCER SCREENING DISCUSSION [facility] Start: 04-07-2026 End: 09-14-2026 OCT ANGIOGRAPHY OU (BOTH EYES) OCT ANGIOGRAPHY OU (BOTH EYES) OPHT Imaging Routine [place] retinal tear of left eye Vitreous hemorrhage of left eye (HCC) Choroidal neovascularization of both eyes Expected: 04/07/2026, Expires: 09/14/2026 [facility] Comment on above: Expected: 04/07/2026, Expires: Start: 04-07-2026 End: 09-14-2026 OCT MACULA CIRRUS OU (BOTH EYES) OCT MACULA CIRRUS OU (BOTH EYES) OPHT Imaging Routine [place] retinal tear of left eye Vitreous hemorrhage of left eye (HCC) Choroidal neovascularization of both eyes Expected: 04/07/2026, Expires: 09/14/2026 [facility] Work Phone: Comment on above: Expected: 04/07/2026, Expires: Start: 03-03-2026 End: 08-10-2026 OCT ANGIOGRAPHY OU (BOTH EYES) OCT ANGIOGRAPHY OU (BOTH EYES) OPHT Imaging Routine [place] retinal tear of left eye Vitreous hemorrhage of left eye (HCC) Choroidal neovascularization of both eyes Expected: 03/03/2026, Expires: 08/10/2026 [facility] Comment on above: Expected: 03/03/2026, Expires: Start: 03-03-2026 End: 08-10-2026 OCT MACULA CIRRUS OU (BOTH EYES) OCT MACULA CIRRUS OU (BOTH EYES) OPHT Imaging Routine [place] retinal tear of left eye Vitreous hemorrhage of left eye (HCC) Choroidal neovascularization of both eyes Expected: 03/03/2026, Expires: 08/10/2026 [facility] Work Phone: Comment on above: Expected: 03/03/2026, Expires: Start: 01-16-2026 DIABETES SCREEN DIABETES SCREEN [facility] Start: 01-16-2026 Diabetes Screening Diabetes Screening [facility] Start: 12-01-2025 BP Controlled (<130/80) BP Controlled (<130/80) [facility] Start: 11-27-2025 LIPID SCREEN LIPID SCREEN [facility] Start: 11-22-2025 Annual PCP Team Chronic Disease Visit Annual PCP Team Chronic Disease Visit [facility] Start: 11-22-2025 BP Controlled (<130/80) BP Controlled (<130/80) [facility] Start: 11-22-2025 Hepatitis B surface antibody level LDL Cholesterol [facility] Start: 08-18-2025 BP Controlled (<130/80) BP Controlled (<130/80) [facility] Start: 08-01-2025 End: 08-01-2025 Patient encounter procedure 08/01/2025 8:00 AM EST Office Visit [facility] [place] [address] [place] [address] Elizabeth Sofia PA-C [address] [place] [address] [facility] [place] Start: 07-19-2025 BP Controlled (<130/80) BP Controlled (<130/80) [facility] Start: 05-31-2025 BP Controlled (<130/80) BP Controlled (<130/80) [facility] Start: 05-27-2025 Annual PCP Team Chronic Disease Visit Annual PCP Team Chronic Disease Visit [facility] Start: 05-27-2025 Anxiety Screening Anxiety Screening [facility] Start: 05-27-2025 BP Controlled (<130/80) BP Controlled (<130/80) [facility] Start: 05-27-2025 Covid-19 Vaccine () Covid-19 Vaccine () [facility] Comment on above: Postponed from 03/07/2024 (Declined at t his time) Start: 05-27-2025 Depression Screening Depression Screening [facility] Start: 05-27-2025 Shingrix Vaccine (1 of 2) Shingrix Vaccine (1 of 2) [facility] Comment on above: Postponed from 2012 (Declined at t his time) Start: 05-26-2025 End: 08-25-2025 Comprehensive metabolic 2000 panel - Serum or Plasma COMPREHENSIVE METABOLIC PANEL Lab Routine Essential hypertension Hyperlipidemia, mixed Expected: 05/26/2025 (Approximate), Expires: 08/25/2025 [facility] Comment on above: Expected: 05/26/2025 (Approximate), Expi res: 08/25/2025 Start: 05-26-2025 End: 08-25-2025 Hemoglobin A1c in Blood HEMOGLOBIN A1C Lab Routine Elevated glucose Expected: 05/26/2025 (Approximate), Expires: 08/25/2025 [facility] Work Phone: Comment on above: Expected: 05/26/2025 (Approximate), Expi res: 08/25/2025 Start: 05-26-2025 End: 08-25-2025 Lipid 1996 panel - Serum or Plasma LIPID PANEL, FASTING Lab Routine Hyperlipidemia, mixed Expected: 05/26/2025 (Approximate), Expires: 08/25/2025 [facility] Comment on above: Expected: 05/26/2025 (Approximate), Expi res: 08/25/2025 Start: 05-11-2025 End: 05-11-2025 Patient encounter procedure 05/11/2025 8:00 AM EST Office Visit [facility] [place] [address] [place] [address] Timmy Madsen MD [address] [place] [address] Diagnostics, [facility] [address] [address] Return in about 7 weeks (around 05/11/2025) for DFE. [facility] Comment on above: Return in about 7 weeks (around ) for DFE. Start: 05-09-2025 End: 05-09-2025 Patient encounter procedure 05/09/2025 7:20 AM EST Office Visit Family Medicine [place] [address] [place] [address] Adriano Lima APRN.PROFESSOR OF COMMUNICATION AND WRITING [address] [place] [address] 6 month follow up [facility] Comment on above: 6 month follow up Start: 03-23-2025 End: 03-23-2025 Patient encounter procedure 03/23/2025 8:30 AM EDT Office Visit [facility] [place] [address] [place] [address] Timmy Madsen MD [address] [place] [address] [facility] [address] [address] Return in about 4 weeks (around 03/16/2025). [facility] Comment on above: Return in about 4 weeks (around ). Start: 03-21-2025 End: 03-21-2025 Patient encounter procedure 03/21/2025 8:15 AM EDT Office Visit Orthopaedics [address] [place] [address] Mikey Neri MD [address] [place] [address] Post op Left knee arthroscopic medial menisectomy Orthopaedics Comment on above: Post op Left knee arthroscopic medial me nisectomy Start: 03-16-2025 End: 03-16-2025 Patient encounter procedure 03/16/2025 8:15 AM EDT Office Visit [facility] [address] [place] [address] Timmy Madsen MD [address] [place] [address] Diagn[facility] [address] [address] Return in about 4 weeks (around 03/16/2025). [facility] Comment on above: Return in about 4 weeks (around ). Start: 03-15-2025 Diabetes mellitus screening Diabetes Screening [facility] Start: 03-15-2025 DIABETES SCREEN DIABETES SCREEN [facility] Start: 03-07-2025 Influenza vaccination [facility] Start: 02-21-2025 End: 02-21-2025 Patient encounter procedure 02/21/2025 8:30 AM EDT Office Visit Orthopaedics [address] [place] [address] Yudith Mosquera PA-C [address] [place] [address] Post op Left knee arthroscopic medial menisectomy Orthopaedics Comment on above: Post op Left knee arthroscopic medial me nisectomy Start: 02-09-2025 End: 02-09-2025 Admission to same day surgery center [facility] Surgery Comment on above: ARTHROSCOPY KNEE MENISCECTOMY MEDIAL OR LATERAL Start: 02-09-2025 End: 02-09-2025 Arthrs kne surg w/meniscectomy med/lat w/shvg [facility] OR Start: 02-09-2025 Subsequent hospital visit by physician 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] Start: 02-04-2025 End: 02-04-2025 Patient encounter procedure 02/04/2025 8:30 AM EDT Office Visit [facility] Ophthalmology [address] [address] Esperanza Owens MD [address] [place] [address] Diagnostics, [facility] [address] [address] retinal tear f/u left eye with worsening SRF right eye-needs FA+ [facility] (patient was never scheduled for follow-up on 01/10) Ophthalmology Comment on above: retinal tear f/u left eye with worsening SRF right eye-needs FA+ [facility] (patient was never scheduled for follow-up on 01/10) Start: 01-17-2025 End: 01-17-2025 Patient encounter procedure 01/17/2025 8:15 AM EDT Office Visit Orthopaedics [address] [place] [address] Mikey Neri MD [address] [place] [address] acute medial meniscus tear of left knee, initial encounter [S83.242A]; Tear of lateral meniscus of left knee, current, unspecified tear type, initial encounter [S83.282A] Orthopaedics Comment on above: acute medial meniscus tear of left knee, initial encounter [S83.242A]; Tear of lateral meniscus of left knee, current, unspecified tear type, initial encounter [S83.282A] Start: 01-11-2025 End: 01-11-2025 Patient encounter procedure 01/11/2025 7:00 AM EDT Appointment Radiology [address] [place], [place] [address] Acute pain of left knee [M25.562] Radiology Comment on above: Acute pain of left knee [M25.562] Start: 01-03-2025 Influenza vaccination Influenza Vaccine (#1) [facility] Comment on above: Postponed from 03/07/2024 (Declined at t his time) Start: 12-27-2024 End: 12-27-2024 ambulatory 12/27/2024 7:45 AM EDT OT/PT/Speech Visit [facility] Physical Therapy [address] [place] [address] Geo Lorenzo, PT [address] [place] [address] Acute pain of left knee [M25.562] [facility] Therapy Comment on above: Acute pain of left knee [M25.562] Start: 12-21-2024 End: 12-21-2024 ambulatory 12/21/2024 11:00 AM EDT OT/PT/Speech Visit [facility] Therapy [address] [place] [address] KasBetzaida razo, LOG SCALER [address] [place] [address] Acute pain of left knee [M25.562] [facility] Therapy Comment on above: Acute pain of left knee [M25.562] Start: 12-20-2024 End: 12-20-2024 Nutrition therapy 12/20/2024 8:00 AM EDT [facility] Nutrition Therapy [address] [place] [address] Frances Barakat, RD [address] [place] [address] Dx: Overweight with body mass index (BMI) of 29 to 29.9 in adult [E66.3, Z68.29] Nutrition Therapy Comment on above: Dx: Overweight with body mass index (BMI ) of 29 to 29.9 in adult [E66.3, Z68.29] Start: 12-16-2024 End: 12-16-2024 ambulatory 12/16/2024 11:45 AM EDT OT/PT/Speech Visit [facility] Physical Therapy [address] [place], [place] [id number] Betzaida Velasquez, LOG SCALER [address] [place] [address] Acute pain of left knee [M25.562] [facility] Physical Therapy Comment on above: Acute pain of left knee [M25.562] Start: 11-22-2024 End: 02-21-2025 CBC W Auto Differential panel - Blood [facility] Comment on above: Expected: 11/22/2024 (Approximate), Expi res: 02/21/2025 Start: 11-22-2024 End: 02-21-2025 Comprehensive metabolic 2000 panel - Serum or Plasma [facility] Comment on above: Expected: 11/22/2024, Expires: Start: 11-22-2024 End: 02-21-2025 Lipid 1996 panel - Serum or Plasma [facility] Work Phone: Comment on above: Expected: 11/22/2024, Expires: Start: 11-22-2024 End: 11-22-2024 Patient encounter procedure [facility] Comment on above: 6 month follow up Start: 11-09-2024 End: 11-09-2024 Patient encounter procedure 11/09/2024 10:00 AM EDT Office Visit Urology [address] [place] [address] Tristan Urbina MD [address] [place], [place] [id number] [facility] Comment on above: [facility] Start: 09-21-2024 DTaP/Tdap/Td Vaccines (2 - Td or Tdap) DTaP/Tdap/Td Vaccines (2 - Td or Tdap) [facility] Start: 09-21-2024 Urine microalbumin profile [facility] Start: 09-08-2024 End: 09-08-2024 Patient encounter procedure Ambulatory Surgery Start: 09-08-2024 End: 09-08-2024 ambulatory [facility] Comment on above: 18 months Start: 09-06-2024 End: 09-06-2024 Patient encounter procedure 09/06/2024 8:30 AM EST Appointment Radiology [address] [place] [address] s/p left retrosigmoid approach for 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 on 11/21/2016 (Adis) followed by GKRS (13Gy) for mild increase in residual tumor on 06/17/17 (See) Radiology Comment on above: s/p left retrosigmoid approach for aggre ssive STR of very large left vestibular schwannoma on 11/21/2016 (Adis) followed by GKRS (13Gy) for mild increase in residual tumor on 06/17/17 (See) Start: 09-05-2024 Colonoscopy COLONOSCOPY [facility] Start: 09-05-2024 COLORECTAL CANCER SCREENING COLORECTAL CANCER SCREENING [facility] Start: 09-05-2024 Screening for malignant neoplasm of colon [facility] Start: 08-18-2024 End: 08-18-2024 Patient encounter procedure 08/18/2024 8:30 AM EST Office Visit Urology [address] [address] Shailesh Concepcion MD [address] [place] [address] [facility] Comment on above: cysto/trus Start: 07-26-2024 End: 07-26-2024 Patient encounter procedure 07/26/2024 8:00 AM EST Office Visit [facility] [address] [facility] [address] [place] [phone] Ann Fuentes PA-C [address] [facility] [address] [place] [address] [facility] Start: 07-19-2024 End: 07-19-2024 Patient encounter procedure 07/19/2024 9:00 AM EST Office Visit Urology [address] [place] [address] Russell Kay APRN.PROFESSOR OF COMMUNICATION AND WRITING, DNP [address] [place] [address] Benign prostatic hyperplasia with weak urinary stream [N40.1, R39.12]; Nocturia [R35.1] Urology Comment on above: Benign prostatic hyperplasia with weak u rinary stream [N40.1, R39.12]; Nocturia [R35.1] Start: 06-26-2024 Annual PCP Team Chronic Disease Visit Annual PCP Team Chronic Disease Visit [facility] Start: 06-11-2024 DIABETES SCREEN DIABETES SCREEN [facility] Start: 05-31-2024 End: 05-31-2024 Patient encounter procedure 05/31/2024 9:30 AM EST Office Visit General Surgery [address] [place] [address] Elena Cabral APRN.PROFESSOR OF COMMUNICATION AND WRITING [address] [address] Colon cancer screening [Z12.11] General Surgery Comment on above: Colon cancer screening [Z12.11] Start: 05-27-2024 End: 08-26-2024 PSA/PROSTATE SPECIFIC ANTIGEN SCREENING [facility] Work Phone: Comment on above: Expected: 05/27/2024, Expires: Start: 03-21-2024 BP Controlled (<130/80) BP Controlled (<130/80) [facility] Start: 03-07-2024 Covid-19 Vaccine ( season) Covid-19 Vaccine () [facility] Start: 03-07-2024 Covid-19 Vaccine ( season) Covid-19 Vaccine ( season) [facility] Start: 03-07-2024 Influenza vaccination [facility] Start: 02-26-2024 End: 05-27-2024 Comprehensive metabolic 2000 panel - Serum or Plasma COMP METABOLIC PANEL Lab Routine Hyperlipidemia, mixed Expected: 02/26/2024, Expires: 05/27/2024 [facility] Work Phone: Comment on above: Expected: 02/26/2024, Expires: 4 Start: 02-26-2024 End: 05-27-2024 Lipid 1996 panel - Serum or Plasma LIPID PANEL BASIC Lab Routine Hyperlipidemia, mixed Expected: 02/26/2024, Expires: 05/27/2024 [facility] Work Phone: Comment on above: Expected: 02/26/2024, Expires: 4 Start: 01-17-2024 ANNUAL PCP TEAM CHRONIC DISEASE VISIT ANNUAL PCP TEAM CHRONIC DISEASE VISIT [facility] Start: 01-17-2024 BP CONTROLLED (<130/80) BP CONTROLLED (<130/80) [facility] Start: 11-25-2023 End: 11-25-2023 Patient encounter procedure Ophthalmology Comment on above: CR scars and lesions lost to f/u; CR scar s and lesions Start: 07-27-2023 End: 10-26-2023 Comprehensive metabolic 2000 panel - Serum or Plasma COMP METABOLIC PANEL Lab Routine Hyperlipidemia, mixed Expected: 07/27/2023, Expires: 10/26/2023 [facility] Work Phone: Comment on above: Expected: 07/27/2023, Expires: 4 Start: 07-27-2023 End: 10-26-2023 Lipid 1996 panel - Serum or Plasma LIPID PANEL BASIC Lab Routine Hyperlipidemia, mixed Expected: 07/27/2023, Expires: 10/26/2023 [facility] Work Phone: Comment on above: Expected: 07/27/2023, Expires: 4 Start: 07-07-2023 Behavioral Health Screening Behavioral Health Screening [facility] Start: 07-07-2023 Depression Assessment Depression Assessment [facility] Start: 06-23-2023 End: 06-23-2023 Patient encounter procedure 06/23/2023 Office Visit Dermatology Ann Fuentes PA-C [address] [facility] [address] [place] [address] [facility] Start: 03-21-2023 End: 05-21-2023 CREATININE BLD [facility] Work Phone: Comment on above: Expected: 03/21/2023, Expires: 3 Start: 03-15-2023 ANNUAL PCP TEAM CHRONIC DISEASE VISIT ANNUAL PCP TEAM CHRONIC DISEASE VISIT [facility] Start: 03-15-2023 BP CONTROLLED (<130/80) BP CONTROLLED (<130/80) [facility] Start: 03-12-2023 Adult depression screening assessment DEPRESSION SCREENING [facility] Start: 03-07-2023 Covid-19 Vaccine ( season) Covid-19 Vaccine ( season) [facility] Start: 03-07-2023 Influenza vaccination [facility] Start: 2022 RSV Immunization aged 60 or older (1 - 1-dose 60+ series) RSV Immunization aged 60 or older (1 - 1-dose 60+ series) [facility] Start: 2022 RSV Vaccine (1 - 1-dose 60+ series) RSV Vaccine (1 - 1-dose 60+ series) [facility] Start: 2022 RSV Vaccine (1 - Risk 60-74 years 1-dose series) RSV Vaccine (1 - Risk 60-74 years 1-dose series) [facility] Start: 07-07-2022 DEPRESSION ASSESSMENT DEPRESSION ASSESSMENT [facility] Start: 03-15-2022 End: 05-15-2022 Comprehensive metabolic 2000 panel - Serum or Plasma [facility] Work Phone: Comment on above: Expected: 03/15/2022, Expires: 2 Start: 03-15-2022 End: 05-15-2022 Hemoglobin A1c in Blood [facility] Work Phone: Comment on above: Expected: 03/15/2022, Expires: 2 Start: 03-15-2022 End: 05-15-2022 LIPID PANEL, NONFASTING [facility] Work Phone: Comment on above: Expected: 03/15/2022, Expires: 2 Start: 03-15-2022 End: 05-15-2022 Prostate specific Ag [Mass/volume] in Serum or Plasma [facility] Work Phone: Comment on above: Expected: 03/15/2022, Expires: 2 Start: 03-07-2022 Influenza vaccination [facility] Start: 12-12-2021 ANNUAL PCP TEAM CHRONIC DISEASE VISIT ANNUAL PCP TEAM CHRONIC DISEASE VISIT [facility] Start: 12-12-2021 BP CONTROLLED (<130/80) BP CONTROLLED (<130/80) [facility] Start: 12-12-2021 COVID-19 VACCINE (#1) COVID-19 VACCINE (#1) [facility] Comment on above: Postponed from 09/25/1967 (Declined at t his time) Start: 12-07-2021 Adult depression screening assessment DEPRESSION SCREENING [facility] Start: 11-19-2021 End: 12-03-2021 Influenza virus A and B RNA and SARS-CoV-2 (COVID-19) N gene panel - Respiratory specimen by LEANNA with probe detection COVID WITH FLUA+B, ROUTINE Microbiology Routine Viral URI with cough Exposure to COVID-19 virus Expected: 11/19/2021, Expires: 12/03/2021 [facility] Work Phone: Comment on above: Expected: 11/19/2021, Expires: 2 Start: 07-07-2021 DEPRESSION ASSESSMENT DEPRESSION ASSESSMENT [facility] Start: 07-26-2015 Pneumococcal Vaccine: 50+ (2 of 2 - PCV) Pneumococcal Vaccine: 50+ (2 of 2 - PCV) [facility] Start: 07-26-2015 Pneumococcal Vaccine: 50+ Years (2 of 2 - PCV) Pneumococcal Vaccine: 50+ Years (2 of 2 - PCV) [facility] Start: 07-26-2015 Pneumococcal Vaccine: Pediatrics (0 to 5 Years) and At-Risk Patients (6 to 64 Years) (2 - PCV) Pneumococcal Vaccine: Pediatrics (0 to 5 Years) and At-Risk Patients (6 to 64 Years) (2 - PCV) [facility] Start: 07-26-2015 Pneumococcal Vaccine: Pediatrics (0 to 5 Years) and At-Risk Patients (6 to 64 Years) (2 of 2 - PCV) Pneumococcal Vaccine: Pediatrics (0 to 5 Years) and At-Risk Patients (6 to 64 Years) (2 of 2 - PCV) [facility] Start: 2012 SHINGRIX VACCINE (1 of 2) SHINGRIX VACCINE (1 of 2) [facility] Start: 2012 Zoster Vaccines (1 of 2) Zoster Vaccines (1 of 2) [facility] Start: 09-25-2007 COLOGUARD (FIT-DNA) COLOGUARD (FIT-DNA) [facility] Start: 09-25-[address] COLONOGRAPHY [facility] Start: 09-25-2007 FECAL OCCULT BLOOD FECAL OCCULT BLOOD [facility] Start: 09-25-2007 Screening for malignant neoplasm of colon [facility] Start: 09-25-2007 SIGMOIDOSCOPY SIGMOIDOSCOPY [facility] Start: 1980 Anxiety Screening Anxiety Screening [facility] Start: 1980 Depression Screening Depression Screening [facility] Start: 1980 Diabetes mellitus screening Diabetes Screening [facility] Start: 1980 Hepatitis C screening Hepatitis C Screening [facility] Start: 1980 HIV SCREENING HIV SCREENING [facility] Start: 1974 Depression Screening Depression Screening [facility] Start: 09-25-1963 MMR Vaccines (1 of 1 - Standard series) MMR Vaccines (1 of 1 - Standard series) [facility] Start: 03-27-1963 COVID-19 VACCINE (#1) COVID-19 VACCINE (#1) [facility] Start: 03-27-1963 Examination of skin Derm Melanoma Skin Check [facility] Start: 1962 Hepatitis B Vaccines (1 of 3 - 3-dose series) Hepatitis B Vaccines (1 of 3 - 3-dose series) [facility] Start: 1962 HIV screening HIV Screening [facility] Start: 1962 Lipid panel Lipid Panel [facility] Start: 1962 Screening for malignant neoplasm of colon [facility] End: 09-14-2026 Camera fundoscopy FUNDUS PHOTOS OU (BOTH EYES) [facility] Imaging Routine [place]orseshoe retinal tear of left eye Vitreous hemorrhage of left eye (HCC) Choroidal neovascularization of both eyes 1 Occurrences starting 03/23/2025 until 09/14/2026 [facility] Comment on above: 1 Occurrences starting 03/23/2025 until 09/14/2026 End: 11-13-2023 CARDIOPULMONARY EXERCISE TEST CARDIOPULMONARY EXERCISE TEST PFT Routine SOB (shortness of breath) on exertion 1 Occurrences starting 10/14/2022 until 11/13/2023 [facility] Work Phone: Comment on above: 1 Occurrences starting 10/14/2022 until 11/13/2023 End: 04-19-2024 Cta hrt cornry art/bypass grfts contrst 3d post CTA CORONARY W IVCON Radiology Routine SOB (shortness of breath) 1 Occurrences starting 03/21/2023 until 04/19/2024 [facility] Work Phone: Comment on above: 1 Occurrences starting 03/21/2023 until 04/19/2024 CYSTO/TRUS ONLY CYSTO/TRUS ONLY Procedures Routine Benign prostatic hyperplasia with nocturia Benign prostatic hyperplasia with weak urinary stream Ordered: 07/19/2024 [facility] Comment on above: Ordered: 07/19/2024 End: 03-15-2023 ECG COMPLETE ECG COMPLETE ECG Routine Other chest pain 1 Occurrences starting 03/15/2022 until 03/15/2023 [facility] Work Phone: Comment on above: 1 Occurrences starting 03/15/2022 until 03/15/2023 ECG COMPLETE ECG COMPLETE ECG 03/15/2022 1:34 PM EDT [facility] ECG COMPLETE [facility] Work Phone: Comment on above: Ordered: 03/21/2023 End: 07-04-2026 FA/ICG ANGIOGRAPHY OU(BOTH EYES),TRANSIT OS(LEFT EYE) FA/ICG ANGIOGRAPHY OU(BOTH EYES),TRANSIT OS(LEFT EYE) [facility] Imaging Routine Vitreous hemorrhage of left eye (HCC) Retinal edema Choroidal neovascularization of both eyes 1 Occurrences starting 01/10/2025 until 07/04/2026 [facility] Work Phone: Comment on above: 1 Occurrences starting 01/10/2025 until 07/04/2026 End: 09-14-2026 FUNDUS AUTOFLUORESCENCE PHOTO (FAF) OU (BOTH EYES) FUNDUS AUTOFLUORESCENCE PHOTO (FAF) OU (BOTH EYES) [facility] Imaging Routine [place] retinal tear of left eye Vitreous hemorrhage of left eye (HCC) Choroidal neovascularization of both eyes 1 Occurrences starting 03/23/2025 until 09/14/2026 [facility] Comment on above: 1 Occurrences starting 03/23/2025 until 09/14/2026 Laser vaporization o f prostate for urine flow LASER PROSTATECTOMY ~ GREEN LIGHT Benign prostatic hyperplasia with urinary frequency MR OR End: 07-18-2023 LUNG VOLUMES LUNG VOLUMES PFT Routine SOB (shortness of breath) 1 Occurrences starting 06/18/2022 until 07/18/2023 [facility] Work Phone: Comment on above: 1 Occurrences starting 06/18/2022 until 07/18/2023 Faviola post-voiding residual urine&/bladder cap US MSR POST-VOID RESID URINE Procedures Routine Benign prostatic hyperplasia with nocturia Benign prostatic hyperplasia with weak urinary stream Ordered: 07/19/2024 [facility] Work Phone: Comment on above: Ordered: 07/19/2024 End: 01-27-2026 MR Knee - left WO contrast MRI KNEE WO IVCON LEFT Radiology Routine Acute pain of left knee 1 Occurrences starting 12/28/2024 until 01/27/2026 [facility] Work Phone: Comment on above: 1 Occurrences starting 12/28/2024 until 01/27/2026 End: 02-13-2024 Mri brain brain stem w/o w/contrast material MRI BRAIN WO/W IVCON Radiology Routine Vestibular schwannoma (HCC) 1 Occurrences starting 01/14/2023 until 02/13/2024 [facility] Work Phone: Comment on above: 1 Occurrences starting 01/14/2023 until 02/13/2024 NM Heart Views W str ess and W radionuclide IV [facility] End: 05-31-2025 Screening colonoscopy COLONOSCOPY SCREENING Endoscopy Routine Colon cancer screening 1 Occurrences starting 05/31/2024 until 05/31/2025 [facility] Work Phone: Comment on above: 1 Occurrences starting 05/31/2024 until 05/31/2025 End: 07-18-2023 SPIROMETRY - BASELINE AND POST DILATOR SPIROMETRY - BASELINE AND POST DILATOR PFT Routine SOB (shortness of breath) 1 Occurrences starting 06/18/2022 until 07/18/2023 [facility] Work Phone: Comment on above: 1 Occurrences starting 06/18/2022 until 07/18/2023 End: 03-15-2023 STRESS ECHO TREADMILL STRESS ECHO TREADMILL Cardiology Routine Other chest pain 1 Occurrences starting 03/15/2022 until 03/15/2023 [facility] Work Phone: Comment on above: 1 Occurrences starting 03/15/2022 until 03/15/2023 Tissue exam [employer] [facility] Work Phone: Comment on above: Release Upon Ordering for 1 Occurrences starting 08/20/2022 Tissue exam Tissue exam Path ology and Cytology Timed Neoplasm of uncertain behavior of skin Release Upon Ordering for 1 Occurrences starting 07/27/2024 [employer] [facility] Work Phone: Comment on above: Release Upon Ordering for 1 Occurrences starting 07/27/2024 UA DIP, URINE (POC) UA DIP, URIN E (POC) Lab Routine Benign prostatic hyperplasia with nocturia Benign prostatic hyperplasia with weak urinary stream Ordered: 08/18/2024 [facility] Work Phone: Comment on above: Ordered: 08/18/2024 XR Foot - left AP an d Lateral and oblique XR FOOT GENERAL 3V AP/LAT/OBL LEFT Radiology Routine Pain of left heel 09/09/2023 8:29 AM EST [facility] Work Phone: End: 12-22-2025 XR Knee - left 4 Views XR KNEE GENERAL 4V AP BOTH/PA BOTH/LAT/MERC LEFT Radiology Routine Acute pain of left knee 1 Occurrences starting 11/22/2024 until 12/22/2025 [facility] Comment on above: 1 Occurrences starting 11/22/2024 until 12/22/2025 XR Knee - left 4 Views XR KNEE G ENERAL 4V AP BOTH/PA BOTH/LAT/MERC LEFT Radiology Routine Acute pain of left knee 11/22/2024 8:24 AM EDT [facility] Immunizations Immunization Date Immunization Notes Care Provider Shania Cesar-10-2018 influenza, injectabl e, quadrivalent, contains preservative Marlena Kevon CASTING MACHINE SET UP OPERATOR.[facility] Work Phone: [facility] Work Phone: 04-15-2018 influenza virus vacc ine, unspecified formulation Christiano Vasques MD Work Phone: [facility] 04-10-2017 influenza virus vacc ine, unspecified formulation Ann Mapel PA-C Work Phone: [facility] 04-10-2017 influenza, injectabl e, quadrivalent, contains preservative Marlena Kevon CASTING MACHINE SET UP OPERATOR.[facility] Work Phone: [facility] 04-26-2016 influenza virus vacc ine, unspecified formulation Ann Mapel PA-C Work Phone: [facility] 04-26-2016 influenza, seasonal, injectable Marlena Kevon CASTING MACHINE SET UP OPERATOR.[facility] Work Phone: [facility] 04-20-2015 influenza virus vacc ine, unspecified formulation Ann Mapel PA-C Work Phone: [facility] 04-20-2015 influenza, seasonal, injectable Marlena Kevon CASTING MACHINE SET UP OPERATOR.[facility] Work Phone: [facility] Work Phone: 09-21-2014 tetanus toxoid, redu rad diphtheria toxoid, and acellular pertussis vaccine, adsorbed Marlena Kevon CASTING MACHINE SET UP OPERATOR.[facility] Work Phone: [facility] Work Phone: 07-26-2014 pneumococcal polysaccharide vaccine, 23 valent Marlena Kevon CASTING MACHINE SET UP OPERATOR.[facility] Work Phone: [facility] Work Phone: Payers Date Payer Category Payer Self-pay 2022 Medicaid O [facility] MEDICAID ODM [id number] 2022 Unknown [id number] 2014 Medicaid [facility] MEDICAID [facility] MEDICAID [id number] 2014-Present [phone] [address] [place] [address] Medicaid [id number] 2014 Medicaid [id number] 1960 Unknown [id number] Unknown [id number] Unknown [id number] Unknown [id number] Unknown [id number] Social History Date Type Detail Facility Start: 08-04-2019 End: 05-27-2024 Tobacco smoking status NHIS Ex-smoker [facility] Start: 07-16-2015 End: 03-09-2019 History of tobacco use Current smoker [facility] Start: 07-16-2015 End: 03-09-2019 History of tobacco use Cigarette Smoker [facility] Start: 08-04-2019 End: 01-14-2023 Cigarettes smoked current (pack per day) - Reported 0.3 [facility] Start: 08-04-2019 End: 05-27-2024 Tobacco use and exposure Smokeless tobacco non-user [facility] Start: 11-19-2021 End: 03-23-2025 Alcohol intake Current drinker of alcohol (finding) [facility] Start: 12-07-2020 End: 03-13-2022 History SDOH Alcohol Frequency 3 [facility] Start: 12-07-2020 End: 03-13-2022 History SDOH Alcohol Std Drinks 2 [facility] Start: 07-26-2014 History SDOH Alcohol Comment weekends [facility] Start: 12-07-2020 End: 03-13-2022 History SDOH Social Connections Phone 5 [facility] Start: 12-07-2020 History SDOH Social Connections Get Together 4 [facility] Start: 12-07-2020 End: 03-13-2022 History SDOH Social Connections Christian 1 [facility] Start: 12-07-2020 End: 03-13-2022 History SDOH Social Connections Living 7 [facility] Start: 10-11-2019 Education 12 [facility] Start: 09-07-2019 End: 03-15-2022 Tobacco Comment Father smoked occasional cigar in home. NO ETS in adult home. [facility] Start: 1960 Sex Assigned At Male [facility] Start: 11-09-2021 End: 08-20-2022 Exposure to SARS-CoV-2 (event) Not sure [facility] Work Phone: Start: 03-13-2022 History SDOH Physical Activity DPW 6 [facility] Start: 03-13-2022 History SDOH Physical Activity MPS 15 [facility] Start: 01-14-2023 End: 02-16-2025 Social connection and isolation panel [facility] Do you belong to any clubs or organizations such as hindu groups, unions, fraternal or athletic groups, or school groups? No [facility] Are you now , , , , never or living with a partner? Never [facility] How often to you hav e a drink containing alcohol? 2-4 times a month [facility] How many standard dr inks containing alcohol do you have on a typical day? 3 or 4 [facility] How often do you hav e 6 or more drinks on 1 occasion? Less than monthly [facility] Start: 07-18-2014 How hard is it for you to pay for the very basics like food, housing, medical care, and heating Not hard at all [facility] Do you feel stress - tense, restless, nervous, or anxious, or unable to sleep at night because your mind is troubled all the time - these days [OSQ] Not at all [facility] (I/We) worried gatito er (my/our) food would run out before (I/we) got money to buy more. Never true [facility] Start: 09-01-2019 Gender identity Identifies as male gender (finding) [facility] Start: 09-01-2019 Sexual orientation Heterosexual (finding) [facility] Tobacco smoking stat NHIS Occasional tobacco smoker [facility] How often to you hav e a drink containing alcohol? Monthly or less [facility] How many standard dr inks containing alcohol do you have on a typical day? 1 or 2 [facility] How often do you hav e 6 or more drinks on 1 occasion? Never [facility] Sex Assigned At Sex [facility] Start: 02-04-2022 Sex Male (finding) [facility] Start: 01-27-2025 Alcohol Comment twice a year [facility] Medical Equipment Procedure Code Equipment Code Equipment Original Text Equipment Identifier Dates Plate Bone .3mm Skull Sm Rd - [id number] Start: 11-21-2016 Screw 1.7mm Lucero nium 4mm Bone Emergency Craniomaxillofacial - [id number] Start: 11-21-2016 Drug-eluting cor onary artery stent, [id number] coated [id number] FDA Start: 02-11-2024 Functional Status Date Assessment Result Facility 02-16-2025 Total score [AUDIT-C] 1 02/17/20 25 8:25 AM Filemon Simeon COT [facility] 11-24-2016 Are you deaf, or do you have serious difficulty hearing No 11/24/2016 12:56 PM Terri Emanuel RN No [facility] 11-24-2016 Are you blind, or do you have serious difficulty seeing, even when wearing glasses No 11/24/2016 12:56 PM Terri Emanuel RN No [facility] 11-24-2016 Do you have serious difficulty walking or climbing stairs No 11/24/2016 12:56 PM Terri Emanuel, NETTIE No [facility] 11-24-2016 Do you have difficul ty dressing or bathing No 11/24/2016 12:56 PM Terri Emanuel, RN No [facility] 11-24-2016 Because of a physica l, mental, or emotional condition, do you have difficulty doing errands alone such as visiting a physician's office or shopping No 11/24/2016 12:56 PM Terri Emanuel, NETTIE No [facility] Mental Status Date Assessment Result Facility 11-24-2016 Because of a physica l, mental, or emotional condition, do you have serious difficulty concentrating, remembering, or making decisions No 11/24/2016 12:56 PM Terri Emanuel RN No [facility] Clinical Notes 11-22-2016 to 04-04-2025 Patient InstructionsTimmy Madsen MD - 03/23/2025 8:30 AM Yudith Carranza PA-C - 02/21/2025 10:37 AM Jannette Osorio MA - 02/21/2025 8:22 AM EDTPatient InstructionsPatient Instructions Note Date & Type Note Facility 04-04-2025 Note HNO ID: [id number] Author: ROBERT HURLEY, ? Service: ? Author Type: Physician Type: Progress Notes Filed: 04/04/2025 21:47 Note Text: Subjective The patient is a 64-year-old male presenting for follow-up of left heel pain. The patient was previously evaluated in September 2023 for left heel pain and received a steroid injection on 09/09/2023, which provided significant relief. He was advised to perform stretching exercises, use supportive shoes and inserts (PowerSteps), and avoid walking barefoot. He reports that these measures were effective in managing his pain until he underwent meniscal surgery on 02/10/2024. Since the surgery, he has experienced a recurrence of left heel pain, described as "real sore" in the morning and persistent throughout the day, worsening with ambulation. He notes that the pain is primarily located on the plantar lateral aspect of the calcaneal tubercle and is severe enough to cause a noticeable limp. He denies pain on the plantar medial aspect of the calcaneal tubercle. He has been performing stretching exercises and using tape to prevent his toes from rubbing against each other, but these measures have not alleviated the pain. He denies numbness, tingling, or burning sensations in the foot and does not report any pain radiating down the leg. He also denies any changes in his walking pattern since the knee surgery. He has not experienced any pain when standing still, only when walking. He denies being diabetic. Musculoskeletal: (+) left heel pain Neurological: (-) numbness, (-) tingling, (-) burning, (-) radiating pain Objective There were no vitals taken for this visit. - Cardiovascular: Dorsalis pedis and posterior tibial pulses palpable bilaterally. Capillary refill <5 seconds. Skin temperature warm proximally to distally. Hair growth present on toes bilaterally. - Skin: No open sores on bilateral feet; feet well-hydrated. Dry skin noted. hypopigmented lesion on anterolateral aspect of mid-lower leg. - Neurological: Protective sensation intact in both feet. Negative Tinel's sign bilaterally. - Musculoskeletal: - Left Foot: - Medial deviation of second and third toes with weight-bearing. - MMT: 5/5 for dorsiflexion, plantar flexion, inversion, and eversion. - No pain on palpation of plantar medial calcaneal tubercle. - Pain on palpation of plantar lateral calcaneal tubercle. Imaging: - (September 2023) X-ray Left Foot: Calcaneal spur present Tests AND Prior Procedures: - (09/09/2023) Corticosteroid injection (left heel): Pain improved Addendum: Results reviewed directly with the patient. Assessment AND Plan # Plantar fasciitis (M72.2) # Heel spur, left (M77.32) Recurrent left heel pain following prior improvement with corticosteroid injection on 09/09/2023; pain is now localized more laterally than typical plantar fasciitis. - Continue stretching, use of PowerStep inserts, supportive footwear, and avoidance of barefoot walking. - Provided new PowerStep inserts and instructions. - Start Medrol Dosepak as discussed. - Ordered X-ray of left foot to rule out stress fracture. - Discussed options of oral steroid vs. repeat injection; patient agreed to trial oral steroid first. - If no improvement within 2-3 weeks, will consider corticosteroid injection. - Provided education on use of night splint to maintain foot stretch during sleep. discussed nevus of anterior lateral lower extremity: encouraged patient to follow-up with dermatology Recording using [employer] software for draft documentation of the visit was discussed with the patient/authorized field representatives director; all questions welcomed and answered. Patient/authorized field representatives director agreed to proceed Robert Hurley DPM [facility] 04-04-2025 Note HNO ID: [id number] Author: ARPITA CONLEY, RN Service: ? Author Type: Registered Nurse Type: Progress Notes Filed: 04/04/2025 21:47 Note Text: Patient presents with: Left Foot - Established Patient, Follow Up, Pain AMB ROOMING INTAKE FLOWSHEET DATA Pain Pain Level: 7 Pain Location: Heel-Left Duration Amount of Time: 5 Duration Units: Weeks Frequency: Intermittent Intervention/Comfort measure: Relaxation, Reposition Patient presents for left heel pain. States that it is similar to the pain he had last year. Recent left knee surgery and pain began again after that. Pain worse in the mornings and when getting up after a period of rest. Does wear powerstep inserts. Hx of plantar fasciitis to left foot and received steroid injection and Powerstep inserts at [facility]. [facility] 09/09/23 [facility] 03-23-2025 Note Date of Procedure 03/23/2025 [place] Protocol Safety Checklist A moment of CARE was completed Sign In Sign in communication not applicable due to emergent procedure. Personnel directly involved with the procedure wore the appropriate PEE. Special Equipment: N/A. Patient/surrogate stated/verified patient name, date of , relevant allergies, intended procedure. Provider Confirms: Relevant labs, photos, and/or imaging studies have been reviewed. Intended patient and procedure match the source document(s) (e.g. consent, associated studies [imaging, pathology]). Consent obtained and matches the intended procedure. Correct side/site marked and visible. Medications required for procedure verified. Fire risk assessed and interventions discussed. expiration date(s) reviewed. Sign Out All specimens are correctly labeled and sent: N/A. All instruments, equipment, possible retained foreign bodies accounted for. Post-procedure POC communicated to patient or surrogate. Post-procedure POC communicated to patient's multidisciplinary team: N/A. Anesthesia Topical 4% Lidocaine on cotton swabs, 1-2 drops Topical 0.5% Proparacaine. Prep 5% Betadine, 10% Povidone-iodine swabs. Injection Administration Medication: 1.25 mg bevacizumab (Daisy's) 2.25 mg/0.09 mL Route: INTRAVITREAL, Site: Left Balance Wasted Residual medication less than 1 unit was discarded. Anterior Chamber Paracentesis No. Post Injection Evaluation Patient has at least hand motion vision. Post Procedure Medications None. Home Going Prescription None. [facility] 03-23-2025 Note Date of Procedure 03/23/2025 [place] Protocol Safety Checklist A moment of CARE was completed Sign In Sign in communication not applicable due to emergent procedure. Personnel directly involved with the procedure wore the appropriate PEE. Special Equipment: N/A. Patient/surrogate stated/verified patient name, date of , relevant allergies, intended procedure. Provider Confirms: Relevant labs, photos, and/or imaging studies have been reviewed. Intended patient and procedure match the source document(s) (e.g. consent, associated studies [imaging, pathology]). Consent obtained and matches the intended procedure. Correct side/site marked and visible. Medications required for procedure verified. Fire risk assessed and interventions discussed. expiration date(s) reviewed. Sign Out All specimens are correctly labeled and sent: N/A. All instruments, equipment, possible retained foreign bodies accounted for. Post-procedure POC communicated to patient or surrogate. Post-procedure POC communicated to patient's multidisciplinary team: N/A. Anesthesia Topical 4% Lidocaine on cotton swabs, 2-4 drops Tetracaine 0.5%. Prep 5% Betadine. Injection Administration Medication: 1.25 mg bevacizumab (Daisy's) 2.25 mg/0.09 mL Route: INTRAVITREAL, Site: Right Balance Wasted Residual medication less than 1 unit was discarded. Anterior Chamber Paracentesis No. Post Injection Evaluation Patient has at least hand motion vision. Post Procedure Medications None. Home Going Prescription None. [facility] 03-23-2025 Note Date of Procedure 03/23/2025. Stock Room Manager Information Homeowner Association Manager: Yashira. Start time: 8:54 AM. Stop time: 8:54 AM. OCT Macula Interpretation Right Eye Findings include Subretinal fluid. Left Eye Findings include Negative for Subretinal fluid. [facility] 03-23-2025 Note Date of Procedure 03/23/2025. Stock Room Manager Information Homeowner Association Manager: Yashira. Start time: 8:54 AM. Stop time: 8:54 AM. Interpretation Right Eye Findings include CNV. Left Eye Findings include CNV. [facility] 03-23-2025 Instructions Timmy Madsen MD - 03/23/2025 9:19 AM EDT Post Injection Patient Information You had eye injection(s) today. These are your after injection instructions. Today: Preservative free artificial tears 1 drop every hour while awake as needed Tomorrow: Preservative free artificial tears 1 drop every 2 hours while awake as needed Care instructions after eye injections: Do not rub or touch your eye other than dabbing lightly with a tissue An balq-buf-gbfbjkh pain reliever (i.e. Tylenol) can be used for mild soreness Use artificial tears/lubricating drops once an hour as needed for comfort (chill the tears in the refrigerator for more comfort). If you are using the tears more than 4 times a day they need to be the preservative free kind Warm or cool compresses are okay It is okay to shower and wash your face. No swimming pools or saunas for 24 hours COMMON symptoms after successful eye injections: Mild to moderate pain or irritation beginning the day of the injection. This should begin to improve the following day. Eyelash in the eye or richard/gritty sensation Tearing Mild floaters or bubbles in your vision - usually resolves after 1-2 days Bloody tears for 1-2 days after treatment Eye Redness Also known as subconjunctival hemorrhage This bruise can cover the entire white part of the eye and may last a few weeks CONCERNING symptoms after eye injections: Severe, constant pain Worsening pain after the first day Decreased vision Severe, constant floaters Curtain or veil in your vision New eye redness that was not there after the injection and covers the whole eye Please call the office immediately for any of the above listed concerning symptoms or with any other questions. 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 I have seen and examined Bernardo Carver. I have discussed the case and the management of this patient's care with the Resident/Fellow, if applicable. I also have reviewed and agree with the assessment and plan as stated above and agree with all of its relevant components. documented in this encounter [facility] 03-23-2025 Note HNO ID: [id number] Author: TIMMY MADSEN MD Service: ? Author Type: Physician Type: Progress Notes Filed: 03/23/2025 09:26 Note Text: Horseshoe retinal tear, left eye - s/p laser retinopexy OS 01/10/2025 - well lasered Vitreous hemorrhage, left eye - h/o trauma to left eye (tree branch) 01/08/2025 - Vitreous heme along with pre-retinal heme and dot blot hemes that is nearly resolved today improved - given improvement would observe with recheck in 4-6 weeks Choroidal neovascularization of both eyes PEHCR left eye - history of subRPE temporal hemorrhage 2021, got ICG and imaging at that time and the heme resolved over time - today with subretinal scarring temporal macula - also with multiple punched out spots in the periphery in both eyes, 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 I have seen and examined Bernardo Carver. I have discussed the case and the management of this patient's care with the Resident/Fellow, if applicable. I also have reviewed and agree with the assessment and plan as stated above and agree with all of its relevant components. [facility] 02-21-2025 Note HNO ID: [id number] Author: YUDITH MOSQUERA PA-C Service: ? Author Type: Physician Drainlayer Type: Progress Notes Filed: 02/21/2025 10:39 Note Text: Yudith Mosquera PA-C Department of Orthopaedics Orthopaedics [address] [facility] [address] Dept: [phone] Dept February 21, 2025 CHIEF COMPLAINT: Post Op of the Left Knee (1 week 5 days post op Left knee arthroscopic medial menisectomy, medial and PF chondroplasties). ASSESSMENT: S83.242A Acute medial meniscus tear of left knee, initial encounter (primary encounter diagnosis) SUMMARY/PLAN: Patient presents 1 week and 5 days status post a left knee arthroscopy with medial meniscectomy and patellofemoral chondroplasty. He is doing well, complains of some 2 out of 10 tightness in the knee, overall is doing much better. We discussed continuing with activities as tolerated, discussed compression, zyqv-bcj-[id number] NSAIDs and icing for residual swelling. Will see him back in 1 month as planned. Exam: Incision sites are all well-approximated, there is mild but appropriate edema in the knee, no significant joint effusion noted. Some resolving ecchymosis along the medial distal thigh. Full extension of the knee with flexion to about 120 degrees. Imaging: Deferred today. Mr. Bernardo Carver was advised as to contrast therapies and/or to take analgesics/anti-inflammatories as needed and all contraindications were reviewed. Supporting Information Below: Medications: Current Outpatient Medications Medication Sig fexofenadine (TANESHA) 180 mg tablet Take 1 tablet by mouth once daily. clopidogrel (PLAVIX) 75 mg tablet TAKE 1 TABLET BY MOUTH TAKE 4 TABLETS ON DAY 1 FOLLOWED BY 1 TABLET DAILY lisinopril (ZESTRIL) 20 mg tablet Take 1 tablet by mouth once daily. BRILINTA 90 mg tablet Take 90 mg by mouth two times a day. atorvastatin (LIPITOR) 40 mg tablet Take 40 mg by mouth daily at bedtime. aspirin, enteric coated (ADULT LOW DOSE ASPIRIN) 81 mg EC tablet Take 1 tablet by mouth once daily. cetirizine (ZYRTEC) 10 mg tablet Take 1 tablet by mouth once daily. CPAP Initiate CPAP @ 12 cm of water with humidification. Mask (per patient preference) optional chin strap (if indicated) , filters, tubing, humidifier and lifetime supplies. [employer]Med Mirage Quattro, size medium dutasteride (AVODART) 0.5 mg capsule Take 1 capsule by mouth once daily. No current facility-administered medications for this visit. Allergies: Seasonal Allergies This note was partially generated using [employer] voice recognition system, and there may be some incorrect words, spellings, and punctuation that were not noted in checking the note before saving. Yudith Mosquera PA-C [facility] [facility] History of Present illness Narrative Yudith Mosquera PA-C Department of Orthopaedics Orthopaedics [address] [facility] [address] Dept: [phone] Dept February 21, 2025 CHIEF COMPLAINT: Post Op of the Left Knee (1 week 5 days post op Left knee arthroscopic medial menisectomy, medial and PF chondroplasties). ASSESSMENT: S83.242A Acute medial meniscus tear of left knee, initial encounter (primary encounter diagnosis) SUMMARY/PLAN: Patient presents 1 week and 5 days status post a left knee arthroscopy with medial meniscectomy and patellofemoral chondroplasty. He is doing well, complains of some 2 out of 10 tightness in the knee, overall is doing much better. We discussed continuing with activities as tolerated, discussed compression, pndh-yev-syvglzf NSAIDs and icing for residual swelling. Will see him back in 1 month as planned. Exam: Incision sites are all well-approximated, there is mild but appropriate edema in the knee, no significant joint effusion noted. Some resolving ecchymosis along the medial distal thigh. Full extension of the knee with flexion to about 120 degrees. Imaging: Deferred today. Mr. Bernardo Carver was advised as to contrast therapies and/or to take analgesics/anti-inflammatories as needed and all contraindications were reviewed. Supporting Information Below: Medications: Current Outpatient Medications Medication Sig fexofenadine (TANESHA) 180 mg tablet Take 1 tablet by mouth once daily. clopidogrel (PLAVIX) 75 mg tablet TAKE 1 TABLET BY MOUTH TAKE 4 TABLETS ON DAY 1 FOLLOWED BY 1 TABLET DAILY lisinopril (ZESTRIL) 20 mg tablet Take 1 tablet by mouth once daily. BRILINTA 90 mg tablet Take 90 mg by mouth two times a day. atorvastatin (LIPITOR) 40 mg tablet Take 40 mg by mouth daily at bedtime. aspirin, enteric coated (ADULT LOW DOSE ASPIRIN) 81 mg EC tablet Take 1 tablet by mouth once daily. cetirizine (ZYRTEC) 10 mg tablet Take 1 tablet by mouth once daily. CPAP Initiate CPAP @ 12 cm of water with humidification. Mask (per patient preference) optional chin strap (if indicated) , filters, tubing, humidifier and lifetime supplies. ResMed Mirage Quattro, size medium dutasteride (AVODART) 0.5 mg capsule Take 1 capsule by mouth once daily. No current facility-administered medications for this visit. Allergies: Seasonal Allergies This note was partially generated using [employer] voice recognition system, and there may be some incorrect words, spellings, and punctuation that were not noted in checking the note before saving. Yudith Mosquera PA-C Patient presents with: Left Knee - Post Op: 1 week 5 days post op Left knee arthroscopic medial menisectomy, medial and PF chondroplasties AMB ROOMING INTAKE FLOWSHEET DATA Pain Pain Level: 2 Pain Location: Knee-Left Description: Dull Duration Amount of Time: (Post op) Frequency: Continuous Intervention/Comfort measure: (None) Patient taking no med's for the pain. No redness or drainage at incision sites. documented in this encounter [facility] 02-21-2025 Note HNO ID: [id number] Author: JANNETTE BARDALES MA Service: ? Author Type: General Education Professor Type: Progress Notes Filed: 02/21/2025 10:39 Note Text: Patient presents with: Left Knee - Post Op: 1 week 5 days post op Left knee arthroscopic medial menisectomy, medial and PF chondroplasties AMB ROOMING INTAKE FLOWSHEET DATA Pain Pain Level: 2 Pain Location: Knee-Left Description: Dull Duration Amount of Time: (Post op) Frequency: Continuous Intervention/Comfort measure: (None) Patient taking no med's for the pain. No redness or drainage at incision sites. [facility] 02-16-2025 Note Date of Procedure 02/16/2025 [place] Protocol Safety Checklist A moment of CARE was completed Sign In Sign in communication not applicable due to emergent procedure. Personnel directly involved with the procedure wore the appropriate PEE. Special Equipment: N/A. Patient/surrogate stated/verified patient name, date of , relevant allergies, intended procedure. Provider Confirms: Relevant labs, photos, and/or imaging studies have been reviewed. Intended patient and procedure match the source document(s) (e.g. consent, associated studies [imaging, pathology]). Consent obtained and matches the intended procedure. Correct side/site marked and visible. Medications required for procedure verified. Fire risk assessed and interventions discussed. expiration date(s) reviewed. Sign Out All specimens are correctly labeled and sent: N/A. All instruments, equipment, possible retained foreign bodies accounted for. Post-procedure POC communicated to patient or surrogate. Post-procedure POC communicated to patient's multidisciplinary team: N/A. Anesthesia Topical 4% Lidocaine on cotton swabs, 1-2 drops Topical 0.5% Proparacaine. Prep 5% Betadine, 10% Povidone-iodine swabs. Injection Administration Medication: 1.25 mg bevacizumab (Daisy's) 2.25 mg/0.09 mL Route: INTRAVITREAL, Site: Left Balance Wasted Residual medication less than 1 unit was discarded. Anterior Chamber Paracentesis No. Post Injection Evaluation Patient has at least hand motion vision. Post Procedure Medications None. Home Going Prescription None. [facility] 02-16-2025 Note Date of Procedure 02/16/2025 [place] Protocol Safety Checklist A moment of CARE was completed Sign In Sign in communication not applicable due to emergent procedure. Personnel directly involved with the procedure wore the appropriate PEE. Special Equipment: N/A. Patient/surrogate stated/verified patient name, date of , relevant allergies, intended procedure. Provider Confirms: Relevant labs, photos, and/or imaging studies have been reviewed. Intended patient and procedure match the source document(s) (e.g. consent, associated studies [imaging, pathology]). Consent obtained and matches the intended procedure. Correct side/site marked and visible. Medications required for procedure verified. Fire risk assessed and interventions discussed. expiration date(s) reviewed. Sign Out All specimens are correctly labeled and sent: N/A. All instruments, equipment, possible retained foreign bodies accounted for. Post-procedure POC communicated to patient or surrogate. Post-procedure POC communicated to patient's multidisciplinary team: N/A. Anesthesia Topical 4% Lidocaine on cotton swabs, 2-4 drops Tetracaine 0.5%. Prep 5% Betadine. Injection Administration Medication: 1.25 mg bevacizumab (Daisy's) 2.25 mg/0.09 mL Route: INTRAVITREAL, Site: Right Balance Wasted Residual medication less than 1 unit was discarded. Anterior Chamber Paracentesis No. Post Injection Evaluation Patient has at least hand motion vision. Post Procedure Medications None. Home Going Prescription None. [facility] 02-16-2025 Instructions Timmy Madsen MD - 02/16/2025 9:36 AM EDT Post Injection Patient Information You had eye injection(s) today. These are your after injection instructions. Today: Preservative free artificial tears 1 drop every hour while awake as needed Tomorrow: Preservative free artificial tears 1 drop every 2 hours while awake as needed Care instructions after eye injections: Do not rub or touch your eye other than dabbing lightly with a tissue An nmcx-mth-pymptcx pain reliever (i.e. Tylenol) can be used for mild soreness Use artificial tears/lubricating drops once an hour as needed for comfort (chill the tears in the refrigerator for more comfort). If you are using the tears more than 4 times a day they need to be the preservative free kind Warm or cool compresses are okay It is okay to shower and wash your face. No swimming pools or saunas for 24 hours COMMON symptoms after successful eye injections: Mild to moderate pain or irritation beginning the day of the injection. This should begin to improve the following day. Eyelash in the eye or richard/gritty sensation Tearing Mild floaters or bubbles in your vision - usually resolves after 1-2 days Bloody tears for 1-2 days after treatment Eye Redness Also known as subconjunctival hemorrhage This bruise can cover the entire white part of the eye and may last a few weeks CONCERNING symptoms after eye injections: Severe, constant pain Worsening pain after the first day Decreased vision Severe, constant floaters Curtain or veil in your vision New eye redness that was not there after the injection and covers the whole eye Please call the office immediately for any of the above listed concerning symptoms or with any other questions. If it is after hours please call [phone] which will give instructions on how to reach the eye doctor conveyor tender documented in this encounter [facility] 02-16-2025 Note Date of Procedure 02/16/2025. Stock Room Manager Information Homeowner Association Manager: Rik Frost. Start time: 8:51 AM. Stop time: 8:55 AM. LEFT EYE - vitreous opacity affecting quality of scans. Quality Left Eye Poor. Interpretation Right Eye Findings include CNV. [facility] 02-16-2025 Note Date of Procedure 02/16/2025. Stock Room Manager Information Homeowner Association Manager: Rik Frost. Start time: 8:45 AM. Stop time: 8:52 AM. LEFT EYE - vitreous opacity affecting quality of scans. OCT Macula Interpretation Right Eye Findings include Subretinal fluid, CNV, RPE Irregularity. Left Eye Findings include Subretinal fluid, CNV, RPE Irregularity. [facility] 02-16-2025 Note HNO ID: [id number] Author: TIMMY MADSEN MD Service: ? Author Type: Physician Type: Progress Notes Filed: 02/16/2025 09:40 Note Text: Horseshoe retinal tear, left eye - s/p laser retinopexy OS 01/10/2025 - well lasered Vitreous hemorrhage, left eye - h/o trauma to left eye (tree branch) 01/08/2025 - Vitreous heme along with pre-retinal heme and dot blot hemes that is minimally improved - discussed options of PPV vs further observation - patient would like to observe as he is noticing an improvement and able to function Choroidal neovascularization of both eyes PEHCR left eye - history of subRPE temporal hemorrhage 2021, got ICG and imaging at that time and the heme resolved over time - today with subretinal scarring temporal macula - also with multiple punched out spots in the periphery in both eyes, could be PIC spectrum - PLAN: Avastin OU today - Risks, benefits, alternatives and complications reviewed, patient wishes to proceed, informed consent reviewed and signed - follow up 4 weeks with OCT/OCTA I have confirmed and edited as necessary the relevant HPI, ophthalmic history, ROS, and the neuro exam findings as obtained by others. I have seen and examined Bernardo Carver. I have discussed the case and the management of this patient's care with the Resident/Fellow, if applicable. I also have reviewed and agree with the assessment and plan as stated above and agree with all of its relevant components. [facility] 02-16-2025 History of Present illness Narrative Horseshoe retinal tear, left eye - s/p laser retinopexy OS 01/10/2025 - well lasered Vitreous hemorrhage, left eye - h/o trauma to left eye (tree branch) 01/08/2025 - Vitreous heme along with pre-retinal heme and dot blot hemes that is minimally improved - discussed options of PPV vs further observation - patient would like to observe as he is noticing an improvement and able to function Choroidal neovascularization of both eyes PEHCR left eye - history of subRPE temporal hemorrhage 2021, got ICG and imaging at that time and the heme resolved over time - today with subretinal scarring temporal macula - also with multiple punched out spots in the periphery in both eyes, could be PIC spectrum - PLAN: Avastin OU today - Risks, benefits, alternatives and complications reviewed, patient wishes to proceed, informed consent reviewed and signed - follow up 4 weeks with OCT/OCTA I have confirmed and edited as necessary the relevant HPI, ophthalmic history, ROS, and the neuro exam findings as obtained by others. I have seen and examined Bernardo Carver. I have discussed the case and the management of this patient's care with the Resident/Fellow, if applicable. I also have reviewed and agree with the assessment and plan as stated above and agree with all of its relevant components. documented in this encounter [facility] 02-09-2025 Note HNO ID: [id number] Author: THUY BAKER AA Service: ? Author Type: Carrot Tier Type: Anesthesia Procedure Notes Filed: 02/09/2025 07:51 Note Text: ANESTHESIOLOGY PROCEDURE NOTE Airway General Information Procedure Start Time/Medication Administration: 02/09/2025 7:39 AM Procedure End Time: 02/09/2025 7:51 AM Patient location during procedure: OR Patient identity confirmed: arm band and patient Staffing Anesthesiologist: Nacho Minaya DO CAA: Thuy Baker AA Performed by: CAA Indications and Patient Condition Indications for airway management: anesthesia Preoxygenated: yes Method: asleep Final Airway Details Final airway type: supraglottic airway Number of attempts at approach: 1 Final Supraglottic Airway: IGEL Size 5 Seal Adequate: yes Airway not difficult SIGNATURE: NICOLETTE Lockhart PATIENT NAME: Bernardo Carver DATE: February 09, 2025 TIME: 7:51 AM CSN: [id number] [facility] 02-04-2025 Telephone encounter Note Called pt and offered with Erica at 3pm. He refused and said he is already busy Friday and will make an appt on Mismi to see someone else. [facility] 02-04-2025 Telephone encounter Note We do not have an opening. Erica can see Friday at 3pm María Leigh [facility] 02-04-2025 Miscellaneous Notes Called pt and offered with Erica at 3pm. He refused and said he is already busy Friday and will make an appt on Wannyit to see someone else. We do not have an opening. Erica can see Friday at 3pm María Leigh Kylah Lala or Erica, Would either of you be able to see this pt this coming Friday02/08/25 for horseshoe retinal tear? They were supposed to be seen in [facility] today, but left due to waiting over an hour. Sorry, it s actually an 8:30 AM new patient slough that I took for patient Murtaza Carter just scheduled her. We don t have any more availability on Friday It looks like possibly there s a [address] Lala s on Friday [place] Bernardo Rik Carver [id number] (home) Pt was supposed to be seen in [facility] today with Dr. Gambino but the pt waited over an hour and had to leave. It is for a retinal tear. I saw Dr. Morris has 8am new pt slot open on Friday02/08/25. Is it ok to add the pt then? LV 02/03/[address] Jacobsen Assessment & Plan David Jacobsen, OD filed at 02/03/2025 4:32 PM Status: Signed 1. Horseshoe retinal tear of left eye (Primary) S/P: RETINOPEXY LASER PROPHYLAXIS BREAK(S) OS (LEFT EYE) 01/10/2025 Retinal intact upon dilated exam 02/03/25 2. Vitreous hemorrhage of left eye (HCC) Trauma to left eye (tree branch) Vitreous heme along with pre-retinal heme and dot blot hemes still apparent with minimal resolution Sent patient to [facility] clinic today and has appt at 3:45 with residents 3. 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 Presbyopia Finalized spec rx today for computer/work-shop glasses +worsening sub-retinal fluid OD with decrease in BCVA since 01/10 Stable SRF left eye Patient supposed to have follow-up with retina around 01/24/25 for PO laser and FA +ICGA but not scheduled Patient scheduled tomorrow with Dr. Owens I have confirmed and edited as necessary the relevant HPI, ophthalmic history, ROS, and the neuro exam findings as obtained by others. I have seen and examined Bernardo Carver. I have discussed the case and the management of this patient's care with the Resident/Fellow, if applicable. I also have reviewed and agree with the assessment and plan as stated above and agree with all of its relevant components. David Jacobsen, OD February 03, 2025 4:21 PM documented in this encounter [facility] 02-04-2025 Telephone encounter Note Kylah Lala or Erica, Would either of you be able to see this pt this coming Friday02/08/25 for horseshoe retinal tear? They were supposed to be seen in [facility] today, but left due to waiting over an hour. [facility] 02-04-2025 Telephone encounter Note Sorry, it s actually an 8:30 AM new patient slough that I took for patient Murtaza Carter just scheduled her. We don t have any more availability on Friday It looks like possibly there s a [address] Lala s on Friday [place] [facility] 02-04-2025 Telephone encounter Note Bernardo Carver [phone] (home) Pt was supposed to be seen in [facility] today with Dr. Gambino but the pt waited over an hour and had to leave. It is for a retinal tear. I saw Dr. Morris has 8am new pt slot open on Friday02/08/25. Is it ok to add the pt then? LV 02/03/[address] Jacobsen Assessment & Plan David Jacobsen, OD filed at 02/03/2025 4:32 PM Status: Signed 1. Horseshoe retinal tear of left eye (Primary) S/P: RETINOPEXY LASER PROPHYLAXIS BREAK(S) OS (LEFT EYE) 01/10/2025 Retinal intact upon dilated exam 02/03/25 2. Vitreous hemorrhage of left eye (HCC) Trauma to left eye (tree branch) Vitreous heme along with pre-retinal heme and dot blot hemes still apparent with minimal resolution Sent patient to [facility] clinic today and has appt at 3:45 with residents 3. 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 Presbyopia Finalized spec rx today for computer/work-shop glasses +worsening sub-retinal fluid OD with decrease in BCVA since 01/10 Stable SRF left eye Patient supposed to have follow-up with retina around 01/24/25 for PO laser and FA +ICGA but not scheduled Patient scheduled tomorrow with Dr. Owens I have confirmed and edited as necessary the relevant HPI, ophthalmic history, ROS, and the neuro exam findings as obtained by others. I have seen and examined Bernardo Carver. I have discussed the case and the management of this patient's care with the Resident/Fellow, if applicable. I also have reviewed and agree with the assessment and plan as stated above and agree with all of its relevant components. David Jacobsen, OD February 03, 2025 4:21 PM [facility] 02-03-2025 Note HNO ID: [id number] Author: DAVID JACOBSEN, OD Service: ? Author Type: POLICY VALUE CALCULATOR Type: Progress Notes Filed: 02/04/2025 15:14 Note Text: 1. Horseshoe retinal tear of left eye (Primary) S/P: RETINOPEXY LASER PROPHYLAXIS BREAK(S) OS (LEFT EYE) 01/10/2025 Retinal intact upon dilated exam 02/03/25 2. Vitreous hemorrhage of left eye (HCC) Trauma to left eye (tree branch) Vitreous heme along with pre-retinal heme and dot blot hemes still apparent with minimal resolution 3. 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 Presbyopia Finalized spec rx today for computer/work-shop glasses +worsening sub-retinal fluid OD with decrease in BCVA since 01/10 Stable SRF left eye Patient supposed to have follow-up with retina around 01/24/25 for PO laser and FA +ICGA but not scheduled Patient scheduled tomorrow with Dr. Owens I have confirmed and edited as necessary the relevant HPI, ophthalmic history, ROS, and the neuro exam findings as obtained by others. I have seen and examined Bernardo Carver. I have discussed the case and the management of this patient's care with the Resident/Fellow, if applicable. I also have reviewed and agree with the assessment and plan as stated above and agree with all of its relevant components. David Jacobsen, OD February 03, 2025 4:21 PM [facility] 02-03-2025 History of Present illness Narrative 1. Horseshoe retinal tear of left eye (Primary) S/P: RETINOPEXY LASER PROPHYLAXIS BREAK(S) OS (LEFT EYE) 01/10/2025 Retinal intact upon dilated exam 02/03/25 2. Vitreous hemorrhage of left eye (HCC) Trauma to left eye (tree branch) Vitreous heme along with pre-retinal heme and dot blot hemes still apparent with minimal resolution Sent patient to [facility] clinic today and has appt at 3:45 with residents 3. 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 Presbyopia Finalized spec rx today for computer/work-shop glasses +worsening sub-retinal fluid OD with decrease in BCVA since 01/10 Stable SRF left eye Patient supposed to have follow-up with retina around 01/24/25 for PO laser and FA +ICGA but not scheduled Patient scheduled tomorrow with Dr. Owens I have confirmed and edited as necessary the relevant HPI, ophthalmic history, ROS, and the neuro exam findings as obtained by others. I have seen and examined Bernardo Carver. I have discussed the case and the management of this patient's care with the Resident/Fellow, if applicable. I also have reviewed and agree with the assessment and plan as stated above and agree with all of its relevant components. David Jacobsen, OD February 03, 2025 4:21 PM documented in this encounter [facility] 02-03-2025 Note Date of Procedure 02/03/2025. 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 Start time: 2:11 PM. Stop time: 2:13 PM. OCT Macula Interpretation Right Eye Abnormal foveal contour. Findings include Subretinal fluid. Left Eye Abnormal foveal contour. Findings include Subretinal fluid. Interval Change Right Eye Worse. Left Eye Stable. [facility] 01-27-2025 Instructions Carlota Huffman APRN.PROFESSOR OF COMMUNICATION AND WRITING - 01/27/2025 8:23 AM EDT Images from the original note were not included. [facility] PATIENT PREOPERATIVE INSTRUCTIONS Mikey Neri MD has scheduled you for your procedure at this surgery center: [facility]: [phone] -- [address] [facility] [address]. Please read below carefully for your personalized instructions. Dietary Restrictions: - No solid food after midnight. - You may have 12 ounces of clear liquids (water, clear juices such as apple juice or gatorade, carbonated beverages, clear tea, black coffee, jello) until 2 hours before scheduled arrival at facility. Medications: Unless instructed differently below, stay on all of your medications until your surgery. If you start any new medications after today's visit, please contact your surgeon. Pre-Surgery Med Instructions Medication Instructions lisinopril (ZESTRIL) 20 mg tablet If you normally take this medication in the morning, take the morning of surgery. BRILINTA 90 mg tablet Hold 5 days before surgery. Last dose 02/03/25. atorvastatin (LIPITOR) 40 mg tablet If you normally take this medication in the morning, take the morning of surgery. dutasteride (AVODART) 0.5 mg capsule If you normally take this medication in the morning, take the morning of surgery. aspirin, enteric coated (ADULT LOW DOSE ASPIRIN) 81 mg EC tablet If you normally take this medication in the morning, take the morning of surgery. cetirizine (ZYRTEC) 10 mg tablet If you normally take this medication in the morning, take the morning of surgery. CPAP If you take any medications for erectile dysfunction-Cialis (Tadalafil), Levitra, Staxyn (Vardenafil) Viagra (Sildenenafil please do not take these for 48 hours before surgery. If you start any new medications after today's visit, please contact the surgeon's office. If you are currently using a lfbq-pma-sygq injectable or oral medication for diabetes or weight loss such as Dulaglutide (Trulicity), Exenatide (Byetta, Bydureon), Liraglutide (Victoza, Saxenda), Semaglutide (Ozempic, Wegovy, Rybelsus), or Tirzepatide (Mounjaro), the medicine should be stopped at least 7 days before surgery. These medicines can cause food to remain in your stomach for a very long time and increase the risks from surgery and anesthesia. Not stopping the medication for a long enough time may result in your surgery being rescheduled. Blood Thinning Medications: - Stop NSAIDS (Ibuprofen, Advil, Aleve, Motrin, Celebrex, Mobic, etc.) 7 days before surgery, as directed by your surgeon. - Do NOT stop aspirin or other anticoagulants without consulting with your stem sizer or prescribing physician. - Stop ALL herbal and dietary supplements 7 days before surgery. - You may take Tylenol (Acetaminophen) or any of your pain medications that do not contain aspirin or NSAIDS as needed. Important Reminders: - Candy, mints, and tobacco products are NOT permitted the morning of surgery. - Hearing aids, dentures and glasses may be worn the morning of surgery. - NO jewelry, body piercings, makeup, hairpins or contacts are to be worn the day of surgery. If you develop symptoms such as a fever, cold, or flu, or have other changes to your health within TWO DAYS of scheduled surgery or the morning of surgery, please contact the surgery center above. Personal Belongings: -Please have photo ID and insurance cards. -If you do not have a copy of advance directives on file with us, please bring a copy with you on the day of surgery. - Leave ALL valuables and money at home or with family members. - Please bring high-quality footwear, such as sneakers, to the hospital for ambulating post-surgery. For Outpatient Procedures: - YOU MUST HAVE A RESPONSIBLE MECHANICAL ARTIST TAKE YOU HOME. A TREE TRIMMER OR MANUFACTURING WORKER CANNOT BE MADE A RESPONSIBLE MECHANICAL ARTIST. - We recommend that a responsible person stays with you overnight to take care of you. - You cannot stay in a hotel alone after outpatient surgery. You will not be permitted to have your surgery, if you do not have someone to take care of you. Arrival Time for Surgery: - The Surgery Center or hospital where you are having surgery will call the afternoon before surgery (or Friday for Friday surgery) with a scheduled arrival time. - If you have not heard by 4 pm, please contact the surgery center above. Please be aware that emergency situations arise, which may delay or change your surgical time. If this happens, we will notify you as soon as possible and regret any inconvenience. If you already have an Advance Directive, please fax a copy to [phone] or email to for it to be added to your chart. If you do not have an Advance Directive, you can find the appropriate form and more information at [email or web address]. We recommend that you complete the Advance Directive form found on the website and bring it with you the day of your surgery. It can be witnessed and scanned into your chart that day. Carlota Huffman APRN.PROFESSOR OF COMMUNICATION AND WRITING documented in this encounter [facility] 01-27-2025 History and physical note Images from the original note were not included. [facility] HISTORY AND PHYSICAL EXAMINATION SERVICE DATE: 01/27/2025 SERVICE TIME: 8:54 AM PRIMARY CARE PHYSICIAN: Michael Jarquin MD Assessment Patient has the following medical conditions which may affect michele-operative course: Essential hypertension Assessment: controlled on rx Last 14 BP Last 14 Encounter BP Readings: Date: BP: 01/27/2025 120/64 12/01/2024 118/75 11/22/2024 118/76 09/08/2024 110/65 08/18/2024 112/68 07/19/2024 104/70 05/31/2024 117/72 05/27/2024 104/66 07/09/2023 130/82 06/26/2023 130/84 06/12/2023 100/60 03/21/2023 120/70 01/16/2023 122/76 07/11/2022 128/80 Hyperlipidemia, mixed Assessment: c/w statin Coronary artery disease involving [place] coronary artery of [place] heart without angina pectoris Assessment: s/p stent, c/w Brilinta and ASA, following WHG, received AC instructions and optimization with last OV below: Scan on 01/18/2025 8:07 AM by Provider, External, PA-C: Presurgical Documents Vestibular schwannoma (HCC) Assessment: s/p resection, left ear hearing loss JEFFREY on CPAP Assessment: c/w CPAP Former smoker Assessment: 0.3ppd/30 years, denies asthma or COPD, lungs CTA pulse ox 95% on RA Elevated glucose Assessment: diet controlled Hemoglobin A1C (%) Date Value 03/15/2022 5.7 06/11/2021 5.8 Obesity, Class I, BMI 30-34.9 Assessment: Body mass index is 30.71 kg/m . BPH (benign prostatic hyperplasia) Assessment: controlled on rx ANESTHESIA FINDINGS: Intubation History: No history of difficult intubation Significant Anesthesia Considerations: none Airway History: No history of difficult airway Olson Activity Status Index: METS: Climb a flight of stairs or walk up a hill (5.50 METs) DASI Score: 5.5 Patient denies any chest pain or undue shortness of breath with the above physical activity. Clinical Frailty Scale: 3. Well, with treated comorbid disease STOP-Bang Score: Snores loudly Often feels tired, fatigued, or sleepy during the daytime Has been observed to stop breathing or choking/gasping during sleep Has or is being treated for high blood pressure Patient over 50 years old Has a large neck Male patient BMI less than or equal to 35 kg/m^2 STOP-Bang Score: 7 [id number] Score: Age: <65 Sex: male CHF history: No Hypertension history: Yes Stroke/TIA/thromboembolism history: No Vascular disease history: Yes Diabetes history: No [id number] Score: 2 ARISCAT Score: Age: 51-80 Preoperative SpO2: 91-95% Respiratory infection in the last month: No Preoperative anemia: No Surgical incision: peripheral Duration of surgery: <2 hrs Emergency procedure: No ARISCAT Score: 11 I - PHYSICAL EVALUATION AIRWAY Patient intubated: No. Tracheostomy tube not present Mallampati: I. TM distance: >3 FB. Neck ROM: full ROM without neurological symptoms. Mouth opening: adequate. Short neck: no. Thick neck: yes Polo present: yes Lip Bite Test: I Microretrognathia/Micronagthia/Re cessed Chin: No DENTAL Dental findings: teeth intact. II - ANESTHESIA PLAN Anesthetic Plan: other Beta Marilia Monitoring Plan Post Procedure Analgesic Plan Prepared for Surgery: optimally prepared for surgery. CONSULTS: Patient does not require consults for optimization at this time Planned Anesthetic: other anesthesia choice The Following Tests/Procedures Have Been Initiated: No orders of the defined types were placed in this encounter. REASON FOR VISIT: Bernardo Carver is a 64 year old male who is scheduled for Procedure(s): ARTHROSCOPY KNEE MENISCECTOMY MEDIAL OR LATERAL (Left) at the request of Dr. Mikey Neri for consultation. My final recommendation will be communicated back to the requesting physician by way of shared medical record or letter. Subjective The patient has the following: COVID-19 Immunization Status This patient has no relevant Health Maintenance data. CHIEF COMPLAINT: Pre-op exam HPI: Bernardo Carver is a 64 year old seen for PAC due to scheduled above surgery because of left knee pain. 01/17/25, Dr. Mikey Neri HPI Eliceo Carver is a 64-year-old male presenting with left knee pain. Eliceo reports left knee pain that began after assisting his niece with moving into a new house. The pain is localized to the medial and posterior aspects of the knee and is described as soreness. The onset of pain was gradual, with no specific traumatic event preceding it. The pain became severe enough that Eliceo had difficulty ambulating the following day. He notes that the pain is exacerbated by lateral movements and pressure. 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 He has completed 2 months of physical therapy, which he reports aggravated the pain. He has been taking meloxicam without relief but notes significant improvement with a previous steroid taper. Eliceo has a history of a cardiac stent placement in February of last year, following a cardiac catheterization due to dyspnea. He was prescribed a blood thinner for 6-8 months post-procedure. He denies any history of blood clots. REVIEW OF SYSTEMS: General: No weight loss, malaise or fevers. Neurological: +vestibular schwannoma s/p resection. No history of TIA's, stroke, PAYROLL AND BENEFITS MANAGER tumor, impaired sensorium, hemiplegia, paraplegia or quadraplegia. No neurological symptoms or problems. Respiratory: +former smoker Positive for: obstructive sleep apnea and CPAP/BiPAP compliant. Negative for: asthma, COPD, dyspnea, pneumonia within 6 weeks, tobacco use and URI < 2 weeks. Cardiovascular: Positive for: anticoagulation therapy, CAD, hyperlipidemia (on rx) and hypertension (on rx) Patient's last office visit The following tests and/or procedures were performed: cardiac stents. Negative for: abdominal aortic aneurysm, AICD/PPM, angina, arrhythmia, atrial fibrillation, chest pain, CHF, congenital heart defect, DVT/PE, recent GA, murmur/valvular heart disease, PTCA, PVD, open heart surgery and valve surgery. GI: No history of GI symptoms or problems. No history of esophageal varices, recent ascites, or ETOH greater than 2 drinks per day. : Positive for: BPH (on rx). Negative for: urinary incontinence, nephrolithiasis, renal failure and urinary tract infection. Endocrine: No history of diabetes. Has not taken steroids within the past 30 days. No history of endocrinological symptoms or problems. Hematology: Positive for: bruises/bleeds easily and chronic anti-coagulation/platelet meds. Patient is on anti-coagulation/platelet medication(s): Aspirin and Ticagrelor. Negative for: anemia and transfusion of at least 4 units within 72 hours prior to surgery. Oncology: No history of CA metastasis, chemo within 30 days, or radiotherapy within 90 days. No history of oncological symptoms or problems. Psych: No history of psychiatric symptoms or problems. Musculoskeletal: See HPI. Skin: Negative for lesions, rash and itching. Implanted Devices: No implanted devices. PAST MEDICAL HISTORY Diagnosis Date Allergies Coronary artery disease involving [place] coronary artery of [place] heart without angina pectoris 01/27/2025 Hypertension JEFFREY on CPAP 2014 Snoring 2014 Vestibular schwannoma (HCC) 2016 PAST SURGICAL HISTORY Procedure Laterality Date COLONOSCOPY FLX DX W/COLLJ SPEC WHEN PFRMD 09/05/2014 Colonoscopy L'SCOPE CHOLECYSTECTOMY 08/12/2017 Dr. Rolando Valdez PAST SURGICAL HISTORY OF Craniotomy. Vestibular Schwannoma FAMILY HISTORY Problem Relation Age of Onset No Known Problems Father other (Pacemaker) Mother other (HTN) Mother No Known Problems Half-brother No Known Problems Half-sister No Ocular Disease No Family History Social History Tobacco Use Smoking status: Former Current packs/day: 0.00 Average packs/day: 0.3 packs/day for 30.0 years (9.0 ttl pk-yrs) Types: Cigarettes Start date: 07/16/2015 Quit date: 03/09/2019 Years since quittin.8 Smokeless tobacco: Never Tobacco comments: Father smoked occasional cigar in home. NO ETS in adult home. Vaping Use Vaping status: Never Used Substance Use Topics Alcohol use: Yes Comment: twice a year Drug use: No Prior to Admission medications as of 01/27/25 0820 Medication Sig Last Dose Taking lisinopril (ZESTRIL) 20 mg tablet Take 1 tablet by mouth once daily. Yes BRILINTA 90 mg tablet Take 90 mg by mouth two times a day. Yes atorvastatin (LIPITOR) 40 mg tablet Take 40 mg by mouth daily at bedtime. Yes dutasteride (AVODART) 0.5 mg capsule Take 1 capsule by mouth once daily. Yes aspirin, enteric coated (ADULT LOW DOSE ASPIRIN) 81 mg EC tablet Take 1 tablet by mouth once daily. Yes cetirizine (ZYRTEC) 10 mg tablet Take 1 tablet by mouth once daily. Yes CPAP Initiate CPAP @ 12 cm of water with humidification. Mask (per patient preference) optional chin strap (if indicated) , filters, tubing, humidifier and lifetime supplies. [employer] Mirage Quattro, size medium Yes No medication comments found. ALLERGIES Allergen Reactions Seasonal Allergies Itching Objective PHYSICAL EXAM: General: alert and oriented (x3), healthy appearance and obese. Pertinent negatives noted - not distressed. Skin: normal color, no rash or lesions. HEENT: EOM intact and pupils equal round. Pertinent negatives noted - no carotid bruit. Cardiovascular: regular rate and rhythm, normal S1 and S2, no rub, murmurs, or gallop. Respiratory: normal breath sounds, no wheezes or crackles. No chest wall deformity or tenderness. Abdomen: soft. Pertinent negatives noted - not tender. Extremities: no deformity, no edema or tenderness, no joint swelling or clubbing. Neurological: normal cognition and motor skills. Gait normal. No weakness or sensory deficit. PAIN ASSESSMENT: VITALS: BP 120/64 Pulse 57 Temp (Src) 97.2 (Temporal) Resp 12 Ht 5' 11" (1.80m) Wt 220 lb 3.2 oz (99.9kg) SpO2 95% BMI 30.73 kg/(m^2). Diagnostic tests reviewed for today's visit: Lab Value Units Date High Low HB 15.4 g/dL 11/22/2024 17.0 13.0 HCT 46.6 % 11/22/2024 51.0 39.0 WBC 5.56 k/uL 11/22/2024 11.00 3.70 PLT 171 k/uL 11/22/2024 400 150 NA 136 mmol/L 11/22/2024 144 136 K 4.6 mmol/L 11/22/2024 5.1 3.7 GLUC 116 mg/dL 11/22/2024 99 74 BUN 25 mg/dL 11/22/2024 24 9 CREAT 0.88 mg/dL 11/22/2024 1.22 0.73 PTSEC No results within date range. INR No results within date range. APTT No results within date range. ALT 21 U/L 11/22/2024 54 10 AST 23 U/L 11/22/2024 40 14 TBILI 0.4 mg/dL 11/22/2024 1.3 0.2 TSH No results within date range. Lab Value Units Date High Low HCGQT No results within date range. UHCG No results within date range. HCG, BODY* No results within date range. Lab Value Units Date High Low ABORHD No results within date range. ABSCREEN No results within date range. Hemoglobin A1C (%) Date Value 03/15/2022 5.7 06/11/2021 5.8 11/27/2020 5.7 04/13/2019 5.6 10/07/2017 5.5 11/22/2016 5.6 No results found for this or any previous visit (from the past 8760 hours). No results found for this or any previous visit (from the past 06379 hours). Instructions Given to Patient: Instructions located in the after visit summary. Patient given verbal and written preop instructions and voices comprehension and compliance. SIGNATURE: Carlota Huffman APRN.CNP PATIENT NAME: Bernardo Carver DATE: January 27, 2025 TIME: 8:20 AM PAGER/CONTACT #: [facility] 01-27-2025 History and physical note Images from the original note were not included. [facility] HISTORY AND PHYSICAL EXAMINATION SERVICE DATE: 01/27/2025 SERVICE TIME: 8:54 AM PRIMARY CARE PHYSICIAN: Michael Jarquin MD Assessment Patient has the following medical conditions which may affect michele-operative course: Essential hypertension Assessment: controlled on rx Last 14 BP Last 14 Encounter BP Readings: Date: BP: 01/27/2025 120/64 12/01/2024 118/75 11/22/2024 118/76 09/08/2024 110/65 08/18/2024 112/68 07/19/2024 104/70 05/31/2024 117/72 05/27/2024 104/66 07/09/2023 130/82 06/26/2023 130/84 06/12/2023 100/60 03/21/2023 120/70 01/16/2023 122/76 07/11/2022 128/80 Hyperlipidemia, mixed Assessment: c/w statin Coronary artery disease involving [place] coronary artery of [place] heart without angina pectoris Assessment: s/p stent, c/w Brilinta and ASA, following WHG, received AC instructions and optimization with last OV below: Scan on 01/18/2025 8:07 AM by Provider, External, PA-C: Presurgical Documents Vestibular schwannoma (HCC) Assessment: s/p resection, left ear hearing loss JEFFREY on CPAP Assessment: c/w CPAP Former smoker Assessment: 0.3ppd/30 years, denies asthma or COPD, lungs CTA pulse ox 95% on RA Elevated glucose Assessment: diet controlled Hemoglobin A1C (%) Date Value 03/15/2022 5.7 06/11/2021 5.8 Obesity, Class I, BMI 30-34.9 Assessment: Body mass index is 30.71 kg/m . BPH (benign prostatic hyperplasia) Assessment: controlled on rx ANESTHESIA FINDINGS: Intubation History: No history of difficult intubation Significant Anesthesia Considerations: none Airway History: No history of difficult airway Olson Activity Status Index: METS: Climb a flight of stairs or walk up a hill (5.50 METs) DASI Score: 5.5 Patient denies any chest pain or undue shortness of breath with the above physical activity. Clinical Frailty Scale: 3. Well, with treated comorbid disease STOP-Bang Score: Snores loudly Often feels tired, fatigued, or sleepy during the daytime Has been observed to stop breathing or choking/gasping during sleep Has or is being treated for high blood pressure Patient over 50 years old Has a large neck Male patient BMI less than or equal to 35 kg/m^2 STOP-Bang Score: 7 [id number] Score: Age: <65 Sex: male CHF history: No Hypertension history: Yes Stroke/TIA/thromboembolism history: No Vascular disease history: Yes Diabetes history: No [id number] Score: 2 ARISCAT Score: Age: 51-80 Preoperative SpO2: 91-95% Respiratory infection in the last month: No Preoperative anemia: No Surgical incision: peripheral Duration of surgery: <2 hrs Emergency procedure: No ARISCAT Score: 11 I - PHYSICAL EVALUATION AIRWAY Patient intubated: No. Tracheostomy tube not present Mallampati: I. TM distance: >3 FB. Neck ROM: full ROM without neurological symptoms. Mouth opening: adequate. Short neck: no. Thick neck: yes Polo present: yes Lip Bite Test: I Microretrognathia/Micronagthia/Re cessed Chin: No DENTAL Dental findings: teeth intact. II - ANESTHESIA PLAN Anesthetic Plan: other Beta Marilia Monitoring Plan Post Procedure Analgesic Plan Prepared for Surgery: optimally prepared for surgery. CONSULTS: Patient does not require consults for optimization at this time Planned Anesthetic: other anesthesia choice The Following Tests/Procedures Have Been Initiated: No orders of the defined types were placed in this encounter. REASON FOR VISIT: Bernardo Carver is a 64 year old male who is scheduled for Procedure(s): ARTHROSCOPY KNEE MENISCECTOMY MEDIAL OR LATERAL (Left) at the request of Dr. Mikey Neri for consultation. My final recommendation will be communicated back to the requesting physician by way of shared medical record or letter. Subjective The patient has the following: COVID-19 Immunization Status This patient has no relevant Health Maintenance data. CHIEF COMPLAINT: Pre-op exam HPI: Bernardo Carver is a 64 year old seen for PAC due to scheduled above surgery because of left knee pain. 01/17/25, Dr. Mikey Neri HPI Eliceo Carver is a 64-year-old male presenting with left knee pain. Eliceo reports left knee pain that began after assisting his niece with moving into a new house. The pain is localized to the medial and posterior aspects of the knee and is described as soreness. The onset of pain was gradual, with no specific traumatic event preceding it. The pain became severe enough that Eliceo had difficulty ambulating the following day. He notes that the pain is exacerbated by lateral movements and pressure. 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 He has completed 2 months of physical therapy, which he reports aggravated the pain. He has been taking meloxicam without relief but notes significant improvement with a previous steroid taper. Eliceo has a history of a cardiac stent placement in February of last year, following a cardiac catheterization due to dyspnea. He was prescribed a blood thinner for 6-8 months post-procedure. He denies any history of blood clots. REVIEW OF SYSTEMS: General: No weight loss, malaise or fevers. Neurological: +vestibular schwannoma s/p resection. No history of TIA's, stroke, PAYROLL AND BENEFITS MANAGER tumor, impaired sensorium, hemiplegia, paraplegia or quadraplegia. No neurological symptoms or problems. Respiratory: +former smoker Positive for: obstructive sleep apnea and CPAP/BiPAP compliant. Negative for: asthma, COPD, dyspnea, pneumonia within 6 weeks, tobacco use and URI < 2 weeks. Cardiovascular: Positive for: anticoagulation therapy, CAD, hyperlipidemia (on rx) and hypertension (on rx) Patient's last office visit The following tests and/or procedures were performed: cardiac stents. Negative for: abdominal aortic aneurysm, AICD/PPM, angina, arrhythmia, atrial fibrillation, chest pain, CHF, congenital heart defect, DVT/PE, recent GA, murmur/valvular heart disease, PTCA, PVD, open heart surgery and valve surgery. GI: No history of GI symptoms or problems. No history of esophageal varices, recent ascites, or ETOH greater than 2 drinks per day. : Positive for: BPH (on rx). Negative for: urinary incontinence, nephrolithiasis, renal failure and urinary tract infection. Endocrine: No history of diabetes. Has not taken steroids within the past 30 days. No history of endocrinological symptoms or problems. Hematology: Positive for: bruises/bleeds easily and chronic anti-coagulation/platelet meds. Patient is on anti-coagulation/platelet medication(s): Aspirin and Ticagrelor. Negative for: anemia and transfusion of at least 4 units within 72 hours prior to surgery. Oncology: No history of CA metastasis, chemo within 30 days, or radiotherapy within 90 days. No history of oncological symptoms or problems. Psych: No history of psychiatric symptoms or problems. Musculoskeletal: See HPI. Skin: Negative for lesions, rash and itching. Implanted Devices: No implanted devices. PAST MEDICAL HISTORY Diagnosis Date Allergies Coronary artery disease involving [place] coronary artery of [place] heart without angina pectoris 01/27/2025 Hypertension JEFFREY on CPAP 2014 Snoring 2014 Vestibular schwannoma (HCC) 2016 PAST SURGICAL HISTORY Procedure Laterality Date COLONOSCOPY FLX DX W/COLLJ SPEC WHEN PFRMD 09/05/2014 Colonoscopy L'SCOPE CHOLECYSTECTOMY 08/12/2017 Dr. Rolando Valdez PAST SURGICAL HISTORY OF Craniotomy. Vestibular Schwannoma FAMILY HISTORY Problem Relation Age of Onset No Known Problems Father other (Pacemaker) Mother other (HTN) Mother No Known Problems Half-brother No Known Problems Half-sister No Ocular Disease No Family History Social History Tobacco Use Smoking status: Former Current packs/day: 0.00 Average packs/day: 0.3 packs/day for 30.0 years (9.0 ttl pk-yrs) Types: Cigarettes Start date: 07/16/2015 Quit date: 03/09/2019 Years since quittin.8 Smokeless tobacco: Never Tobacco comments: Father smoked occasional cigar in home. NO ETS in adult home. Vaping Use Vaping status: Never Used Substance Use Topics Alcohol use: Yes Comment: twice a year Drug use: No Prior to Admission medications as of 01/27/25 0820 Medication Sig Last Dose Taking lisinopril (ZESTRIL) 20 mg tablet Take 1 tablet by mouth once daily. Yes BRILINTA 90 mg tablet Take 90 mg by mouth two times a day. Yes atorvastatin (LIPITOR) 40 mg tablet Take 40 mg by mouth daily at bedtime. Yes dutasteride (AVODART) 0.5 mg capsule Take 1 capsule by mouth once daily. Yes aspirin, enteric coated (ADULT LOW DOSE ASPIRIN) 81 mg EC tablet Take 1 tablet by mouth once daily. Yes cetirizine (ZYRTEC) 10 mg tablet Take 1 tablet by mouth once daily. Yes CPAP Initiate CPAP @ 12 cm of water with humidification. Mask (per patient preference) optional chin strap (if indicated) , filters, tubing, humidifier and lifetime supplies. [employer] Mirage Quattro, size medium Yes No medication comments found. ALLERGIES Allergen Reactions Seasonal Allergies Itching Objective PHYSICAL EXAM: General: alert and oriented (x3), healthy appearance and obese. Pertinent negatives noted - not distressed. Skin: normal color, no rash or lesions. HEENT: EOM intact and pupils equal round. Pertinent negatives noted - no carotid bruit. Cardiovascular: regular rate and rhythm, normal S1 and S2, no rub, murmurs, or gallop. Respiratory: normal breath sounds, no wheezes or crackles. No chest wall deformity or tenderness. Abdomen: soft. Pertinent negatives noted - not tender. Extremities: no deformity, no edema or tenderness, no joint swelling or clubbing. Neurological: normal cognition and motor skills. Gait normal. No weakness or sensory deficit. PAIN ASSESSMENT: VITALS: BP 120/64 Pulse 57 Temp (Src) 97.2 (Temporal) Resp 12 Ht 5' 11" (1.80m) Wt 220 lb 3.2 oz (99.9kg) SpO2 95% BMI 30.73 kg/(m^2). Diagnostic tests reviewed for today's visit: Lab Value Units Date High Low HB 15.4 g/dL 11/22/2024 17.0 13.0 HCT 46.6 % 11/22/2024 51.0 39.0 WBC 5.56 k/uL 11/22/2024 11.00 3.70 PLT 171 k/uL 11/22/2024 400 150 NA 136 mmol/L 11/22/2024 144 136 K 4.6 mmol/L 11/22/2024 5.1 3.7 GLUC 116 mg/dL 11/22/2024 99 74 BUN 25 mg/dL 11/22/2024 24 9 CREAT 0.88 mg/dL 11/22/2024 1.22 0.73 PTSEC No results within date range. INR No results within date range. APTT No results within date range. ALT 21 U/L 11/22/2024 54 10 AST 23 U/L 11/22/2024 40 14 TBILI 0.4 mg/dL 11/22/2024 1.3 0.2 TSH No results within date range. Lab Value Units Date High Low HCGQT No results within date range. UHCG No results within date range. HCG, BODY* No results within date range. Lab Value Units Date High Low ABORHD No results within date range. ABSCREEN No results within date range. Hemoglobin A1C (%) Date Value 03/15/2022 5.7 06/11/2021 5.8 11/27/2020 5.7 04/13/2019 5.6 10/07/2017 5.5 11/22/2016 5.6 No results found for this or any previous visit (from the past 8760 hours). No results found for this or any previous visit (from the past 18857 hours). Instructions Given to Patient: Instructions located in the after visit summary. Patient given verbal and written preop instructions and voices comprehension and compliance. SIGNATURE: Carlota Huffman APRN.CNP PATIENT NAME: Bernardo Carver DATE: January 27, 2025 TIME: 8:20 AM PAGER/CONTACT #: documented in this encounter [facility] 01-21-2025 Telephone encounter Note Surgery has been scheduled as requested. [facility] 01-21-2025 Miscellaneous Notes Surgery has been scheduled as requested. Received letter from Dr Frost's office. Per Denilson Marinelli CLOSET BUILDER patient is to stop Plavix 5 days prior to surgery. Records scanned into Epic. Patient was notified. Surgical request completed. Post op appointments mailed to the patient. Surgical clearance letter sent to Dr Frost. Patient is on Brilinta and had a heart stent placement 02/27. Patient scheduled for Left knee arthroscopic medial menisectomy on 02/09/25. documented in this encounter [facility] 01-20-2025 Telephone encounter Note Received letter from Dr Frost's office. Per Denilson Marinelli CLOSET BUILDER patient is to stop Plavix 5 days prior to surgery. Records scanned into [employer]. Patient was notified. Surgical request completed. Post op appointments mailed to the patient. [facility] 01-19-2025 Telephone encounter Note Surgical clearance letter sent to Dr Frost. Patient is on Brilinta and had a heart stent placement 02/27. [facility] 01-19-2025 Telephone encounter Note Patient scheduled for Left knee arthroscopic medial menisectomy on 02/09/25. [facility] 01-17-2025 Note HNO ID: [id number] Author: MIKEY NERI MD Service: ? Author Type: Physician Type: Progress Notes Filed: 01/17/2025 08:51 Note Text: AMB ROOMING INTAKE FLOWSHEET DATA Pain Pain Level: 3 Description: Aching, Dull, Sore, Tightness Duration Amount of Time: 24 Duration Units: Hours Frequency: Continuous Patient presents with: Left Knee - New, Knee Pain Patient present to office for left knee meniescus tear. Referred by adriano lima. Xray 11/22/2024 MRI 01/12/2024. 2.5 month ago patient injured knee while helping niece move. SHIVA Pastrana MD Department of Orthopaedics Orthopaedics [address] [facility] [address] Dept: [phone] Dept January 17, 2025 CHIEF COMPLAINT: New and Knee Pain of the Left Knee HPI Elcieo Carver is a 64-year-old male presenting with left knee pain. Eliceo reports left knee pain that began after assisting his niece with moving into a new house. The pain is localized to the medial and posterior aspects of the knee and is described as soreness. The onset of pain was gradual, with no specific traumatic event preceding it. The pain became severe enough that Eliceo had difficulty ambulating the following day. He notes that the pain is exacerbated by lateral movements and pressure. 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 He has completed 2 months of physical therapy, which he reports aggravated the pain. He has been taking meloxicam without relief but notes significant improvement with a previous steroid taper. Eliceo has a history of a cardiac stent placement in February of last year, following a cardiac catheterization due to dyspnea. He was prescribed a blood thinner for 6-8 months post-procedure. He denies any history of blood clots. ASSESSMENT: M25.562 Acute pain of left knee (primary encounter diagnosis) S83.242A Acute medial meniscus tear of left knee, initial encounter M17.12 Primary osteoarthritis of left knee Q68.6 Discoid lateral meniscus of left knee Z95.5 Presence of coronary angioplasty implant and graft 1. Acute medial meniscus tear of left knee, initial encounter (S83.242A) Acute pain of left knee (M25.562) MRI reveals a tear in the medial meniscus, correlating with tenderness along the medial joint line. Effusion and mild fullness in the popliteal space noted. Cyndee's test positive; ligamentous exam stable. Previous treatments, including meloxicam and physical therapy, were ineffective; steroid taper provided temporary relief. - Discussed surgical intervention via arthroscopic meniscectomy to address the meniscal tear. - Patient educated on the procedure, including risks and benefits, and agreed to proceed. - Jannette to assist with scheduling the surgery; patient to coordinate timing based on work commitments. - Advised patient to consult with stem sizer Dr. Santiago for clearance due to history of coronary stent placement. 2. Primary osteoarthritis of left knee (M17.12) MRI indicates mild degenerative changes; cartilage appears well-preserved. 3. Discoid lateral meniscus of left knee (Q68.6) MRI shows a discoid lateral meniscus with minor fraying at the inner margin; no significant pathology. No surgical intervention required for the discoid meniscus. 4. Presence of coronary angioplasty implant and graft (Z95.5) Coronary stent placed in February of the previous year; patient on antiplatelet therapy. - Patient to confirm current antiplatelet regimen with stem sizer. - Obtain cardiology clearance prior to surgical intervention. Will continue to monitor patient for Acute medial meniscus tear of left knee, initial encounter Acute pain of left knee (primary encounter diagnosis) Primary osteoarthritis of left knee Discoid lateral meniscus of left knee Presence of coronary angioplasty implant and graft, patient to schedule visit as per follow up discussed. We have made the decision to move forward with a major orthopaedic surgery today, and this represents the moderate form of medical decision-making complexity. The patient's diagnosis of Acute medial meniscus tear of left knee, initial encounter Acute pain of left knee (primary encounter diagnosis) Primary osteoarthritis of left knee Discoid lateral meniscus of left knee Presence of coronary angioplasty implant and graft represents an acute pathology/diagnosis/injury that represents a current or possible direct threat to bodily function. The risks, benefits, alternatives and potential complications involving both operative and nonoperative treatment were reviewed patient understands and wishes to pursue surgical procedure outlined. Will get the patient scheduled at their convenience. OBJECTIVE: Mr. Bernardo Carver is a pleasant 64 year old in no apparent distress. Gen:There were no vitals taken for this visit. nl development, non (more content not included)... [facility] 01-17-2025 History of Present illness Narrative AMB ROOMING INTAKE FLOWSHEET DATA Pain Pain Level: 3 Description: Aching, Dull, Sore, Tightness Duration Amount of Time: 24 Duration Units: Hours Frequency: Continuous Patient presents with: Left Knee - New, Knee Pain Patient present to office for left knee meniescus tear. Referred by adriano lima. Xray 11/22/2024 MRI 01/12/2024. 2.5 month ago patient injured knee while helping niece move. SHIVA Pastrana MD Department of Orthopaedics Orthopaedics [facility] [address] Dept: [phone] Dept January 17, 2025 CHIEF COMPLAINT: New and Knee Pain of the Left Knee HPI Eliceo Carver is a 64-year-old male presenting with left knee pain. Eliceo reports left knee pain that began after assisting his niece with moving into a new house. The pain is localized to the medial and posterior aspects of the knee and is described as soreness. The onset of pain was gradual, with no specific traumatic event preceding it. The pain became severe enough that Eliceo had difficulty ambulating the following day. He notes that the pain is exacerbated by lateral movements and pressure. 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 He has completed 2 months of physical therapy, which he reports aggravated the pain. He has been taking meloxicam without relief but notes significant improvement with a previous steroid taper. Eliceo has a history of a cardiac stent placement in February of last year, following a cardiac catheterization due to dyspnea. He was prescribed a blood thinner for 6-8 months post-procedure. He denies any history of blood clots. ASSESSMENT: M25.562 Acute pain of left knee (primary encounter diagnosis) S83.242A Acute medial meniscus tear of left knee, initial encounter M17.12 Primary osteoarthritis of left knee Q68.6 Discoid lateral meniscus of left knee Z95.5 Presence of coronary angioplasty implant and graft 1. Acute medial meniscus tear of left knee, initial encounter (S83.242A) Acute pain of left knee (M25.562) MRI reveals a tear in the medial meniscus, correlating with tenderness along the medial joint line. Effusion and mild fullness in the popliteal space noted. Cyndee's test positive; ligamentous exam stable. Previous treatments, including meloxicam and physical therapy, were ineffective; steroid taper provided temporary relief. - Discussed surgical intervention via arthroscopic meniscectomy to address the meniscal tear. - Patient educated on the procedure, including risks and benefits, and agreed to proceed. - Jannette to assist with scheduling the surgery; patient to coordinate timing based on work commitments. - Advised patient to consult with stem sizer Dr. Santiago for clearance due to history of coronary stent placement. 2. Primary osteoarthritis of left knee (M17.12) MRI indicates mild degenerative changes; cartilage appears well-preserved. 3. Discoid lateral meniscus of left knee (Q68.6) MRI shows a discoid lateral meniscus with minor fraying at the inner margin; no significant pathology. No surgical intervention required for the discoid meniscus. 4. Presence of coronary angioplasty implant and graft (Z95.5) Coronary stent placed in February of the previous year; patient on antiplatelet therapy. - Patient to confirm current antiplatelet regimen with stem sizer. - Obtain cardiology clearance prior to surgical intervention. Will continue to monitor patient for Acute medial meniscus tear of left knee, initial encounter Acute pain of left knee (primary encounter diagnosis) Primary osteoarthritis of left knee Discoid lateral meniscus of left knee Presence of coronary angioplasty implant and graft, patient to schedule visit as per follow up discussed. We have made the decision to move forward with a major orthopaedic surgery today, and this represents the moderate form of medical decision-making complexity. The patient's diagnosis of Acute medial meniscus tear of left knee, initial encounter Acute pain of left knee (primary encounter diagnosis) Primary osteoarthritis of left knee Discoid lateral meniscus of left knee Presence of coronary angioplasty implant and graft represents an acute pathology/diagnosis/injury that represents a current or possible direct threat to bodily function. The risks, benefits, alternatives and potential complications involving both operative and nonoperative treatment were reviewed patient understands and wishes to pursue surgical procedure outlined. Will get the patient scheduled at their convenience. OBJECTIVE: Mr. Bernardo Carver is a pleasant 64 year old in no apparent distress. Gen:There were no vitals taken for this visit. nl development, non obese, no deformities ENT: Normocephalic, normal hearing, moist mucosa CV: Pulses:DP/PT= 2+ and symmetric, capillary refill < 2 secs, no peripheral edema/varicosities Skin: no rash, bruising or lesions. Good turgor. Psych: cooperative and appropriate, alert and oriented x 3, good mood and affect. Musculoskeletal: - Musculoskeletal: - Left Knee: - Mild effusion, possible mild fullness in the popliteal space. - Tenderness to palpation along the medial joint line. - Provocative test: Positive Cyndee's test. - Ligamentous exam stable with anterior, posterior, medial, and lateral stresses. IMAGING: Labs: Tests: (February) Cardiac Catheterization: - Large vessel 70% stenosis - Stent placed Imaging: MRI of the left knee: - Medial meniscus tear - Lateral discoid meniscus with mild fraying - Moderate arthritic changes noted - ACL and PCL intact - Mild cartilage thinning in select regions Supporting Subjective Information Below: Past Medical History: PAST MEDICAL HISTORY Diagnosis Date Allergies Hypertension JEFFREY on CPAP 2014 Snoring 2014 Vestibular schwannoma (HCC) 2016 Past Surgical History: PAST SURGICAL HISTORY Procedure Laterality Date COLONOSCOPY FLX DX W/COLLJ SPEC WHEN PFRMD 09/05/2014 Colonoscopy L'SCOPE CHOLECYSTECTOMY 08/12/2017 Dr. Rolando Valdez PAST SURGICAL HISTORY OF Craniotomy. Vestibular Schwannoma Family History: FAMILY HISTORY Problem Relation Age of Onset No Known Problems Father other (Pacemaker) Mother other (HTN) Mother No Known Problems Half-brother No Known Problems Half-sister No Ocular Disease No Family History Social History: Social History Tobacco Use Smoking status: Former Current packs/day: 0.00 Average packs/day: 0.3 packs/day for 30.0 years (9.0 ttl pk-yrs) Types: Cigarettes Start date: 07/16/2015 Quit date: 03/09/2019 Years since quittin.8 Smokeless tobacco: Never Tobacco comments: Father smoked occasional cigar in home. NO ETS in adult home. Vaping Use Vaping status: Never Used Substance Use Topics Alcohol use: Yes Comment: weekends Drug use: No Medications: Current Outpatient Medications Medication Sig lisinopril (ZESTRIL) 20 mg tablet Take 1 tablet by mouth once daily. BRILINTA 90 mg tablet Take 90 mg by mouth two times a day. atorvastatin (LIPITOR) 40 mg tablet Take 40 mg by mouth daily at bedtime. aspirin, enteric coated (ADULT LOW DOSE ASPIRIN) 81 mg EC tablet Take 1 tablet by mouth once daily. cetirizine (ZYRTEC) 10 mg tablet Take 1 tablet by mouth once daily. CPAP Initiate CPAP @ 12 cm of water with humidification. Mask (per patient preference) optional chin strap (if indicated) , filters, tubing, humidifier and lifetime supplies. ResMed Mirage Quattro, size medium meloxicam (MOBIC) 15 mg tablet Take 1 tablet by mouth once daily. (Patient not taking: Reported on 01/17/2025) dutasteride (AVODART) 0.5 mg capsule Take 1 capsule by mouth once daily. tamsulosin (FLOMAX) 0.4 mg Take 2 capsules by mouth daily at bedtime. (Patient not taking: Reported on 01/17/2025) No current facility-administered medications for this visit. Allergies: Seasonal Allergies ROS: General (negative for fatigue, malaise, weight loss/gain) HEENT (negative for headache, earache, recent vision changes, sinus pain, sore throat) Respiratory (no recent shortness of breath, hemoptysis) CV (negative for chest tightness, palpitations) Musculoskeletal (see HPI) Psych (no depression, anxiety) Musculoskeletal: (+) left knee pain, (+) left knee swelling, (+) difficulty walking Genitourinary: (+) nocturia Recording using [employer] software for draft documentation of the visit was discussed with the patient/authorized field representatives director; all questions welcomed and answered. Patient/authorized field representatives director agreed to proceed Mikey Neri MD documented in this encounter [facility] 01-13-2025 Telephone encounter Note Pt notified. Transferred to [facility] to set up appt Sophie Tamez MA [facility] 01-13-2025 Miscellaneous Notes Pt notified. Transferred to [facility] to set up appt Sophie Tamez MA Please let the patient know that the MRI of his left knee show a tear of his medial and lateral meniscus. Also some arthritis present in the joint space. I placed a referral to orthopedics for him to see they recommend a surgical repair. Adriano Lima APRN.CNP documented in this encounter [facility] 01-12-2025 Telephone encounter Note Please let the patient know that the MRI of his left knee show a tear of his medial and lateral meniscus. Also some arthritis present in the joint space. I placed a referral to orthopedics for him to see they recommend a surgical repair. Adrinao Lima APRN.CNP [facility] 01-11-2025 Note Date of Procedure 01/10/2025 [place] Protocol Safety Checklist A moment of CARE was completed Sign In Sign in communication not applicable due to emergent procedure. Special Equipment: N/A. Patient/surrogate stated/verified patient name, date of , intended procedure. Provider Confirms: Relevant labs, photos, and/or imaging studies have been reviewed. Intended patient and procedure match the source document(s) (e.g. consent, associated studies [imaging, pathology]). Consent obtained and matches the intended procedure. Correct side/site marked and visible. Medications required for procedure verified. Fire risk assessed and interventions discussed: N/A. Correct implant(s) confirmed including size and side: N/A. Sign Out All specimens are correctly labeled and sent: N/A. All instruments, equipment, possible retained foreign bodies accounted for. Post-procedure POC communicated to patient or surrogate. Post-procedure POC communicated to patient's multidisciplinary team. Anesthesia 1-2 drops Proparacaine 0.5%. Laser Paramters Laser: Kd. Duration: 0.2 seconds. Power: 320. Total Spots: 628. Notes Small pupil [facility] 01-11-2025 History of Present illness Narrative Radiology Service Progress Note PATIENT NAME: Bernardo Carver DATE OF SERVICE: January 11, 2025 TIME: 7:08 AM PATIENT IDENTITY VERIFICATION COMPLETED USING TWO (2) IDENTIFIERS: Name and Date of confirmed by patient verbally. FALL SCREENING: Has the patient had 2 falls in the last year or 1 fall with injury or currently using an Ambulatory Assistive Device (Walker, Cane, Wheelchair, Crutches, etc.)? No PATIENT GENDER DATA: Assigned male at PATIENT RELEVANT IMPLANT DATA REVIEWED: Yes PATIENT PRESENTS WITH AN IMPLANTABLE OR ATTACHED AVIATION TECHNICIAN AIRCRAFT: No RADIOLOGY DEPARTMENT: MR; Exam(s) Completed: Lower MSK: Knee, left. Aromatherapy Administered: No PERIPHERAL IV DATA: Not applicable SIGNED BY: MELISSA Yang) January 11, 2025 7:08 AM documented in this encounter [facility] 01-11-2025 Note HNO ID: [id number] Author: EDITH PETER RT(R) Service: ? Author Type: Technologist Type: Progress Notes Filed: 01/11/2025 07:09 Note Text: Radiology Service Progress Note PATIENT NAME: Bernardo Carver DATE OF SERVICE: January 11, 2025 TIME: 7:08 AM PATIENT IDENTITY VERIFICATION COMPLETED USING TWO (2) IDENTIFIERS: Name and Date of confirmed by patient verbally. FALL SCREENING: Has the patient had 2 falls in the last year or 1 fall with injury or currently using an Ambulatory Assistive Device (Walker, Cane, Wheelchair, Crutches, etc.)? No PATIENT GENDER DATA: Assigned male at PATIENT RELEVANT IMPLANT DATA REVIEWED: Yes PATIENT PRESENTS WITH AN IMPLANTABLE OR ATTACHED AVIATION TECHNICIAN AIRCRAFT: No RADIOLOGY DEPARTMENT: MR; Exam(s) Completed: Lower MSK: Knee, left. Aromatherapy Administered: No PERIPHERAL IV DATA: Not applicable SIGNED BY: MELISSA Yang) January 11, 2025 7:08 AM [facility] 01-10-2025 Note HNO ID: [id number] Author: EDEN MENDES MD Service: ? 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 - Laser retinopexy today - r/b/a explained and patient agrees to proceed - good uptake - F/u 2 weeks any retina - RD warning signs reviewed History of PEHCR with sub-RPE hemorrhage OS diagnosed 09/2021 Measured at the time as: 12.0 x 6.0 x 1.9 mm - From ~12:30 - 3:30 with overlying vitreous hemorrhage and clefting+, no mass - ICGA without intrinsic vessels at location of lesion - No Mass CNV OU ?POHS + subfoveal SRF OU on OCT macula; possible CNV OU VA 20/20 OD and 20/50 OS FA + ICG at follow up [facility] 01-10-2025 History of Present illness Narrative Horseshoe retinal tear, left eye 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 - Three days of symptoms: Flashes and floaters - No personal or fam hx of RT or RD; no h/o laser or incisional eye surgery; not myope; h/o trauma with tree branch on 01/08/2025; no prematurity - Exam: 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 - Laser retinopexy today - r/b/a explained and patient agrees to proceed - good uptake - F/u 2 weeks any retina - RD warning signs reviewed History of PEHCR with sub-RPE hemorrhage OS diagnosed 09/2021 Measured at the time as: 12.0 x 6.0 x 1.9 mm - From ~12:30 - 3:30 with overlying vitreous hemorrhage and clefting+, no mass - ICGA without intrinsic vessels at location of lesion - No Mass CNV OU ?POHS + subfoveal SRF OU on OCT macula; possible CNV OU VA 20/20 OD and 20/50 OS FA + ICG at follow up documented in this encounter [facility] 01-10-2025 Note HNO ID: [id number] Author: DAVID JACOBSEN, OD Service: ? Author Type: POLICY VALUE CALCULATOR Type: Progress Notes Filed: 01/10/2025 14:58 Note Text: 1. Vitreous hemorrhage of left eye (HCC) (Primary) 2. Retinal hemorrhage, left eye Trauma to left eye x 2 days (tree branch) with new vitreous heme, multiple retinal hemes and presumed retinal tear temporal Sent patient to [facility] clinic today and has appt at 3:45 with residents 3. 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 I have seen and examined Bernardo Carver. I have discussed the case and the management of this patient's care with the Resident/Fellow, if applicable. I also have reviewed and agree with the assessment and plan as stated above and agree with all of its relevant components. David Jacobsen, OD January 10, 2025 2:56 PM [facility] 01-10-2025 History of Present illness Narrative 1. Vitreous hemorrhage of left eye (HCC) (Primary) 2. Retinal hemorrhage, left eye Trauma to left eye x 2 days (tree branch) with new vitreous heme, multiple retinal hemes and presumed retinal tear temporal Sent patient to [facility] clinic today and has appt at 3:45 with residents 3. 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 I have seen and examined Bernardo Carver. I have discussed the case and the management of this patient's care with the Resident/Fellow, if applicable. I also have reviewed and agree with the assessment and plan as stated above and agree with all of its relevant components. David Jacobsen, OD January 10, 2025 2:56 PM documented in this encounter [facility] 01-10-2025 Note Date of Procedure 01/10/2025. 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 Start time: 1:58 PM. Stop time: 2:02 PM. OCT Macula Interpretation Right Eye Abnormal foveal contour. Findings include Subretinal fluid, Drusen, RPE Irregularity. Left Eye Abnormal foveal contour. Findings include Subretinal fluid, Drusen, RPE Irregularity. Interval Change Right Eye Worse. Left Eye Worse. [facility] 12-28-2024 Telephone encounter Note Below sent to pt via [employer]. Advised to call in and schedule MRI and Ortho appts. Sophie Tamez MA [facility] 12-28-2024 Miscellaneous Notes Below sent to pt via [employer]. Advised to call in and schedule MRI and Ortho appts. Sophie Tamez MA I would suggest MRI left knee and get Ortho consult for further evaluation. Michael Jarquin MD documented in this encounter [facility] 12-28-2024 Telephone encounter Note I would suggest MRI left knee and get Ortho consult for further evaluation. Michael Jarquin MD [facility] 12-27-2024 Note HNO ID: [id number] Author: GEO LORENZO PT Service: ? Author Type: Physical Therapist Type: Progress Notes Filed: 12/27/2024 08:30 Note Text: Episode Visit Count: 5 Therapist That Will Accept/Oversee The Plan Of Care: Geo Lorenzo PT Start of Care Date: 12/01/24 Onset Date: 10/01/24 Plan of Care Certification Date: 12/01/24 Next Certification Due Date: 01/12/25 Patient Identified by Name and Date of : Yes REHABILITATION AND SPORTS THERAPY PHYSICAL THERAPY DISCONTINUANCE OF CARE PLAN OF CARE UPDATE: Assessment: Bernardo Carver is discontinued from Physical Therapy services due to maximal benefit., Patient/Client declining further intervention., and Patient/Clinician mutual decision to discontinue current plan of care.. Patient was seen for 5 visits from Start of Care Date: 12/01/24 to 12/27/2024 and treatment included: Therapeutic exercise, Manual therapy, Self-long term management, and Patient/Family/Caregiver Education. Updated: 12/27/24 Goals for Episode of Care: established 12/01/24 Patient reported outcome of physical function will increase T-score by a minimum 5 points.- Partially MET Independent in home exercises. - MET Patient will decrease pain to 0/10 at rest and with functional activities to allow patient to improve ambulation, transfers, and standing tolerance for ADLs. - Partially MET Restore pain-free lumbar ROM to WFL to allow for improved work tolerance. - MET Stand / Walk without limitations, without pain/symptoms. - Partially MET Sleep through night without pain/symptoms. - MET Patient will be able to tolerate walking, squatting, stairs, climbing and sleeping without increased symptoms. - Partially MET, pain is less but still constant in L knee and limiting Patient will increase strength of posture muscles to WFL to allow for return to prior functional status. - Partially MET Patient Goals: eliminate pain - Partially MET SUBJECTIVE: Pt reports he completes HEP 3x day with good results. He reports that the only HEP that he does not do is the heel slide because this caused increased pain. He reports that overall his condition is improved considerably. He attributes all of his improvements to the steroid medication. He reports that the low back and radicular L LE symptoms are fully resolved. He reports that the L knee pain is still constant but less. He reports that he still also has intermittent L calf symptoms but these are also less since starting the steroid medication. He reports that he took the last dose of steroid this morning. He reports improved tolerance for work tasks. He also reports that standing, walking and transfers are all less painful but still painful. He reports that he is sleeping through the night now. He denies any improvements with climbing ladders for work and knee pain is still constant, just less. Again, he attributes the improvements to the steroid medication. Pain: Pain Pain Level: 3 Pain Location: Knee - Left (joint line) Description: Dull, Aching Frequency: Continuous Post Treatment Pain Post Treatment Pain Level: No Change Post Treatment Pain Location: Knee - Left PROMIS Scales 12/20/2024 11/26/2024 Higher is Better Phys Func - T Score 44 (mild dysfunction) 43 (mild dysfunction) Phys Func - Percentile 27 24 Self-Eff Symptom - T Score 42 (Average) 50 (Average) Self-Eff Symptom - Percentile 21 50 T-scores: mean of general population = 50. 5 points is clinically meaningfully difference Percentiles provide an indication of how the patient's score ranks in relation to the general population. Higher percentile rankings indicate better function/quality of life. 50th percentile is the average of the general population and indicates half of respondents had a worse score. OBJECTIVE MEASURES WITH LEVEL OF FUNCTION: Lumbar Spine AROM Lumbar Flexion: Normal Lumbar Extension: Normal Lumbar R Side-Bend: Normal Lumbar L Side-Bend: Normal Lumbar R Rotation: Normal Lumbar L Rotation: Normal LE AROM R Knee Extension: 2 Degrees R Knee Flexion: 141 Degrees L Knee Extension: 7 Degrees L Knee Flexion: 125 Degrees Special Tests - Hip and Spine Hip and Spine Special Tests: SLR Test SLR Test: Right Positive, Left Positive (much less symptomatic than at evaluation) Special Tests - Knee Knee Special Tests: Cyndee's Test, Valgus stress at 0 degrees, Varus stress at 0 degrees Cyndee's Test: Left Positive (slight pain at medial joint line) Valgus stress at 0 degrees: Right Negative, Left Negative Varus stress at 0 degrees: Right Negative, Left Negative Gait Gait Observation: WNL TREATMENT: Therapeutic Exercise: 1: SciFit StepOne seat #14 x6 minutes (Pt provided and update on his condition and subjective goals assessed.) 2: HEP was thoroughly reviewed and continuation encouraged to tolerance. He may even try to resume heels slides if these do not cause increased pain. He was (more content not included)... [facility] 12-27-2024 History of Present illness Narrative Images from the original note were not included. Episode Visit Count: 5 Therapist That Will Accept/Oversee The Plan Of Care: Geo Lorenzo PT Start of Care Date: 12/01/24 Onset Date: 10/01/24 Plan of Care Certification Date: 12/01/24 Next Certification Due Date: 01/12/25 Patient Identified by Name and Date of : Yes REHABILITATION AND SPORTS THERAPY PHYSICAL THERAPY DISCONTINUANCE OF CARE PLAN OF CARE UPDATE: Assessment: Bernardo Carver is discontinued from Physical Therapy services due to maximal benefit., Patient/Client declining further intervention., and Patient/Clinician mutual decision to discontinue current plan of care.. Patient was seen for 5 visits from Start of Care Date: 12/01/24 to 12/27/2024 and treatment included: Therapeutic exercise, Manual therapy, Self-long term management, and Patient/Family/Caregiver Education. Updated: 12/27/24 Goals for Episode of Care: established 12/01/24 Patient reported outcome of physical function will increase T-score by a minimum 5 points.- Partially MET Independent in home exercises. - MET Patient will decrease pain to 0/10 at rest and with functional activities to allow patient to improve ambulation, transfers, and standing tolerance for ADLs. - Partially MET Restore pain-free lumbar ROM to WFL to allow for improved work tolerance. - MET Stand / Walk without limitations, without pain/symptoms. - Partially MET Sleep through night without pain/symptoms. - MET Patient will be able to tolerate walking, squatting, stairs, climbing and sleeping without increased symptoms. - Partially MET, pain is less but still constant in L knee and limiting Patient will increase strength of posture muscles to WFL to allow for return to prior functional status. - Partially MET Patient Goals: eliminate pain - Partially MET SUBJECTIVE: Pt reports he completes HEP 3x day with good results. He reports that the only HEP that he does not do is the heel slide because this caused increased pain. He reports that overall his condition is improved considerably. He attributes all of his improvements to the steroid medication. He reports that the low back and radicular L LE symptoms are fully resolved. He reports that the L knee pain is still constant but less. He reports that he still also has intermittent L calf symptoms but these are also less since starting the steroid medication. He reports that he took the last dose of steroid this morning. He reports improved tolerance for work tasks. He also reports that standing, walking and transfers are all less painful but still painful. He reports that he is sleeping through the night now. He denies any improvements with climbing ladders for work and knee pain is still constant, just less. Again, he attributes the improvements to the steroid medication. Pain: Pain Pain Level: 3 Pain Location: Knee - Left (joint line) Description: Dull, Aching Frequency: Continuous Post Treatment Pain Post Treatment Pain Level: No Change Post Treatment Pain Location: Knee - Left PROMIS Scales 12/20/2024 11/26/2024 Higher is Better Phys Func - T Score 44 (mild dysfunction) 43 (mild dysfunction) Phys Func - Percentile 27 24 Self-Eff Symptom - T Score 42 (Average) 50 (Average) Self-Eff Symptom - Percentile 21 50 T-scores: mean of general population = 50. 5 points is clinically meaningfully difference Percentiles provide an indication of how the patient's score ranks in relation to the general population. Higher percentile rankings indicate better function/quality of life. 50th percentile is the average of the general population and indicates half of respondents had a worse score. OBJECTIVE MEASURES WITH LEVEL OF FUNCTION: Lumbar Spine AROM Lumbar Flexion: Normal Lumbar Extension: Normal Lumbar R Side-Bend: Normal Lumbar L Side-Bend: Normal Lumbar R Rotation: Normal Lumbar L Rotation: Normal LE AROM R Knee Extension: 2 Degrees R Knee Flexion: 141 Degrees L Knee Extension: 7 Degrees L Knee Flexion: 125 Degrees Special Tests - Hip and Spine Hip and Spine Special Tests: SLR Test SLR Test: Right Positive, Left Positive (much less symptomatic than at evaluation) Special Tests - Knee Knee Special Tests: Cyndee's Test, Valgus stress at 0 degrees, Varus stress at 0 degrees Cyndee's Test: Left Positive (slight pain at medial joint line) Valgus stress at 0 degrees: Right Negative, Left Negative Varus stress at 0 degrees: Right Negative, Left Negative Gait Gait Observation: WNL TREATMENT: Therapeutic Exercise: 1: SciFit StepOne seat #14 x6 minutes (Pt provided and update on his condition and subjective goals assessed.) 2: HEP was thoroughly reviewed and continuation encouraged to tolerance. He may even try to resume heels slides if these do not cause increased pain. He was reminded that he should only continue HEP if he can do so without increased pain. 3: Re-assessment results were thoroughly reviewed with patient and used as rationale for d/c recommendation. Skilled Intervention: Patient was educated in proper exercise technique and purpose for exercises. Skilled judgment was used in selection of appropriate interventions. Correct performance of therapeutic exercises was facilitated with verbal and visual cuing. Billing Therapeutic Exercise Treatment Minutes: 28 Skilled Treatment Time Minutes (timed and untimed codes): 28 Total Session Time (minutes): 28 Session Start Time : 744 Session Stop Time : 812 Geo Lorenzo PT documented in this encounter [facility] 12-21-2024 History of Present illness Narrative Program_ID:[id number] Access Code: [email or web address] URL: [email or web address] Date: 12-21-2024 Prepared By: Geo Lorenzo Program Notes Exercises - Supine Heel Slide - 3 x daily - 7 x weekly - 2 sets - 10 reps - Lying Prone - 3 x daily - 5-7 x weekly - sets - reps - Static Prone on Elbows - 3 x daily - 5-7 x weekly - sets - reps - Prone Press Up - 3 x daily - 5-7 x weekly - 2 sets - 10 reps - Seated Transversus Abdominis Bracing - 2-3 x daily - 7 x weekly - 2 sets - 10 reps - Seated March - 2-3 x daily - 7 x weekly - 2 sets - 10 reps - Seated Marching with Opposite Shoulder Flexion - 2-3 x daily - 7 x weekly - 2 sets - 10 reps Episode Visit Count: 4 Therapist That Will Accept/Oversee The Plan Of Care: Geo Lorenzo PT Start of Care Date: 12/01/24 Onset Date: 10/01/24 Plan of Care Certification Date: 12/01/24 Next Certification Due Date: 01/12/25 Patient Identified by Name and Date of : Yes REHABILITATION AND SPORTS THERAPY PHYSICAL THERAPY TREATMENT NOTE ASSESSMENT: Bernardo Carver tolerated the session with fatigue and expected muscle soreness. He demonstrated improvements in tolerance to core strengthening in sitting. The patient will continue to benefit from ongoing skilled physical therapy to progress toward set goals. PLAN FOR NEXT VISIT: PN with probable discharge as pt only wnated to complete therapy to obtain MRI. SUBJECTIVE: Pt reports that he is on a steriod and that it is helping his knee. Prone progression helps and he no longer has the back pain. Did his exercises this morning. Traction irritated his hip last visit for about 4 days. Pt not wanting to be at therapy today, only completing partial session to obtain MRI. Pain: Pain Pain Level: 5 Pain Location: Knee - Left Post Treatment Pain Post Treatment Pain Level: No Change Post Treatment Pain Location: Knee - Left OBJECTIVE MEASURES WITH LEVEL OF FUNCTION: Rounded shoulders and back with sitting TREATMENT: Therapeutic Exercise: 1: *Seated TA activation 2x10 with 2 second holds 2: *Seated TA activation with alt UE raises 2x10 B 3: *Seated TA activation with BLE alt marching 2x10 B 4: *Seated TA activation with BLE alt marching with opposite UE raises 2x10 5: *Standing TA activation with push into 55 cm physioball 2x10 Skilled Intervention: Patient was educated in proper exercise technique and purpose for exercises. Reviewed and educated patient on additions/changes for home exercise program as above (*). Skilled judgment was used in selection of appropriate interventions. Provided written instruction for home exercise program to facilitate proper performance and compliance. Correct performance of therapeutic exercises was facilitated with verbal and visual cuing. Billing Therapeutic Exercise Treatment Minutes: 18 Skilled Treatment Time Minutes (timed and untimed codes): 18 Total Session Time (minutes): 18 Session Start Time : 1057 Session Stop Time : 1115 LANA Guerrero PT documented in this encounter [facility] 12-21-2024 Note HNO ID: [id number] Author: RICH MORTON PT Service: ? Author Type: Physical Therapist Type: Progress Notes Filed: 12/21/2024 12:31 Note Text: Episode Visit Count: 4 Therapist That Will Accept/Oversee The Plan Of Care: Geo Lorenzo PT Start of Care Date: 12/01/24 Onset Date: 10/01/24 Plan of Care Certification Date: 12/01/24 Next Certification Due Date: 01/12/25 Patient Identified by Name and Date of : Yes REHABILITATION AND SPORTS THERAPY PHYSICAL THERAPY TREATMENT NOTE ASSESSMENT: Bernardo Carver tolerated the session with fatigue and expected muscle soreness. He demonstrated improvements in tolerance to core strengthening in sitting. The patient will continue to benefit from ongoing skilled physical therapy to progress toward set goals. PLAN FOR NEXT VISIT: PN with probable discharge as pt only wnated to complete therapy to obtain MRI. SUBJECTIVE: Pt reports that he is on a steriod and that it is helping his knee. Prone progression helps and he no longer has the back pain. Did his exercises this morning. Traction irritated his hip last visit for about 4 days. Pt not wanting to be at therapy today, only completing partial session to obtain MRI. Pain: Pain Pain Level: 5 Pain Location: Knee - Left Post Treatment Pain Post Treatment Pain Level: No Change Post Treatment Pain Location: Knee - Left OBJECTIVE MEASURES WITH LEVEL OF FUNCTION: Rounded shoulders and back with sitting TREATMENT: Therapeutic Exercise: 1: *Seated TA activation 2x10 with 2 second holds 2: *Seated TA activation with alt UE raises 2x10 B 3: *Seated TA activation with BLE alt marching 2x10 B 4: *Seated TA activation with BLE alt marching with opposite UE raises 2x10 5: *Standing TA activation with push into 55 cm physioball 2x10 Skilled Intervention: Patient was educated in proper exercise technique and purpose for exercises. Reviewed and educated patient on additions/changes for home exercise program as above (*). Skilled judgment was used in selection of appropriate interventions. Provided written instruction for home exercise program to facilitate proper performance and compliance. Correct performance of therapeutic exercises was facilitated with verbal and visual cuing. Billing Therapeutic Exercise Treatment Minutes: 18 Skilled Treatment Time Minutes (timed and untimed codes): 18 Total Session Time (minutes): 18 Session Start Time : 1057 Session Stop Time : 1115 Betzaida Velasquez, LOG SCALER Rich Morton, PT [facility] 12-20-[address] - 12/20/2024 8:24 AM EDT For intermittent fasting patterns no less than 8-10 eating window, aim for breakfast, lunch and dinner, keep dinner smallest meal. Track with dixon Cronometer aiming for 5545-8669 calories, OK to track 3 days per week Include a whole grain, high fiber serving at each meal Protein goal 100-120 grams daily Add in 2 pakistani yogurts daily (at least two servings dairy) Add in 3 servings fruit daily If able increase cardio to at least 5 days of cardio for 30-45; vary type and exertion, add two days of interval training; and 2-3 days of weight resistance. documented in this encounter [facility] 12-20-2024 Note HNO ID: [id number] Author: FRANCES BARAKAT RD Service: ? Author Type: Registered Dietitian Type: Progress Notes Filed: 12/20/2024 08:32 Note Text: 8:00 AM [facility] Nutrition Therapy: Virtual Consult - Initial Assessment I have communicated my name and active licensure. The patient?s identity and physical location were verified at the time of this visit. Either the patient or their legal field representatives director has been informed of the risks and benefits of -- and alternatives to -- treatment through a remote evaluation and consents to proceed with the evaluation remotely. Nutrition Diagnosis: Overweight/obesity, related to, excess energy intake and physical inactivity, as evidenced by BMI above normative standard for age and gender. RECOMMENDED MALNUTRITION DIAGNOSIS: NO MALNUTRITION IDENTIFIED NUTRITION CARE PLAN Nutrition Intervention 12/20/2024: modify type and amount of food or beverage For intermittent fasting patterns no less than 8-10 eating window, aim for breakfast, lunch and dinner, keep dinner smallest meal. Track with dixon Cronometer aiming for 0571-7377 calories, OK to track 3 days per week Include a whole grain, high fiber serving at each meal Protein goal 100-120 grams daily Add in 2 pakistani yogurts daily (at least two servings dairy) Add in 3 servings fruit daily If able increase cardio to at least 5 days of cardio for 30-45; vary type and exertion, add two days of interval training; and 2-3 days of weight resistance. Prefers [employer] for info, no need to send Nutrition Monitoring AND Evaluation: half to 1 lb weight loss per week Need for Follow up: 4-6 weeks Patient presents for initial MNT as relates to overweight BMI Body mass index is 28.87 kg/m?. Other medical issues JEFFREY using CPaP, HTN controlled, CAD. Frustrated with unable to lose past current weight. Has been eating clean for 3 years - own iman, does not eat out, organic foods. Eats one meal per day, occ breakfast on Friday. Intake lacks whole grains, fruit and dairy; fiber less than recommended . 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 Includes regular exercise, cardio less than recommended but is active during the day. Current options limited with knee pain but does have a pool for laps. Avoids processed foods, own iman, Highest weight 235 3 years ago Goal 190 Attempts: [place] 3 mo Dietitian from chiropractor Fasting- 4 hour window Patient's symptoms are: Weight Concerns: failure to lose weight Diet History: Breakfast - coffee black Snack - no Lunch - no Snack - no Dinner - 4-6-chicken, cabbage, peppers, onions, 4 eggs; pork Snack - no Beverages - water (3/4 gallon) coffee, zero propel Alcohol- once per month will have a couple drinks Vitamins/Supplements - fish oil On Friday: will have breakfast: eggs, bar, Activity: Activities of Daily Living: Active 75% of the day. 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 Resting Metabolic Rate: 1764 Malnutrition Screening Significant unintentional weight loss? No Eating less than 75% of usual intake for more than 2 weeks? No Potential Signs of Inflammation: no identifiable sources Food Insecurity: No Food Insecurity (12/20/2024) Hunger Vital Sign Worried About Running Out of Food in the Last Year: Never true Ran Out of Food in the Last Year: Never true Education Materials Provided: None this visit READINESS TO LEARN Cognitive ability: Alert and oriented Motivation to learn: Interested Family support: Unable to assess - Family not present Instruction provided to: Patient Patient learns best by: Individual Instruction Factors affecting learning: None Physical limitations affecting learning: None Referred by: Clarence DENISE Billing Type: Initial Assess 2 units 8:26 AM Total Time (mins): 26 SIGNATURE: Frances Barakat RD PATIENT NAME: Bernardo Carver DATE: December 20, 2024 TIME: 8:04 AM [facility] 12-20-2024 History of Present illness Narrative 8:00 AM [facility] Nutrition Therapy: Virtual Consult - Initial Assessment I have communicated my name and active licensure. The patient s identity and physical location were verified at the time of this visit. Either the patient or their legal field representatives director has been informed of the risks and benefits of -- and alternatives to -- treatment through a remote evaluation and consents to proceed with the evaluation remotely. Nutrition Diagnosis: Overweight/obesity, related to, excess energy intake and physical inactivity, as evidenced by BMI above normative standard for age and gender. RECOMMENDED MALNUTRITION DIAGNOSIS: NO MALNUTRITION IDENTIFIED NUTRITION CARE PLAN Nutrition Intervention 12/20/2024: modify type and amount of food or beverage For intermittent fasting patterns no less than 8-10 eating window, aim for breakfast, lunch and dinner, keep dinner smallest meal. Track with dixon Cronometer aiming for 8721-6878 calories, OK to track 3 days per week Include a whole grain, high fiber serving at each meal Protein goal 100-120 grams daily Add in 2 pakistani yogurts daily (at least two servings dairy) Add in 3 servings fruit daily If able increase cardio to at least 5 days of cardio for 30-45; vary type and exertion, add two days of interval training; and 2-3 days of weight resistance. Prefers [employer] for info, no need to send Nutrition Monitoring & Evaluation: half to 1 lb weight loss per week Need for Follow up: 4-6 weeks Patient presents for initial MNT as relates to overweight BMI Body mass index is 28.87 kg/m . Other medical issues JEFFREY using CPaP, HTN controlled, CAD. Frustrated with unable to lose past current weight. Has been eating clean for 3 years - own iman, does not eat out, organic foods. Eats one meal per day, occ breakfast on Friday. Intake lacks whole grains, fruit and dairy; fiber less than recommended . 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 Includes regular exercise, cardio less than recommended but is active during the day. Current options limited with knee pain but does have a pool for laps. Avoids processed foods, own iman, Highest weight 235 3 years ago Goal 190 Attempts: [place] 3 mo Dietitian from chiropractor Fasting- 4 hour window Patient's symptoms are: Weight Concerns: failure to lose weight Diet History: Breakfast - coffee black Snack - no Lunch - no Snack - no Dinner - 4-6-chicken, cabbage, peppers, onions, 4 eggs; pork Snack - no Beverages - water (3/4 gallon) coffee, zero propel Alcohol- once per month will have a couple drinks Vitamins/Supplements - fish oil On Friday: will have breakfast: eggs, bar, Activity: Activities of Daily Living: Active 75% of the day. 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 Resting Metabolic Rate: 1764 Malnutrition Screening Significant unintentional weight loss? No Eating less than 75% of usual intake for more than 2 weeks? No Potential Signs of Inflammation: no identifiable sources Food Insecurity: No Food Insecurity (12/20/2024) Hunger Vital Sign Worried About Running Out of Food in the Last Year: Never true Ran Out of Food in the Last Year: Never true Education Materials Provided: None this visit READINESS TO LEARN Cognitive ability: Alert and oriented Motivation to learn: Interested Family support: Unable to assess - Family not present Instruction provided to: Patient Patient learns best by: Individual Instruction Factors affecting learning: None Physical limitations affecting learning: None Referred by: Clarence DENISE Billing Type: Initial Assess 2 units 8:26 AM Total Time (mins): 26 SIGNATURE: Frances Barakat RD PATIENT NAME: Bernardo Carver DATE: December 20, 2024 TIME: 8:04 AM documented in this encounter [facility] 12-16-2024 Note HNO ID: [id number] Author: RICH MORTON PT Service: ? Author Type: Physical Therapist Type: Progress Notes Filed: 12/17/2024 08:00 Note Text: Episode Visit Count: 3 Therapist That Will Accept/Oversee The Plan Of Care: Geo Lorenzo PT Start of Care Date: 12/01/24 Onset Date: 10/01/24 Plan of Care Certification Date: 12/01/24 Next Certification Due Date: 01/12/25 Patient Identified by Name and Date of : Yes REHABILITATION AND SPORTS THERAPY PHYSICAL THERAPY TREATMENT NOTE ASSESSMENT: Bernardo Carver tolerated the session with no issues. He demonstrated improvements in LBP with manual traction. The patient will continue to benefit from ongoing skilled physical therapy to progress toward set goals. PLAN FOR NEXT VISIT: Consider light core strenghtneing per pt's willingness. SUBJECTIVE: Pt reports that his bakc is feeling fine. Hip extension irritates the back. Pt states that he is on more steroids and that is helping. Pt states that he did his prone exercsies about an hour ago and he would like to just do traction this visit only. Pt just wants to complete pt visits to get his MRI. Pain: Pain Pain Level: 4 Pain Location: Knee - Left, Low Back/Lumbar Spine - Left, Buttocks - Left Frequency: Continuous OBJECTIVE MEASURES WITH LEVEL OF FUNCTION: Improved pain post traction TREATMENT: Manual Therapy: Manual Traction: supine manual lumbar belt traction x10 minutes with LEs on leg rest and force to pt tolerance. Pt response to treatment monitored throughout. Skilled Intervention: Manual skills to improve joint mobility, ROM, and decrease pain. Utilized anatomy knowledge of the clinician, and assessment of patient's response to intervention. Self-Snf Management: 1: Discussion and education on centralization of symptoms and how it is a positive sign if prone progression helps his back pain 2: Education on consideration of light core strenghtening since pain is decreasing with prone progression. Skilled Intervention: Skilled judgment in the selection of proper modification for activity of daily living/home management based on clinical presentation, deficits, and needs. Activity progression based on professional judgement. Billing Manual TherapyTreatment Minutes: 10 Self-Care/Home Management Treatment Minutes: 6 Skilled Treatment Time Minutes (timed and untimed codes): 16 Total Session Time (minutes): 16 Session Start Time : 1154 Session Stop Time : 1210 LANA Guerrero PT [facility] 12-16-2024 History of Present illness Narrative Episode Visit Count: 3 Therapist That Will Accept/Oversee The Plan Of Care: Geo Lorenzo PT Start of Care Date: 12/01/24 Onset Date: 10/01/24 Plan of Care Certification Date: 12/01/24 Next Certification Due Date: 01/12/25 Patient Identified by Name and Date of : Yes REHABILITATION AND SPORTS THERAPY PHYSICAL THERAPY TREATMENT NOTE ASSESSMENT: Bernardo Carver tolerated the session with no issues. He demonstrated improvements in LBP with manual traction. The patient will continue to benefit from ongoing skilled physical therapy to progress toward set goals. PLAN FOR NEXT VISIT: Consider light core strenghtneing per pt's willingness. SUBJECTIVE: Pt reports that his bakc is feeling fine. Hip extension irritates the back. Pt states that he is on more steroids and that is helping. Pt states that he did his prone exercsies about an hour ago and he would like to just do traction this visit only. Pt just wants to complete pt visits to get his MRI. Pain: Pain Pain Level: 4 Pain Location: Knee - Left, Low Back/Lumbar Spine - Left, Buttocks - Left Frequency: Continuous OBJECTIVE MEASURES WITH LEVEL OF FUNCTION: Improved pain post traction TREATMENT: Manual Therapy: Manual Traction: supine manual lumbar belt traction x10 minutes with LEs on leg rest and force to pt tolerance. Pt response to treatment monitored throughout. Skilled Intervention: Manual skills to improve joint mobility, ROM, and decrease pain. Utilized anatomy knowledge of the clinician, and assessment of patient's response to intervention. Self-Snf Management: 1: Discussion and education on centralization of symptoms and how it is a positive sign if prone progression helps his back pain 2: Education on consideration of light core strenghtening since pain is decreasing with prone progression. Skilled Intervention: Skilled judgment in the selection of proper modification for activity of daily living/home management based on clinical presentation, deficits, and needs. Activity progression based on professional judgement. Billing Manual TherapyTreatment Minutes: 10 Self-Care/Home Management Treatment Minutes: 6 Skilled Treatment Time Minutes (timed and untimed codes): 16 Total Session Time (minutes): 16 Session Start Time : 1154 Session Stop Time : 1210 LANA Guerrero PT documented in this encounter [facility] 12-13-2024 Telephone encounter Note Notified via Mismi. Sophie Tamez MA [facility] 12-13-2024 Miscellaneous Notes Notified via Mismi. Sophie Tamez MA OK for two weeks of Mobic as ordered Michael Jarquin MD Please see pt message. Pt seen in office on 11/22/24 by Adriano. Provider currently out of the office. Adviscristina. Vilma Farnsworth MA documented in this encounter [facility] 12-13-2024 Telephone encounter Note OK for two weeks of Mobic as ordered Michael Jarquin MD [facility] 12-13-2024 Telephone encounter Note Please see pt message. Pt seen in office on 11/22/24 by Adriano. Provider currently out of the office. Advise. Vilma Farnsworth MA [facility] 12-08-2024 Note HNO ID: [id number] Author: GEO LORENZO PT Service: ? Author Type: Physical Therapist Type: Progress Notes Filed: 12/08/2024 23:23 Note Text: Episode Visit Count: 2 Therapist That Will Accept/Oversee The Plan Of Care: Geo Lorenzo PT Start of Care Date: 12/01/24 Onset Date: 10/01/24 Plan of Care Certification Date: 12/01/24 Next Certification Due Date: 01/12/25 Patient Identified by Name and Date of : Yes REHABILITATION AND SPORTS THERAPY PHYSICAL THERAPY TREATMENT NOTE ASSESSMENT: Bernardo Carver tolerated the session with no issues. He demonstrated difficulty with knee special tests and persistent pain in L knee and radicular L LE symptoms. The patient will continue to benefit from ongoing skilled physical therapy to progress toward set goals. Classification Pain Mechanism Classification: Neuropathic Low Back Pain Classification: Symptom Modulation PLAN FOR NEXT VISIT: Review, correct and progress HEP to tolerance. Continue with plan of care to address L knee ROM, pain and functional difficulties but focus on likely L lumbar radiculopathy with extension directional preference. Continue with postural stretching and strengthening with extension directional preference. Consider manual lumbar belt traction prn. SUBJECTIVE: Pt reports that since last session he has been compliant with HEP 3x day. For several days his symptoms did not change but then several days after starting HEP he developed an increase in pain L knee in several locations. He reports that the only home exercise that causes him pain is the supine heel slides. Per therapist advice, he stopped the heel slides and his pain has eased back to prior functional level. He reports that currently he is feeling almost exactly the same as he was at evaluation. He has continued the prone lumbar extension exercises and these have not caused any increase in pain. Pain: Pain Pain Level: 7 Pain Location: Knee - Left, Low Back/Lumbar Spine - Left, Buttocks - Left Description: Aching, Sore, Dull, Sharp (sharp with twisting movements) Frequency: Continuous Post Treatment Pain Post Treatment Pain Level: No Change Post Treatment Symptoms: Pt did report that his L knee felt more stiff but no change in actual pain. OBJECTIVE MEASURES WITH LEVEL OF FUNCTION: LE Flexibility Flexibility: Piriformis Flexibility R Piriformis Flexibility: 50 L Piriformis Flexibility: 58 Special Tests - Hip and Spine Hip and Spine Special Tests: SLR Test SLR Test: Right Positive Special Tests - Knee Knee Special Tests: Cyndee's Test, Aren, Valgus stress at 0 degrees, Varus stress at 0 degrees Aren: Left Negative Cyndee's Test: Left Positive Valgus stress at 0 degrees: Left Positive Varus stress at 0 degrees: Left Negative TREATMENT: Therapeutic Exercise: 1: [employer] StepOne seat #14 x5 minutes (Pt was advised to monitor his symptoms and stop if pain increases) 2: supine L heel slides reviewed but he was advised not to complete these due to pain 3: prone lying x3 minutes 4: prone on elbows x3 minutes 5: prone press ups 2x10 6: prone B alt hip ext SLR 2x10 Skilled Intervention: Patient was educated in proper exercise technique and purpose for exercises. Reviewed and educated patient on additions/changes for home exercise program. Provided written instruction for home exercise program to facilitate proper performance and compliance. Patient education as noted. Manual Therapy: Manual Traction: supine manual lumbar belt traction x10 minutes with LEs on leg rest and force to pt tolerance. Pt response to treatment monitored throughout. Skilled Intervention: Manual skills to improve joint mobility, ROM, and decrease pain. Utilized anatomy knowledge of the clinician, and assessment of patient's response to intervention. Billing Therapeutic Exercise Treatment Minutes: 35 Manual TherapyTreatment Minutes: 10 Skilled Treatment Time Minutes (timed and untimed codes): 45 Total Session Time (minutes): 45 Session Start Time : 1002 Session Stop Time : 1047 Geo Lorenzo PT [facility] 12-08-2024 History of Present illness Narrative Episode Visit Count: 2 Therapist That Will Accept/Oversee The Plan Of Care: Geo Lorenzo PT Start of Care Date: 12/01/24 Onset Date: 10/01/24 Plan of Care Certification Date: 12/01/24 Next Certification Due Date: 01/12/25 Patient Identified by Name and Date of : Yes REHABILITATION AND SPORTS THERAPY PHYSICAL THERAPY TREATMENT NOTE ASSESSMENT: Bernardo Carver tolerated the session with no issues. He demonstrated difficulty with knee special tests and persistent pain in L knee and radicular L LE symptoms. The patient will continue to benefit from ongoing skilled physical therapy to progress toward set goals. Classification Pain Mechanism Classification: Neuropathic Low Back Pain Classification: Symptom Modulation PLAN FOR NEXT VISIT: Review, correct and progress HEP to tolerance. Continue with plan of care to address L knee ROM, pain and functional difficulties but focus on likely L lumbar radiculopathy with extension directional preference. Continue with postural stretching and strengthening with extension directional preference. Consider manual lumbar belt traction prn. SUBJECTIVE: Pt reports that since last session he has been compliant with HEP 3x day. For several days his symptoms did not change but then several days after starting HEP he developed an increase in pain L knee in several locations. He reports that the only home exercise that causes him pain is the supine heel slides. Per therapist advice, he stopped the heel slides and his pain has eased back to prior functional level. He reports that currently he is feeling almost exactly the same as he was at evaluation. He has continued the prone lumbar extension exercises and these have not caused any increase in pain. Pain: Pain Pain Level: 7 Pain Location: Knee - Left, Low Back/Lumbar Spine - Left, Buttocks - Left Description: Aching, Sore, Dull, Sharp (sharp with twisting movements) Frequency: Continuous Post Treatment Pain Post Treatment Pain Level: No Change Post Treatment Symptoms: Pt did report that his L knee felt more stiff but no change in actual pain. OBJECTIVE MEASURES WITH LEVEL OF FUNCTION: LE Flexibility Flexibility: Piriformis Flexibility R Piriformis Flexibility: 50 L Piriformis Flexibility: 58 Special Tests - Hip and Spine Hip and Spine Special Tests: SLR Test SLR Test: Right Positive Special Tests - Knee Knee Special Tests: Cyndee's Test, Aren, Valgus stress at 0 degrees, Varus stress at 0 degrees Aren: Left Negative Cyndee's Test: Left Positive Valgus stress at 0 degrees: Left Positive Varus stress at 0 degrees: Left Negative TREATMENT: Therapeutic Exercise: 1: [employer] StepOne seat #14 x5 minutes (Pt was advised to monitor his symptoms and stop if pain increases) 2: supine L heel slides reviewed but he was advised not to complete these due to pain 3: prone lying x3 minutes 4: prone on elbows x3 minutes 5: prone press ups 2x10 6: prone B alt hip ext SLR 2x10 Skilled Intervention: Patient was educated in proper exercise technique and purpose for exercises. Reviewed and educated patient on additions/changes for home exercise program. Provided written instruction for home exercise program to facilitate proper performance and compliance. Patient education as noted. Manual Therapy: Manual Traction: supine manual lumbar belt traction x10 minutes with LEs on leg rest and force to pt tolerance. Pt response to treatment monitored throughout. Skilled Intervention: Manual skills to improve joint mobility, ROM, and decrease pain. Utilized anatomy knowledge of the clinician, and assessment of patient's response to intervention. Billing Therapeutic Exercise Treatment Minutes: 35 Manual TherapyTreatment Minutes: 10 Skilled Treatment Time Minutes (timed and untimed codes): 45 Total Session Time (minutes): 45 Session Start Time : 1002 Session Stop Time : 1047 Geo Lorenzo PT documented in this encounter [facility] 12-06-2024 Telephone encounter Note Advised via mychart to speak with Physical therapist about the exercises or if he felt that wasn't helping him at all he would need an appt with PCP for other options. Sophie Tamez MA [facility] 12-06-2024 Miscellaneous Notes Advised via mychart to speak with Physical therapist about the exercises or if he felt that wasn't helping him at all he would need an appt with PCP for other options. Sophie Tamez MA documented in this encounter [facility] 12-01-2024 Note HNO ID: [id number] Author: GEO LORENZO PT Service: ? Author Type: Physical Therapist Type: Progress Notes Filed: 12/01/2024 19:59 Note Text: Episode Visit Count: 1 Therapist That Will Accept/Oversee The Plan Of Care: Geo Lorenzo PT Start of Care Date: 12/01/24 Onset Date: 10/01/24 Plan of Care Certification Date: 12/01/24 Next Certification Due Date: 01/12/25 Patient Identified by Name and Date of : Yes REHABILITATION AND SPORTS THERAPY PHYSICAL THERAPY EVALUATION PLAN OF CARE: Assessment: Bernardo Carver presents with chief complaint of L knee, hip and calf pain that interferes with working, walking, squatting, stair negotiation, sleeping (climbing) . The patient presents with impairments in ADL's, gait, independence in exercise, overall function, patient reported outcome measures, posture, range of motion, strength, and symptom management. PROMIS? (Patient-Reported Outcomes Measurement Information System) scores were reviewed and identified as a rehabilitation concern. Prognosis for therapy is Good due to: current objective clinical presentation, good overall health status, within-session changes. The patient will benefit from skilled therapy services to meet the goals established for this plan of care as noted below. Classification Pain Mechanism Classification: Neuropathic Low Back Pain Classification: Symptom Modulation Goals for Episode of Care: established 12/01/24 Patient reported outcome of physical function will increase T-score by a minimum 5 points. Independent in home exercises. Patient will decrease pain to 0/10 at rest and with functional activities to allow patient to improve ambulation, transfers, and standing tolerance for ADLs. Restore pain-free lumbar ROM to WFL to allow for improved work tolerance. Stand / Walk without limitations, without pain/symptoms. Sleep through night without pain/symptoms. Patient will be able to tolerate walking, squatting, stairs, climbing and sleeping without increased symptoms. Patient will increase strength of posture muscles to WFL to allow for return to prior functional status. Patient Goals: eliminate pain Time Frame for Goals and Treatment : 01/12/25 Planned Interventions, Frequency, and Duration: Current Frequency: 1x/week Duration: 6 weeks Total Number of Visits Planned: 6 Planned Treatment Interventions: Therapeutic exercise (63465), Neuromuscular re-education (02887), Manual therapy (10607), Therapeutic activities (52085), Self-long term management (38925), Patient/Family/Caregiver Education, Body Mechanics Training PLAN FOR NEXT VISIT: Review, correct and progress HEP to tolerance. Continue with plan of care to address L knee ROM, pain and functional difficulties but focus on likely L lumbar radiculopathy with extension directional preference. Continue with postural stretching and strengthening with extension directional preference. Consider manual lumbar belt traction prn. Patient demonstrates good understanding of plan of care and treatment. The above goals and plan of care were discussed and agreed upon by patient/family. SUBJECTIVE: Pt reports constant pain in L knee. He reports that pain is located at anterior and posterior aspects of L knee. He reports that L knee flexion is limited. He reports that the steroid medication helped for 2 days but pain returned. He also reports that at onset he also had pain in L buttock and L calf. 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 Cancer Clinical Reasoning: No identified risk factors. Infection Clinical Reasoning: No identified risk factors. Cauda Equina Syndrome Clinical Reasoning: No identified risk factors. Red Flags - Cervical Cancer Clinical Reasoning: No identified risk factors. Infection Clinical Reasoning: No identified risk factors. Spine History Symptoms Location at Onset: Back, Buttock, Thigh, Calf (knee first) Pain is Worse Sometimes: Prolonged positions, AM Pain is Better Sometimes: On the Move, As the day progresses Previous Episodes: No Sleepi (more content not included)... [facility] 12-01-2024 History of Present illness Narrative Images from the original note were not included. Episode Visit Count: 1 Therapist That Will Accept/Oversee The Plan Of Care: Geo Lorenzo PT Start of Care Date: 12/01/24 Onset Date: 10/01/24 Plan of Care Certification Date: 12/01/24 Next Certification Due Date: 01/12/25 Patient Identified by Name and Date of : Yes REHABILITATION AND SPORTS THERAPY PHYSICAL THERAPY EVALUATION PLAN OF CARE: Assessment: Bernardo Carver presents with chief complaint of L knee, hip and calf pain that interferes with working, walking, squatting, stair negotiation, sleeping (climbing) . The patient presents with impairments in ADL's, gait, independence in exercise, overall function, patient reported outcome measures, posture, range of motion, strength, and symptom management. PROMIS (Patient-Reported Outcomes Measurement Information System) scores were reviewed and identified as a rehabilitation concern. Prognosis for therapy is Good due to: current objective clinical presentation, good overall health status, within-session changes. The patient will benefit from skilled therapy services to meet the goals established for this plan of care as noted below. Classification Pain Mechanism Classification: Neuropathic Low Back Pain Classification: Symptom Modulation Goals for Episode of Care: established 12/01/24 Patient reported outcome of physical function will increase T-score by a minimum 5 points. Independent in home exercises. Patient will decrease pain to 0/10 at rest and with functional activities to allow patient to improve ambulation, transfers, and standing tolerance for ADLs. Restore pain-free lumbar ROM to WFL to allow for improved work tolerance. Stand / Walk without limitations, without pain/symptoms. Sleep through night without pain/symptoms. Patient will be able to tolerate walking, squatting, stairs, climbing and sleeping without increased symptoms. Patient will increase strength of posture muscles to WFL to allow for return to prior functional status. Patient Goals: eliminate pain Time Frame for Goals and Treatment : 01/12/25 Planned Interventions, Frequency, and Duration: Current Frequency: 1x/week Duration: 6 weeks Total Number of Visits Planned: 6 Planned Treatment Interventions: Therapeutic exercise (96029), Neuromuscular re-education (27953), Manual therapy (37356), Therapeutic activities (13439), Self-long term management (23099), Patient/Family/Caregiver Education, Body Mechanics Training PLAN FOR NEXT VISIT: Review, correct and progress HEP to tolerance. Continue with plan of care to address L knee ROM, pain and functional difficulties but focus on likely L lumbar radiculopathy with extension directional preference. Continue with postural stretching and strengthening with extension directional preference. Consider manual lumbar belt traction prn. Patient demonstrates good understanding of plan of care and treatment. The above goals and plan of care were discussed and agreed upon by patient/family. SUBJECTIVE: Pt reports constant pain in L knee. He reports that pain is located at anterior and posterior aspects of L knee. He reports that L knee flexion is limited. He reports that the steroid medication helped for 2 days but pain returned. He also reports that at onset he also had pain in L buttock and L calf. 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 Cancer Clinical Reasoning: No identified risk factors. Infection Clinical Reasoning: No identified risk factors. Cauda Equina Syndrome Clinical Reasoning: No identified risk factors. Red Flags - Cervical Cancer Clinical Reasoning: No identified risk factors. Infection Clinical Reasoning: No identified risk factors. Spine History Symptoms Location at Onset: Back, Buttock, Thigh, Calf (knee first) Pain is Worse Sometimes: Prolonged positions, AM Pain is Better Sometimes: On the Move, As the day progresses Previous Episodes: No Sleeping Position: Side lying right, Side lying left Sleep Affected by Pain: Pain keeps from falling asleep, Pain awakens Pain: Pain Pain Level: 7 Pain Location: Knee - Left (anterior and posterior aspect) Description: Aching, Dull Frequency: Continuous Post Treatment Pain Post Treatment Pain Level: Better Post Treatment Symptoms: After session, pt reported that his L knee and entire L LE were noticeably less painful. PROMIS Scales 11/26/2024 Higher is Better Phys Func - T Score 43 (mild dysfunction) Phys Func - Percentile 24 Self-Eff Symptom - T Score 50 (Average) Self-Eff Symptom - Percentile 50 T-scores: mean of general population = 50. 5 points is clinically meaningfully difference Percentiles provide an indication of how the patient's score ranks in relation to the general population. Higher percentile rankings indicate better function/quality of life. 50th percentile is the average of the general population and indicates half of respondents had a worse score. OBJECTIVE MEASURES WITH LEVEL OF FUNCTION: Posture / Alignment Posture: Forward head, Increased thoracic kyphosis, Rounded shoulders Sensation - Lower Extremity LE Light Touch Sensation: Grossly Intact Sensation - Lumbar Sensation: Grossly Intact Lumbar Spine AROM Lumbar Flexion: Normal Lumbar Extension: Normal Lumbar R Side-Bend: Minimal limitation Lumbar L Side-Bend: Minimal limitation Lumbar R Rotation: Normal Lumbar L Rotation: Normal LE AROM R Hip Internal Rotation: 58 Degrees R Knee Extension: 4 Degrees R Knee Flexion: 140 Degrees L Hip Internal Rotation: 54 Degrees L Knee Extension: 12 Degrees L Knee Flexion: 127 Degrees LE Strength Trunk Strength: Pt's job demands, postural deficits and functional difficulties indicate that he will benefit from increased core and postural strength R LE Strength: no asymmetrical myotomal weakness detected in B LEs at this time L LE Strength: no asymmetrical myotomal weakness detected in B LEs at this time Special Tests - Hip and Spine Hip and Spine Special Tests: SLR Test SLR Test: Right Positive, Left Positive Special Tests - Knee Knee Special Tests: Cyndee's Test, Aren, Valgus stress at 0 degrees, Varus stress at 0 degrees Aren: Right Negative, Left Negative Cyndee's Test: Left Positive, Right Negative (L knee painful medially with tibial IR) Valgus stress at 0 degrees: Right Negative, Left Positive (Pt reported pain on L) Varus stress at 0 degrees: Left Negative, Right Negative Gait Gait Observation: WNL Vitals BP: 118/75 Pulse: 67 Education: Education Learning Preferences: Demonstration, Explanation, Performance, Printed Materials Barriers: None Learning/educational needs: Home exercise program, Plan of Care, Posture, Body Mechanics Education Provided: Yes, see treatment interventions for education provided Education Provided To: Patient Education Mode/Type: Demonstration, Explanation/Discussion, Literature/Printed Materials, Performance Response to Education/Teach Back: States/Identifies, Return Demonstration, Requires Review/Additional Education TREATMENT: PT Treatment Interventions: Therapeutic Exercise Evaluation Therapeutic Exercise: 1: Pt was educated on anatomy of lumbar spine, knee and entire symptomatic area. He was educated on the likely etiology of his symptoms and rationale for plan of care recommendations. He was advised that he should stop any exercise that causes increased pain, especially peripheral symptoms. He was educated on his directional preference and the rationale for lumbar extension exercises. 2: *supine L heel slides 2x10 3: *prone lying x3 minutes 4: *prone on elbows x3 minutes 5: *prone press ups 2x10 Skilled Intervention: Patient was educated in proper exercise technique and purpose for exercises. Reviewed and educated patient on additions/changes for home exercise program as above (*). Skilled judgment was used in selection of appropriate interventions. Provided written instruction for home exercise program to facilitate proper performance and compliance. Correct performance of therapeutic exercises was facilitated with verbal, visual, and tactile cuing. Patient education as noted. Billing * Evaluation Low Complexity: 1 Unit Therapeutic Exercise Treatment Minutes: 20 Skilled Treatment Time Minutes (timed and untimed codes): 40 Total Session Time (minutes): 40 Session Start Time : 1603 Session Stop Time : 1643 Geo Lorenzo PT Program_ID:[id number] Access Code: [email or web address] URL: [email or web address] Date: 12-01-2024 Prepared By: Geo Lorenzo Program Notes Exercises - Supine Heel Slide - 3 x daily - 7 x weekly - 2 sets - 10 reps - Lying Prone - 3 x daily - 5-7 x weekly - sets - reps - Static Prone on Elbows - 3 x daily - 5-7 x weekly - sets - reps - Prone Press Up - 3 x daily - 5-7 x weekly - 2 sets - 10 reps documented in this encounter [facility] 11-22-2024 History of Present illness Narrative Radiology Service Progress Note PATIENT NAME: Bernardo Carver DATE OF SERVICE: November 22, 2024 TIME: 8:12 AM PATIENT IDENTITY VERIFICATION COMPLETED USING TWO (2) IDENTIFIERS: Name and Date of confirmed by patient verbally. FALL SCREENING: Has the patient had 2 falls in the last year or 1 fall with injury or currently using an Ambulatory Assistive Device (Walker, Cane, Wheelchair, Crutches, etc.)? No PATIENT GENDER DATA: Assigned male at PATIENT RELEVANT IMPLANT DATA REVIEWED: Not Applicable PATIENT PRESENTS WITH AN IMPLANTABLE OR ATTACHED AVIATION TECHNICIAN AIRCRAFT: No RADIOLOGY DEPARTMENT: General X-ray: Exam(s) Completed: Lower Extremity X-Ray(s): Knee, AP / Lat / Tunne / Merchant Left PERIPHERAL IV DATA: Not applicable SIGNED BY: Toño Garcia November 22, 2024 8:12 AM documented in this encounter [facility] 11-22-2024 Note HNO ID: [id number] Author: KRISTAL VELOZ Tech Service: ? Author Type: Technologist Type: Progress Notes Filed: 11/22/2024 08:24 Note Text: Radiology Service Progress Note PATIENT NAME: Bernardo Carver DATE OF SERVICE: November 22, 2024 TIME: 8:12 AM PATIENT IDENTITY VERIFICATION COMPLETED USING TWO (2) IDENTIFIERS: Name and Date of confirmed by patient verbally. FALL SCREENING: Has the patient had 2 falls in the last year or 1 fall with injury or currently using an Ambulatory Assistive Device (Walker, Cane, Wheelchair, Crutches, etc.)? No PATIENT GENDER DATA: Assigned male at PATIENT RELEVANT IMPLANT DATA REVIEWED: Not Applicable PATIENT PRESENTS WITH AN IMPLANTABLE OR ATTACHED AVIATION TECHNICIAN AIRCRAFT: No RADIOLOGY DEPARTMENT: General X-ray: Exam(s) Completed: Lower Extremity X-Ray(s): Knee, AP / Lat / Tunne / Merchant Left PERIPHERAL IV DATA: Not applicable SIGNED BY: Toño Garcia November 22, 2024 8:12 AM [facility] 11-22-2024 History of Present illness Narrative Chief Complaint Patient presents with: 6 Month Exam HPI Bernardo Carver is a 64 year old male who presents here today for above reason. Eliceo is a 64-year-old male with a history of HTN, BPH, CAD s/p stent placement 6-8 months ago, and JEFFREY, presenting for follow-up and medication refill. Eliceo reports well-controlled blood pressure at home and denies any side effects from lisinopril, including dry cough or tongue swelling. He requests a refill of lisinopril. He is also taking Flomax and Avodart for BPH but reports they are ineffective. He is awaiting a TURP procedure and is currently on Brilinta due to a stent placement 6-8 months ago. He follows up with [facility] and is due for a follow-up in 2 months. He denies ongoing chest pain, syncope, or dyspnea, noting that dyspnea is "95% gone." He is also on a cholesterol medication and uses a CPAP machine nightly with good benefit. Eliceo also reports left knee pain that started 1.5 months ago, initially presenting as severe pain upon waking, making ambulation difficult. The pain is now constant and prevents him from using the treadmill. He denies swelling, popping, or snapping sounds in the knee. The pain is located on the sides of the patella and is described as deep. He denies pain with palpation. 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 Patient is frustrated by difficulty in weight loss efforts. He goes to the gym, eats no processed foods. No sugar. Does not go out to eat. Drinks about 100 oz of water daily. He keeps carbs to a minimium. No results. Wants ideas to improve diet. Past medical history, appointments, medications, allergies reviewed. EXAM: BP 118/76 (BP Position: Sitting) Pulse (!) 52 Resp 16 Wt 96.6 kg (213 lb) SpO2 97% BMI 29.71 kg/m General Appearance: Well appearing, alert, in no acute distress, well-hydrated, well nourished.. Lungs: Lungs clear to auscultation. No wheezing, rhonchi, rales.. Heart: RRR without murmur, gallop, or rubs. No ectopy. Musculoskeletal: KNEE:Location: Left Redness: No. Warmth: No. Crepitus: No. Effusion: No. Joint line tenderness: No. Lateral tenderness: No. Medial tenderness: No. Drawer sign negative: No. Medial or lateral laxity: No. Cyndee's sign: No. Assessment and plan 1. Essential hypertension (I10) Blood pressure is well-controlled on current regimen of lisinopril without any reported side effects such as cough or angioedema. - Refilled lisinopril prescription and sent to [facility] in [place]. - Scheduled follow-up in 6 months. 2. Hyperlipidemia, mixed (E78.2) Patient is on cholesterol medication. Last labs in May were within normal limits. - Ordered lipid panel. 3. Benign prostatic hyperplasia with weak urinary stream (N40.1) Currently managed with Flomax and Avodart, but patient reports inadequate symptom relief. Patient is considering TURP procedure; awaiting confirmation due to current Brilinta therapy. - Continue current medications. - Follow up with urology regarding TURP procedure. 4. JEFFREY on CPAP (G47.33) Patient is compliant with CPAP therapy and reports significant benefit. 5. H/O right coronary artery stent placement (Z95.5) Stent placed approximately 6 months ago. Patient is on Brilinta and cholesterol medication. No reports of chest pain, syncope, or significant dyspnea. - Ordered lipid panel and liver function tests. - Advised patient to contact [facility] to schedule follow-up. 6. Acute pain of left knee (M25.562) Persistent pain for 1.5 months, localized to the sides of the knee, with difficulty ambulating and inability to perform usual physical activities. No swelling or tenderness on examination, but crepitus noted. Lateral and medial menisci appear intact. - Ordered X-ray of the left knee. - Initiated short course of Medrol to reduce inflammation. - Referred to physical therapy. - If no improvement in 2-3 weeks, consider MRI. 7. Overweight with body mass index (BMI) of 29 to 29.9 in adult (E66.3) - Appears that he is doing everything he can in terms of lifestyle. - Not eligible for Adipex. - Likely insurance will not cover GLP-1 - Refer to nutrition. Adriano Lima APRN.ANDIE RTO in 6 months, sooner if needed. This note was partly generated using [employer] voice recognition dictation and may contain some misspelled or inaccurate words missed on review. Recording using [employer] software for draft documentation of the visit was discussed with the patient/authorized field representatives director; all questions welcomed and answered. Patient/authorized field representatives director agreed to proceed documented in this encounter [facility] 11-22-2024 Note HNO ID: [id number] Author: ADRIANO LIMA APRN.CNP Service: ? Author Type: Nurse Practitioner Type: Progress Notes Filed: 11/22/2024 07:47 Note Text: Chief Complaint Patient presents with: 6 Month Exam HPI Bernardo Carver is a 64 year old male who presents here today for above reason. Eliceo is a 64-year-old male with a history of HTN, BPH, CAD s/p stent placement 6-8 months ago, and JEFFREY, presenting for follow-up and medication refill. Eliceo reports well-controlled blood pressure at home and denies any side effects from lisinopril, including dry cough or tongue swelling. He requests a refill of lisinopril. He is also taking Flomax and Avodart for BPH but reports they are ineffective. He is awaiting a TURP procedure and is currently on Brilinta due to a stent placement 6-8 months ago. He follows up with [facility] and is due for a follow-up in 2 months. He denies ongoing chest pain, syncope, or dyspnea, noting that dyspnea is "95% gone." He is also on a cholesterol medication and uses a CPAP machine nightly with good benefit. Eliceo also reports left knee pain that started 1.5 months ago, initially presenting as severe pain upon waking, making ambulation difficult. The pain is now constant and prevents him from using the treadmill. He denies swelling, popping, or snapping sounds in the knee. The pain is located on the sides of the patella and is described as deep. He denies pain with palpation. 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 Patient is frustrated by difficulty in weight loss efforts. He goes to the gym, eats no processed foods. No sugar. Does not go out to eat. Drinks about 100 oz of water daily. He keeps carbs to a minimium. No results. Wants ideas to improve diet. Past medical history, appointments, medications, allergies reviewed. EXAM: BP 118/76 (BP Position: Sitting) Pulse (!) 52 Resp 16 Wt 96.6 kg (213 lb) SpO2 97% BMI 29.71 kg/m? General Appearance: Well appearing, alert, in no acute distress, well-hydrated, well nourished.. Lungs: Lungs clear to auscultation. No wheezing, rhonchi, rales.. Heart: RRR without murmur, gallop, or rubs. No ectopy. Musculoskeletal: KNEE:Location: Left Redness: No. Warmth: No. Crepitus: No. Effusion: No. Joint line tenderness: No. Lateral tenderness: No. Medial tenderness: No. Drawer sign negative: No. Medial or lateral laxity: No. Cyndee's sign: No. Assessment and plan 1. Essential hypertension (I10) Blood pressure is well-controlled on current regimen of lisinopril without any reported side effects such as cough or angioedema. - Refilled lisinopril prescription and sent to [facility] in [place]. - Scheduled follow-up in 6 months. 2. Hyperlipidemia, mixed (E78.2) Patient is on cholesterol medication. Last labs in May were within normal limits. - Ordered lipid panel. 3. Benign prostatic hyperplasia with weak urinary stream (N40.1) Currently managed with Flomax and Avodart, but patient reports inadequate symptom relief. Patient is considering TURP procedure; awaiting confirmation due to current Brilinta therapy. - Continue current medications. - Follow up with urology regarding TURP procedure. 4. JEFFREY on CPAP (G47.33) Patient is compliant with CPAP therapy and reports significant benefit. 5. H/O right coronary artery stent placement (Z95.5) Stent placed approximately 6 months ago. Patient is on Brilinta and cholesterol medication. No reports of chest pain, syncope, or significant dyspnea. - Ordered lipid panel and liver function tests. - Advised patient to contact [facility] to schedule follow-up. 6. Acute pain of left knee (M25.562) Persistent pain for 1.5 months, localized to the sides of the knee, with difficulty ambulating and inability to perform usual physical activities. No swelling or tenderness on examination, but crepitus noted. Lateral and medial menisci appear intact. - Ordered X-ray of the left knee. - Initiated short course of Medrol to reduce inflammation. - Referred to physical therapy. - If no improvement in 2-3 weeks, consider MRI. 7. Overweight with body mass index (BMI) of 29 to 29.9 in adult (E66.3) - Appears that he is doing everything he can in terms of lifestyle. - Not eligible for Adipex. - Likely insurance will not cover GLP-1 - Refer to nutrition. Adriano Lima APRN.PROFESSOR OF COMMUNICATION AND WRITING RTO in 6 months, sooner if needed. This note was partly generated using [employer] voice recognition dictation and may contain some misspelled or inaccurate words missed on review. Recording using [employer] software for draft documentation of the visit was discussed with the patient/authorized field representatives director; all questions welcomed and answered. Patient/authorized field representatives director agreed to proceed [facility] 11-10-2024 Telephone encounter Note Called to set up surgery but pt states he had a stent placed 3-4 months ago. Aware we cannot schedule until he is cleared. Albert Connelly [facility] 11-10-2024 Miscellaneous Notes Called to set up surgery but pt states he had a stent placed 3-4 months ago. Aware we cannot schedule until he is cleared. Albert Connelly documented in this encounter [facility] 11-09-2024 Note HNO ID: [id number] Author: TRISTAN URBINA MD Service: ? Author Type: Physician Type: Progress Notes Filed: 11/09/2024 10:28 Note Text: ESTABLISHED PATIENT OFFICE VISIT The patient is a 64-year-old male with a history of BPH, presenting for evaluation of persistent nocturia and urinary frequency. The patient reports minimal improvement in urinary symptoms despite current pharmacological management with Avodart and tamsulosin. He continues to experience nocturia, waking up four times per night to urinate. He expresses a desire to discontinue medication and is interested in exploring procedural options for symptom relief. LAB RESULTS Creatinine Date Value Ref Range Status 05/27/2024 0.85 0.73 - 1.22 mg/dL Final PSA (ng/mL) Date Value 03/15/2022 1.04 06/11/2021 1.0 PSA Screening (ng/mL) Date Value 05/27/2024 1.33 08/09/2014 0.88 GLUCOSE UA (POCT) (mg/dL) Date Value 08/18/2024 Negative BILIRUBIN UA (POCT) (no units) Date Value 08/18/2024 Negative KETONE UA (POCT) (mg/dL) Date Value 08/18/2024 Negative SPECIFIC GRAVITY UA (POCT) (no units) Date Value 08/18/2024 1.020 HEMOGLOBIN/BLOOD UA (POCT) (no units) Date Value 08/18/2024 Negative PH UA (POCT) (no units) Date Value 08/18/2024 5.5 PROTEIN UA (POCT) (mg/dL) Date Value 08/18/2024 Negative UROBILINOGEN UA (POCT) (E.U./dL) Date Value 08/18/2024 0.2 NITRITE UA (POCT) (no units) Date Value 08/18/2024 Negative LEUKOCYTES UA (POCT) (no units) Date Value 08/18/2024 Negative COLOR UA (POCT) (no units) Date Value 08/18/2024 Yellow CLARITY UA (POCT) (no units) Date Value 08/18/2024 Clear ] ALLERGIES Allergen Reactions Seasonal Allergies Itching MEDICATIONS: lisinopril (ZESTRIL) 20 mg tablet Take 1 tablet by mouth once daily. BRILINTA 90 mg tablet Take 90 mg by mouth two times a day. atorvastatin (LIPITOR) 40 mg tablet Take 40 mg by mouth daily at bedtime. tamsulosin (FLOMAX) 0.4 mg Take 2 capsules by mouth daily at bedtime. aspirin, enteric coated (ADULT LOW DOSE ASPIRIN) 81 mg EC tablet Take 1 tablet by mouth once daily. fluticasone (FLONASE) 50 mcg/actuation nasal spray Use 2 Sprays in each nostril once daily. Rinse mouth after use. cetirizine (ZYRTEC) 10 mg tablet Take 1 tablet by mouth once daily. CPAP Initiate CPAP @ 12 cm of water with humidification. Mask (per patient preference) optional chin strap (if indicated) , filters, tubing, humidifier and lifetime supplies. ResMed Mirage Quattro, size medium dutasteride (AVODART) 0.5 mg capsule Take 1 capsule by mouth once daily. REVIEW OF SYSTEMS GENERAL:no unintentional weight loss, malaise or fevers. NEUROLOGIC: pt is alert and oriented GASTROINTESTINAL: No nausea, vomiting, or diarrhea GENITOURINARY: See HPI MUSCULOSKELETAL: Negative for joint pain or swelling, back pain or muscle pain SKIN: Negative for lesions, rash, and itching. ACTIVE PROBLEM LIST Hypertension Sleep Apnea Hyperlipidemia, Mixed Elevated Glucose Chronic Right Shoulder Pain Allergic Rhinitis Right-Sided Low Back Pain With Right-Sided Sciatica Hearing Loss in Left Ear Vestibular Schwannoma (Hcc) Essential Hypertension Jeffrey On Cpap Non Morbid Obesity Due to Excess Calories Moderate Smoker (20 Or Less Per Day) Obesity, Class I, Bmi 30-34.9 HISTORIES PAST MEDICAL HISTORY Diagnosis Date Allergies Hypertension JEFFREY on CPAP 2014 Snoring 2014 Vestibular schwannoma (HCC) 2016 PAST SURGICAL HISTORY Procedure Laterality Date COLONOSCOPY FLX DX W/COLLJ SPEC WHEN PFRMD 09/05/2014 Colonoscopy [facility] CHOLECYSTECTOMY 08/12/2017 Dr. Rolando Valdez PAST SURGICAL HISTORY OF Craniotomy. Vestibular Schwannoma FAMILY HISTORY Problem Relation Age of Onset other (Pacemaker) Mother other (HTN) Mother No Known Problems Father No Known Problems Half-brother No Known Problems Half-sister SOCIAL HISTORY Social History Tobacco Use Smoking status: Former Current packs/day: 0.00 Average packs/day: 0.3 packs/day for 30.0 years (9.0 ttl pk-yrs) Types: Cigarettes Start date: 07/16/2015 Quit date: 03/09/2019 Years since quittin.6 Smokeless tobacco: Never Tobacco comments: Father smoked occasional cigar in home. NO ETS in adult home. Vaping Use Vaping status: Never Used Substance Use Topics Alcohol use: Yes Comment: weekends Drug use: No PHYSICAL EXAMINATION General appearance: Well appearing, alert, in no acute distress, well-hydrated, well nourished Psych Alert and oriented to person, place and time Cardiac: no peripheral edema Pulmonary: normal respiratory effort Genitourinary: MALE EXAM: Exam NOT Indicated ASSESSMENT/PLAN: 1. Benign prostatic hyperplasia with urinary frequency [N40.1, R35.0] - ICD9: 600.01, 788.41, ICD10: N40.1, R35.0 Currently managed with dutasteride and tamsulosin, with minimal improvement in symptoms. Patient experiences nocturia up to four times per nigh (more content not included)... [facility] 11-09-2024 History of Present illness Narrative ESTABLISHED PATIENT OFFICE VISIT The patient is a 64-year-old male with a history of BPH, presenting for evaluation of persistent nocturia and urinary frequency. The patient reports minimal improvement in urinary symptoms despite current pharmacological management with Avodart and tamsulosin. He continues to experience nocturia, waking up four times per night to urinate. He expresses a desire to discontinue medication and is interested in exploring procedural options for symptom relief. LAB RESULTS Creatinine Date Value Ref Range Status 05/27/2024 0.85 0.73 - 1.22 mg/dL Final PSA (ng/mL) Date Value 03/15/2022 1.04 06/11/2021 1.0 PSA Screening (ng/mL) Date Value 05/27/2024 1.33 08/09/2014 0.88 GLUCOSE UA (POCT) (mg/dL) Date Value 08/18/2024 Negative BILIRUBIN UA (POCT) (no units) Date Value 08/18/2024 Negative KETONE UA (POCT) (mg/dL) Date Value 08/18/2024 Negative SPECIFIC GRAVITY UA (POCT) (no units) Date Value 08/18/2024 1.020 HEMOGLOBIN/BLOOD UA (POCT) (no units) Date Value 08/18/2024 Negative PH UA (POCT) (no units) Date Value 08/18/2024 5.5 PROTEIN UA (POCT) (mg/dL) Date Value 08/18/2024 Negative UROBILINOGEN UA (POCT) (E.U./dL) Date Value 08/18/2024 0.2 NITRITE UA (POCT) (no units) Date Value 08/18/2024 Negative LEUKOCYTES UA (POCT) (no units) Date Value 08/18/2024 Negative COLOR UA (POCT) (no units) Date Value 08/18/2024 Yellow CLARITY UA (POCT) (no units) Date Value 08/18/2024 Clear ] ALLERGIES Allergen Reactions Seasonal Allergies Itching MEDICATIONS: lisinopril (ZESTRIL) 20 mg tablet Take 1 tablet by mouth once daily. BRILINTA 90 mg tablet Take 90 mg by mouth two times a day. atorvastatin (LIPITOR) 40 mg tablet Take 40 mg by mouth daily at bedtime. tamsulosin (FLOMAX) 0.4 mg Take 2 capsules by mouth daily at bedtime. aspirin, enteric coated (ADULT LOW DOSE ASPIRIN) 81 mg EC tablet Take 1 tablet by mouth once daily. fluticasone (FLONASE) 50 mcg/actuation nasal spray Use 2 Sprays in each nostril once daily. Rinse mouth after use. cetirizine (ZYRTEC) 10 mg tablet Take 1 tablet by mouth once daily. CPAP Initiate CPAP @ 12 cm of water with humidification. Mask (per patient preference) optional chin strap (if indicated) , filters, tubing, humidifier and lifetime supplies. [employer] Quattro, size medium dutasteride (AVODART) 0.5 mg capsule Take 1 capsule by mouth once daily. REVIEW OF SYSTEMS GENERAL:no unintentional weight loss, malaise or fevers. NEUROLOGIC: pt is alert and oriented GASTROINTESTINAL: No nausea, vomiting, or diarrhea GENITOURINARY: See HPI MUSCULOSKELETAL: Negative for joint pain or swelling, back pain or muscle pain SKIN: Negative for lesions, rash, and itching. ACTIVE PROBLEM LIST Hypertension Sleep Apnea Hyperlipidemia, Mixed Elevated Glucose Chronic Right Shoulder Pain Allergic Rhinitis Right-Sided Low Back Pain With Right-Sided Sciatica Hearing Loss in Left Ear Vestibular Schwannoma (Hcc) Essential Hypertension Jeffrey On Cpap Non Morbid Obesity Due to Excess Calories Moderate Smoker (20 Or Less Per Day) Obesity, Class I, Bmi 30-34.9 HISTORIES PAST MEDICAL HISTORY Diagnosis Date Allergies Hypertension JEFFREY on CPAP 2014 Snoring 2014 Vestibular schwannoma (HCC) 2016 PAST SURGICAL HISTORY Procedure Laterality Date COLONOSCOPY FLX DX W/COLLJ SPEC WHEN PFRMD 09/05/2014 Colonoscopy L'SCOPE CHOLECYSTECTOMY 08/12/2017 Dr. Rolando Valdez PAST SURGICAL HISTORY OF Craniotomy. Vestibular Schwannoma FAMILY HISTORY Problem Relation Age of Onset other (Pacemaker) Mother other (HTN) Mother No Known Problems Father No Known Problems Half-brother No Known Problems Half-sister SOCIAL HISTORY Social History Tobacco Use Smoking status: Former Current packs/day: 0.00 Average packs/day: 0.3 packs/day for 30.0 years (9.0 ttl pk-yrs) Types: Cigarettes Start date: 07/16/2015 Quit date: 03/09/2019 Years since quittin.6 Smokeless tobacco: Never Tobacco comments: Father smoked occasional cigar in home. NO ETS in adult home. Vaping Use Vaping status: Never Used Substance Use Topics Alcohol use: Yes Comment: weekends Drug use: No PHYSICAL EXAMINATION General appearance: Well appearing, alert, in no acute distress, well-hydrated, well nourished Psych Alert and oriented to person, place and time Cardiac: no peripheral edema Pulmonary: normal respiratory effort Genitourinary: MALE EXAM: Exam NOT Indicated ASSESSMENT/PLAN: 1. Benign prostatic hyperplasia with urinary frequency [N40.1, R35.0] - ICD9: 600.01, 788.41, ICD10: N40.1, R35.0 Currently managed with dutasteride and tamsulosin, with minimal improvement in symptoms. Patient experiences nocturia up to four times per night. Prostate size is amenable to minimally invasive procedures. (45 cc) - Discussed various procedural options including Urolift, iTend, Rezum, and Greenlight Laser. - Patient expressed interest in Greenlight Laser procedure. - Explained procedure involves using a laser to ablate prostatic tissue, performed under general anesthesia. - Informed patient about potential side effects, including retrograde ejaculation. - Scheduled procedure; patient to follow up with expeller worker for exact date. - BLADDER SCAN - SURGICAL REQUEST - ELECTIVE (02/2020) Tristan Urbina MD documented in this encounter [facility] 10-06-2024 Telephone encounter Note Please refer this patient to see Dr. Urbina for BPH management, possible UroLift versus I-Tind. Notify patient of appointment date and time I called and left a message and I also sent a message in his MyChart [facility] 10-06-2024 Miscellaneous Notes Please refer this patient to see Dr. Urbina for BPH management, possible UroLift versus I-Tind. Notify patient of appointment date and time I called and left a message and I also sent a message in his MyChart documented in this encounter [facility] 09-29-2024 Telephone encounter Note The patient has been identified by name and date of : Yes Caregiver verified no other encounters exist for this prescription request: Yes Caregiver confirmed with patient/requestor that no other refills are due, in the near future, with this provider at this time: Yes The last office visit in the department: 05/27/2024 Does the patient have a future office visit with this provider/department: Yes 11/22/2024 Requested Prescriptions Pending Prescriptions Disp Refills lisinopril (ZESTRIL) 20 mg tablet 90 tablet 0 Sig: Take 1 tablet by mouth once daily. Catalina Cleary RN September 29, 2024 11:50 AM [facility] 09-29-2024 Miscellaneous Notes The patient has been identified by name and date of : Yes Caregiver verified no other encounters exist for this prescription request: Yes Caregiver confirmed with patient/requestor that no other refills are due, in the near future, with this provider at this time: Yes The last office visit in the department: 05/27/2024 Does the patient have a future office visit with this provider/department: Yes 11/22/2024 Requested Prescriptions Pending Prescriptions Disp Refills lisinopril (ZESTRIL) 20 mg tablet 90 tablet 0 Sig: Take 1 tablet by mouth once daily. Catalina Cleary RN September 29, 2024 11:50 AM documented in this encounter [facility] 09-08-2024 History of Present illness Narrative Images from the original note were not included. [facility] [place] [facility] NEURO-ONCOLOGY VIRTUAL VISIT NOTE I have communicated my name and active licensure. The patient's identity and physical location were verified at the time of this visit. Either the patient or their legal field representatives director has been informed of the risks and benefits of -- and alternatives to -- treatment through a remote evaluation and consents to proceed with the evaluation remotely. This is a virtual visit using [employer] video visit. It required patient-provider interaction for the medical decision making as documented below. PURPOSE OF VISIT: Ongoing patient management CHIEF COMPLAINT : MRI Brain for left vestibular schwannoma Subjective HISTORY OF PRESENT ILLNESS: Bernardo Carver is a 63 year old year old male who is here for a follow-up visit. He is s/p left retrosigmoid approach for 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 on 11/21/2016 (Adis) followed by GKRS (13Gy) for mild increase in residual tumor on 06/17/17 (See). INTERVAL HISTORY: 08/03/21 He denies any new neurological symptoms since last seen. He has no hearing in his left ear. He is doing well. 03/06/23 Presents today for follow-up with new MRI brain for review. Since last visit, he reports getting light headed when he bends over and stands up. He is also having dyspnea. He is seeing a cardiac and respiratory. 09/08/24 He had a cardiac stent placed. He is on ASA and brillinta now. SOCIAL HISTORY: Social History Tobacco Use Smoking status: Former Current packs/day: 0.00 Average packs/day: 0.3 packs/day for 30.0 years (9.0 ttl pk-yrs) Types: Cigarettes Start date: 07/16/2015 Quit date: 03/09/2019 Years since quittin.5 Smokeless tobacco: Never Tobacco comments: Father smoked occasional cigar in home. NO ETS in adult home. Vaping Use Vaping status: Never Used Substance Use Topics Alcohol use: Yes Comment: weekends Drug use: No PAST MEDICAL HISTORY Diagnosis Date Allergies Hypertension JEFFREY on CPAP 2014 Snoring 2014 Vestibular schwannoma (HCC) 2017 FAMILY HISTORY Problem Relation Age of Onset other (Pacemaker) Mother other (HTN) Mother No Known Problems Father No Known Problems Half-brother No Known Problems Half-sister Current Outpatient Medications Medication Sig BRILINTA 90 mg tablet Take 90 mg by mouth two times a day. atorvastatin (LIPITOR) 40 mg tablet Take 40 mg by mouth daily at bedtime. lisinopril (ZESTRIL) 20 mg tablet Take 1 tablet by mouth once daily. dutasteride (AVODART) 0.5 mg capsule Take 1 capsule by mouth once daily. tamsulosin (FLOMAX) 0.4 mg Take 2 capsules by mouth daily at bedtime. aspirin, enteric coated (ADULT LOW DOSE ASPIRIN) 81 mg EC tablet Take 1 tablet by mouth once daily. fluticasone (FLONASE) 50 mcg/actuation nasal spray Use 2 Sprays in each nostril once daily. Rinse mouth after use. cetirizine (ZYRTEC) 10 mg tablet Take 1 tablet by mouth once daily. CPAP Initiate CPAP @ 12 cm of water with humidification. Mask (per patient preference) optional chin strap (if indicated) , filters, tubing, humidifier and lifetime supplies. [employer] Mir[employer] Quattro, size medium No current facility-administered medications for this visit. REVIEW OF SYSTEMS: Neurological : No complaint of headache No complaint of tinnitus No complaint of decreased hearing No complaint of diplopia No complaints of blurred vision. No complaint of arm/leg numbness No problem with limb coordination No complaint of syncope No complaints of seizures. No complaints of memory changes or disorientation. + dizziness with change of position General : Constitutional: No recent fever or weight loss. Eyes: No history of glaucoma or cataracts ENMT: No recent ear infection, nasal congestion, mouth sores or sore throat. CV: No history of chest pain, palpitations or leg swelling Respiratory: No history of SOB, wheezing or recent cough. + SOB Gastrointestinal: No history of nausea, vomiting, dysphagia or abdominal pain. Genitourinary: No history of hematuria or dysuria. Musculoskeletal: No complaint of arthritis, unstable gait or arm/leg weakness Psychiatric: No history of hallucinations, depression, or anxiety Objective PHYSICAL EXAMINATION: VIDEO EXAM: (if completed, performed via video enabled technology) NEUROLOGICAL EXAM: Higher integrative functions: Oriented to person, place & time. Memory: Good recent and remote. Attention Span and Concentration: Good. Language: Accurate naming of objects. Good comprehension. Fund of Knowledge: Good. 7th CN: Facial muscles symmetric and strong. 8th CN: Hears finger rub well bilaterally. 12th CN: Tongue protrusion full and midline. IMAGING STUDIES: MRI Brain WO/W IVCON MRI Report MRI BRAIN WO/W IVCON Exam End: 09/06/2024 9:19 AM (Final result) Narrative: * * *Final Report* * * DATE OF EXAM: Sep 06 2024 9:17AM [facility] [id number] - MRI BRAIN WO/W IVCON / PROCEDURE REASON: Vestibular schwannoma (HCC) * * * * Physician Interpretation * * * * EXAMINATION: MRI BRAIN WO/W IVCON CLINICAL HISTORY: Prior subtotal resection of left vestibular schwannoma November 2016 with subsequent gamma knife therapy June 2017. TECHNIQUE: IAC protocol with and without gadolinium. MQ: [id number] Contrast: 10 mL Elucirem IV COMPARISON: 03/04/2023 RESULT: Acute Change: There is no evidence of an acute intracranial process. Hemorrhage: No clear evidence of prior parenchymal hemorrhage within the constraints of the acquisition. Mass Lesion/ Mass Effect: Again noted is evidence of a left retrosigmoid craniectomy and mesh cranioplasty with underlying encephalomalacia involving arreguin and white matter in the lateral aspect of left cerebellar hemisphere and left brachium pontis. There continues to be mild hyperintensity along the margins of the proximal defect on FLAIR and T2 which is stable in appearance. There continues to be residual extra-axial soft tissue mass in the left CP angle cistern that marginally extends into the left IAC, extend superiorly to the tentorial hiatus and caudally to the level of the vestibular aqueduct. This mass remains hyperintense on FLAIR, hypointense on T1 and prominently enhances with gadolinium. Overall, the residual mass measures approximately 1.2 x 2.1 x 1.8 cm in greatest AP, transverse, and CC dimensions, respectively. When compared to the prior study, this residual mass is mildly reduced in size. The mass again causes mild mass effect on the adjacent basis pontis and focal mass effect in the region of the root entry zone for the left 5th cranial nerve. There is also made of a vertically oriented vein abutting the medial margin of the root entry zone of the right 5th cranial nerve. There is no evidence of an intracranial mass elsewhere. No abnormal parenchymal or leptomeningeal enhancement is appreciated otherwise following gadolinium administration. Chronic Change: The white matter is otherwise within normal limits of signal intensity for age. Parenchyma: No significant volume loss for age. The brain parenchyma is otherwise within normal limits of signal intensity and morphology. Ventricles: Normal caliber and morphology. Skull Base: Hypothalamic and pituitary region are normal. Craniocervical junction is normal. No significant marrow replacement process. Vasculature: There is uniform enhancement of the superior sagittal, straight, and both transverse and both sigmoid sinuses suggesting patency. Other: The visualized paranasal sinuses and mastoid air cells are clear. The orbits and extracranial soft tissues are unremarkable. Impression: IMPRESSION: Postop changes with slight interval reduction in caliber of the residual left vestibular schwannoma since 03/04/2023. Otherwise stable appearance of the brain. Medical Intern: [facility] Transcribe Date/Time: Sep 06 2024 10:28A Dictated by : ELIZABETH RG MD This examination was interpreted and the report reviewed and electronically signed by: ELIZABETH RG MD on Sep 06 2024 10:41AM EST KPS and ECO[facility] Provider Data Form MEDICAL DECISION MAKING Assessment & Plan 1. s/p left retrosigmoid approach for 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 on 11/21/2016 (Adis) followed by GKRS (13Gy) for mild increase in residual tumor on 06/17/17 (See). - MRI brain today appears to show decrease size of the treated vestibular schwannoma - Images reviewed with the patient - Recommend follow up appointment with myself via virtual and new MRI brain at [facility] in 2 years - Reviewed signs and symptoms that would prompt sooner evaluation - The patient has our contact information and was advised to call if new symptoms, questions or concerns arise prior to next scheduled visit. - All questions were answered. Anais Joaquin APRN.ANDIE Certified Nurse Practitioner cc: John Mccormack MD--EPIC documented in this encounter [facility] 09-08-2024 Note HNO ID: [id number] Author: ANAIS JOAQUIN APRN.ANDIE Service: ? Author Type: Nurse Practitioner Type: Progress Notes Filed: 09/08/2024 14:05 Note Text: [facility] [place] [facility] NEURO-ONCOLOGY VIRTUAL VISIT NOTE I have communicated my name and active licensure. The patient's identity and physical location were verified at the time of this visit. Either the patient or their legal field representatives director has been informed of the risks and benefits of -- and alternatives to -- treatment through a remote evaluation and consents to proceed with the evaluation remotely. This is a virtual visit using [employer] video visit. It required patient-provider interaction for the medical decision making as documented below. PURPOSE OF VISIT: Ongoing patient management CHIEF COMPLAINT : MRI Brain for left vestibular schwannoma Subjective HISTORY OF PRESENT ILLNESS: Bernardo Carver is a 63 year old year old male who is here for a follow-up visit. He is s/p left retrosigmoid approach for 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 on 11/21/2016 (Adis) followed by GKRS (13Gy) for mild increase in residual tumor on 06/17/17 (See). INTERVAL HISTORY: 08/03/21 He denies any new neurological symptoms since last seen. He has no hearing in his left ear. He is doing well. 03/06/23 Presents today for follow-up with new MRI brain for review. Since last visit, he reports getting light headed when he bends over and stands up. He is also having dyspnea. He is seeing a cardiac and respiratory. 09/08/24 He had a cardiac stent placed. He is on ASA and brillinta now. SOCIAL HISTORY: Social History Tobacco Use Smoking status: Former Current packs/day: 0.00 Average packs/day: 0.3 packs/day for 30.0 years (9.0 ttl pk-yrs) Types: Cigarettes Start date: 07/16/2015 Quit date: 03/09/2019 Years since quittin.5 Smokeless tobacco: Never Tobacco comments: Father smoked occasional cigar in home. NO ETS in adult home. Vaping Use Vaping status: Never Used Substance Use Topics Alcohol use: Yes Comment: weekends Drug use: No PAST MEDICAL HISTORY Diagnosis Date Allergies Hypertension JEFFREY on CPAP 2014 Snoring 2015 Vestibular schwannoma (HCC) 2017 FAMILY HISTORY Problem Relation Age of Onset other (Pacemaker) Mother other (HTN) Mother No Known Problems Father No Known Problems Half-brother No Known Problems Half-sister Current Outpatient Medications Medication Sig BRILINTA 90 mg tablet Take 90 mg by mouth two times a day. atorvastatin (LIPITOR) 40 mg tablet Take 40 mg by mouth daily at bedtime. lisinopril (ZESTRIL) 20 mg tablet Take 1 tablet by mouth once daily. dutasteride (AVODART) 0.5 mg capsule Take 1 capsule by mouth once daily. tamsulosin (FLOMAX) 0.4 mg Take 2 capsules by mouth daily at bedtime. aspirin, enteric coated (ADULT LOW DOSE ASPIRIN) 81 mg EC tablet Take 1 tablet by mouth once daily. fluticasone (FLONASE) 50 mcg/actuation nasal spray Use 2 Sprays in each nostril once daily. Rinse mouth after use. cetirizine (ZYRTEC) 10 mg tablet Take 1 tablet by mouth once daily. CPAP Initiate CPAP @ 12 cm of water with humidification. Mask (per patient preference) optional chin strap (if indicated) , filters, tubing, humidifier and lifetime supplies. [employer] Quattro, size medium No current facility-administered medications for this visit. REVIEW OF SYSTEMS: Neurological : No complaint of headache No complaint of tinnitus No complaint of decreased hearing No complaint of diplopia No complaints of blurred vision. No complaint of arm/leg numbness No problem with limb coordination No complaint of syncope No complaints of seizures. No complaints of memory changes or disorientation. + dizziness with change of position General : Constitutional: No recent fever or weight loss. Eyes: No history of glaucoma or cataracts ENMT: No recent ear infection, nasal congestion, mouth sores or sore throat. CV: No history of chest pain, palpitations or leg swelling Respiratory: No history of SOB, wheezing or recent cough. + SOB Gastrointestinal: No history of nausea, vomiting, dysphagia or abdominal pain. Genitourinary: No history of hematuria or dysuria. Musculoskeletal: No complaint of arthritis, unstable gait or arm/leg weakness Psychiatric: No history of hallucinations, depression, or anxiety Objective PHYSICAL EXAMINATION: VIDEO EXAM: (if completed, performed via video enabled technology) NEUROLOGICAL EXAM: Higher integrative functions: Oriented to person, place AND time. Memory: Good recent and remote. Attention Span and Concentration: Good. Language: Accurate naming of objects. Good comprehension. Fund of Knowledge: Good. 7th CN: Facial muscles symmetric and strong. 8th CN: Hears finger rub well bilaterally. 12th CN: Tongue protrusion full and midline. IMAGING STUDIES: MRI Brain WO/W IVCON MRI Report MRI BRAIN WO/W (more content not included)... [facility] 09-08-2024 Note Formatting of this n ote might be different from the original. The patient received a copy of Colonoscopy discharge instructions that contain information for how to contact the physician who performed the procedure and when to seek medical care. [facility] 09-08-2024 Miscellaneous Notes The patient received a copy of Colonoscopy discharge instructions that contain information for how to contact the physician who performed the procedure and when to seek medical care. documented in this encounter [facility] 09-08-2024 Attending History and physical note UPDATED PROCEDURAL SEDATION HISTORY AND PHYSICAL EXAMINATION SERVICE DATE: 09/08/2024 SERVICE TIME: 10:03 AM PHYSICAL EXAM MUST BE COMPLETED ON ADMISSION PROCEDURE: Procedure Indications: The History and Physical (completed in the past 30 days) has been reviewed and the patient has been examined. The contents accurately reflect the patient's condition with the following additions or revisions since the H&P was completed. ASA Class: ASA Class: Patient with mild systemic disease Examination indicates no changes. AIRWAY: Airway Visualization of Uvula: Yes Mouth opening greater than 2 fingerbreadths: Yes Neck Full Range of Motion: Yes LUNGS: Lungs clear to auscultation CARDIAC: Regular rhythm,Regular rate Provisional Diagnosis/Treatment Plan: screening for colon cancer Sedation Goal: Moderate This H&P can be found in the attached. SIGNATURE: Vanessa Benavides MD PATIENT NAME: Bernardo Carver DATE: September 08, 2024 TIME: 10:03 AM Source Note - Vanessa Benavides MD - 09/08/2024 9:00 AM EST HISTORY AND PHYSICAL Bernardo Carver : 1960 REFERRING PHYSICIAN: Jen Whitt [address] [facility] [id number] CHIEF COMPLAINT: Patient presents with: Consult: Colonoscopy consultation HPI: Bernardo is a 63 year old male referred for endoscopy. Bernardo notes due for screening colonoscopy. Bernardo denies abdominal pain.. Bernardo denies diarrhea. Bernardo denies constipation. Bernardo denies a change in bowel habits. Bernardo denies melena. Bernardo denies bright red blood per rectum. Bernardo denies hemorrhoids. Bernardo denies heartburn. Bernardo denies dysphagia. Bernardo denies a history of ulcers/ peptic ulcer disease. Bernardo denies family history of colon issues. Medical history is significant for HLD, HTN, JEFFREY compliant with CPAP. Eliceo follows with [facility] for CAD with stent placement in February. Must continue Brilinta for 1 year. Last OV 02/25/24. Denies CP, dizziness, palpitations, syncope, edema, recent hospitalizations. Eliceo refers some residual SOB, but nothing new or worsening. Bernardo has undergone prior endoscopy. Last colonoscopy was 09/[address] Troy at [facility]. Sedation:Fentanyl 50 micrograms IV, Diphenhydramine 50 mg IV,Midazolam 5 mg IV Impression: - Diverticulosis in the sigmoid colon. CURRENT MEDICATIONS Current Outpatient Medications Medication Sig BRILINTA 90 mg tablet Take 90 mg by mouth two times a day. atorvastatin (LIPITOR) 40 mg tablet Take 40 mg by mouth daily at bedtime. lisinopril (ZESTRIL) 20 mg tablet Take 1 tablet by mouth once daily. dutasteride (AVODART) 0.5 mg capsule Take 1 capsule by mouth once daily. fexofenadine (TANESHA ALLERGY) 180 mg tablet Take 1 tablet by mouth once daily. tamsulosin (FLOMAX) 0.4 mg Take 2 capsules by mouth daily at bedtime. aspirin, enteric coated (ADULT LOW DOSE ASPIRIN) 81 mg EC tablet Take 1 tablet by mouth once daily. fluticasone (FLONASE) 50 mcg/actuation nasal spray Use 2 Sprays in each nostril once daily. Rinse mouth after use. cetirizine (ZYRTEC) 10 mg tablet Take 1 tablet by mouth once daily. CPAP Initiate CPAP @ 12 cm of water with humidification. Mask (per patient preference) optional chin strap (if indicated) , filters, tubing, humidifier and lifetime supplies. [employer] Quattro, size medium peg 3350-Electrolytes (GOLYTELY) 236-22.74-6.74 -5.86 gram suspension Take 4,000 mL by mouth one time only for 1 dose. Refer to printed prep instructions from your provider. No current facility-administered medications for this visit. ALLERGIES: Seasonal Allergies PAST MEDICAL HISTORY PAST MEDICAL HISTORY Diagnosis Date Allergies Hypertension JEFFREY on CPAP 2014 Snoring 2014 Vestibular schwannoma (HCC) 2016 PAST SURGICAL HISTORY PAST SURGICAL HISTORY Procedure Laterality Date COLONOSCOPY FLX DX W/COLLJ SPEC WHEN PFRMD 09/05/2014 Colonoscopy L'SCOPE CHOLECYSTECTOMY 08/12/2017 Dr. Rolando Valdez PAST SURGICAL HISTORY OF Craniotomy. Vestibular Schwannoma FAMILY HISTORY FAMILY HISTORY Problem Relation Age of Onset other (Pacemaker) Mother other (HTN) Mother No Known Problems Father No Known Problems Half-brother No Known Problems Half-sister SOCIAL HISTORY Social History Tobacco Use Smoking status: Former Current packs/day: 0.00 Average packs/day: 0.3 packs/day for 30.0 years (9.0 ttl pk-yrs) Types: Cigarettes Start date: 07/16/2015 Quit date: 03/09/2019 Years since quittin.2 Smokeless tobacco: Never Tobacco comments: Father smoked occasional cigar in home. NO ETS in adult home. Vaping Use Vaping status: Never Used Substance Use Topics Alcohol use: Yes Comment: weekends Drug use: No REVIEW OF SYMPTOMS: REVIEW OF SYSTEMS: General: The patient denies fatigue, denies weight loss, denies weight gain, denies feeling hot, and feelings of cold. Eyes: The patient denies glaucoma, denies eye injury/surgery, denies glasses or contacts. Ear/Nose/Throat: The patient denies allergies, denies hayfever, denies ear infections, and denies bloody noses. Cardiovascular: The patient denies chest pain, denies heart disease, denies high blood pressure, denies high cholesterol, and denies poor circulation. Respiratory: The patient denies tuberculosis, denies pneumonia, denies frequent cough, + shortness of breath, and denies coughing up blood. Gastrointestinal: The patient denies difficulty swallowing, denies acid reflux, denies ulcers, denies jaundice/hepatitis, denies gallbladder problems, denies vomiting, denies black or tarry stools, denies hemorrhoids, denies bleeding from rectum, denies diverticulitis, denies constipation, denies diarrhea, denies loss of stool control, and denies hernias. Kidney/Bladder: The patient denies kidney stones, denies urine infections, and denies bloody urine. Skin: The patient denies a history of skin cancer, denies bleeding/changing moles, and denies a history of skin rash. Neurologic: The patient denies a history of epilepsy/convulsions, denies headaches, denies head/spinal injuries, and denies stroke/TIA. Psychiatric: The patient denies psychiatric medications, denies depression, and denies voices. Endocrine: The patient denies thyroid disorders, denies diabetes, and denies hormonal problems. Hematologic: The patient denies a history of bruising, denies bleeding, and denies anemia. Infections: The patient denies a history of measles and mumps, denies rheumatic fever, and denies sexually transmitted diseases. Musculoskeletal: The patient denies back pain/injury, denies back problems, denies sciatica, denies knee/foot trouble, denies arthritis, or denies gout. PHYSICAL EXAMINATION: General: The patient is 63 year old, male well nourished, well hydrated in no acute distress. The patient is oriented to time, place, and person. VITALS: Blood pressure 117/72, pulse 65, temperature 36.3 C (97.3 F), height 180.3 cm (5' 11"), weight 96.5 kg (212 lb 12.8 oz), SpO2 94%. Body mass index is 29.68 kg/m . HEENT: Normal cephalic, ataumatic, pupils are equally round, sclera are anicteric, mucous membranes are moist, oropharynx is clear. Neck has no masses, asymmetry or lymphadenopathy. Respiratory: Clear to auscultation and percussion. Normal respiratory excursion and pattern. Cardiac: Examination is regular rate and rhythm. Normal S1/S2 Abdominal exam: Soft, nontender, with no palpable masses. No hepatosplenomegaly. No palpable hernias. Extremities: no clubbing, cyanosis or edema. No adenopathy. LABORATORY VALUES: As Noted RADIOLOGIC STUDIES: As Noted Assessment IMPRESSION: screen for colon cancer PLAN: I have reviewed my findings with the surgeon. Will plan for lower endoscopy. We discussed the risks and benefits of the planned endoscopy. I have informed the patient that complications can occur including failure to complete the endoscopy and perforation. Bernardo had the opportunity to ask questions concerning the planned endoscopy. My staff has also explained the procedure to the patient in understandable terms and has given the patient printed material concerning the procedure. Bernardo freely consents to surgery. I plan to use Golytely bowel preparation Cardiac clearance- Eliceo will continue Brilinta. I have explained to the patient the difference between IV conscious sedation and MAC anesthesia - and I have offered either, according to the patient's wishes. I have explained that with IV conscious sedation there is no anesthesia provider available and therefore there is a limitation of the amount of IV medications that can be given and that the patient may wake up in the middle of the procedure and/or experience pain/discomfort during the procedure. Further discussion was done and the patient was given the opportunity to ask questions and all questions were answered. Bernardo chooses IV conscious sedation. Bernardo was counseled that if there are changes in his/her medical condition, to let the office know if surgery should proceed. If there are changes in patient's medical condition from time of this encounter to the day of the procedure that preclude anesthesia, patient may have procedure cancelled for patient's safety. Diagnoses: (Z12.11) Colon cancer screening Consultation requested by Jen Whitt CNP for an opinion regarding colon cancer screening. My final recommendations will be communicated back to the requesting physician by way of shared Medical record or letter to requesting physician via [place] mail. Portions of this documentation were copied and pasted from previous office visit notes in order to provide a cohesive continuity of the history. The note has been reviewed and edited and updated as necessary. Elena Cabral APRN.[facility] 09-08-2024 History and physical note HISTORY AND PHYSICAL Bernardo Carver : 1960 REFERRING PHYSICIAN: Jen Whitt [address] [facility] [address] CHIEF COMPLAINT: Patient presents with: Consult: Colonoscopy consultation HPI: Bernardo is a 63 year old male referred for endoscopy. Bernardo notes due for screening colonoscopy. Bernardo denies abdominal pain.. Bernardo denies diarrhea. Bernardo denies constipation. Bernardo denies a change in bowel habits. Bernardo denies melena. Bernardo denies bright red blood per rectum. Bernardo denies hemorrhoids. Bernardo denies heartburn. Bernardo denies dysphagia. Bernardo denies a history of ulcers/ peptic ulcer disease. Bernardo denies family history of colon issues. Medical history is significant for HLD, HTN, JEFFREY compliant with CPAP. Eliceo follows with [facility] for CAD with stent placement in February. Must continue Brilinta for 1 year. Last OV 02/25/24. Denies CP, dizziness, palpitations, syncope, edema, recent hospitalizations. Eliceo refers some residual SOB, but nothing new or worsening. Bernardo has undergone prior endoscopy. Last colonoscopy was 09/[address] Troy at [facility]. Sedation:Fentanyl 50 micrograms IV, Diphenhydramine 50 mg IV,Midazolam 5 mg IV Impression: - Diverticulosis in the sigmoid colon. CURRENT MEDICATIONS Current Outpatient Medications Medication Sig BRILINTA 90 mg tablet Take 90 mg by mouth two times a day. atorvastatin (LIPITOR) 40 mg tablet Take 40 mg by mouth daily at bedtime. lisinopril (ZESTRIL) 20 mg tablet Take 1 tablet by mouth once daily. dutasteride (AVODART) 0.5 mg capsule Take 1 capsule by mouth once daily. fexofenadine (TANESHA ALLERGY) 180 mg tablet Take 1 tablet by mouth once daily. tamsulosin (FLOMAX) 0.4 mg Take 2 capsules by mouth daily at bedtime. aspirin, enteric coated (ADULT LOW DOSE ASPIRIN) 81 mg EC tablet Take 1 tablet by mouth once daily. fluticasone (FLONASE) 50 mcg/actuation nasal spray Use 2 Sprays in each nostril once daily. Rinse mouth after use. cetirizine (ZYRTEC) 10 mg tablet Take 1 tablet by mouth once daily. CPAP Initiate CPAP @ 12 cm of water with humidification. Mask (per patient preference) optional chin strap (if indicated) , filters, tubing, humidifier and lifetime supplies. ResMed Mirage Quattro, size medium peg 3350-Electrolytes (GOLYTELY) 236-22.74-6.74 -5.86 gram suspension Take 4,000 mL by mouth one time only for 1 dose. Refer to printed prep instructions from your provider. No current facility-administered medications for this visit. ALLERGIES: Seasonal Allergies PAST MEDICAL HISTORY PAST MEDICAL HISTORY Diagnosis Date Allergies Hypertension JEFFREY on CPAP 2014 Snoring 2014 Vestibular schwannoma (HCC) 2016 PAST SURGICAL HISTORY PAST SURGICAL HISTORY Procedure Laterality Date COLONOSCOPY FLX DX W/COLLJ SPEC WHEN PFRMD 09/05/2014 Colonoscopy L'SCOPE CHOLECYSTECTOMY 08/12/2017 Dr. Rolando Valdez PAST SURGICAL HISTORY OF Craniotomy. Vestibular Schwannoma FAMILY HISTORY FAMILY HISTORY Problem Relation Age of Onset other (Pacemaker) Mother other (HTN) Mother No Known Problems Father No Known Problems Half-brother No Known Problems Half-sister SOCIAL HISTORY Social History Tobacco Use Smoking status: Former Current packs/day: 0.00 Average packs/day: 0.3 packs/day for 30.0 years (9.0 ttl pk-yrs) Types: Cigarettes Start date: 07/16/2015 Quit date: 03/09/2019 Years since quittin.2 Smokeless tobacco: Never Tobacco comments: Father smoked occasional cigar in home. NO ETS in adult home. Vaping Use Vaping status: Never Used Substance Use Topics Alcohol use: Yes Comment: weekends Drug use: No REVIEW OF SYMPTOMS: REVIEW OF SYSTEMS: General: The patient denies fatigue, denies weight loss, denies weight gain, denies feeling hot, and feelings of cold. Eyes: The patient denies glaucoma, denies eye injury/surgery, denies glasses or contacts. Ear/Nose/Throat: The patient denies allergies, denies hayfever, denies ear infections, and denies bloody noses. Cardiovascular: The patient denies chest pain, denies heart disease, denies high blood pressure, denies high cholesterol, and denies poor circulation. Respiratory: The patient denies tuberculosis, denies pneumonia, denies frequent cough, + shortness of breath, and denies coughing up blood. Gastrointestinal: The patient denies difficulty swallowing, denies acid reflux, denies ulcers, denies jaundice/hepatitis, denies gallbladder problems, denies vomiting, denies black or tarry stools, denies hemorrhoids, denies bleeding from rectum, denies diverticulitis, denies constipation, denies diarrhea, denies loss of stool control, and denies hernias. Kidney/Bladder: The patient denies kidney stones, denies urine infections, and denies bloody urine. Skin: The patient denies a history of skin cancer, denies bleeding/changing moles, and denies a history of skin rash. Neurologic: The patient denies a history of epilepsy/convulsions, denies headaches, denies head/spinal injuries, and denies stroke/TIA. Psychiatric: The patient denies psychiatric medications, denies depression, and denies voices. Endocrine: The patient denies thyroid disorders, denies diabetes, and denies hormonal problems. Hematologic: The patient denies a history of bruising, denies bleeding, and denies anemia. Infections: The patient denies a history of measles and mumps, denies rheumatic fever, and denies sexually transmitted diseases. Musculoskeletal: The patient denies back pain/injury, denies back problems, denies sciatica, denies knee/foot trouble, denies arthritis, or denies gout. PHYSICAL EXAMINATION: General: The patient is 63 year old, male well nourished, well hydrated in no acute distress. The patient is oriented to time, place, and person. VITALS: Blood pressure 117/72, pulse 65, temperature 36.3 C (97.3 F), height 180.3 cm (5' 11"), weight 96.5 kg (212 lb 12.8 oz), SpO2 94%. Body mass index is 29.68 kg/m . HEENT: Normal cephalic, ataumatic, pupils are equally round, sclera are anicteric, mucous membranes are moist, oropharynx is clear. Neck has no masses, asymmetry or lymphadenopathy. Respiratory: Clear to auscultation and percussion. Normal respiratory excursion and pattern. Cardiac: Examination is regular rate and rhythm. Normal S1/S2 Abdominal exam: Soft, nontender, with no palpable masses. No hepatosplenomegaly. No palpable hernias. Extremities: no clubbing, cyanosis or edema. No adenopathy. LABORATORY VALUES: As Noted RADIOLOGIC STUDIES: As Noted Assessment IMPRESSION: screen for colon cancer PLAN: I have reviewed my findings with the surgeon. Will plan for lower endoscopy. We discussed the risks and benefits of the planned endoscopy. I have informed the patient that complications can occur including failure to complete the endoscopy and perforation. Bernardo had the opportunity to ask questions concerning the planned endoscopy. My staff has also explained the procedure to the patient in understandable terms and has given the patient printed material concerning the procedure. Bernardo freely consents to surgery. I plan to use Golytely bowel preparation Cardiac clearance- Eliceo will continue Brilinta. I have explained to the patient the difference between IV conscious sedation and MAC anesthesia - and I have offered either, according to the patient's wishes. I have explained that with IV conscious sedation there is no anesthesia provider available and therefore there is a limitation of the amount of IV medications that can be given and that the patient may wake up in the middle of the procedure and/or experience pain/discomfort during the procedure. Further discussion was done and the patient was given the opportunity to ask questions and all questions were answered. Bernardo chooses IV conscious sedation. Bernardo was counseled that if there are changes in his/her medical condition, to let the office know if surgery should proceed. If there are changes in patient's medical condition from time of this encounter to the day of the procedure that preclude anesthesia, patient may have procedure cancelled for patient's safety. Diagnoses: (Z12.11) Colon cancer screening Consultation requested by Jen Whitt CNP for an opinion regarding colon cancer screening. My final recommendations will be communicated back to the requesting physician by way of shared Medical record or letter to requesting physician via [place] mail. Portions of this documentation were copied and pasted from previous office visit notes in order to provide a cohesive continuity of the history. The note has been reviewed and edited and updated as necessary. Elena Cabral APRN.CNP [facility] 09-08-2024 History and physical note UPDATED PROCEDURAL SEDATION HISTORY AND PHYSICAL EXAMINATION SERVICE DATE: 09/08/2024 SERVICE TIME: 10:03 AM PHYSICAL EXAM MUST BE COMPLETED ON ADMISSION PROCEDURE: Procedure Indications: The History and Physical (completed in the past 30 days) has been reviewed and the patient has been examined. The contents accurately reflect the patient's condition with the following additions or revisions since the H&P was completed. ASA Class: ASA Class: Patient with mild systemic disease Examination indicates no changes. AIRWAY: Airway Visualization of Uvula: Yes Mouth opening greater than 2 fingerbreadths: Yes Neck Full Range of Motion: Yes LUNGS: Lungs clear to auscultation CARDIAC: Regular rhythm,Regular rate Provisional Diagnosis/Treatment Plan: screening for colon cancer Sedation Goal: Moderate This H&P can be found in the attached. SIGNATURE: Vanessa Benavides MD PATIENT NAME: Bernardo Carver DATE: September 08, 2024 TIME: 10:03 AM Source Note - Vanessa Benavides MD - 09/08/2024 9:00 AM EST HISTORY AND PHYSICAL Bernardo Carver : 1960 REFERRING PHYSICIAN: Jen Whitt [address] [facility] [id number] CHIEF COMPLAINT: Patient presents with: Consult: Colonoscopy consultation HPI: Bernardo is a 63 year old male referred for endoscopy. Bernardo notes due for screening colonoscopy. Bernardo denies abdominal pain.. Bernardo denies diarrhea. Bernardo denies constipation. Bernardo denies a change in bowel habits. Bernardo denies melena. Bernardo denies bright red blood per rectum. Bernardo denies hemorrhoids. Bernardo denies heartburn. Bernardo denies dysphagia. Bernardo denies a history of ulcers/ peptic ulcer disease. Bernardo denies family history of colon issues. Medical history is significant for HLD, HTN, JEFFREY compliant with CPAP. Eliceo follows with [facility] for CAD with stent placement in February. Must continue Brilinta for 1 year. Last OV 02/25/24. Denies CP, dizziness, palpitations, syncope, edema, recent hospitalizations. Eliceo refers some residual SOB, but nothing new or worsening. Bernardo has undergone prior endoscopy. Last colonoscopy was 09/[address] Troy at [facility]. Sedation:Fentanyl 50 micrograms IV, Diphenhydramine 50 mg IV,Midazolam 5 mg IV Impression: - Diverticulosis in the sigmoid colon. CURRENT MEDICATIONS Current Outpatient Medications Medication Sig BRILINTA 90 mg tablet Take 90 mg by mouth two times a day. atorvastatin (LIPITOR) 40 mg tablet Take 40 mg by mouth daily at bedtime. lisinopril (ZESTRIL) 20 mg tablet Take 1 tablet by mouth once daily. dutasteride (AVODART) 0.5 mg capsule Take 1 capsule by mouth once daily. fexofenadine (TANESHA ALLERGY) 180 mg tablet Take 1 tablet by mouth once daily. tamsulosin (FLOMAX) 0.4 mg Take 2 capsules by mouth daily at bedtime. aspirin, enteric coated (ADULT LOW DOSE ASPIRIN) 81 mg EC tablet Take 1 tablet by mouth once daily. fluticasone (FLONASE) 50 mcg/actuation nasal spray Use 2 Sprays in each nostril once daily. Rinse mouth after use. cetirizine (ZYRTEC) 10 mg tablet Take 1 tablet by mouth once daily. CPAP Initiate CPAP @ 12 cm of water with humidification. Mask (per patient preference) optional chin strap (if indicated) , filters, tubing, humidifier and lifetime supplies. ResMed Mirage Quattro, size medium peg 3350-Electrolytes (GOLYTELY) 236-22.74-6.74 -5.86 gram suspension Take 4,000 mL by mouth one time only for 1 dose. Refer to printed prep instructions from your provider. No current facility-administered medications for this visit. ALLERGIES: Seasonal Allergies PAST MEDICAL HISTORY PAST MEDICAL HISTORY Diagnosis Date Allergies Hypertension JEFFREY on CPAP 2014 Snoring 2014 Vestibular schwannoma (HCC) 2016 PAST SURGICAL HISTORY PAST SURGICAL HISTORY Procedure Laterality Date COLONOSCOPY FLX DX W/COLLJ SPEC WHEN PFRMD 09/05/2014 Colonoscopy L'SCOPE CHOLECYSTECTOMY 08/12/2017 Dr. Rolando Valdez PAST SURGICAL HISTORY OF Craniotomy. Vestibular Schwannoma FAMILY HISTORY FAMILY HISTORY Problem Relation Age of Onset other (Pacemaker) Mother other (HTN) Mother No Known Problems Father No Known Problems Half-brother No Known Problems Half-sister SOCIAL HISTORY Social History Tobacco Use Smoking status: Former Current packs/day: 0.00 Average packs/day: 0.3 packs/day for 30.0 years (9.0 ttl pk-yrs) Types: Cigarettes Start date: 07/16/2015 Quit date: 03/09/2019 Years since quittin.2 Smokeless tobacco: Never Tobacco comments: Father smoked occasional cigar in home. NO ETS in adult home. Vaping Use Vaping status: Never Used Substance Use Topics Alcohol use: Yes Comment: weekends Drug use: No REVIEW OF SYMPTOMS: REVIEW OF SYSTEMS: General: The patient denies fatigue, denies weight loss, denies weight gain, denies feeling hot, and feelings of cold. Eyes: The patient denies glaucoma, denies eye injury/surgery, denies glasses or contacts. Ear/Nose/Throat: The patient denies allergies, denies hayfever, denies ear infections, and denies bloody noses. Cardiovascular: The patient denies chest pain, denies heart disease, denies high blood pressure, denies high cholesterol, and denies poor circulation. Respiratory: The patient denies tuberculosis, denies pneumonia, denies frequent cough, + shortness of breath, and denies coughing up blood. Gastrointestinal: The patient denies difficulty swallowing, denies acid reflux, denies ulcers, denies jaundice/hepatitis, denies gallbladder problems, denies vomiting, denies black or tarry stools, denies hemorrhoids, denies bleeding from rectum, denies diverticulitis, denies constipation, denies diarrhea, denies loss of stool control, and denies hernias. Kidney/Bladder: The patient denies kidney stones, denies urine infections, and denies bloody urine. Skin: The patient denies a history of skin cancer, denies bleeding/changing moles, and denies a history of skin rash. Neurologic: The patient denies a history of epilepsy/convulsions, denies headaches, denies head/spinal injuries, and denies stroke/TIA. Psychiatric: The patient denies psychiatric medications, denies depression, and denies voices. Endocrine: The patient denies thyroid disorders, denies diabetes, and denies hormonal problems. Hematologic: The patient denies a history of bruising, denies bleeding, and denies anemia. Infections: The patient denies a history of measles and mumps, denies rheumatic fever, and denies sexually transmitted diseases. Musculoskeletal: The patient denies back pain/injury, denies back problems, denies sciatica, denies knee/foot trouble, denies arthritis, or denies gout. PHYSICAL EXAMINATION: General: The patient is 63 year old, male well nourished, well hydrated in no acute distress. The patient is oriented to time, place, and person. VITALS: Blood pressure 117/72, pulse 65, temperature 36.3 C (97.3 F), height 180.3 cm (5' 11"), weight 96.5 kg (212 lb 12.8 oz), SpO2 94%. Body mass index is 29.68 kg/m . HEENT: Normal cephalic, ataumatic, pupils are equally round, sclera are anicteric, mucous membranes are moist, oropharynx is clear. Neck has no masses, asymmetry or lymphadenopathy. Respiratory: Clear to auscultation and percussion. Normal respiratory excursion and pattern. Cardiac: Examination is regular rate and rhythm. Normal S1/S2 Abdominal exam: Soft, nontender, with no palpable masses. No hepatosplenomegaly. No palpable hernias. Extremities: no clubbing, cyanosis or edema. No adenopathy. LABORATORY VALUES: As Noted RADIOLOGIC STUDIES: As Noted Assessment IMPRESSION: screen for colon cancer PLAN: I have reviewed my findings with the surgeon. Will plan for lower endoscopy. We discussed the risks and benefits of the planned endoscopy. I have informed the patient that complications can occur including failure to complete the endoscopy and perforation. Bernardo had the opportunity to ask questions concerning the planned endoscopy. My staff has also explained the procedure to the patient in understandable terms and has given the patient printed material concerning the procedure. Bernardo freely consents to surgery. I plan to use Golytely bowel preparation Cardiac clearance- Eliceo will continue Brilinta. I have explained to the patient the difference between IV conscious sedation and MAC anesthesia - and I have offered either, according to the patient's wishes. I have explained that with IV conscious sedation there is no anesthesia provider available and therefore there is a limitation of the amount of IV medications that can be given and that the patient may wake up in the middle of the procedure and/or experience pain/discomfort during the procedure. Further discussion was done and the patient was given the opportunity to ask questions and all questions were answered. Bernardo chooses IV conscious sedation. Bernardo was counseled that if there are changes in his/her medical condition, to let the office know if surgery should proceed. If there are changes in patient's medical condition from time of this encounter to the day of the procedure that preclude anesthesia, patient may have procedure cancelled for patient's safety. Diagnoses: (Z12.11) Colon cancer screening Consultation requested by Jen Whitt CNP for an opinion regarding colon cancer screening. My final recommendations will be communicated back to the requesting physician by way of shared Medical record or letter to requesting physician via [place] mail. Portions of this documentation were copied and pasted from previous office visit notes in order to provide a cohesive continuity of the history. The note has been reviewed and edited and updated as necessary. Elena Cabral APRN.PROFESSOR OF COMMUNICATION AND WRITING HISTORY AND PHYSICAL Bernardo Carver : 1960 REFERRING PHYSICIAN: Jen Whitt [address] [facility] [id number] CHIEF COMPLAINT: Patient presents with: Consult: Colonoscopy consultation HPI: Bernardo is a 63 year old male referred for endoscopy. Bernardo notes due for screening colonoscopy. Bernardo denies abdominal pain.. Bernardo denies diarrhea. Bernardo denies constipation. Bernardo denies a change in bowel habits. Bernardo denies melena. Bernardo denies bright red blood per rectum. Bernardo denies hemorrhoids. Bernardo denies heartburn. Bernardo denies dysphagia. Bernardo denies a history of ulcers/ peptic ulcer disease. Bernardo denies family history of colon issues. Medical history is significant for HLD, HTN, JEFFREY compliant with CPAP. Eliceo follows with [facility] for CAD with stent placement in February. Must continue Brilinta for 1 year. Last OV 02/25/24. Denies CP, dizziness, palpitations, syncope, edema, recent hospitalizations. Eliceo refers some residual SOB, but nothing new or worsening. Bernardo has undergone prior endoscopy. Last colonoscopy was 09/[address] Troy at [facility]. Sedation:Fentanyl 50 micrograms IV, Diphenhydramine 50 mg IV,Midazolam 5 mg IV Impression: - Diverticulosis in the sigmoid colon. CURRENT MEDICATIONS Current Outpatient Medications Medication Sig BRILINTA 90 mg tablet Take 90 mg by mouth two times a day. atorvastatin (LIPITOR) 40 mg tablet Take 40 mg by mouth daily at bedtime. lisinopril (ZESTRIL) 20 mg tablet Take 1 tablet by mouth once daily. dutasteride (AVODART) 0.5 mg capsule Take 1 capsule by mouth once daily. fexofenadine (TANESHA ALLERGY) 180 mg tablet Take 1 tablet by mouth once daily. tamsulosin (FLOMAX) 0.4 mg Take 2 capsules by mouth daily at bedtime. aspirin, enteric coated (ADULT LOW DOSE ASPIRIN) 81 mg EC tablet Take 1 tablet by mouth once daily. fluticasone (FLONASE) 50 mcg/actuation nasal spray Use 2 Sprays in each nostril once daily. Rinse mouth after use. cetirizine (ZYRTEC) 10 mg tablet Take 1 tablet by mouth once daily. CPAP Initiate CPAP @ 12 cm of water with humidification. Mask (per patient preference) optional chin strap (if indicated) , filters, tubing, humidifier and lifetime supplies. ResMed Mirage Quattro, size medium peg 3350-Electrolytes (GOLYTELY) 236-22.74-6.74 -5.86 gram suspension Take 4,000 mL by mouth one time only for 1 dose. Refer to printed prep instructions from your provider. No current facility-administered medications for this visit. ALLERGIES: Seasonal Allergies PAST MEDICAL HISTORY PAST MEDICAL HISTORY Diagnosis Date Allergies Hypertension JEFFREY on CPAP 2014 Snoring 2014 Vestibular schwannoma (HCC) 2016 PAST SURGICAL HISTORY PAST SURGICAL HISTORY Procedure Laterality Date COLONOSCOPY FLX DX W/COLLJ SPEC WHEN PFRMD 09/05/2014 Colonoscopy L'SCOPE CHOLECYSTECTOMY 08/12/2017 Dr. Rolando Valdez PAST SURGICAL HISTORY OF Craniotomy. Vestibular Schwannoma FAMILY HISTORY FAMILY HISTORY Problem Relation Age of Onset other (Pacemaker) Mother other (HTN) Mother No Known Problems Father No Known Problems Half-brother No Known Problems Half-sister SOCIAL HISTORY Social History Tobacco Use Smoking status: Former Current packs/day: 0.00 Average packs/day: 0.3 packs/day for 30.0 years (9.0 ttl pk-yrs) Types: Cigarettes Start date: 07/16/2015 Quit date: 03/09/2019 Years since quittin.2 Smokeless tobacco: Never Tobacco comments: Father smoked occasional cigar in home. NO ETS in adult home. Vaping Use Vaping status: Never Used Substance Use Topics Alcohol use: Yes Comment: weekends Drug use: No REVIEW OF SYMPTOMS: REVIEW OF SYSTEMS: General: The patient denies fatigue, denies weight loss, denies weight gain, denies feeling hot, and feelings of cold. Eyes: The patient denies glaucoma, denies eye injury/surgery, denies glasses or contacts. Ear/Nose/Throat: The patient denies allergies, denies hayfever, denies ear infections, and denies bloody noses. Cardiovascular: The patient denies chest pain, denies heart disease, denies high blood pressure, denies high cholesterol, and denies poor circulation. Respiratory: The patient denies tuberculosis, denies pneumonia, denies frequent cough, + shortness of breath, and denies coughing up blood. Gastrointestinal: The patient denies difficulty swallowing, denies acid reflux, denies ulcers, denies jaundice/hepatitis, denies gallbladder problems, denies vomiting, denies black or tarry stools, denies hemorrhoids, denies bleeding from rectum, denies diverticulitis, denies constipation, denies diarrhea, denies loss of stool control, and denies hernias. Kidney/Bladder: The patient denies kidney stones, denies urine infections, and denies bloody urine. Skin: The patient denies a history of skin cancer, denies bleeding/changing moles, and denies a history of skin rash. Neurologic: The patient denies a history of epilepsy/convulsions, denies headaches, denies head/spinal injuries, and denies stroke/TIA. Psychiatric: The patient denies psychiatric medications, denies depression, and denies voices. Endocrine: The patient denies thyroid disorders, denies diabetes, and denies hormonal problems. Hematologic: The patient denies a history of bruising, denies bleeding, and denies anemia. Infections: The patient denies a history of measles and mumps, denies rheumatic fever, and denies sexually transmitted diseases. Musculoskeletal: The patient denies back pain/injury, denies back problems, denies sciatica, denies knee/foot trouble, denies arthritis, or denies gout. PHYSICAL EXAMINATION: General: The patient is 63 year old, male well nourished, well hydrated in no acute distress. The patient is oriented to time, place, and person. VITALS: Blood pressure 117/72, pulse 65, temperature 36.3 C (97.3 F), height 180.3 cm (5' 11"), weight 96.5 kg (212 lb 12.8 oz), SpO2 94%. Body mass index is 29.68 kg/m . HEENT: Normal cephalic, ataumatic, pupils are equally round, sclera are anicteric, mucous membranes are moist, oropharynx is clear. Neck has no masses, asymmetry or lymphadenopathy. Respiratory: Clear to auscultation and percussion. Normal respiratory excursion and pattern. Cardiac: Examination is regular rate and rhythm. Normal S1/S2 Abdominal exam: Soft, nontender, with no palpable masses. No hepatosplenomegaly. No palpable hernias. Extremities: no clubbing, cyanosis or edema. No adenopathy. LABORATORY VALUES: As Noted RADIOLOGIC STUDIES: As Noted Assessment IMPRESSION: screen for colon cancer PLAN: I have reviewed my findings with the surgeon. Will plan for lower endoscopy. We discussed the risks and benefits of the planned endoscopy. I have informed the patient that complications can occur including failure to complete the endoscopy and perforation. Bernardo had the opportunity to ask questions concerning the planned endoscopy. My staff has also explained the procedure to the patient in understandable terms and has given the patient printed material concerning the procedure. Bernardo freely consents to surgery. I plan to use Golytely bowel preparation Cardiac clearance- Eliceo will continue Brilinta. I have explained to the patient the difference between IV conscious sedation and MAC anesthesia - and I have offered either, according to the patient's wishes. I have explained that with IV conscious sedation there is no anesthesia provider available and therefore there is a limitation of the amount of IV medications that can be given and that the patient may wake up in the middle of the procedure and/or experience pain/discomfort during the procedure. Further discussion was done and the patient was given the opportunity to ask questions and all questions were answered. Bernardo chooses IV conscious sedation. Bernardo was counseled that if there are changes in his/her medical condition, to let the office know if surgery should proceed. If there are changes in patient's medical condition from time of this encounter to the day of the procedure that preclude anesthesia, patient may have procedure cancelled for patient's safety. Diagnoses: (Z12.11) Colon cancer screening Consultation requested by Jen Whitt CNP for an opinion regarding colon cancer screening. My final recommendations will be communicated back to the requesting physician by way of shared Medical record or letter to requesting physician via US mail. Portions of this documentation were copied and pasted from previous office visit notes in order to provide a cohesive continuity of the history. The note has been reviewed and edited and updated as necessary. Elena Cabral APRN.PROFESSOR OF COMMUNICATION AND WRITING documented in this encounter [facility] 09-06-2024 History of Present illness Narrative Radiology Service Progress Note DATE OF SERVICE: September 06, 2024 TIME: 8:31 AM PATIENT IDENTITY VERIFICATION COMPLETED USING TWO (2) STANDARD IDENTIFIERS: Name and Date of confirmed by patient verbally. FALL SCREENING: Has the patient had 2 falls in the last year or 1 fall with injury or currently using an Ambulatory Assistive Device (Walker, Cane, Wheelchair, Crutches, etc.)? No PATIENT GENDER DATA: Assigned male at PATIENT RELEVANT IMPLANT DATA REVIEWED: Yes PATIENT PRESENTS WITH AN IMPLANTABLE OR ATTACHED AVIATION TECHNICIAN AIRCRAFT: No ALLERGIES: Reviewed and unchanged CONTRAST ALLERGY: NO. EXAM: MRI - CONTRAST TYPE: GROUP II PERIPHERAL IV DATA: Ambulatory: A peripheral IV was started in the Right upper extremity with a Angio cath: 22 gauge. RADIOLOGY DEPARTMENT: MR; Exam(s) Completed: Head: IAC/CPA SIGNATURE: MELISSA Yang) PATIENT NAME: Bernardo Carver DATE: September 06, 2024 TIME: 8:31 AM documented in this encounter [facility] 09-06-2024 Note HNO ID: [id number] Author: EDITH PETER RT(R) Service: ? Author Type: Technologist Type: Progress Notes Filed: 09/06/2024 08:31 Note Text: Radiology Service Progress Note DATE OF SERVICE: September 06, 2024 TIME: 8:31 AM PATIENT IDENTITY VERIFICATION COMPLETED USING TWO (2) STANDARD IDENTIFIERS: Name and Date of confirmed by patient verbally. FALL SCREENING: Has the patient had 2 falls in the last year or 1 fall with injury or currently using an Ambulatory Assistive Device (Walker, Cane, Wheelchair, Crutches, etc.)? No PATIENT GENDER DATA: Assigned male at PATIENT RELEVANT IMPLANT DATA REVIEWED: Yes PATIENT PRESENTS WITH AN IMPLANTABLE OR ATTACHED AVIATION TECHNICIAN AIRCRAFT: No ALLERGIES: Reviewed and unchanged CONTRAST ALLERGY: NO. EXAM: MRI - CONTRAST TYPE: GROUP II PERIPHERAL IV DATA: Ambulatory: A peripheral IV was started in the Right upper extremity with a Angio cath: 22 gauge. RADIOLOGY DEPARTMENT: MR; Exam(s) Completed: Head: IAC/CPA SIGNATURE: RT Trey(R) PATIENT NAME: Bernardo Carver DATE: September 06, 2024 TIME: 8:31 AM [facility] 08-18-2024 Note HNO ID: [id number] Author: SHAILESH CONCEPCION MD Service: ? Author Type: Physician Type: Progress Notes Filed: 10/05/2024 23:42 Note Text: CYSTOSCOPY PROCEDURE History and physical exam within the last 30 days: yes. Exam notes reviewed: yes Risks, benefits, alternatives, and personnel discussed with patient who consents to proceed with Cystoscopy and Transrectal ultrasound of the prostate exam . Patient verified by name and date of : Yes Procedure/Site verified: Yes Physician: Dr. Shailesh Concepcion Asst: David Herbert MA Audible Time Out: Yes Anesthetics given: 10 cc 2% Lidocaine-Urethral and Administered by nurse - see Pre-Procedure Nurse's Notes. Operative Findings Urethra: Normal Prostate:Bilobar hypertrophy Bladder: no stones, no tumors, no lesions Radiologic Studies Urogram: N/A Complications: None Recommendations: Discussed findings with patient TRUS PROCEDURE without Biopsy History and physical exam within the last 30 days: yes. Exam notes reviewed: yes Informed consent obtained Yes. Discussed procedure, risks, and options with patient. Patient agrees to proceed. Pre-Op Diagnosis: BPH with LUTS Anesthetic given: None Findings Prostate volume: 41.80 grams Complications: None Recommendations: Discussed findings with patient. 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 David Herbert MA [facility] UROLOGY PROCEDURE NOTE [facility] ([facility]) FLEXIBLE CYSTOURETHROSCOPY AND TRUS UROLOGY OUTPATIENT PROCEDURE NOTE UNIVERSAL PROTOCOL AND SAFETY CHECKLISTUNIVERSAL PROTOCOL / SAFETY CHECKLIST Procedure to be Performed: Cysto/TRUS Indication: BPH with LUTS Referred by Niall Kay APRN.CNP.DNP sign In: A Moment of CARE was completed. Personnel directly involved with the procedure wore the appropriate PPE (Personal Protective Equipment). Patient/Surrogate Stated/Verified: PATIENT VERIFIED(optional for EMERGENT procedures): Patient name, Date of , Relevant allergies and The intended procedure Time Out Communication: Intended patient and procedure match the source documents. Consent documented and matches the intended procedure. Sign Out: SIGN OUT (optional for EMERGENT procedures): All specimen containers correctly labeled. PHYSICIAN NOTE: FLEXIBLE CYSTOURETHROSCOPY AND TRANSRECTAL ULTRASOUND PROCEDURE DATE: October 05, 2024 FINDINGS Urethra: Normal Sphincter: Normal / Coapted Prostate: Enlarged lateral Lobes /relatively normal median Lobe Bladder Neck: Patent Urothelium: normal appearing, no evidence of tumor, no erythema, no foreign body Trabeculation: No Inflammation: No Diverticulum: No Ureteral Orifices: normal appearing, orthotopic position, clear efflux bilaterally Trigone: normal appearing Procedure: Flexible cystoscopy and transrectal ultrasound Anesthesia: Lidocaine Gel Procedure Details: In the cystoscopy suite, the patient was placed in the supine position, prepped, and draped in the usual manner. Lidocaine gel was placed per urethra for local anasthesia. No michele-procedural antibiotics were given. Cystourethroscopy was performed using a flexible scope. Sterile technique was maintained throughout. The urethra, prostate, and bladder were inspected in their entirety. Specific findings from the procedure are detailed in the corresponding section of this note. The cystoscope was carefully removed. The patient was placed in the lateral decubitus position. Digital rectal exam was normal. The ultrasound probe was placed into the rectum and the prostate visualized. The prostate was visualized in sagittal and transverse planes and no hypoechoic lesion identified. The total prostate volume was 41.80 gm Complications: None Estimated Blood Loss: None Preoperative diagnosis: BPH with obstruction Postoperative diagnosis: Same Disposition / Plan: - I discussed the potential etiologies of his urinary symptoms which sound most consistent with an enlarged prostate - I discussed the treatment options which include medications, which he is already on dutasteride and tamsulosin, or surgery - We discussed surgical options for BPH including transurethral resection of prostate (TURP), versus Urolift, I-TIND, since he has bilobar enlargement -Patient would like to proceed with surgical option therefore he will be referred to urologic surgery. Shialesh Concepcion MD, MS Associate Staff [facility] [place] [facility] 08-18-2024 History of Present illness Narrative Images from the original note were not included. CYSTOSCOPY PROCEDURE History and physical exam within the last 30 days: yes. Exam notes reviewed: yes Risks, benefits, alternatives, and personnel discussed with patient who consents to proceed with Cystoscopy and Transrectal ultrasound of the prostate exam . Patient verified by name and date of : Yes Procedure/Site verified: Yes Physician: Dr. Shailesh Concepcion Asst: David Herbert MA Audible Time Out: Yes Anesthetics given: 10 cc 2% Lidocaine-Urethral and Administered by nurse - see Pre-Procedure Nurse's Notes. Operative Findings Urethra: Normal Prostate:Bilobar hypertrophy Bladder: no stones, no tumors, no lesions Radiologic Studies Urogram: N/A Complications: None Recommendations: Discussed findings with patient TRUS PROCEDURE without Biopsy History and physical exam within the last 30 days: yes. Exam notes reviewed: yes Informed consent obtained Yes. Discussed procedure, risks, and options with patient. Patient agrees to proceed. Pre-Op Diagnosis: BPH with LUTS Anesthetic given: None Findings Prostate volume: 41.80 grams Complications: None Recommendations: Discussed findings with patient. 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 David Herbert MA [facility] UROLOGY PROCEDURE NOTE [facility] ([facility]) FLEXIBLE CYSTOURETHROSCOPY AND TRUS UROLOGY OUTPATIENT PROCEDURE NOTE UNIVERSAL PROTOCOL AND SAFETY CHECKLISTUNIVERSAL PROTOCOL / SAFETY CHECKLIST Procedure to be Performed: Cysto/TRUS Indication: BPH with LUTS Referred by Niall Kay APRN.PROFESSOR OF COMMUNICATION AND WRITING.DNP sign In: A Moment of CARE was completed. Personnel directly involved with the procedure wore the appropriate PPE (Personal Protective Equipment). Patient/Surrogate Stated/Verified: PATIENT VERIFIED(optional for EMERGENT procedures): Patient name, Date of , Relevant allergies and The intended procedure Time Out Communication: Intended patient and procedure match the source documents. Consent documented and matches the intended procedure. Sign Out: SIGN OUT (optional for EMERGENT procedures): All specimen containers correctly labeled. PHYSICIAN NOTE: FLEXIBLE CYSTOURETHROSCOPY AND TRANSRECTAL ULTRASOUND PROCEDURE DATE: October 05, 2024 FINDINGS Urethra: Normal Sphincter: Normal / Coapted Prostate: Enlarged lateral Lobes /relatively normal median Lobe Bladder Neck: Patent Urothelium: normal appearing, no evidence of tumor, no erythema, no foreign body Trabeculation: No Inflammation: No Diverticulum: No Ureteral Orifices: normal appearing, orthotopic position, clear efflux bilaterally Trigone: normal appearing Procedure: Flexible cystoscopy and transrectal ultrasound Anesthesia: Lidocaine Gel Procedure Details: In the cystoscopy suite, the patient was placed in the supine position, prepped, and draped in the usual manner. Lidocaine gel was placed per urethra for local anasthesia. No michele-procedural antibiotics were given. Cystourethroscopy was performed using a flexible scope. Sterile technique was maintained throughout. The urethra, prostate, and bladder were inspected in their entirety. Specific findings from the procedure are detailed in the corresponding section of this note. The cystoscope was carefully removed. The patient was placed in the lateral decubitus position. Digital rectal exam was normal. The ultrasound probe was placed into the rectum and the prostate visualized. The prostate was visualized in sagittal and transverse planes and no hypoechoic lesion identified. The total prostate volume was 41.80 gm Complications: None Estimated Blood Loss: None Preoperative diagnosis: BPH with obstruction Postoperative diagnosis: Same Disposition / Plan: - I discussed the potential etiologies of his urinary symptoms which sound most consistent with an enlarged prostate - I discussed the treatment options which include medications, which he is already on dutasteride and tamsulosin, or surgery - We discussed surgical options for BPH including transurethral resection of prostate (TURP), versus Urolift, I-TIND, since he has bilobar enlargement -Patient would like to proceed with surgical option therefore he will be referred to urologic surgery. Shailesh Concepcion MD, MS Associate Staff [facility] [place] [facility] documented in this encounter [facility] 07-27-2024 History of Present illness Narrative Images from the original note were not included. DATE OF SERVICE: 07/27/2024 PATIENT NAME: Bernardo Carver : 1960 AGE: 63 y.o. CLINIC NUMBER: [id number] Visit type: Established patient Chief Complaint Patient presents with Annual Exam [place] 07/21/2023 (ds) Subjective HISTORY OF PRESENT ILLNESS: Bernardo Carver is a 63 y.o. who presents to the office for a check up. Patient's last FSE was done on 07/21/2023. Pt has lesions on bilateral temples and under left eye that he reports are enlarging and itching. The lesion under left eye has grown. Denies any other new, changing or symptomatic lesions. Patient has no h/o of ATN. Patient has no h/o of AKs. ? Patient has no personal h/o skin cancer. Patient has no family h/o melanoma. Up to date on dental and eye exams. History of pacemaker/ defibrillator? No History of HIV/ Hep C? No Allergies to Lidocaine, Epinephrine, Latex or Adhesive? No Social History: Born/raised in [place]. Excessive sun exposure: Yes Used tanning beds: No Patient does not wear SPF. Patient does use additional sun protection measures. Review of Systems Dermatology: as per HPI, otherwise negative There were no vitals filed for this visit. PHYSICAL EXAM: GENERAL APPEARANCE:?alert and oriented x3, well developed and well nourished. PSYCH: appropriate mood and affect DERMATOLOGY: Declined removal of socks and underwear. 1. Neoplasm of uncertain behavior of skin Left Malar Cheek 4 mm soft brown pedunculated papule Skin Biopsy Type of biopsy: tangential Informed consent: discussed and consent obtained Timeout: patient name, date of , surgical site, and procedure verified Procedure prep: Patient was prepped and draped in usual sterile fashion Prep type: Isopropyl alcohol Anesthesia: the lesion was anesthetized in a standard fashion Anesthetic: 1% lidocaine w/ epinephrine 1-100,000 buffered w/ 8.4% NaHCO3 Instrument used: DermaBlade Outcome: patient tolerated procedure well Post-procedure details: sterile dressing applied and wound care instructions given Dressing type: bandage and petrolatum Specimen A - Tissue exam Differential Diagnosis: r/o isk vs irritated skin tag Check Margins: No Biopsy recommended. Patient expresses understanding and is in agreement with the plan. Biopsy (x1) obtained today. Patient educated that we will call with the biopsy results within 2 weeks. Care instructions reviewed and written instructions provided to patient. Confirmed with pt after biopsy completed that vision intact and pt able to see without disturbances to vision. No swelling or visual changes following biopsy. 2. Multiple benign melanocytic nevi of both upper extremities, both lower extremities, and trunk Multiple uniformly pigmented brown macules/ papules with regular network pattern on dermoscopy; please see diagram under patient examination Reassured that this is a benign lesion and does not require any treatment. Educated that if the lesion changes color, becomes larger, bleeds, becomes bothersome or painful then it should be reevaluated. Patient expresses understanding and is agreeable to plan. Patient advised to perform monthly skin exams; checking the skin for any new or changing lesions. Any lesions that are new, elevated, firm and/or growing should be evaluated in our office. Also look for ABCDEs of Melanoma (warning signs): Asymmetry- the appearance of one side of the mole doesn't look like the other side. Borders- the borders of the mole are jagged, notched or smeared. Color- there are multiple colors in the mole, or it has changed colors. It can become darker, red or even lose pigment. Diameter- diameter greater than 6mm or the size of a pencil eraser. Evolution- Any change or evolving in size, shape or color of a mole. Also, any new symptom like bleeding, pain or itching may be a warning sign. You can visit the [employer] at skincancer.org for more information on melanoma and other skin cancers. 3. Seborrheic keratosis (6) Generalized, Left Lower Leg - Anterior, Left Parietal Scalp, Left Orthodox, Right Orthodox (2) Kurtz-brown waxy papule(s) and plaque(s) with stuck on appearance Reassured that this is a benign lesion and does not require any treatment. Educated that if the lesion changes color, becomes larger, bleeds, becomes bothersome or painful then it should be reevaluated. Patient expresses understanding and is agreeable to plan. 4. Solar lentigo Light brown well-circumscribed macule(s) Educated and reassured, benign finding secondary to sun exposure. Patient educated on the proper use of sunscreen, SPF, and how often to reapply. Recommend use of OTC mineral sun block, like Neutrogena or [place] Posay. Patient advised to look for zinc or titanium as the active ingredient(s). Try to limit sun exposure to clerk specialist or late evening hours. Patient advised to perform self-skin checks and call for follow up appointment if any new or concerning lesions detected. 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 6. Inflamed seborrheic keratosis (3) Left Parietal Scalp, Right Parietal Scalp, Right Temporal Scalp Kurtz-brown waxy papule(s) and plaque(s) Patient educated on benign etiology and possibility of recurrence. Treatment options are discussed with risks and benefits reviewed. Cryotherapy is agreed upon and performed. Reassured that redness, swelling and the formation of a blister at the site of cryotherapy are possible reactions. After care instructions are given and reviewed. Patient to apply Vaseline to treated sites while healing. Patient to monitor for resolution. Cryotherapy: Medical Necessity: as per HPI Consent: The patient understood all the risks and benefits prior to treatment. The risks explained included scarring, hyper and/or hypopigmentation. Although this treatment is highly effective, recurrences do occur and this was explained to the patient. Method: Liquid nitrogen was used to treat the lesion(s) with two freeze-thaw cycles. Post-op: The patient was instructed to clean the site normally twice a day. Signs of infection were reviewed and patient was instructed to call if he/ she develops increasing pain, purulent drainage, or beefy redness. The patient was informed that a blister may occur at the cryo site and that this is an expected event. Sun protection was reviewed and patient advised to use sunscreen with SPF 30 or greater on exposed skin when outdoors. Post-op instructions were given orally and in writing. Cryotherapy, skin lesion - Left Parietal Scalp, Right Parietal Scalp, Right Temporal Scalp Follow up in about 1 year (around 07/27/2025) for FSE. Continue at least annual FSE . Destinee Mann DO 07/27/24 9:01 AM REFERRING MD: No referring provider defined for this encounter. documented in this encounter [facility] 07-27-2024 Instructions Alonzo Marroquin LPN - 07/27/2024 9:00 AM EST BIOPSY / SURGICAL AFTERCARE 1. If a dressing is in place, please leave it for 24 hours unless given other instructions. 2. After that time, remove the initial bandage, and cleanse the area with a mild, fragrance free soap such as Dove, Cetaphil, or CeraVe. 3. Apply Vaseline to the area and cover with a new bandage. Please do not use Neosporin, Polysporin, or Bacitracin, as these may cause unwanted allergic reactions in some patients, and are not necessary for good healing. 4. Repeat the above steps every day for 7 days unless otherwise directed by physician or nurse. 5. If any bleeding occurs, use a clean cotton or gauze, apply firm, direct pressure to the area for 10 to 15 minutes. If the bleeding does not stop, call our office at [phone]. 6. The wound should improve daily. If you notice any increased redness, swelling, drainage, warmth, or pain in the area, please notify our office. Please be advised that it can take up to 2 weeks for these sites to heal. In some patients it may take even longer depending on location (lower legs / feet) and / or if the patient has history of diabetes. Our office will notify you of the results in about 2 weeks. Sunscreen Use & Sun Safety It is recommended a water-resistant, broad-spectrum sunscreen with SPF of at least 15 to 30. Apply sunscreen to all exposed skin 30 minutes before sun exposure, and then every 2 hours. Apply sooner if sweating or coming out of pool/water. Using the proper amount of sunscreen in important. An adult should use about 1-1.5 oz of sunscreen to the entire body, about 2-3 tablespoons per application. Use a lip balm with SPF 30 or higher to protect the lips from sun damage. Limit time in the sun, especially between 10 AM and 2 PM when the sun s rays are the strongest. Clothing labeled with a UPF (ultra-emanuel protection factor) rating indicates that it s protective against UV rays. Also, wear wide-brimmed hats, and sunglasses for sun protection. documented in this encounter [facility] [place] 07-21-2024 Note HNO ID: [id number] Author: ?, ?, ? Service: ? Author Type: ? Type: Progress Notes Filed: 07/21/2024 07:52 Note Text: Patient scheduled for cysto. Thanks, Lindsey Huffman [facility] 07-19-2024 Note HNO ID: [id number] Author: ?, ?, ? Service: ? Author Type: ? Type: Progress Notes Filed: 07/19/2024 11:08 Note Text: Called patient and LVM to call our office back to schedule. Thanks, Lindsey Huffman [facility] 07-19-2024 History of Present illness Narrative Called patient and LVM to call our office back to schedule. Thanks, Lindsey Huffman Patient's post-void bladder scan: 84 ML. Manny Lamas MA [facility] MALE PATIENT - HISTORY AND PHYSICAL EXAMINATION PATIENT: Bernardo Carver (63 year old) PCP: Michael Jarquin MD Consultation requested by Dr. Jen Whitt [id number] [facility] [id number] for an opinion regarding BPH/LUTS and my final recommendations will be communicated back to the requesting physician by way of shared Medical record or letter via US mail. CHIEF COMPLAINT: BPH/LUTS HISTORY OF PRESENT ILLNESS: 63 year old year old male with BPH/LUTS. Worsening symptoms Past med Hx: JEFFREY, Overweight, HTN, HLD, BPH On Flomax 2 cap a day and dutasteride 0.5mg daily. PSA in MAY 2024 = 1.33 Worst urinary symptom is = weak stream, NTF and daytime freq. No family hx of prostate cancer. PRESENTING HISTORY: Hematuria: none Obstructive voiding symptoms: weak stream. Irritative voiding symptoms: frequency and nocturia Urinary retention: no Urinary incontinence: no Urinary tract infection: no Patient Entered Questionnaires: INTERNATIONAL PROSTATE SYMPTOM SCORE (I-PSS) 1)INCOMPLETE EMPTYING Over the past month, how often have you had a sensation of not emptying your bladder completely after you finished urinating? SCORE: 4- More than half the time 2)FREQUENCY Over the past month, how often have you had to urinate again less than two hours after you finished urinating? SCORE: 5- Almost always 3)INTERMITTENCY Over the past month, how often have you found you stopped and started again several times when you urinated? SCORE: 3- About half the time 4)URGENCY Over the past month, how often have you found it difficult to postpone urination? SCORE: 1- Less than 1 time in 5 5)WEAK STREAM Over the past month, how often have you had a weak stream? SCORE: 5- Almost always 6)STRAINING Over the past month, how often have you had to push or strain to begin urination SCORE: 0- Not at all 7)NOCTURIA Over the past month, how many times did you most typically get up to urinate from the time you went to bed at night until the time you get up in the morning? SCORE:3 TOTAL I-PSS SCORE: 18 QUALITY OF LIFE DUE TO URINARY SYMPTOMS If you were to spend the rest of yur life with your urinary condition just the way it is now, how would you feel about that? 0- Delighted PROMIS Global Health 01/14/2023 06/23/2023 05/27/2024 PROMIS Global Health Scale Physical Health Percentile 78 78 66 Mental Health Percentile 96 96 96 Percentiles provide an indication of how the patient's score ranks in relation to the general population. Higher percentile rankings indicate better function/quality of life. 50th percentile is the average of the general population and indicates half of respondents had a worse score. HISTORY: PAST MEDICAL HISTORY Diagnosis Date Allergies Hypertension JEFFREY on CPAP 2014 Snoring 2014 Vestibular schwannoma (HCC) 2017 PAST SURGICAL HISTORY Procedure Laterality Date COLONOSCOPY FLX DX W/COLLJ SPEC WHEN PFRMD 09/05/2014 Colonoscopy L'SCOPE CHOLECYSTECTOMY 08/12/2017 Dr. Rolando Valdez PAST SURGICAL HISTORY OF Craniotomy. Vestibular Schwannoma Social History Tobacco Use Smoking status: Former Current packs/day: 0.00 Average packs/day: 0.3 packs/day for 30.0 years (9.0 ttl pk-yrs) Types: Cigarettes Start date: 07/16/2015 Quit date: 03/09/2019 Years since quittin.3 Smokeless tobacco: Never Tobacco comments: Father smoked occasional cigar in home. NO ETS in adult home. Vaping Use Vaping status: Never Used Substance Use Topics Alcohol use: Yes Comment: weekends Drug use: No FAMILY HISTORY Problem Relation Age of Onset other (Pacemaker) Mother other (HTN) Mother No Known Problems Father No Known Problems Half-brother No Known Problems Half-sister MEDICATIONS: Current Outpatient Medications Medication Sig BRILINTA 90 mg tablet Take 90 mg by mouth two times a day. atorvastatin (LIPITOR) 40 mg tablet Take 40 mg by mouth daily at bedtime. lisinopril (ZESTRIL) 20 mg tablet Take 1 tablet by mouth once daily. dutasteride (AVODART) 0.5 mg capsule Take 1 capsule by mouth once daily. fexofenadine (TANESHA ALLERGY) 180 mg tablet Take 1 tablet by mouth once daily. tamsulosin (FLOMAX) 0.4 mg Take 2 capsules by mouth daily at bedtime. aspirin, enteric coated (ADULT LOW DOSE ASPIRIN) 81 mg EC tablet Take 1 tablet by mouth once daily. cetirizine (ZYRTEC) 10 mg tablet Take 1 tablet by mouth once daily. CPAP Initiate CPAP @ 12 cm of water with humidification. Mask (per patient preference) optional chin strap (if indicated) , filters, tubing, humidifier and lifetime supplies. ResMed Mirage Quattro, size medium fluticasone (FLONASE) 50 mcg/actuation nasal spray Use 2 Sprays in each nostril once daily. Rinse mouth after use. No current facility-administered medications for this visit. LABS: Latest Ref Rng 07/19/2024 GLUCOSE UA (POCT) Negative mg/dL Negative BILIRUBIN UA (POCT) Negative Negative KETONE UA (POCT) Negative mg/dL Negative SPECIFIC GRAVITY UA (POCT) 1.005 - 1.030 1.020 HEMOGLOBIN/BLOOD UA (POCT) Negative Negative PH UA (POCT) 4.5 - 8.0 5.5 PROTEIN UA (POCT) Negative mg/dL Negative UROBILINOGEN UA (POCT) Normal E.U./dL 0.2 NITRITE UA (POCT) Negative Negative LEUKOCYTES UA (POCT) Negative Negative COLOR UA (POCT) Yellow CLARITY UA (POCT) Clear Creatinine Creatinine Date Value Ref Range Status 05/27/2024 0.85 0.73 - 1.22 mg/dL Final 08/25/2023 0.81 0.73 - 1.22 mg/dL Final 03/21/2023 0.84 0.73 - 1.22 mg/dL Final Creatinine (POCT) Date Value Ref Range Status 06/12/2023 1.00 0.7 - 1.4 mg/dL Final PSA PSA (ng/mL) Date Value 03/15/2022 1.04 06/11/2021 1.0 PSA Screening (ng/mL) Date Value 05/27/2024 1.33 08/09/2014 0.88 OFFICE DATA: POST-VOID RESIDUAL BLADDER VOLUME: YES, 84 cc IMAGING: No results found. Review of Systems: PAIN ASSESSMENT: CURRENTLY HAVING NO PAIN GENERAL: No weight loss, malaise or fevers GI: No nausea, vomiting MUSCULOSKELETAL: Negative for generalized joint pain SKIN: Negative for rash HEMATOLOGY/LYMPHOLOGY: Negative for swollen nodes All other systems reviewed and noncontributory PHYSICAL EXAMINATION: The sensitive examination was discussed with the Patient or Patient's Authorized City Assessor. As applicable, any other physician, advance practice provider, medical student, or other health professional student that will be observing or involved in the sensitive examination for educational or training purposes was discussed with the Patient or Authorized City Assessor. The Patient or Authorized City Assessor has agreed to proceed with the sensitive examination. (Sensitive examination includes inspection and/or palpation of the breasts, pelvis, prostate and anorectal regions) VITALS: BP 104/70 Resp 12 Wt 96.6 kg (213 lb) BMI 29.71 kg/m GENERAL: alert, no distress, normal affect RESPIRATORY: normal effort GENITAL: - SCROTUM: no rashes, no edema RECTAL: approximately 50 g prostate, no nodules PELVIC FLOOR: good tone, no tenderness EXTREMITIES: normal SKIN: normal NEUROLOGIC: normal ASSESSMENT and PLAN ASSESSMENT/PLAN: 1. Benign prostatic hyperplasia with nocturia - ICD9: 600.01, 788.43, ICD10: N40.1, R35.1 (primary diagnosis) 63y/o male with a hx of chronic BPH/LUTS on dual therapy. Worsening symptoms. The patient has lower urinary tract symptoms suggestive of benign prostatic hyperplasia. NILSA Normal/No FHX of prostate cancer. PVR = 84 ml UA = neg PSA is current at 1.33 I discussed treatment options at length including r/b/a of each. I also discussed the role of further evaluation with UDS, TRUS and cysto if indicated. Discussed the role of pharmacotherapy, including risks, benefits and alternatives: Alpha-marilia therapy [e.g. Tamsulosin] - potential risks of dizziness, asthenia, orthostasis, and retrograde ejaculation. 5-Alpha Reductase Inhibitors [e.g. Finasteride] - potential risks of painful breast enlargement, diminished libido or erectile dysfunction, ejaculatory dysfunction, gynecomastia. Plan: Cont with current dual therapy. Avoid bladder irritants - coffee, tea, cola drinks, chocolate, alcohol, artificial sweeteners and cigarettes Cysto-TRUS only. Consider OAB meds - patient did not want to take additional Rx. - UA DIP, URINE (POC) - US MSR POST-VOID RESID URINE - CYSTO/TRUS ONLY 2. Benign prostatic hyperplasia with weak urinary stream - ICD9: 600.01, 788.62, ICD10: N40.1, R39.12 Plan as above - UA DIP, URINE (POC) - US MSR POST-VOID RESID URINE - CYSTO/TRUS ONLY Russell Kay DNP, ANDIE Department of Urology [facility] documented in this encounter [facility] 07-19-2024 Instructions Russell Kay APRN.CARA CHAVES - 07/19/2024 9:35 AM EST Follow up for a Cysto and TRUS Cont with Flomax and dutasteride Avoid bladder irritants - coffee, tea, cola drinks, chocolate, alcohol, artificial sweeteners and cigarettes A Cystoscopy is a procedure that allows your doctor to examine the lining of your bladder and the tube that carries urine out of your body (urethra). A hollow tube (cystoscope) equipped with a lens is inserted into your urethra and slowly advanced into your bladder. This is a very quick outpatient procedure completed at one of our Urology offices. Transrectal ultrasound (TRUS) is a 5- to 15-minute outpatient procedure that uses sound waves to create a video image of the prostate gland. A small, lubricated probe placed into the rectum releases sound waves, which create echoes as they enter the prostate. Lower urinary tract symptoms suggestive of benign prostatic enlargement. I discussed treatment options at length including r/b/a of each: To include Medication therapy and the role of further evaluation with UDS, TRUS and cysto if indicated. Discussed the role of pharmacotherapy, including risks, benefits and alternatives: Alpha-marilia therapy [e.g. Tamsulosin] - potential risks of dizziness, asthenia, orthostasis, and retrograde ejaculation. 5-Alpha Reductase Inhibitors [e.g. Finasteride] - potential risks of painful breast enlargement, diminished libido or erectile dysfunction, ejaculatory dysfunction, gynecomastia. Return to the clinic or seek care at Express[facility]Urgent Care for any worsening signs or symptoms: such as fevers, chills, worsening pain, gross blood in urine or worsening urinary symptoms. For severe symptoms seek care at the closest ER. Plan of care, medicaiton side effects and management reviewed with patient. Healthy Habits: Recommend regular physical activity, nutrition and healthy eating habits. Consume a variety of foods every day focusing on fruits, vegetables and lean meats). Eat foods low in fat, saturated fat and cholesterol. Eat a limited amount of salt and sodium. Drink adequate amounts of water and limit sugary drinks. Exercise portion control in meal selection. Establish a mindset of a wellness approach to health. Thank you for allowing me to provide your care today. I look forward to seeing you again and maintaining your health. Russell Kay APRN.PROFESSOR OF COMMUNICATION AND WRITING, DNP BPH Surgical Procedures: Providers use tiny cuts (incisions) or use tube-style instruments that they insert into the urethra. They relieve symptoms of BPH better than medicines. Other benefits include faster recovery and less pain than traditional, open surgery and fewer risks. These procedures do not involve removing or cutting into the prostate. Your physician will consider the size of your prostate and your overall health to determine if minimally invasive surgery is right for you. Several different types of surgery can remove prostate tissue that blocks your urethra. These include: Transurethral resection of the prostate (TURP). Your urologist inserts a special instrument (resectoscope) through your urethra that allows them to see and remove prostate tissue. Transurethral incision of the prostate (TUIP). Your urologist makes two small incisions in your prostate and where your urethra and bladder join (bladder neck) to widen your urethra and improve urine flow. Transurethral electrovaporization. Your urologist uses an electrode to heat your prostate tissue. This turns the tissue cells in the enlarged areas of your prostate into steam. GreenLight laser: Your urologist uses a special laser to evaporate your enlarged prostate tissue. After a surgical procedure, you should be able to resume normal activities within a few days or a week. Holmium laser enucleation of the prostate (HoLEP): is a type of laser surgery used to treat obstruction (blockage) of urine flow as a result of benign prostatic hyperplasia (BPH). In men with BPH, the prostate gland is not cancerous but has become enlarged. An enlarged prostate can result in a number of urinary tract symptoms such as frequent urination, inability to urinate, difficulty in starting urination, or loss of bladder control. BPH Minimally Invasive Treatments: New BPH treatments are less invasive and damaging to healthy tissue than surgery. In general, most of these treatments are outpatient procedures, which means you can go home the same day as the procedure. They have fewer side effects and allow for a faster recovery. Examples of minimally invasive treatments include: Prostatic urethral lift. This procedure separates your enlarged prostate lobes to make your urethra wider, making it easier to pee. Your urologist inserts a special instrument (UroLift ) into your urethra and up to your prostate. When the UroLift reaches the side wall of your prostate, it ejects small implants that pull your prostate lobes apart and open your urethra. Your urologist may place two to six implants, depending on the size of your prostate. Water vapor therapy (REZUM) Your urologist inserts an instrument into your urethra and moves it to your prostate. Your urologist then ejects a needle into your prostate. The needle emits steam vapor, which turns into water. The water s thermal energy destroys your prostate cells. Your body reabsorbs the cells, and your prostate shrinks. Another name for this procedure is the Quentin?m System. The iTind (Temporarily Implanted Nitinol Device) treatment is a new minimally invasive treatment which takes 5 to 7 days with immediate results. The treatment gently reshapes the urethra, widening the opening through which urine can flow. The iTind procedure does not cause any of the side effects associated with prescription medications, and initial studies have shown that it preserves sexual function and urinary incontinence and avoids complications that are typically associated with major surgery. Some patients experience side effects during the procedure, but they are generally only mild to moderate and resolve once the device is removed. Unlike other non-surgical BPH procedures, the iTind involves no heating or removal of prostate tissue, and no permanent implant is left behind The iTind procedure is a straightforward treatment performed by a urologist either in the hospital or a clinic. The device is placed in the prostatic urethra in a folded configuration. During the 5 to 7-day treatment, it slowly expands and exerts gentle pressure at three precise points to widen the opening through which urine flows through the prostatic urethra and then out of the body. After 5 to 7 days, the device is completely removed. Clinical trials demonstrate that the newly remodeled prostatic urethra will continue to provide long-lasting relief of BPH symptoms.2 documented in this encounter [facility] 07-19-2024 Note HNO ID: [id number] Author: MANNY LAMAS MA Service: ? Author Type: General Education Professor Type: Progress Notes Filed: 07/19/2024 10:05 Note Text: Patient's post-void bladder scan: 84 ML. Manny Lamas MA [facility] 07-19-2024 Note HNO ID: [id number] Author: RUSSELL KAY APRN.CARA CHAVES Service: ? Author Type: Nurse Practitioner Type: Progress Notes Filed: 07/19/2024 10:05 Note Text: [facility] MALE PATIENT - HISTORY AND PHYSICAL EXAMINATION PATIENT: Bernardo Carver (63 year old) PCP: Michael Jarquin MD Consultation requested by Dr. Jen Whitt [id number] [facility] [address] for an opinion regarding BPH/LUTS and my final recommendations will be communicated back to the requesting physician by way of shared Medical record or letter via US mail. CHIEF COMPLAINT: BPH/LUTS HISTORY OF PRESENT ILLNESS: 63 year old year old male with BPH/LUTS. Worsening symptoms Past med Hx: JEFFREY, Overweight, HTN, HLD, BPH On Flomax 2 cap a day and dutasteride 0.5mg daily. PSA in MAY 2024 = 1.33 Worst urinary symptom is = weak stream, NTF and daytime freq. No family hx of prostate cancer. PRESENTING HISTORY: Hematuria: none Obstructive voiding symptoms: weak stream. Irritative voiding symptoms: frequency and nocturia Urinary retention: no Urinary incontinence: no Urinary tract infection: no Patient Entered Questionnaires: INTERNATIONAL PROSTATE SYMPTOM SCORE (I-PSS) 1)INCOMPLETE EMPTYING Over the past month, how often have you had a sensation of not emptying your bladder completely after you finished urinating? SCORE: 4- More than half the time 2)FREQUENCY Over the past month, how often have you had to urinate again less than two hours after you finished urinating? SCORE: 5- Almost always 3)INTERMITTENCY Over the past month, how often have you found you stopped and started again several times when you urinated? SCORE: 3- About half the time 4)URGENCY Over the past month, how often have you found it difficult to postpone urination? SCORE: 1- Less than 1 time in 5 5)WEAK STREAM Over the past month, how often have you had a weak stream? SCORE: 5- Almost always 6)STRAINING Over the past month, how often have you had to push or strain to begin urination SCORE: 0- Not at all 7)NOCTURIA Over the past month, how many times did you most typically get up to urinate from the time you went to bed at night until the time you get up in the morning? SCORE:3 TOTAL I-PSS SCORE: 18 QUALITY OF LIFE DUE TO URINARY SYMPTOMS If you were to spend the rest of yur life with your urinary condition just the way it is now, how would you feel about that? 0- Delighted PROMIS Global Health 01/14/2023 06/23/2023 05/27/2024 PROMIS Global Health Scale Physical Health Percentile 78 78 66 Mental Health Percentile 96 96 96 Percentiles provide an indication of how the patient's score ranks in relation to the general population. Higher percentile rankings indicate better function/quality of life. 50th percentile is the average of the general population and indicates half of respondents had a worse score. HISTORY: PAST MEDICAL HISTORY Diagnosis Date Allergies Hypertension JEFFREY on CPAP 2014 Snoring 2014 Vestibular schwannoma (HCC) 2016 PAST SURGICAL HISTORY Procedure Laterality Date COLONOSCOPY FLX DX W/COLLJ SPEC WHEN PFRMD 09/05/2014 Colonoscopy L'SCOPE CHOLECYSTECTOMY 08/12/2017 Dr. Rolando Valdez PAST SURGICAL HISTORY OF Craniotomy. Vestibular Schwannoma Social History Tobacco Use Smoking status: Former Current packs/day: 0.00 Average packs/day: 0.3 packs/day for 30.0 years (9.0 ttl pk-yrs) Types: Cigarettes Start date: 07/16/2015 Quit date: 03/09/2019 Years since quittin.3 Smokeless tobacco: Never Tobacco comments: Father smoked occasional cigar in home. NO ETS in adult home. Vaping Use Vaping status: Never Used Substance Use Topics Alcohol use: Yes Comment: weekends Drug use: No FAMILY HISTORY Problem Relation Age of Onset other (Pacemaker) Mother other (HTN) Mother No Known Problems Father No Known Problems Half-brother No Known Problems Half-sister MEDICATIONS: Current Outpatient Medications Medication Sig BRILINTA 90 mg tablet Take 90 mg by mouth two times a day. atorvastatin (LIPITOR) 40 mg tablet Take 40 mg by mouth daily at bedtime. lisinopril (ZESTRIL) 20 mg tablet Take 1 tablet by mouth once daily. dutasteride (AVODART) 0.5 mg capsule Take 1 capsule by mouth once daily. fexofenadine (TANESHA ALLERGY) 180 mg tablet Take 1 tablet by mouth once daily. tamsulosin (FLOMAX) 0.4 mg Take 2 capsules by mouth daily at bedtime. aspirin, enteric coated (ADULT LOW DOSE ASPIRIN) 81 mg EC tablet Take 1 tablet by mouth once daily. cetirizine (ZYRTEC) 10 mg tablet Take 1 tablet by mouth once daily. CPAP Initiate CPAP @ 12 cm of water with humidification. Mask (per patient preference) optional chin strap (if indicated) , filters, tubing, humidifier and lifetime supplies. ResMed Mirage Quattro, size medium fluticasone (FLONASE) 50 mcg/actuation nasal spray Use 2 Sprays in each nostril once daily. Rinse mouth afte (more content not included)... [facility] 05-31-2024 Telephone encounter Note 09-08-[address] raman Lee [facility], provider went over all prep information and gave direct number to call if they have any questions. María Sheth [facility] 05-31-2024 Miscellaneous Notes 09-08-[address] raman Lee [facility], provider went over all prep information and gave direct number to call if they have any questions. María Sheth documented in this encounter [facility] 05-31-2024 History of Present illness Narrative HISTORY AND PHYSICAL Bernardo Carver : 1960 REFERRING PHYSICIAN: Jen Whitt [address] [facility] [id number] CHIEF COMPLAINT: Patient presents with: Consult: Colonoscopy consultation HPI: Bernardo is a 63 year old male referred for endoscopy. Bernardo notes due for screening colonoscopy. Bernardo denies abdominal pain.. Bernardo denies diarrhea. Bernardo denies constipation. Bernardo denies a change in bowel habits. Bernardo denies melena. Bernardo denies bright red blood per rectum. Bernardo denies hemorrhoids. Bernardo denies heartburn. Bernardo denies dysphagia. Bernardo denies a history of ulcers/ peptic ulcer disease. Bernardo denies family history of colon issues. Medical history is significant for HLD, HTN, JEFFREY compliant with CPAP. Eliceo follows with [facility] for CAD with stent placement in February. Must continue Brilinta for 1 year. Last OV 02/25/24. Denies CP, dizziness, palpitations, syncope, edema, recent hospitalizations. Eliceo refers some residual SOB, but nothing new or worsening. Bernardo has undergone prior endoscopy. Last colonoscopy was 09/[address] Troy at [facility]. Sedation:Fentanyl 50 micrograms IV, Diphenhydramine 50 mg IV,Midazolam 5 mg IV Impression: - Diverticulosis in the sigmoid colon. Current Outpatient Medications Medication Sig BRILINTA 90 mg tablet Take 90 mg by mouth two times a day. atorvastatin (LIPITOR) 40 mg tablet Take 40 mg by mouth daily at bedtime. lisinopril (ZESTRIL) 20 mg tablet Take 1 tablet by mouth once daily. dutasteride (AVODART) 0.5 mg capsule Take 1 capsule by mouth once daily. fexofenadine (TANESHA ALLERGY) 180 mg tablet Take 1 tablet by mouth once daily. tamsulosin (FLOMAX) 0.4 mg Take 2 capsules by mouth daily at bedtime. aspirin, enteric coated (ADULT LOW DOSE ASPIRIN) 81 mg EC tablet Take 1 tablet by mouth once daily. fluticasone (FLONASE) 50 mcg/actuation nasal spray Use 2 Sprays in each nostril once daily. Rinse mouth after use. cetirizine (ZYRTEC) 10 mg tablet Take 1 tablet by mouth once daily. CPAP Initiate CPAP @ 12 cm of water with humidification. Mask (per patient preference) optional chin strap (if indicated) , filters, tubing, humidifier and lifetime supplies. ResMed Mirage Quattro, size medium peg 3350-Electrolytes (GOLYTELY) 236-22.74-6.74 -5.86 gram suspension Take 4,000 mL by mouth one time only for 1 dose. Refer to printed prep instructions from your provider. No current facility-administered medications for this visit. ALLERGIES: Seasonal Allergies PAST MEDICAL HISTORY Diagnosis Date Allergies Hypertension JEFFREY on CPAP 2014 Snoring 2014 Vestibular schwannoma (HCC) 2016 PAST SURGICAL HISTORY Procedure Laterality Date COLONOSCOPY FLX DX W/COLLJ SPEC WHEN PFRMD 09/05/2014 Colonoscopy L'SCOPE CHOLECYSTECTOMY 08/12/2017 Dr. Rolando Valdez PAST SURGICAL HISTORY OF Craniotomy. Vestibular Schwannoma FAMILY HISTORY Problem Relation Age of Onset other (Pacemaker) Mother other (HTN) Mother No Known Problems Father No Known Problems Half-brother No Known Problems Half-sister Social History Tobacco Use Smoking status: Former Current packs/day: 0.00 Average packs/day: 0.3 packs/day for 30.0 years (9.0 ttl pk-yrs) Types: Cigarettes Start date: 07/16/2015 Quit date: 03/09/2019 Years since quittin.2 Smokeless tobacco: Never Tobacco comments: Father smoked occasional cigar in home. NO ETS in adult home. Vaping Use Vaping status: Never Used Substance Use Topics Alcohol use: Yes Comment: weekends Drug use: No REVIEW OF SYMPTOMS: REVIEW OF SYSTEMS: General: The patient denies fatigue, denies weight loss, denies weight gain, denies feeling hot, and feelings of cold. Eyes: The patient denies glaucoma, denies eye injury/surgery, denies glasses or contacts. Ear/Nose/Throat: The patient denies allergies, denies hayfever, denies ear infections, and denies bloody noses. Cardiovascular: The patient denies chest pain, denies heart disease, denies high blood pressure, denies high cholesterol, and denies poor circulation. Respiratory: The patient denies tuberculosis, denies pneumonia, denies frequent cough, + shortness of breath, and denies coughing up blood. Gastrointestinal: The patient denies difficulty swallowing, denies acid reflux, denies ulcers, denies jaundice/hepatitis, denies gallbladder problems, denies vomiting, denies black or tarry stools, denies hemorrhoids, denies bleeding from rectum, denies diverticulitis, denies constipation, denies diarrhea, denies loss of stool control, and denies hernias. Kidney/Bladder: The patient denies kidney stones, denies urine infections, and denies bloody urine. Skin: The patient denies a history of skin cancer, denies bleeding/changing moles, and denies a history of skin rash. Neurologic: The patient denies a history of epilepsy/convulsions, denies headaches, denies head/spinal injuries, and denies stroke/TIA. Psychiatric: The patient denies psychiatric medications, denies depression, and denies voices. Endocrine: The patient denies thyroid disorders, denies diabetes, and denies hormonal problems. Hematologic: The patient denies a history of bruising, denies bleeding, and denies anemia. Infections: The patient denies a history of measles and mumps, denies rheumatic fever, and denies sexually transmitted diseases. Musculoskeletal: The patient denies back pain/injury, denies back problems, denies sciatica, denies knee/foot trouble, denies arthritis, or denies gout. PHYSICAL EXAMINATION: General: The patient is 63 year old, male well nourished, well hydrated in no acute distress. The patient is oriented to time, place, and person. VITALS: Blood pressure 117/72, pulse 65, temperature 36.3 C (97.3 F), height 180.3 cm (5' 11"), weight 96.5 kg (212 lb 12.8 oz), SpO2 94%. Body mass index is 29.68 kg/m . HEENT: Normal cephalic, ataumatic, pupils are equally round, sclera are anicteric, mucous membranes are moist, oropharynx is clear. Neck has no masses, asymmetry or lymphadenopathy. Respiratory: Clear to auscultation and percussion. Normal respiratory excursion and pattern. Cardiac: Examination is regular rate and rhythm. Normal S1/S2 Abdominal exam: Soft, nontender, with no palpable masses. No hepatosplenomegaly. No palpable hernias. Extremities: no clubbing, cyanosis or edema. No adenopathy. LABORATORY VALUES: As Noted RADIOLOGIC STUDIES: As Noted Assessment IMPRESSION: screen for colon cancer PLAN: I have reviewed my findings with the surgeon. Will plan for lower endoscopy. We discussed the risks and benefits of the planned endoscopy. I have informed the patient that complications can occur including failure to complete the endoscopy and perforation. Bernardo had the opportunity to ask questions concerning the planned endoscopy. My staff has also explained the procedure to the patient in understandable terms and has given the patient printed material concerning the procedure. Bernardo freely consents to surgery. I plan to use Golytely bowel preparation Cardiac clearance- Eliceo will continue Brilinta. I have explained to the patient the difference between IV conscious sedation and MAC anesthesia - and I have offered either, according to the patient's wishes. I have explained that with IV conscious sedation there is no anesthesia provider available and therefore there is a limitation of the amount of IV medications that can be given and that the patient may wake up in the middle of the procedure and/or experience pain/discomfort during the procedure. Further discussion was done and the patient was given the opportunity to ask questions and all questions were answered. Bernardo chooses IV conscious sedation. Bernardo was counseled that if there are changes in his/her medical condition, to let the office know if surgery should proceed. If there are changes in patient's medical condition from time of this encounter to the day of the procedure that preclude anesthesia, patient may have procedure cancelled for patient's safety. Diagnoses: (Z12.11) Colon cancer screening Consultation requested by Jen Whitt CNP for an opinion regarding colon cancer screening. My final recommendations will be communicated back to the requesting physician by way of shared Medical record or letter to requesting physician via US mail. Portions of this documentation were copied and pasted from previous office visit notes in order to provide a cohesive continuity of the history. The note has been reviewed and edited and updated as necessary. Elena Cabral APRN.ANDIE documented in this encounter [facility] 05-31-2024 Note HNO ID: [id number] Author: ELENA CABRAL APRN.CNP Service: ? Author Type: Nurse Practitioner Type: Progress Notes Filed: 05/31/2024 09:43 Note Text: HISTORY AND PHYSICAL Bernardo Carver : 1960 REFERRING PHYSICIAN: Jen Rivera Dazey Nikki [facility] [id number] CHIEF COMPLAINT: Patient presents with: Consult: Colonoscopy consultation HPI: Bernardo is a 63 year old male referred for endoscopy. Bernardo notes due for screening colonoscopy. Bernardo denies abdominal pain.. Bernardo denies diarrhea. Bernardo denies constipation. Bernardo denies a change in bowel habits. Bernardo denies melena. Bernardo denies bright red blood per rectum. Bernardo denies hemorrhoids. Bernardo denies heartburn. Bernardo denies dysphagia. Bernardo denies a history of ulcers/ peptic ulcer disease. Bernardo denies family history of colon issues. Medical history is significant for HLD, HTN, JEFFREY compliant with CPAP. Eliceo follows with [facility] for CAD with stent placement in February. Must continue Brilinta for 1 year. Last OV 02/25/24. Denies CP, dizziness, palpitations, syncope, edema, recent hospitalizations. Eliceo refers some residual SOB, but nothing new or worsening. Bernardo has undergone prior endoscopy. Last colonoscopy was 09/[address] Troy at [facility]. Sedation:Fentanyl 50 micrograms IV, Diphenhydramine 50 mg IV,Midazolam 5 mg IV Impression: - Diverticulosis in the sigmoid colon. Current Outpatient Medications Medication Sig BRILINTA 90 mg tablet Take 90 mg by mouth two times a day. atorvastatin (LIPITOR) 40 mg tablet Take 40 mg by mouth daily at bedtime. lisinopril (ZESTRIL) 20 mg tablet Take 1 tablet by mouth once daily. dutasteride (AVODART) 0.5 mg capsule Take 1 capsule by mouth once daily. fexofenadine (TANESHA ALLERGY) 180 mg tablet Take 1 tablet by mouth once daily. tamsulosin (FLOMAX) 0.4 mg Take 2 capsules by mouth daily at bedtime. aspirin, enteric coated (ADULT LOW DOSE ASPIRIN) 81 mg EC tablet Take 1 tablet by mouth once daily. fluticasone (FLONASE) 50 mcg/actuation nasal spray Use 2 Sprays in each nostril once daily. Rinse mouth after use. cetirizine (ZYRTEC) 10 mg tablet Take 1 tablet by mouth once daily. CPAP Initiate CPAP @ 12 cm of water with humidification. Mask (per patient preference) optional chin strap (if indicated) , filters, tubing, humidifier and lifetime supplies. ResMed Mirage Quattro, size medium peg 3350-Electrolytes (GOLYTELY) 236-22.74-6.74 -5.86 gram suspension Take 4,000 mL by mouth one time only for 1 dose. Refer to printed prep instructions from your provider. No current facility-administered medications for this visit. ALLERGIES: Seasonal Allergies PAST MEDICAL HISTORY Diagnosis Date Allergies Hypertension JEFFREY on CPAP 2014 Snoring 2014 Vestibular schwannoma (HCC) 2016 PAST SURGICAL HISTORY Procedure Laterality Date COLONOSCOPY FLX DX W/COLLJ SPEC WHEN PFRMD 09/05/2014 Colonoscopy L'SCOPE CHOLECYSTECTOMY 08/12/2017 Dr. Rolando Valdez PAST SURGICAL HISTORY OF Craniotomy. Vestibular Schwannoma FAMILY HISTORY Problem Relation Age of Onset other (Pacemaker) Mother other (HTN) Mother No Known Problems Father No Known Problems Half-brother No Known Problems Half-sister Social History Tobacco Use Smoking status: Former Current packs/day: 0.00 Average packs/day: 0.3 packs/day for 30.0 years (9.0 ttl pk-yrs) Types: Cigarettes Start date: 07/16/2015 Quit date: 03/09/2019 Years since quittin.2 Smokeless tobacco: Never Tobacco comments: Father smoked occasional cigar in home. NO ETS in adult home. Vaping Use Vaping status: Never Used Substance Use Topics Alcohol use: Yes Comment: weekends Drug use: No REVIEW OF SYMPTOMS: REVIEW OF SYSTEMS: General: The patient denies fatigue, denies weight loss, denies weight gain, denies feeling hot, and feelings of cold. Eyes: The patient denies glaucoma, denies eye injury/surgery, denies glasses or contacts. Ear/Nose/Throat: The patient denies allergies, denies hayfever, denies ear infections, and denies bloody noses. Cardiovascular: The patient denies chest pain, denies heart disease, denies high blood pressure, denies high cholesterol, and denies poor circulation. Respiratory: The patient denies tuberculosis, denies pneumonia, denies frequent cough, + shortness of breath, and denies coughing up blood. Gastrointestinal: The patient denies difficulty swallowing, denies acid reflux, denies ulcers, denies jaundice/hepatitis, denies gallbladder problems, denies vomiting, denies black or tarry stools, denies hemorrhoids, denies bleeding from rectum, denies diverticulitis, denies constipation, denies diarrhea, denies loss of stool control, and denies hernias. Kidney/Bladder: The patient denies kidney stones, denies urine infections, and denies bloody urine. Skin: The patient denies a history of skin cancer, denies bleeding/changing moles, (more content not included)... [facility] 05-27-2024 Instructions Jen Whitt APRN.CNP - 05/27/2024 2:31 PM EST Get fasting labs completed, no food 10-12 hours prior. May have black coffee and water Continue to take all medication as prescribed Consult placed for Urology, Niall Kay CNP Consult placed for general surgery for colonoscopy Keep scheduled appointments with cardiology Continue to eat a well balanced diet and get some form of exercise Follow up in 6 months or sooner pending test results. Health Promotion: - Eat healthy -- go to [employer].gov to get started - Have a yearly physical - Get at least 30 minutes of physical activity daily - Get at least 7 to 8 hours of sleep each night - Reach and maintain a healthy weight - Get help to quit or don't start smoking - Limit alcohol use to one drink or less - Do not use illegal drugs or misuse prescription drugs - Wear a helmet when riding a bike and wear protective gear for sports - Wear a seatbelt in cars and not text and drive - Wear sunscreen documented in this encounter [facility] 05-27-2024 History of Present illness Narrative This is a 63 year old male who presents today with: Patient presents with: Medicare Wellness Exam HISTORY OF PRESENT ILLNESS: Bernardo Carver is a 63 year old male. Patient presents with: Medicare Wellness Exam Wellness Exam Diet: Eating a we balanced diet. Exercise: Cardiac rehab 3 times weekly and gym 3 times weekly. Vision: Had exam, wearing readers as needed. Dental: Had exam. Sleep: 8 hours per night. Mood: Denies any increased sadness, anxiety, or SI/Hi. HTN/Stent: Taking lisinopril 20 mg daily. Not currently checking blood pressure at home. Denies chest pain, palpitations, dizziness, or edema. Had 1 stent placed about 4 months ago. Following with Cardiology, [facility]. Next Follow up in July. Taking Liptor 40 mg daily, Brilinta 90 mg BID, and ASA 81 mg daily/ BPH: Taking Flomax 0.4 mg, 2 capsules at bedtime. Avodart 0.5 mg daily. Still getting up 2 times at night to urinate. No difficulty with urine stream. JEFFREY: Using CPAP, tolerating well. Seasonal allergies: Using Tanesha and Flonase as needed. Vestibular schwannoma: Follow-up with neurology. Will complete MRI brain. Colonoscopy: completed in 2014 due in 2024 PSA: Last completed in 2021 WNL Vaccines: Denies wanting any vaccines at this time. PAST MEDICAL HISTORY: PAST MEDICAL HISTORY Diagnosis Date Allergies Hypertension JEFFREY on CPAP 2014 Snoring 2014 Vestibular schwannoma (HCC) 2016 PAST SURGICAL HISTORY Procedure Laterality Date COLONOSCOPY FLX DX W/COLLJ SPEC WHEN PFRMD 09/05/2014 Colonoscopy L'SCOPE CHOLECYSTECTOMY 08/12/2017 Dr. Rolando Valdez PAST SURGICAL HISTORY OF Craniotomy. Vestibular Schwannoma ALLERGIES Seasonal Allergies MEDICATIONS Current Outpatient Medications Medication Sig lisinopril (ZESTRIL) 20 mg tablet Take 1 tablet by mouth once daily. dutasteride (AVODART) 0.5 mg capsule Take 1 capsule by mouth once daily. fexofenadine (TANESHA ALLERGY) 180 mg tablet Take 1 tablet by mouth once daily. tamsulosin (FLOMAX) 0.4 mg Take 2 capsules by mouth daily at bedtime. aspirin, enteric coated (ADULT LOW DOSE ASPIRIN) 81 mg EC tablet Take 1 tablet by mouth once daily. fluticasone (FLONASE) 50 mcg/actuation nasal spray Use 2 Sprays in each nostril once daily. Rinse mouth after use. cetirizine (ZYRTEC) 10 mg tablet Take 1 tablet by mouth once daily. CPAP Initiate CPAP @ 12 cm of water with humidification. Mask (per patient preference) optional chin strap (if indicated) , filters, tubing, humidifier and lifetime supplies. [employer] Mirage Quattro, size medium No current facility-administered medications for this visit. FAMILY HISTORY Problem Relation Age of Onset other (Pacemaker) Mother other (HTN) Mother No Known Problems Father No Known Problems Half-brother No Known Problems Half-sister Social History Tobacco Use Smoking status: Former Current packs/day: 0.00 Average packs/day: 0.3 packs/day for 30.0 years (9.0 ttl pk-yrs) Types: Cigarettes Start date: 07/16/2015 Quit date: 03/09/2019 Years since quittin.2 Smokeless tobacco: Never Tobacco comments: Father smoked occasional cigar in home. NO ETS in adult home. Vaping Use Vaping status: Never Used Substance Use Topics Alcohol use: Yes Comment: weekends Drug use: No REVIEW OF SYSTEMS GENERAL: No weight loss, malaise or fevers/chills HEENT: Negative for frequent or significant headaches, No changes in hearing or vision. NECK: Negative for lumps, goiter, pain and significant neck swelling RESPIRATORY: Negative for cough, hemoptysis, wheezing, dyspnea or shortness of breath CARDIOVASCULAR: Negative for chest pain, leg swelling, orthopnea, or palpitations GI: No nausea, vomiting, or diarrhea/constipation. No hematochezia/melena. No heartburn or reflux symptoms. : No history of dysuria, frequency or incontinence MUSCULOSKELETAL: Negative for joint pain or swelling. SKIN: Negative for lesions, rash, and itching ENDOCRINE: Negative for cold or heat intolerance, polyuria, polydipsia and goiter NEURO: No history of headaches, syncope, paralysis, seizures or tremors MOOD: Negative for depression, anxiety, or suicidal ideation. EXAM: BP 104/66 Pulse (!) 56 Resp 16 Ht 176 cm (5' 9.29") Wt 94.9 kg (209 lb 3.5 oz) SpO2 94% BMI 30.64 kg/m PHYSICAL EXAM: General Appearance: Well appearing, alert, in no acute distress, well-hydrated, well nourished. Skin: Skin color, texture, turgor normal, no suspicious rashes or lesions. Head: Normocephalic, no masses, lesions, tenderness or abnormalities. Eyes: Anicteric sclera. Pupils are equally round and reactive to light. Extraocular movements are intact. Ears: External ears normal, canals clear. TMs pearly arreguin. Neck: Supple, no adenopathy; thyroid symmetric, normal size, no bruits. Lungs: Lungs clear to auscultation. No wheezing, rhonchi, rales. Heart: RRR without murmur, gallop, or rubs. No ectopy. Abdomen: Normal abdominal exam, Abdomen soft, non-tender. Bowel sounds normal. No masses, organomegaly. Extremities: No deformities, edema, skin discoloration, clubbing or cyanosis. Good capillary refill. Musculoskeletal: No joint swelling, deformity, or tenderness. Peripheral Pulses: Normal, Capillary refill <2secs, strong peripheral pulses, Pulses palpable. Neurologic: Gait normal. Reflexes normal and symmetric. Sensation grossly intact.. Mood: Pleasant, engaged, good eye contact. ASSESSMENT/PLAN: 1. Wellness examination - ICD9: V70.0, ICD10: Z00.00 (primary diagnosis) - Counseled on healthy diet and regular exercise - Discussed need for and benefit of weight loss. BMI 30.64 kg/(m^2) - Risks/benefits of prostate cancer screening discussed. screening PSA ordered - Follow up for annual exam in one year 2. Essential hypertension - ICD9: 401.9, ICD10: I10 - Controlled - Continue current medications - Recommend home blood pressure monitoring, to bring results to next visit - Encouraged sodium restriction, DASH or Mediterranean diet - Recommend regular aerobic exercise 3. Hyperlipidemia, mixed - ICD9: 272.2, ICD10: E78.2 - Control undetermined, due for labs - Continue current medications - Counseled on healthy diet and regular exercise - Discussed need for and benefit of weight loss. BMI 30.64 kg/(m^2) - COMPREHENSIVE METABOLIC PANEL - LIPID PANEL BASIC 4. H/O right coronary artery stent placement - ICD9: V45.82, ICD10: Z95.5 - Continue to take current medication. - Keep scheduled appointments with cardiology. - COMPLETE BLOOD COUNT AND DIFFERENTIAL 5. Benign prostatic hyperplasia with weak urinary stream - ICD9: 600.01, 788.62, ICD10: N40.1, R39.12 - Due to ongoing urinary symptoms recommend consult with urology. - CONSULT TO UROLOGY 6. Nocturia - ICD9: 788.43, ICD10: R35.1 - Same plan as #5. 7. JEFFREY on CPAP - ICD9: 327.23, ICD10: G47.33 - Stable, continue with CPAP. 8. Seasonal allergies - ICD9: 477.9, ICD10: J30.2 - Stable, continue with medication as needed. 9. Vestibular schwannoma (HCC) - ICD9: 225.1, ICD10: D33.3 - Stable, keep scheduled appointments with neurology. 10. Colon cancer screening - ICD9: V76.51, ICD10: Z12.11 - Due for colonoscopy in 2024. - CONSULT TO GENERAL SURGERY 11. Encounter for screening examination for other mental health and behavioral disorders - ICD9: V79.8, ICD10: Z13.39 - ANXIETY SCREENING 12. Screening for depression - ICD9: V79.0, ICD10: Z13.31 - DEPRESSION SCREENING 13. Screening for prostate cancer - ICD9: V76.44, ICD10: Z12.5 - PSA/PROSTATE SPECIFIC ANTIGEN SCREENING Follow-up in 6 months or sooner pending test results. Discussed treatment plan and patient voices understanding. Patient's questions answered appropriately. Medications and potential side effects were discussed and patient voices understanding. Jen Whitt APRN.CNP This note was partially generated using [employer] voice recognition system. Note was reviewed for accuracy. There may be minor misspellings or grammar miscues with [employer] voice recognition. documented in this encounter [facility] 05-27-2024 Note HNO ID: [id number] Author: JEN WHITT APRN.CNP Service: ? Author Type: Nurse Practitioner Type: Progress Notes Filed: 05/27/2024 15:55 Note Text: This is a 63 year old male who presents today with: Patient presents with: Medicare Wellness Exam HISTORY OF PRESENT ILLNESS: eBrnardo Carver is a 63 year old male. Patient presents with: Medicare Wellness Exam Wellness Exam Diet: Eating a we balanced diet. Exercise: Cardiac rehab 3 times weekly and gym 3 times weekly. Vision: Had exam, wearing readers as needed. Dental: Had exam. Sleep: 8 hours per night. Mood: Denies any increased sadness, anxiety, or SI/Hi. HTN/Stent: Taking lisinopril 20 mg daily. Not currently checking blood pressure at home. Denies chest pain, palpitations, dizziness, or edema. Had 1 stent placed about 4 months ago. Following with Cardiology, [facility]. Next Follow up in July. Taking Liptor 40 mg daily, Brilinta 90 mg BID, and ASA 81 mg daily/ BPH: Taking Flomax 0.4 mg, 2 capsules at bedtime. Avodart 0.5 mg daily. Still getting up 2 times at night to urinate. No difficulty with urine stream. JEFFREY: Using CPAP, tolerating well. Seasonal allergies: Using Tanesha and Flonase as needed. Vestibular schwannoma: Follow-up with neurology. Will complete MRI brain. Colonoscopy: completed in 2014 due in 2024 PSA: Last completed in 2021 WNL Vaccines: Denies wanting any vaccines at this time. PAST MEDICAL HISTORY: PAST MEDICAL HISTORY Diagnosis Date Allergies Hypertension JEFFREY on CPAP 2014 Snoring 2014 Vestibular schwannoma (HCC) 2017 PAST SURGICAL HISTORY Procedure Laterality Date COLONOSCOPY FLX DX W/COLLJ SPEC WHEN PFRMD 09/05/2014 Colonoscopy L'SCOPE CHOLECYSTECTOMY 08/12/2017 Dr. Rolando Valdez PAST SURGICAL HISTORY OF Craniotomy. Vestibular Schwannoma ALLERGIES Seasonal Allergies MEDICATIONS Current Outpatient Medications Medication Sig lisinopril (ZESTRIL) 20 mg tablet Take 1 tablet by mouth once daily. dutasteride (AVODART) 0.5 mg capsule Take 1 capsule by mouth once daily. fexofenadine (TANESHA ALLERGY) 180 mg tablet Take 1 tablet by mouth once daily. tamsulosin (FLOMAX) 0.4 mg Take 2 capsules by mouth daily at bedtime. aspirin, enteric coated (ADULT LOW DOSE ASPIRIN) 81 mg EC tablet Take 1 tablet by mouth once daily. fluticasone (FLONASE) 50 mcg/actuation nasal spray Use 2 Sprays in each nostril once daily. Rinse mouth after use. cetirizine (ZYRTEC) 10 mg tablet Take 1 tablet by mouth once daily. CPAP Initiate CPAP @ 12 cm of water with humidification. Mask (per patient preference) optional chin strap (if indicated) , filters, tubing, humidifier and lifetime supplies. ResMed Mirage Quattro, size medium No current facility-administered medications for this visit. FAMILY HISTORY Problem Relation Age of Onset other (Pacemaker) Mother other (HTN) Mother No Known Problems Father No Known Problems Half-brother No Known Problems Half-sister Social History Tobacco Use Smoking status: Former Current packs/day: 0.00 Average packs/day: 0.3 packs/day for 30.0 years (9.0 ttl pk-yrs) Types: Cigarettes Start date: 07/16/2015 Quit date: 03/09/2019 Years since quittin.2 Smokeless tobacco: Never Tobacco comments: Father smoked occasional cigar in home. NO ETS in adult home. Vaping Use Vaping status: Never Used Substance Use Topics Alcohol use: Yes Comment: weekends Drug use: No REVIEW OF SYSTEMS GENERAL: No weight loss, malaise or fevers/chills HEENT: Negative for frequent or significant headaches, No changes in hearing or vision. NECK: Negative for lumps, goiter, pain and significant neck swelling RESPIRATORY: Negative for cough, hemoptysis, wheezing, dyspnea or shortness of breath CARDIOVASCULAR: Negative for chest pain, leg swelling, orthopnea, or palpitations GI: No nausea, vomiting, or diarrhea/constipation. No hematochezia/melena. No heartburn or reflux symptoms. : No history of dysuria, frequency or incontinence MUSCULOSKELETAL: Negative for joint pain or swelling. SKIN: Negative for lesions, rash, and itching ENDOCRINE: Negative for cold or heat intolerance, polyuria, polydipsia and goiter NEURO: No history of headaches, syncope, paralysis, seizures or tremors MOOD: Negative for depression, anxiety, or suicidal ideation. EXAM: BP 104/66 Pulse (!) 56 Resp 16 Ht 176 cm (5' 9.29") Wt 94.9 kg (209 lb 3.5 oz) SpO2 94% BMI 30.64 kg/m? PHYSICAL EXAM: General Appearance: Well appearing, alert, in no acute distress, well-hydrated, well nourished. Skin: Skin color, texture, turgor normal, no suspicious rashes or lesions. Head: Normocephalic, no masses, lesions, tenderness or abnormalities. Eyes: Anicteric sclera. Pupils are equally round and reactive to light. Extraocular movements are intact. Ears: External ears normal, canals clear. TMs pearly arreguin. Neck: Supple, no adenopathy; thyroid symmetric, norm (more content not included)... [facility] 05-17-2024 Telephone encounter Note Pt read message on 05/13 notifying him of needing to setup appt. Vilma Farnsworth MA [facility] 05-17-2024 Miscellaneous Notes Pt read message on 05/13 notifying him of needing to setup appt. Vilma Farnsworth MA Pt sent additional message. Vilma Farnsworth MA Pt sent mychart message notifying him he's due for Annual appt, has not been seen in almost a year. Pt gave P# and mychart link to schedule appt. Vilma Farnsworth MA OK to refill for 3 months as ordered Michael Jarquin MD Pt is requesting that Rx's be #90 day supply. Two Rx's were sent in for #30 with refills, but pt wants #90. Prescription Refill Information The patient has been identified by name and date of : Yes Caregiver verified no other encounters exist for this prescription request: Yes Caregiver confirmed with patient/requestor that no other refills are due, in the near future, with this provider at this time: Yes The last office visit in the department: 06/26/23 Does the patient have a future office visit with this provider/department: No, once Rx's have been sent in, pt will be notified that only 3 months of Rx has been sent due to needing an appt for Annual visit. Pt has not been seen in almost 1 year. Requested Prescriptions Pending Prescriptions Disp Refills lisinopril (ZESTRIL) 20 mg tablet 90 tablet 0 Sig: Take 1 tablet by mouth once daily. dutasteride (AVODART) 0.5 mg capsule 90 capsule 0 Sig: Take 1 capsule by mouth once daily. fexofenadine (TANESHA ALLERGY) 180 mg tablet 90 tablet 0 Sig: Take 1 tablet by mouth once daily. Vilma Farnsworth MA May 10, 2024 1:24 PM Rx for Avodart sent 04/15/24 #30 w/5. Fexofenadine sent 04/15/24 #30 w/11. Pt notified these were sent to [facility]. Lisinopril is due for refill. Sent message back to pt asking if he wants these Rx's as #90 day vs #30. Wait pt response. Vilma Farnsworth MA documented in this encounter [facility] 05-13-2024 Telephone encounter Note Pt sent additional message. Vilma Farnsworth MA [facility] 05-10-2024 Telephone encounter Note Pt sent mychart message notifying him he's due for Annual appt, has not been seen in almost a year. Pt gave P# and mychart link to schedule appt. Vilma Farnsworth MA [facility] 05-10-2024 Telephone encounter Note OK to refill for 3 months as ordered Michael Jarquin MD [facility] 05-10-2024 Telephone encounter Note Pt is requesting that Rx's be #90 day supply. Two Rx's were sent in for #30 with refills, but pt wants #90. Prescription Refill Information The patient has been identified by name and date of : Yes Caregiver verified no other encounters exist for this prescription request: Yes Caregiver confirmed with patient/requestor that no other refills are due, in the near future, with this provider at this time: Yes The last office visit in the department: 06/26/23 Does the patient have a future office visit with this provider/department: No, once Rx's have been sent in, pt will be notified that only 3 months of Rx has been sent due to needing an appt for Annual visit. Pt has not been seen in almost 1 year. Requested Prescriptions Pending Prescriptions Disp Refills lisinopril (ZESTRIL) 20 mg tablet 90 tablet 0 Sig: Take 1 tablet by mouth once daily. dutasteride (AVODART) 0.5 mg capsule 90 capsule 0 Sig: Take 1 capsule by mouth once daily. fexofenadine (TANESHA ALLERGY) 180 mg tablet 90 tablet 0 Sig: Take 1 tablet by mouth once daily. Vilma Farnsworth MA May 10, 2024 1:24 PM [facility] 05-10-2024 Telephone encounter Note Rx for Avodart sent 04/15/24 #30 w/5. Fexofenadine sent 04/15/24 #30 w/11. Pt notified these were sent to [facility]. Lisinopril is due for refill. Sent message back to pt asking if he wants these Rx's as #90 day vs #30. Wait pt response. Vilma Farnsworth MA [facility] 04-20-2024 Telephone encounter Note OK to refill as ordered Michael Jarquin MD [facility] 04-20-2024 Miscellaneous Notes OK to refill as ordered Michael Jarquin MD Pt notified. Needs rx for Flomax sent to [facility] as [facility] closed. Sophie Tamez MA Left a message for pt to call the office and ask to speak to a nurse. Manny Bell LPN Called and left message on patients voicemail to return call to the office and ask to speak with a triage nurse. Vilma Farnsworth MA OK to add Avodart to the Flomax to see if it helps with urinating; if it does not help in 2-3 months I would recommend Urology consult Michael Jarquin MD Pt notified and voiced understanding. He states that his "pee pills" Flomax is not working, is up 2-3 x a night, asking if there is anything else he can use. Last OV with Jen in Jun 2023. Advised I would send message to provider but he may need an appointment to discuss. Sophie Tamez MA He may try using Tanesha rather than Zyrtec, and may also use Flonase nasal spray. Rxs for Flonase and Tanesha done. Michael Jarquin MD Eliceo is calling Michael Jarquin MD today with concern regarding Medication Problem cetirizine (ZYRTEC) 10 mg tablet is not helping him anymore. Patient calling stating that medication Patient has been identified by name and birthdate. Duration of symptoms: N/A Person calling: self Call patient at: on cell [phone] (home) [phone] (cell) Was an appointment scheduled: No Closing statement: Results or non-symptom based questions: Thank you for calling [facility], your call will be returned within the next business day. Bushra Batista documented in this encounter [facility] 04-20-2024 Telephone encounter Note Pt notified. Needs rx for Flomax sent to [facility] as [facility] closed. Sophie Tamez MA [facility] 04-16-2024 Telephone encounter Note Left a message for pt to call the office and ask to speak to a nurse. Manny Bell LPN [facility] 04-15-2024 Telephone encounter Note Called and left message on patients voicemail to return call to the office and ask to speak with a triage nurse. Vilma Farnsworth MA [facility] 04-15-2024 Telephone encounter Note OK to add Avodart to the Flomax to see if it helps with urinating; if it does not help in 2-3 months I would recommend Urology consult Michael Jarquin MD [facility] 04-15-2024 Telephone encounter Note Pt notified and voiced understanding. He states that his "pee pills" Flomax is not working, is up 2-3 x a night, asking if there is anything else he can use. Last OV with Jen in Jun 2023. Advised I would send message to provider but he may need an appointment to discuss. Sophie Tamez MA [facility] 04-15-2024 Telephone encounter Note He may try using Tanesha rather than Zyrtec, and may also use Flonase nasal spray. Rxs for Flonase and Tanesha done. Michael Jarquin MD [facility] 04-15-2024 Telephone encounter Note OK to refill as ordered Michael Jarquin MD [facility] 04-15-2024 Miscellaneous Notes OK to refill as ordered Michael Jarquin MD Prescription Refill Information The patient has been identified by name and date of : Yes Caregiver verified no other encounters exist for this prescription request: Yes Caregiver confirmed with patient/requestor that no other refills are due, in the near future, with this provider at this time: Yes The last office visit in the department: 06-26-24 Does the patient have a future office visit with this provider/department: No Requested Prescriptions Pending Prescriptions Disp Refills aspirin, enteric coated (ADULT LOW DOSE ASPIRIN) 81 mg EC tablet 30 tablet 11 Sig: Take 1 tablet by mouth once daily. Bushra Batista April 15, 2024 2:04 PM documented in this encounter [facility] 04-15-2024 Telephone encounter Note Prescription Refill Information The patient has been identified by name and date of : Yes Caregiver verified no other encounters exist for this prescription request: Yes Caregiver confirmed with patient/requestor that no other refills are due, in the near future, with this provider at this time: Yes The last office visit in the department: 06-26-24 Does the patient have a future office visit with this provider/department: No Requested Prescriptions Pending Prescriptions Disp Refills aspirin, enteric coated (ADULT LOW DOSE ASPIRIN) 81 mg EC tablet 30 tablet 11 Sig: Take 1 tablet by mouth once daily. Bushra Batista April 15, 2024 2:04 PM [facility] 04-15-2024 Telephone encounter Note Eliceo is calling Michael Jarquin MD today with concern regarding Medication Problem cetirizine (ZYRTEC) 10 mg tablet is not helping him anymore. Patient calling stating that medication Patient has been identified by name and birthdate. Duration of symptoms: N/A Person calling: self Call patient at: on cell [phone] (home) [phone] (cell) Was an appointment scheduled: No Closing statement: Results or non-symptom based questions: Thank you for calling [facility], your call will be returned within the next business day. Bushra Batista [facility] 02-11-2024 Evaluation note Diagnosis Onset Date Resolution History of coronary artery stent placement February 11, 2024 acute February 24, 2025 8:52am SOB (shortness of breath) acute February 24, 2025 8:52am Essential hypertension chronic February 24, 2025 8:52am Hyperlipidemia chronic February 8:52am [employer] Work Phone: [phone] Telephone encounter Note* Telephone Encounter - Vilma Farnsworth MA - 11/18/2023 3:49 PM EDT Completed and faxed back to information below. Vilma Farnsworth MA [facility]05-14-2024 Miscellaneous Notes* Telephone Encounter - Vilma Farnsworth MA - 11/18/2023 3:49 PM EDT Completed and faxed back to information below. Vilma Farnsworth MA * Telephone Encounter - Vilma Farnsworth MA - 11/18/2023 1:17 PM EDT Type of form: Medical Necessity Form to be signed from [email or web address] for CPAP supplies. Form received via fax When form is completed, Fax form to [phone] Form has been forwarded to Physician Desk: Dr. Britton Farnsworth MA [facility] Telephone encounter Note * Telephone Encounter - Vilma Farnsworth MA - 11/18/2023 1:17 PM EDT Type of form: Medical Necessity Form to be signed from [email or web address] for CPAP supplies. Form received via fax When form is completed, Fax form to [phone] Form has been forwarded to Physician Desk: Dr. Britton Farnsworth MA [facility]04-23-2024 Telephone encounter Note* Telephone Encounter - Destinee Herbert RN - 10/28/2023 12:36 PM EDT Patient calls back and states that he already had received his mask and CPAP supplies a couple weeks ago from [facility]. Order does not have to be faxed to anywhere else. Destinee Herbert RN [facility]04-23-2024 Miscellaneous Notes* Telephone Encounter - Destinee Herbert RN - 10/28/2023 12:36 PM EDT Patient calls back and states that he already had received his mask and CPAP supplies a couple weeks ago from [facility]. Order does not have to be faxed to anywhere else. Destinee Herbert RN * Telephone Encounter - Destinee Herbert RN - 10/24/2023 8:49 AM EDT Maryjane from [facility] calls and states that they received order for CPAP supplies. [facility] does not carry CPAP supplies. Called and left message for patient to call back to let him know that [facility] does not carry CPAP supplies and patient will have to go with a different DME Company. Destinee Herbert RN [facility] Telephone encounter Note * Telephone Encounter - Destinee Herbert RN - 10/24/2023 8:49 AM EDT Maryjane from [facility] calls and states that they received order for CPAP supplies. [facility] does not carry CPAP supplies. Called and left message for patient to call back to let him know that [facility] does not carry CPAP supplies and patient will have to go with a different DME Company. Destinee Herbert RN [facility]04-15-2024 Miscellaneous Notes* Telephone Encounter - Adriano Lima APRN.CNP - 10/20/2023 9:30 AM EDT The following approved medication requests have been transmitted electronically. Requested Prescriptions Signed Prescriptions Disp Refills tamsulosin (FLOMAX) 0.4 mg 180 capsule 3 Sig: Take 2 capsules by mouth daily at bedtime. Adriano Lima APRN.CNP * Telephone Encounter - Sophie Tamez MA - 10/20/2023 8:45 AM EDT Patient has been identified by name and date of : Yes, Provider Michael Jarquin MD Date October 20, 2023 Time 8:45 AM Patient phones for refill(s): Requested Prescriptions Pending Prescriptions Disp Refills tamsulosin (FLOMAX) 0.4 mg 180 capsule 3 Sig: Take 2 capsules by mouth daily at bedtime. Date of last office visit in primary care: 06/26/2023 Date of next office visit in primary care: none Please advise. Thank you. Sophie Tamez MA. documented in [facility]04[facility] Miscellaneous Notes* Telephone Encounter - Sophie Tamez MA - 10/20/2023 8:46 AM EDT yrte refilled #90 with 3 refills in 07/28/23 to [facility]. Pt notified via [employer] that he should have refills available. Sophie Tamez MA documented in [facility]03[facility] History of Present illness Narrative* David Jacobsen, OD - 09/12/2023 8:59 AM EST 1. Hypermetropia, bilateral 2. Regular astigmatism of both eyes 3. Presbyopia Finalized new spec rx for computer- single vision Trial framed in office Patient unable to adapt to progressive 4. Chorioretinal scar of both eyes No current hemorrhage, but multiple CR scars and creamy yellow scars in periphery OS>OD Recommend follow-up with José [facility] Downing (lost to follow-up x 2 years) -POHS related? 5. Dry eye syndrome of bilateral lacrimal glands Recommended warm compresses and artificial tears 2-3x daily Follow-up in 1 year for complete eye exam David Jacobsen, OD September 12, 2023 8:59 AM documented in this encounterSy[facility]03[facility] History of Present illness Narrative* Delma Min LPN - 09/09/2023 8:[address] Hurley, Bernardo was provided with powerstep original inserts, size 11.5, and instructed/educated in its application, wear, and care. All questions were answered, and patient was able to demonstrate competence with the necessary skills to utilize the above equipment. Delma Min LPN * Robert Hurley - 09/09/2023 8:42 AM EST Images from the original note were not included. Initial Podiatric Office Visit: Chief Complaint: This 62 year old male who presents with chief complaint:left heel pain HPI Patient presents to clinic for evaluation of left foot Complains of pain to left plantar heel Patient states the pain has been present for approximately one month States the pain is severe in the morning but as he starts walking, the pain lessens He did have similar issues on right foot that was treated with injection in 2020 Patient is not currently doing anything for the pain. PAIN EVALUATION 09/02/2023 1238 09/09/2023 0837 Pain Level: 4 10 Pain Location: Heel-Left Heel-Left Description: Sharp Sharp;Dull;Aching;Sore Duration Amount of Time: 24 1 Duration Units: Hours Months Frequency: Continuous Continuous Comments: sleep -- Hemoglobin A1C (%) Date Value 03/15/2022 5.7 06/11/2021 5.8 11/27/2020 5.7 04/13/2019 5.6 10/07/2017 5.5 11/22/2016 5.6 PCP: Michael Jarquin MD PAST MEDICAL HISTORY Diagnosis Date Allergies Hypertension JEFFREY on CPAP 2014 Snoring 2014 Vestibular schwannoma (HCC) 2016 Current Outpatient Medications Medication Sig cetirizine (ZYRTEC) 10 mg tablet Take 1 tablet by mouth once daily. aspirin, enteric coated (ADULT LOW DOSE ASPIRIN) 81 mg EC tablet Take 1 tablet by mouth once daily. lisinopril (ZESTRIL) 20 mg tablet take 1 tablet by mouth once daily tamsulosin (FLOMAX) 0.4 mg Take 2 capsules by mouth daily at bedtime. CPAP Initiate CPAP @ 12 cm of water with humidification. Mask (per patient preference) optional chin strap (if indicated) , filters, tubing, humidifier and lifetime supplies. ResMed Mirage Quattro, size medium atorvastatin (LIPITOR) 40 mg tablet Take 1 tablet by mouth daily at bedtime. For cholesterol. (Patient not taking: Reported on 09/09/2023) No current facility-administered medications for this visit. ALLERGIES Allergen Reactions Seasonal Allergies Itching PAST SURGICAL HISTORY Procedure Laterality Date COLONOSCOPY FLX DX W/COLLJ SPEC WHEN PFRMD 09/05/2014 Colonoscopy L'SCOPE CHOLECYSTECTOMY 08/12/2017 Dr. Rolando Valdez PAST SURGICAL HISTORY OF Craniotomy. Vestibular Schwannoma FAMILY HISTORY Problem Relation Age of Onset other (Pacemaker) Mother other (HTN) Mother No Known Problems Father No Known Problems Half-brother No Known Problems Half-sister Social History Tobacco Use Smoking status: Former Packs/day: 0.30 Years: 30.00 Additional pack years: 0.00 Total pack years: 9.00 Types: Cigarettes Start date: 07/16/2015 Quit date: 03/09/2019 Years since quittin.5 Smokeless tobacco: Never Tobacco comments: Father smoked occasional cigar in home. NO ETS in adult home. Vaping Use Vaping Use: Never used Substance Use Topics Alcohol use: Yes Comment: weekends Drug use: No REVIEW OF SYSTEMS GENERAL: Negative for Malaise, significant weight loss, fever RESPIRATORY: Negative for cough, wheezing and shortness of breath CARDIOVASCULAR: Negative for chest pain, leg swelling and palpitations GI: Negative for abdominal discomfort, blood in stools or black stools and change in bowel habits : Negative for dysuria, frequency and incontinence MUSCULOSKELETAL: Negative for joint pain or swelling, back pain, and muscle pain. SKIN: Negative for lesions, rash, and itching. HEMATOLOGY/LYMPHOLOGY Negative for prolonged bleeding, bruising easily, and swollen nodes. ENDOCRINE: Negative for cold or heat intolerance, polyuria, polydipsia and goiter. NEURO: negative Physical Exam: Constitutional: Pt is a well developed 62 year old male who is alert, oriented and cooperative Eyes: Following during examination. No redness or drainage. Respiratory: RR normal and nonlabored. Even breathing. No evidence of distress or shortness of breath. Psychology: Patient is engaged during conversation. Normal affect and mood. Does not appear depressed or anxious during encounter. Vascular: Dorsalis pedis and posterior tibial pulses palpable as b/l Capillary Fill time < 5 seconds to digits 1-5 b/l Skin temperature warm to warm proximal to distal b/l Hair growth present to digits Neurological: intact light touch/epicritic sensation b/l intact protective sensation no significant neurological deficits Dermatological: Nails 1-5 b/l appear normal. Webspaces clean and dry 1-4 b/l. Skin appears well hydrated and supple. good color, texture, turgor. No open lesions present. No callosities present. Musculoskeletal/Orthopaedic: Patient has pain to palpation of left plantar medial calcaneal tubercle Foot type is neutral structurally AJ ROM is full with knee extended and flexed 1st MPJ is full when loaded and no pain or crepitus are noted with ROM. MTJ, STJ are full and free of pain and crepitus. +5/5 muscle strength dorsiflexion, plantarflexion, inversion, eversion b/l Radiographs: 3 views left foot ordered September 09, 2023: I have personally reviewed and interpreted these XR myself: plantar heel spur present. No acute fracture. Medial deviation of left 2nd toe ASSESSMENT: (M72.2) Plantar fasciitis (primary encounter diagnosis) PLAN: 1. Initial Office Visit - A thorough review of the patient's PMH and Podiatric physical exam was completed. 2. Patient advised to perform stretching excercises, icing, and to make appropriate shoe gear changes to include wearing athletic-type shoes with supportive insoles. No barefoot walking. Patient alsogiven written instructions on how to correctly perform the stretching of the achilles tendon/calf st retches, and the heel spur/plantar fasciitis regimen. 3. Patient advised to seek wide, deep toe box, accomodative, comfortable, lace- up, athletic/walkingtype footwear that includes motion control characteristics for support and cushion that need to be worn at all times when weight-bearing. Shoes should be tested for torsional stability as well as proper bending at the toebox rather than at the midfoot. Good quality shoes such as, but not limited to, New Balance or Asics are examples of more proper foot gear. 4. Patient recommended to get powerstep insoles for proper support of the arch in order to alleviate the tension and stress on the plantar fascia associated with normal daily walking. Patient advisedthat these modalities used in conjunction with stretching and icing are able to alleviate most symptoms from this condition. 5. Discussed injection of left heel. Injection on right foot did help in 2020. Patient open to try injection on left. Discussed r/b/a to injection. He elected to receive. Patient elected to proceed with an injection to the left heel today. The risks, benefits, potentialcomplications, personnel present, and alternatives to this were discsussed. Pt elected to proceed. all questions were answered. no guarantees were given. A timeout was performed. patient properly identified. procedure site marked. Under aseptic technique an injection was performed to the left heel using a mixture of cc of 0.5 % Marcaine plain, of kenalog and cc of dexamethazone. Patient toleratedinjection nicely. Robert Hurley DPM Podiatry [address] [facility] [address] Dept: [phone] Dept * Delma Min LPN - 09/09/2023 8:37 AM EST AMB ROOMING INTAKE FLOWSHEET DATA Pain Pain Level: 10 Pain Location: Heel-Left Description: Sharp, Dull, Aching, Sore Duration Amount of Time: 1 Duration Units: Months Frequency: Continuous Patient presents with: Left Foot - New, Pain Delma Min LPN documented in this [facility]24 Instructions* Patient Instructions* Robert Hurley - 09/09/2023 8:48 AM EST Images from the original note were not included. What is Plantar Fasciitis? Plantar fasciitis is the most common cause of heel pain. The pain is caused by inflammation of the plantar fascia. If you strain your plantar fascia, it becomes weak, swollen and irritated (inflamed). The resulting pain may be isolated in the heel or may appear at different points on the bottom of the foot, from time to time; it may occur in one foot or both. Some think that plantar fasciitis pain is caused by irritation of nerves from tissue swelling or inflammation, but it is debatable. Plantar fasciitis is common in middle-aged people; it also occurs in younger people who are on their feeta lot, such as athletes or soldiers. The plantar fascia is a strong band of connective tissue that extends from the base of the toes, along the bottom of the foot, to the bottom of the heel (calcaneous bone); it acts like a bowstring tomaintain the arch of the foot. What are heel spurs? The inflammatory reaction of the heel bone may produce spike-like projections of new bone, called heel spurs. The spurs sometimes show on X-rays. They neither cause the initial pain nor do they causethe initial problem. However, later, having to walk on spurs may cause sharp pain. What causes plantar fasciitis? Plantar fasciitis is caused by straining the ligament that supports your arch. Repeated strain can cause tiny tears in the ligament. These lead to pain and swelling. During walking, the plantar fascia experiences tension up to twice the body weight with each step. While this is normal, those who spend much time on their feet, such as nurses, brake drum molder/waiters, andmail carriers, often experience plantar fasciitis. Athletes involved in tennis or other racquet sports, race walking, jogging or running also show a higher incidence of plantar fasciitis than do those participating in other activities. Thus, it's clear that plantar fasciitis is predominantly an overuse injury. In fact, any activity that results in prolonged tension and stress on the plantar fascia may cause plantar fasciitis. It is possible that changes in footwear may play a role in causing plantar fasciitis, no matter what activity is occurring. Those who are overweight are prone to plantarfasciitis. This is true even for sedentary people who get little physical activity. Abnormalities of the foot and ankle joints may predispose some individuals to development of plantar fasciitis (specifically, over pronation of the subtalar joint). Contributing Factors * Flat feet * Toe running, hill running * Sudden weight increase * High-arched, rigid feet * Soft terrain, e.g. running on sand * Obesity * Pronated feet (rolled inward) * Sudden increase in activity* Family tendency * Poor shoe support * Worn out or poorly fitted shoes * Increasing age * Walking,standing or running for long periods of time, especially on hard surfaces. How is the Injury Treated? Rest Your Feet: Limit, or if possible, stop activities that are causing your heel pain. Try to avoid running or walking on hard surfaces, such as concrete. Use pain as your guide. If your foot is toopainful, rest it. Ice: Ice the sore area for 30 to 60 minutes, several times a day, to reduce inflammation and relieve pain. Apply a plastic bag of crushed ice (or a bag of frozen peas) over a towel. Ice the sore areafor 15 minutes after activity/exercise. Application of heat is not generally recommended, as heat ex pands the bone and connective tissue, perhaps exerting greater pressure on nerves and thereby increasing pain. If heat is used, follow it with ice. Medication: If your condition developed recently, anti-inflammatory/analgesic medication, combined with heel pads (see below) may be all that is necessary to relieve pain and to reduce inflammation. If no pain relief has occurred after 2- 3 weeks, however, your doctor may inject either cortisone or local anesthetic directly into the tender area. Exercises: Do simple exercises, such as calf stretches and towel stretches (see below) several times a day, especially when you first get up in the morning. These can help your ligament become more flexible and strengthen the muscles that support your arch. Shoes: Poorly fitting shoes can cause plantar fasciitis. The best type of shoe to wear is a good walking or running shoe with good shock absorption and excellent arch support. You should choose the one that fits the best. [place] with your athletic shoes to find a pair that is comfortable and causes fewer symptoms. Put your shoes on as soon as you get out of bed; going barefoot or wearing slippers may make your pain worse. Good brands include (but are not limited to): New Balance, Asics, Saucony, SAS and Merrel s. Taping: Your doctor may tape your foot to maintain the arch. This takes some of the tension off theplantar fascia. Weight Loss: If your weight is putting extra stress on your feet, your doctor may encourage you to try a weight-loss program. Orthotics: An orthotic insole is a molded piece of rubber, plastic, or other material that you insert into your shoe. It corrects the alignment of your foot and cushions your foot from excessive pounding. These may be prescription or non-prescription. Prescription orthotics are custom-fitted and may fit better and control pain better, but are very expensive. Night Splints: A night splint holds the foot with the toes pointed up and the ankle at a 90-degree angle. This position applies a constant, gentle stretch to the plantar fascia. Corticosteroid Shots: Steroids may be injected into the tender area to reduce inflammation. REHAB Exercises to stretch the plantar fascia, the calf muscles, and the Achilles tendon. Tightness of the muscles of the calves may contribute to plantar fasciitis, so stretching the calf muscles is important to rehabilitation, as is stretching of the plantar fascia itself. Plantar fascial stretches Assisted Dorsiflexion/Plantar Fascia Stretch: Sit on the floor or ground, barefoot, with both legs outstretched. Use a towel or elastic band and wrap it around the ball (and not the toes) of the affected foot. Use the towel or elastic band to provide resistance to upward movement of the forefoot. Pull foot upward (toward your body) with the help of the elastic band or towel, and then return to the starting position. Ten repetitions are recommended. Perform the sequence at least three times a day. Alternate Plantar Fascia Stretch: Sit upright in a chair, barefoot. Place the ankle of the affectedfoot on your opposite knee. Using the same hand as the affected foot, reach across and grab the toes. Flex the ankle toward and pull the toes toward the myers. To test the stretch, place the thumb of your hand on the bottom of the foot. You should be able to feel the cord-like plantar fascia, running the length of the foot. Hold the stretch for a count of 10, then relax. Repeat 10 times. Do the sequence at least three times a day. Achilles/Calf Stretches Strengthening the muscles of the calves may contribute to successful rehabilitation of plantar fasciitis, as well as prevent reoccurrence. The exercises below will help strengthen the calf muscles. Calf and Achilles Tendon Stretch (Gastrocnemius Stretch): Face a wall, standing an arm's length away. Place one foot back. Place both hands on the wall. Bend the elbows and knee of your forward leg, keeping the heel of the backward foot on the floor and keeping your body straight (aligned), until your forehead nearly touches the wall, or until significant stretch is felt in the muscles of the calf of the backward leg. Hold this position for 10 to 15 seconds. Extend elbows (straighten your arms and stand upright again) and maintain this position for 10 seconds. Repeat this cycle 15 to 20 times. Switch legs and repeat the exercise. Powerstep Original Full length. Can purchase at [employer] and boots,shoes and more here in [place], [employer] in [place] or [place]. Also can find in [place] in [facility]. Powersteps can also be purchased online, starting around $45.00 If you have a metatarsal or dancer pad for your feet apply the pad directly to the insole so you can interchange between your shoes. Find a shoe with a removable insole and take this out and replace with your powerstep insole. Always bring powersteps with you when shopping for shoes so that you can make sure that everything fits well together STEROID INJECTION You have been injected with a corticosteroid and local anesthesia today. This should provide reliefof symptoms for the next 8 hours or so. After this time frame you will likely experience an increase in pain symptoms again until the effects of the steroid start to work, which should occur within 24-48 hours. Approximately 2% of individuals may experience a post injection flare or severe worsening of symptoms following injection. If this occurs ice the area and take Tylenol or Aleve for pain. In some very rare instances skin depigmentation and joint infection may occur. Joint infection is aconcern if you experience any of the following: pain for more than 48 hours after the injection pain develops more than 2 days after the injection the area becomes red, hot or swollen you develop a fever following the injection Corticosteroid injections can also rarely interfere with the healing process and weaken tendons, sometimes causing tendons to rupture. Repeated injections of steroids can also damage joint cartilage.For these reasons, there are limits to how many times and how frequently corticosteroid injections can be used in the same area. If anything seems unusual or out of the ordinary please contact our office as soon as possible for further instruction. documented in this encounter[facility]03-[facility]-2024 History of Present illness Narrative* Anisha Sandy RT(R) - 09/09/2023 8:30 AM EST Radiology Service Progress Note PATIENT NAME: Bernardo Carver DATE OF SERVICE: September 09, 2023 TIME: 12:32 PM PATIENT IDENTITY VERIFICATION COMPLETED USING TWO (2) IDENTIFIERS: Name and Date of confirmedby patient verbally. FALL SCREENING: Has the patient had 2 falls in the last year or 1 fall with injury or currently using an Ambulatory Assistive Device (Walker, Cane, Wheelchair, Crutches, etc.)? 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 Bearing PERIPHERAL IV DATA: Not applicable SIGNED BY: RT Ciara(R) September 09, 2023 12:32 PM documented in this encounterSycamore [facility] Center02-22-2024 Miscellaneous Notes* Telephone Encounter - Jen Whitt APRN.CNP - 08/28/2023 3:40 PM EST The following approved medication requests have been transmitted electronically. Requested Prescriptions Signed Prescriptions Disp Refills atorvastatin (LIPITOR) 40 mg tablet 30 tablet 5 Sig: Take 1 tablet by mouth daily at bedtime. For cholesterol. Authorizing Provider: JEN WHITT APRN.CNP * Telephone Encounter - Ayanna Singh LPN - 08/28/2023 3:37 PM EST Patient notified of results, verbalizes understanding of instructions. Pt stated to send Rx for Lipitor 40 mg. one tab PO daily. Ayanna Singh LPN * Telephone Encounter - Jen Whitt APRN.CNP - 08/28/2023 3:25 PM EST Can you please call the patient and let him know I reviewed his lab results. LDL cholesterol has gone up to 156. Option would include to increase the Lipitor or work on lifestyle changes at home and recheck labs in 6 months. Glucose is just mildly elevated. Try to be mindful of processed foods in the diet. Try to increase lean protein, vegetables, get some form exercise. Please let him know that we did contact CPAP supply [employer], unfortunately were not able to get through. We will attempt to call them again tomorrow. , Medical Services Jen Whitt APRN.ANDIE documented in this encounterSycamore [facility] Center02-19-2024 History of Present illness Narrative* David Jacobsen, OD - 08/25/2023 10:21 AM EST 1. Chorioretinal scar of both eyes No current hemorrhage, but multiple CR scars and creamy yellow scars in periphery OS>OD Recommend follow-up with José Miguel Downing (lost to follow-up x 2 years) -POHS related? 2. Dry eye syndrome of bilateral lacrimal glands Recommended warm compresses and artificial tears 2-3x daily and gel nightly Urged to follow-up if symptoms do not improve 3. Hypermetropia, bilateral 4. Regular astigmatism of both eyes 5. Presbyopia Finalized spec rx Follow-up with Dr. José Miguel Douglas next available and me in 1 year for complete David Jacobsen, KENNETH August 25, 2023 10:21 AM documented in this encounterSycamore Medical Center02-19-2024 Instructions* Patient Instructions* David Jacobsen, OD - 08/25/2023 10:19 AM EST STOP visine Eye itching seems to be dry eye related: Use warm compresses daily Use Systane Complete or Refresh Relieva 2-3 times daily Use Systane, Refresh or Blink gel nightly before bed in both eyes Call for appointment or follow-up if symptoms do not improve documented in this encounterSycamore Medical Center02-09-2024 Miscellaneous Notes* Telephone Encounter - Vilma Farnsworth Ma - 08/15/2023 3:36 PM EST Pt notified of message below from Provider via [employer]. Made him aware to contact [facility] main phone number and speak with a Schedule to help assist him in setting up an appt. Vilma Farnsworth Ma * Telephone Encounter - Michael Jarquin MD - 08/15/2023 2:51 PM EST Yes, he can see Ophthalmology in [place], Dr Douglas Jarquin MD * Telephone Encounter - Sophie Tamez Ma - 08/15/2023 10:39 AM EST Pt saw Dr. Hurley in past for Podiatry. Is pt able to see David Jacobsen for his eyes rather than going to [facility] main? Sophie Tamez Ma documented in this encounterSycamore Medical Center01-15-2024 History of Present illness Narrative* Ann Fuentes PA-C - 07/21/2023 8:00 AM EST DATE OF SERVICE: 07/21/2023 PATIENT NAME: Bernardo Carver : 1960 AGE: 62 y.o. CLINIC NUMBER: [id number] Visit type: Established patient Chief Complaint Patient presents with Skin Lesion (LMS) Subjective HISTORY OF PRESENT ILLNESS: Bernardo Carver is a 62 y.o. who presents to the office for a check up. Patient has never had a FSE. C/o spot on L scalp x months. Pt states the lesion was removed in the past in 2019-Inflamed SK and has come back. Pt hits with comb and when getting hair cut. Patient has no h/o of ATN. Patient has no h/o of AKs. ? Patient has no personal h/o skin cancer. Patient has no family h/o melanoma. History of pacemaker/ defibrillator? No History of HIV/ Hep C? No Allergies to Lidocaine, Epinephrine, Latex or Adhesive? No Social History: Born/raised in [place]. Excessive sun exposure: Yes Used tanning beds: No Patient does not wear SPF. Patient does use additional sun protection measures. Review of [facility]: as per HPI, otherwise negative There were no vitals filed for this visit. PHYSICAL EXAM: GENERAL APPEARANCE:?alert and oriented x3, well developed and well nourished. PSYCH: appropriate mood and affect DERMATOLOGY: 1. Multiple benign melanocytic nevi of both upper extremities, both lower extremities, and trunk Multiple uniformly pigmented brown macules/ papules with regular network pattern on dermoscopy; please see diagram under patient examination Reassured that this is a benign lesion and does not require any treatment. Educated that if the lesion changes color, becomes larger, bleeds, becomes bothersome or painful then it should be reevaluated. Patient expresses understanding and is agreeable to plan. Patient advised to perform monthly skin exams; checking the skin for any new or changing lesions. Any lesions that are new, elevated, firm and/or growing should be evaluated in our office. Also look for ABCDEs of Melanoma (warning signs): Asymmetry- the appearance of one side of the mole doesn't look like the other side. Borders- the borders of the mole are jagged, notched or smeared. Color- there are multiple colors in the mole, or it has changed colors. It can become darker, red or even lose pigment. Diameter- diameter greater than 6mm or the size of a pencil eraser. Evolution- Any change or evolving in size, shape or color of a mole. Also, any new symptom like bleeding, pain or itching may be a warning sign. You can visit the [employer] Cancer Foundation at skincancer.org for more information on melanoma and other skin cancers. 2. Seborrheic keratosis (2) Generalized, Left Parietal Scalp Kurtz-brown waxy papule(s) and plaque(s) with stuck on appearance Reassured that this is a benign lesion and does not require any treatment. Educated that if the lesion changes color, becomes larger, bleeds, becomes bothersome or painful then it should be reevaluated. Patient expresses understanding and is agreeable to plan. 3. Solar lentigo Light brown well-circumscribed macule(s) Educated and reassured, benign finding secondary to sun exposure. Patient educated on the proper use of sunscreen, SPF, and how often to reapply. Recommend use of OTC mineral sun block, like Neutrogena or [place] Posay. Patient advised to look for zinc or titanium as the active ingredient(s). Try to limit sun exposure to clerk specialist or late evening hours. Patient advised to perform self-skin checks and call for follow up appointment if any new or concerning lesions detected. 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 Follow up in about 1 year (around 07/21/2024) for FSE w/PA. Ann Fuentes PA-C 07/21/23 7:49 AM REFERRING MD: No referring provider defined for this encounter. documented in this [facility]01-03-2024 History of Present illness Narrative* Lela Guillory RT(R) - 07/09/2023 8:00 AM EST Radiology Service Progress Note PATIENT NAME: Bernardo Carver DATE OF SERVICE: July 09, 2023 TIME: 8:06 AM PATIENT IDENTITY VERIFICATION COMPLETED USING TWO (2) IDENTIFIERS: Name and Date of confirmedby patient verbally. FALL SCREENING: Has the patient had 2 falls in the last year or 1 fall with injury or currently using an Ambulatory Assistive Device (Walker, Cane, Wheelchair, Crutches, etc.)? No PATIENT GENDER DATA: Male PATIENT RELEVANT IMPLANT DATA REVIEWED: Not Applicable RADIOLOGY DEPARTMENT: General X-ray: Exam(s) Completed: Chest X-Ray PERIPHERAL IV DATA: Not applicable SIGNED BY: RT Berkley(R) July 09, 2023 8:06 AM documented in this encounterSycamore Medical Center12-21-2023 Instructions* Patient Instructions* Jen Whitt APRN.CNP - 06/26/2023 7:46 AM EST Schedule appointment with Pulmonology. Consult to [facility] will be sent over with copies of [facility] testing. Continue to take Liptor as prescribed. Start Baby Aspirin 81 mg Get repeat fasting labs in 4-6 weeks, no food 10-12 hours prior, may have black coffee and water. May trial albuterol inhaler as needed for shortness of breath. Follow up in 3 months or sooner as needed. documented in this encounterSycamore Medical Center12-21-2023 History of Present illness Narrative* Jen Whitt APRN.CNP - 06/26/2023 7:40 AM EST This is a 62 year old male who presents today with: Patient presents with: Follow Up: Breathing test in [place] HISTORY OF PRESENT ILLNESS: Bernardo Carver is a 62 year old male. Patient presents with: Follow Up: Breathing test in [place] Here in the office to discuss recent testing he had completed with Cardiology. Still having on going SOB. Refers that he will feel short of breath at rest or when active, had an episode last night where he experienced shortness of breath during dinner and had to stop eating. Denies any chest pain, palpitations, dizziness, or wheezing. Walking 10,000 steps per day and goes to gym 3 days per week. Refers that he does not believe he has deconditioning due to how active he is during the day. Cardiology started on Lipitor 40 mg daily, has yet to start baby aspirin. Quit smoking over a year ago, 1 pack every 2 months. 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 SOB non anginal, likely due to deconditioning. He told me today that he only uses the treadmill 2 days a week, 26 minutes each, with no limitation and does not have time to exercise more. He felt a bit tired when he tried to hike with his friends over the weekend Recommend medical treatment with aspirin 81 mg daily and starting atorvastatin 40 mg daily. Goal LDL<70 Called [facility] to inform of results and plan of management and to the importance of using the treadmill5 days a week, half an hour each day and slowly go up on intensity to improve symptoms. Offered follow up, declined at this time. He will follow with PCP PAST MEDICAL HISTORY: PAST MEDICAL HISTORY Diagnosis Date Allergies Hypertension JEFFREY on CPAP 2014 Snoring 2014 Vestibular schwannoma (HCC) 2016 PAST SURGICAL HISTORY Procedure Laterality Date COLONOSCOPY FLX DX W/COLLJ SPEC WHEN PFRMD 09/05/2014 Colonoscopy L'SCOPE CHOLECYSTECTOMY 08/12/2017 Dr. Rolando Valdez PAST SURGICAL HISTORY OF Craniotomy. Vestibular Schwannoma ALLERGIES Seasonal Allergies MEDICATIONS Current Outpatient Medications Medication Sig aspirin, enteric coated (ADULT LOW DOSE ASPIRIN) 81 mg EC tablet Take 1 tablet by mouth once daily. atorvastatin (LIPITOR) 40 mg tablet Take 1 tablet by mouth once daily. lisinopril (ZESTRIL) 20 mg tablet take 1 tablet by mouth once daily nitroglycerin sublingual (NITROQUICK) 0.3 mg SL tablet Dissolve 1 tablet under the tongue one time only for 1 dose. To be administered in Radiology for CTA exam cetirizine (ZYRTEC) 10 mg tablet Take 1 tablet by mouth once daily. tamsulosin (FLOMAX) 0.4 mg Take 2 capsules by mouth daily at bedtime. dutasteride (AVODART) 0.5 mg capsule Take 1 capsule by mouth once daily. (Patient not taking: Reported on 03/21/2023) CPAP Initiate CPAP @ 12 cm of water with humidification. Mask (per patient preference) optional chin strap (if indicated) , filters, tubing, humidifier and lifetime supplies. ResMed Mirage Quattro, size medium No current facility-administered medications for this visit. FAMILY HISTORY Problem Relation Age of Onset other (Pacemaker) Mother other (HTN) Mother No Known Problems Father No Known Problems Half-brother No Known Problems Half-sister Social History Tobacco Use Smoking status: Former Packs/day: 0.30 Years: 30.00 Additional pack years: 0.00 Total pack years: 9.00 Types: Cigarettes Start date: 07/16/2015 Quit date: 03/09/2019 Years since quittin.2 Smokeless tobacco: Never Tobacco comments: Father smoked occasional cigar in home. NO ETS in adult home. Vaping Use Vaping Use: Never used Substance Use Topics Alcohol use: Yes Comment: weekends Drug use: No REVIEW OF SYSTEMS GENERAL: No weight loss, malaise or fevers/chills HEENT: Negative for frequent or significant headaches, No changes in hearing or vision. NECK: Negative for lumps, goiter, pain and significant neck swelling RESPIRATORY: +SOB CARDIOVASCULAR: Negative for chest pain, leg swelling, orthopnea, or palpitations GI: No nausea, vomiting, or diarrhea/constipation. No hematochezia/melena. No heartburn or reflux symptoms. : No history of dysuria, frequency or incontinence MUSCULOSKELETAL: Negative for joint pain or swelling. SKIN: Negative for lesions, rash, and itching ENDOCRINE: Negative for cold or heat intolerance, polyuria, polydipsia and goiter NEURO: No history of headaches, syncope, paralysis, seizures or tremors MOOD: Negative for depression, anxiety, or suicidal ideation. EXAM: BP 130/84 Pulse (!) 50 Resp 16 Wt 102.1 kg (225 lb) SpO2 94% BMI 33.23 kg/m PHYSICAL EXAM: General Appearance: Well appearing, alert, in no acute distress, well-hydrated, well nourished. Skin: Skin color, texture, turgor normal, no suspicious rashes or lesions. Head: Normocephalic, no masses, lesions, tenderness or abnormalities. Eyes: Anicteric sclera. Extraocular movements are intact. Lungs: Lungs clear to auscultation. No wheezing, rhonchi, rales. Heart: RRR without murmur, gallop, or rubs. No ectopy. Extremities: No deformities, edema, skin discoloration, clubbing or cyanosis. Good capillary refill. Peripheral Pulses: Normal, Capillary refill <2secs, strong peripheral pulses, Pulses palpable. Neurologic: Gait normal. Sensation grossly intact. ASSESSMENT/PLAN: 1. SOB (shortness of breath) - ICD9: 786.05, ICD10: R06.02 (primary diagnosis) - Patient would like a 2nd cardiac opinion, consult and test results will be sent to [facility]. - Recommend consult with pulmonology. - May trial the use of albuterol as needed. - CONSULT TO PULMONARY MEDICINE - ALBUTEROL SULFATE HFA 90 MCG/ACTUATION AEROSOL INHALER 2. Hyperlipidemia, mixed - ICD9: 272.2, ICD10: E78.2 - New diagnosis - Continue current medications - Counseled on healthy diet and regular exercise - Get labs in 6-8 weeks. - COMP METABOLIC PANEL - LIPID PANEL BASIC - ASPIRIN 81 MG TABLET,DELAYED RELEASE Follow-up in 3 months or sooner as needed. Discussed treatment plan and patient voices understanding. Patient's questions answered appropriately. Medications and potential side effects were discussed and patient voices understanding. Jen Whitt APRN.ANDIE This note was partially generated using [employer] voice recognition system. Note was reviewed for accuracy. There may be minor misspellings or grammar miscues with [employer] voice recognition. documented in this encounterSycamore [facility] Center12-07-2023 NoteHNO ID: [id number] Author: Lela Rodriguez RT(R) Service: ? Author Type: Stock Room Manager Type: Progress Notes Filed: 06/12/2023 9:03 AM Note Text: Radiology Service Progress Note PATIENT NAME: Bernardo Carver DATE OF SERVICE: June 12, 2023 TIME: 9:02 AM PATIENT IDENTITY VERIFICATION COMPLETED USING TWO (2) IDENTIFIERS: Name and Date of confirmed by patient verbally. FALL SCREENING: Has the patient had 2 falls in the last year or 1 fall with injury or currently using an Ambulatory Assistive Device (Walker, Cane, Wheelchair, Crutches, etc.)? No PATIENT GENDER DATA: Male PATIENT RELEVANT IMPLANT DATA REVIEWED: Yes RADIOLOGY DEPARTMENT: CT; Exam(s) Completed: Cardiac PERIPHERAL IV DATA: Not applicable SIGNED BY: RT Miryam(R) June 12, 2023 9:02 [facility]12-07-2023 History of Present illness Narrative* Lela Rodriguez RT(R) - 06/12/2023 8:30 AM EST Radiology Service Progress Note PATIENT NAME: Bernardo Carver DATE OF SERVICE: June 12, 2023 TIME: 9:02 AM PATIENT IDENTITY VERIFICATION COMPLETED USING TWO (2) IDENTIFIERS: Name and Date of confirmedby patient verbally. FALL SCREENING: Has the patient had 2 falls in the last year or 1 fall with injury or currently using an Ambulatory Assistive Device (Walker, Cane, Wheelchair, Crutches, etc.)? No PATIENT GENDER DATA: Male PATIENT RELEVANT IMPLANT DATA REVIEWED: Yes RADIOLOGY DEPARTMENT: CT; Exam(s) Completed: Cardiac PERIPHERAL IV DATA: Not applicable SIGNED BY: RT Miryam(R) June 12, 2023 9:02 AM documented in this encounterSycamore Medical Center12-07-2023 Nurse Note* Marjorie Agrawal RN - 06/12/2023 8:30 AM EST Radiology Service Progress Note DATE OF SERVICE: June 12, 2023 TIME: 8:44 AM PATIENT WEIGHT: 221 LBS PATIENT IDENTITY VERIFICATION COMPLETED USING TWO (2) STANDARD IDENTIFIERS: Name and Date of confirmed by patient verbally and Name and Date of confirmed by identification band. FALL SCREENING: Has the patient had 2 falls in the last year or 1 fall with injury or currently using an Ambulatory Assistive Device (Walker, Cane, Wheelchair, Crutches, etc.)? No PATIENT GENDER DATA: Male ALLERGIES: Reviewed and unchanged CONTRAST ALLERGY: No EXAM: CT -CONTRAST INDUCED NEPHROPATHY RISK FACTORS: Patient age > 60 years CREATININE: Creatinine Date Value Ref Range Status 03/21/2023 0.84 0.73 - 1.22 mg/dL Final 01/16/2023 0.97 0.73 - 1.22 mg/dL Final 03/15/2022 0.90 0.73 - 1.22 mg/dL Final Estimated Glomerular Filtration Rate Date Value Ref Range Status 03/21/2023 100 >=60 mL/min/1.73m Final Comment: Estimated Glomerular Filtration Rate (eGFR) is calculated using the 2020 CKD-EPI creatinine equation. This equation utilizes serum creatinine, sex, and age as parameters. The creatinine assay has traceable calibration to isotope dilution- mass spectrometry. Refer to KDIGO guidelines for clinical interpretation. In patients with unstable renal function, e.g. those with acute kidney injury, the eGFRmay not accurately reflect actual GFR. eGFR- Date Value Ref Range Status 06/11/2021 >60 Final P.O.C.T. RESULTS: POC done: Yes, See Lab Tab June 12, 2023 TREATMENT: N/A IV SITE: Ambulatory: A peripheral IV was started in the Right antecubital site with a Angio cath: 20 gauge. IV SITE APPEARANCE: Clean,Dry and Intact Creatinine 1.0 GFR 86.2 SIGNATURE: Marjorie Agrawal RN PATIENT NAME: Bernardo Carver DATE: June 12, 2023 TIME: 8:44 AM * Jovon Pelletier RN - 06/12/2023 8:30 AM EST Radiology Service Progress Note PATIENT NAME: Bernardo Carver DATE OF SERVICE: June 12, 2023 TIME: 0905 AM PATIENT IDENTITY VERIFICATION COMPLETED USING TWO (2) STANDARD IDENTIFIERS: Name and Date of confirmed by patient verbally and Name and Date of confirmed by identification band. PATIENT GENDER DATA: Male PATIENT RELEVANT IMPLANT DATA REVIEWED: Yes ALLERGIES: Reviewed and unchanged MEDICATIONS REVIEWED: YES PROCEDURE TYPE: CT: Other Cardiac CTA PATIENT SCREENING: Coronary Artery Disease CARDIAC MEDICATIONS: Nitroglycerin 0.3 mg SL given PATIENT DISCHARGED TO: Home/Self Care SIGNED BY: Jovon Pelletier RN June 12, 2023 9:27 AM documented in this encounterSycamore Medical Center12-01-2023 Miscellaneous Notes* Telephone Encounter - Adriano Lima APRN.CNP - 06/06/2023 9:51 AM EST The following approved medication requests have been transmitted electronically. Requested Prescriptions Pending Prescriptions Disp Refills lisinopril (ZESTRIL) 20 mg tablet [Pharmacy Med Name: LISINOPRIL 20 MG TABLET] 90 tablet 3 Sig: take 1 tablet by mouth once daily Adriano Lima APRN.ANDIE * Telephone Encounter - Jonathan Dao LPN - 06/06/2023 9:44 AM EST Last refill 04/24/22 Qty: 90 with 3 refills KARSON 01/16/23 NOV none scheduled Jonathan Dao LPN documented in this encounterSycamore Medical Center11-28-2023 Miscellaneous Notes* Telephone Encounter - Kat Ruffin RN - 06/03/2023 9:20 AM EST Called patient and LVM and MC message, patient has OV with Dr Vasques 06/04 needs to be rescheduledfor after his CTA (unless patient having current concerns) so that the doctor and review his results with him at future appt. Kat Ruffin RN documented in this encounterSycamore Medical Center09-15-2023 History of Present illness Narrative* Christiano Vasques MD - 03/21/2023 8:30 AM EDT Images from the original note were not included. [facility] [place] SECTION OF REGIONAL CARDIOLOGY OUTPATIENT VISIT DATE March 21, 2023 Bernardo Carver [id number] PRIMARY CARE PHYSICIAN: Michael Jarquin [address] [place] [address] REFERRING PROVIDER: Jen Whitt [address] [facility] [id number] This note was written using medical terminology and is intended to be used for medical purposes by other health women's health care nurse practitioner ASSESSMENT AND PLAN: Mr. Carver is a 62 year old male with PMH of: - Hypertension - Dyslipidemia - JEFFREY on CPAP - Tobacco use, in remission - Obesity Presented for consultation for SOB Overall impression: SOB, unlikely cardiac, however CPET in 11/2022 suggested a possible CV limitation Changes today: Coronary CT RTC: 8 weeks or earlier as needed Exertional SOB CPET in 11/2022 suggested possible CV limitation. Symptoms happen at rest and exertion, not consistent with a certain pattern, atypical for angina, Plan: - Will order coronary CT 2. Hypertension, well controlled Continue lisinopril 20 mg daily 3. JEFFREY Compliant with CPAP 4. Tobacco use Stopped 4 years ago, used to smoke a pack a month Encouraged continued cessation 5. Primary prevention The 10-year ASCVD risk score (Mckenna GILBERT, et al., 2019) is: 10.3% Values used to calculate the score: Age: 62 years Sex: Male Is Non- : No Diabetic: No Tobacco smoker: No Systolic Blood Pressure: 120 mmHg Is BP treated: Yes HDL Cholesterol: 41 mg/dL Total Cholesterol: 198 mg/dL Will defer statin initiation pending coronary CT findings I have personally reviewed the Electrocardiogram, Laboratory Testing, Echocardiogram, and Stress Test: Echocardiogram. Christiano Vasques MD Cardiovascular disease staff March 21, 2023 8:37 AM HISTORY OF PRESENT ILLNESS: Mr. Carver is a very pleasant 62 year old male with PMH as above was originally referred to cardiology for SOB. Initial visit 03/21/2023: Eliceo saw his PCP on 01/16/2023. He endorsed SOB. He was referred to cardiology for further management. He has been having some SOB for 10 years, last week was bad, this week he is feeling okay with no SOB. He exercises 3-4 times a week, 45 minutes, 6 machines, with no SOB. He has dizziness when he bends over and stands up. No other dizziness. He eats healthy, does not have desserts or baked goods. 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 He denies any chest pain, PND, orthopnea, peripheral edema, palpitations, lightheadedness or syncope. REVIEW OF SYSTEMS: Negative with the exception of pertinent positives described in HPI PHYSICAL EXAMINATION: BP 120/70 Pulse (!) 56 Temp 37 C (98.6 F) (Temporal) Ht 175.3 cm (5' 9") Wt 100.4 kg (221 lb 6.4 oz) BMI 32.70 kg/m GENERAL APPEARANCE: healthy, alert and no distress NECK: JVP not elevated RESPIRATORY: lungs clear to auscultation - CARDIOVASCULAR: regular S1 and S2. No murmurs. EXTREMITIES: no edema CARDIOVASCULAR MEDICINE TESTING: I have personally reviewed the following lab and imaging tests: EKG 03/21/2023 NSR, normal QRS/PA/QTc intervals EKG 03/15/2022 Sinus bradycardia, normal QRS/PA/QTc intervals Stress echo 06/17/2022 CONCLUSIONS: - Exam indication: Chest Pain - The exercise stress echo was negative for ischemia at 94 % of MPHR (8.0 METS). - The left ventricle is normal in size. Left ventricular systolic function is normal. EF = 66 5% (2D biplane) Normal left ventricular diastolic function. - The right ventricle is normal in size. Right ventricular systolic function is normal. - The patient has not had a prior CC echocardiographic exam for comparison. Patch monitor 02/2023 Patient had a min HR of 32 bpm, max HR of 147 bpm, and avg HR of 59 bpm. Predominant underlying rhythm was Sinus Rhythm. 11 Supraventricular Tachycardia runs occurred, the run with the fastest interval lasting 4 beats with a max rate of 126 bpm, the longest lasting 10 beats with an avg rate of 102 bpm. Some episodes of Supraventricular Tachycardia may be possible Atrial Tachycardia with variable block. Isolated SVEs were rare (<1.0%), SVE Couplets were rare (<1.0%), and SVE Triplets were rare (<1.0%). Isolated VEs were rare (<1.0%), VE Couplets were rare (<1.0%), and no VE Triplets were present. CPET -11/26/2022 -CPET performed for assessment of dyspnea. No beta marilia medications. Maximum work rate was 181W, which is 110% predicted. Oxygen consumption at peak exercise was 20.0 mL/kg/min, which is 84% predicted. Lactate at peak exercise was 6.4 mEq/L. Exercise was judged subjectively by the exercise lab staff to be maximal. RER of 1.19, heart rate reserve, and work rate support this. Anaerobic threshold was achieved at 70% of predicted VO2max (normal is >40%). Heart rate at peak exercise was 148 BPM, which is 93% predicted, indicating a heart rate reserve of 7% (normal is <15%). VO2 work slope was 7.9, (normal 10 +/- 1.5) an abnormal work slope may be a marker of cardiovascular dysfunction. VO2 pulse, a surrogate for stroke volume, was 14 mL/beat, which is 91% predicted. Blood pressure response to exercise was hypertensive, with higher than expected rise in both systolic and diastolic blood pressure to 218/98. ECG showed some ST segment depression at peak exercise, without reported chest pain. space estimation was normal during exercise. Oxygen saturation during exercise: normal. Tidal volume and respiratory rate responded normally, i.e. no respiratory limitation suggested. In summary, this CPET shows normal work rate and near normal (84% predicted) oxygen consumption at peak exercise. Some markers which could signify cardiovascular abnormality included ST depression at peak exercise and low work slope throughout. Cholesterol, Total (mg/dL) Date Value 11/27/2020 190 Total Cholesterol, Nonfasting (mg/dL) Date Value 03/15/2022 198 HDL Cholesterol (mg/dL) Date Value 11/27/2020 45 HDL Cholesterol, Nonfasting (mg/dL) Date Value 03/15/2022 41 LDL Cholesterol (mg/dL) Date Value 11/27/2020 123 LDL Cholesterol, Nonfasting (mg/dL) Date Value 03/15/2022 134 Triglyceride (mg/dL) Date Value 11/27/2020 109 Triglycerides, Nonfasting (mg/dL) Date Value 03/15/2022 117 Creatinine Date Value Ref Range Status 01/16/2023 0.97 0.73 - 1.22 mg/dL Final 03/15/2022 0.90 0.73 - 1.22 mg/dL Final 06/11/2021 0.88 0.73 - 1.22 mg/dL Final 11/27/2020 0.79 0.73 - 1.22 mg/dL Final NT Pro BNP Date Value Ref Range Status 01/16/2023 <36 <125 pg/mL Final WBC (k/uL) Date Value 01/16/2023 4.51 RBC (m/uL) Date Value 01/16/2023 5.48 Hemoglobin (g/dL) Date Value 01/16/2023 16.8 Hematocrit (%) Date Value 01/16/2023 50.3 MCV (fL) Date Value 01/16/2023 91.8 MCH (pg) Date Value 01/16/2023 30.7 MCHC (g/dL) Date Value 01/16/2023 33.4 RDW-CV (%) Date Value 01/16/2023 14.2 Platelet Count (k/uL) Date Value 01/16/2023 176 MPV (fL) Date Value 01/16/2023 11.7 Glucose (mg/dL) Date Value 01/16/2023 109 (H) BUN (mg/dL) Date Value 01/16/2023 26 (H) Creatinine (mg/dL) Date Value 01/16/2023 0.97 Sodium (mmol/L) Date Value 01/16/2023 139 Potassium (mmol/L) Date Value 01/16/2023 4.5 Chloride (mmol/L) Date Value 01/16/2023 105 CO2 (mmol/L) Date Value 01/16/2023 21 (L) Protein, Total (g/dL) Date Value 01/16/2023 6.7 Albumin (g/dL) Date Value 01/16/2023 4.6 Calcium, Total (mg/dL) Date Value 01/16/2023 9.1 Alkaline Phosphatase (U/L) Date Value 01/16/2023 45 Bilirubin, Total (mg/dL) Date Value 01/16/2023 0.4 AST (U/L) Date Value 01/16/2023 17 ALT (U/L) Date Value 01/16/2023 26 Hep C Antibody IA (no units) Date Value 04/13/2018 Negative PMH: PAST MEDICAL HISTORY Diagnosis Date Allergies Hypertension JEFFREY on CPAP 2014 Snoring 2014 Vestibular schwannoma (HCC) 2017 PAST SURGICAL HISTORY Procedure Laterality Date COLONOSCOPY FLX DX W/COLLJ SPEC WHEN PFRMD 09/05/2014 Colonoscopy [facility] CHOLECYSTECTOMY 08/12/2017 Dr. Rolando Valdez PAST SURGICAL HISTORY OF Craniotomy. Vestibular Schwannoma Social History Tobacco Use Smoking status: Former Packs/day: 0.30 Years: 30.00 Additional pack years: 0.00 Total pack years: 9.00 Types: Cigarettes Start date: 07/16/2015 Quit date: 03/09/2019 Years since quittin.0 Smokeless tobacco: Never Tobacco comments: Father smoked occasional cigar in home. NO ETS in adult home. Vaping Use Vaping Use: Never used Substance Use Topics Alcohol use: Yes Comment: weekends Drug use: No FAMILY HISTORY Problem Relation Age of Onset other (Pacemaker) Mother other (HTN) Mother No Known Problems Father No Known Problems Half-brother No Known Problems Half-sister ALLERGIES Allergen Reactions Seasonal Allergies Itching Cholesterol, Total (mg/dL) Date Value 11/27/2020 190 Total Cholesterol, Nonfasting (mg/dL) Date Value 03/15/2022 198 CURRENT MEDICATIONS: cetirizine (ZYRTEC) 10 mg tablet^Take 1 tablet by mouth once daily.^Disp: 90 tablet^Rfl: 3 tamsulosin (FLOMAX) 0.4 mg^Take 2 capsules by mouth daily at bedtime.^Disp: 180 capsule^Rfl: 3 lisinopril (ZESTRIL, PRINIVIL) 20 mg tablet^take 1 tablet by mouth once daily^Disp: 90 tablet^Rfl: 3 CPAP^Initiate CPAP @ 12 cm of water with humidification. Mask (per patient preference) optional chin strap (if indicated) , filters, tubing, humidifier and lifetime supplies. ResMed Mirage Quattro, size medium^Disp: 1 Each^Rfl: 0 dutasteride (AVODART) 0.5 mg capsule^Take 1 capsule by mouth once daily.^Disp: 90 capsule^Rfl: 3 (Patient not taking: Reported on 03/21/2023) documented in this encounterSycamore Medical Center08-29-2023 History of Present illness Narrative* Edith Peter, RT(R) - 03/04/2023 9:20 AM EDT Radiology Service Progress Note DATE OF SERVICE: March 04, 2023 TIME: 9:34 AM PATIENT IDENTITY VERIFICATION COMPLETED USING TWO (2) STANDARD IDENTIFIERS: Name and Date of confirmed by patient verbally. FALL SCREENING: Has the patient had 2 falls in the last year or 1 fall with injury or currently using an Ambulatory Assistive Device (Walker, Cane, Wheelchair, Crutches, etc.)? No PATIENT GENDER DATA: Male PATIENT RELEVANT IMPLANT DATA REVIEWED: Yes ALLERGIES: Reviewed and unchanged CONTRAST ALLERGY: NO. EXAM: MRI - CONTRAST TYPE: GROUP II PERIPHERAL IV DATA: Ambulatory: A peripheral IV was started in the Right antecubital site with a Angio cath: 22 gauge. RADIOLOGY DEPARTMENT: MR; Exam(s) Completed: Head: IAC/CPA SIGNATURE: RT Trey(R) PATIENT NAME: Bernardo Carver DATE: March 04, 2023 TIME: 9:34 AM documented in this encounterSycamore Medical Center08-24-2023 Miscellaneous Notes* Telephone Encounter - Jen Whitt APRN.CNP - 02/27/2023 9:51 AM EDT Noted, thank you. Jen Whitt APRN.CNP * Telephone Encounter - Jaja Holm LPN - 02/27/2023 9:47 AM EDT Phoned patient and reviewed message with him. Patient voiced understanding and reports he was waiting on results before scheduling appt with Cardio. Patient reports he has been "Feeling the same. It comes and goes." Directed patient to scheduling desk so he could set up consult with cardiology. * Telephone Encounter - Jen Whitt APRN.CNP - 02/27/2023 9:14 AM EDT Can you please call the patient and let him know that I reviewed his ZIO monitor results. There was an episode where his heart was beating rapidly for several beats. As discussed at last office visit I would still recommend that he have an evaluation with cardiology. Can you please ask how he has been feeling? Jen Whitt APRN.CNP documented in this encounterSycamore Medical Center07-31-2023 Miscellaneous Notes* Telephone Encounter - Sophie Tamez Ma - 02/03/2023 8:10 AM EDT Pt notified that he should still proceed with the zio and that if he has any issues to call the number provided int he zio booklet. Sophie Tamez Ma documented in this encounterSycamore Medical Center07-13-2023 History of Present illness Narrative* Lela Guillory RT(R) - 01/16/2023 8:00 AM EDT Radiology Service Progress Note PATIENT NAME: Bernardo Carver DATE OF SERVICE: January 16, 2023 TIME: 8:01 AM PATIENT IDENTITY VERIFICATION COMPLETED USING TWO (2) IDENTIFIERS: Name and Date of confirmedby patient verbally. FALL SCREENING: Has the patient had 2 falls in the last year or 1 fall with injury or currently using an Ambulatory Assistive Device (Walker, Cane, Wheelchair, Crutches, etc.)? No PATIENT GENDER DATA: Male PATIENT RELEVANT IMPLANT DATA REVIEWED: Yes RADIOLOGY DEPARTMENT: General X-ray: Exam(s) Completed: Chest X-Ray PERIPHERAL IV DATA: Not applicable SIGNED BY: RT Berkley(R) January 16, 2023 8:01 AM documented in this encounterSycamore Medical Center07-11-2023 Miscellaneous Notes* Telephone Encounter - Sophie Tamez Ma - 01/14/2023 4:22 PM EDT Pt accepted appt 01/16/23 at 7:40 AM with marvin Li scheduled. Sophie Tamez Ma * Telephone Encounter - Vilma Farnsworth Ma - 01/14/2023 3:53 PM EDT Offered appt with AT on 01/16/23 in the am. Wait pt response to see if any time works for him. Make 40 min. Vilma Farnsworth Ma * Telephone Encounter - Vilma Farnsworth Ma - 01/14/2023 1:18 PM EDT See pt message. Pt has not been seen in office since 03/15/22. Had cardiac work up at that time completed. Pt was referred to Pulmonary. Notified pt he needs an appt with PCP team. Vilma Farnsworth Ma documented in this encounterSycamore Medical Center04-10-2023 History of Present illness Narrative* Sonja Jackson MD - 10/14/2022 8:41 AM EDT VANGIE bonds documented in this encounterSycamore Medical Center03-21-2023 Procedure [facility]02-14[facility]23 History of Present illness Narrative* Ann Fuentes PA-C - 08/20/2022 8:20 AM EST DATE OF SERVICE: 08/20/2022 PATIENT NAME: Bernardo Carver : 1960 AGE: 61 y.o. CLINIC NUMBER: [id number] Visit type: Established patient Chief Complaint Patient presents with Skin Lesion (PKN) Subjective HISTORY OF PRESENT ILLNESS: This is a 61 y.o. male who presents for evaluation of a skin lesion; last seen 09/19/2021. C/o-skin lesion located on the Right thigh x years. Patient states the lesion is a skin colored bump. Pt believes this is a skin tag. Admits discomfort, clothing is always rubbing against it. Denies changes in size, shape, color. Denies previous treatment. Patient has no h/o of ATN. Patient has no h/o of AKs. Patient has no personal h/o skin cancer. Patient has no family h/o melanoma. History of pacemaker/ defibrillator? No History of HIV/ Hep C? No Allergies to Lidocaine, Epinephrine, Latex or Adhesive? No Review of Systems There were no vitals filed for this visit. PHYSICAL EXAM GENERAL APPEARANCE:?Alert & oriented x3, pleasant. Well developed, well nourished. PSYCH: appropriate mood and affect DERMATOLOGY: (all measurements are in cm, unless otherwise noted) 1. Neoplasm of uncertain behavior of skin Right Posterior Thigh Large skin colord pedunculated papule Skin Biopsy Type of biopsy: tangential Informed consent: discussed and consent obtained Timeout: patient name, date of , surgical site, and procedure verified Procedure prep: Patient was prepped and draped in usual sterile fashion Prep type: Isopropyl alcohol Anesthesia: the lesion was anesthetized in a standard fashion Anesthetic: 1% lidocaine w/ epinephrine 1-100,000 buffered w/ 8.4% NaHCO3 Instrument used: DermaBlade Hemostasis achieved with: electrodesiccation Outcome: patient tolerated procedure well Post-procedure details: sterile dressing applied and wound care instructions given Dressing type: petrolatum and bandage Specimen A - Tissue exam Differential Diagnosis: Right posterior thigh R/O inflamed acrochordon Check Margins: No Biopsy recommended. Patient expresses understanding and is in agreement with the plan. Biopsy (x1) obtained today. Patient educated that we will call with the biopsy results within 2 weeks. Care instructions reviewed and written instructions provided to patient. Follow up for FSE. Ann Fuentes PA-C 08/20/22 8:20 AM REFERRING MD: documented in this [facility]02-14-2023 Instructions* Patient Instructions* Mari Yee RN - 08/20/2022 8:20 AM EST BIOPSY / SURGICAL AFTERCARE 1. If a dressing is in place, please leave it for 24 hours unless given other instructions. 2. After that time, remove the initial bandage, and cleanse the area with a mild, fragrance free soap such as Dove, Cetaphil, or CeraVe. 3. Apply Vaseline to the area and cover with a new bandage. Please do not use Neosporin, Polysporin, or Bacitracin, as these may cause unwanted allergic reactions in some patients, and are not necessary for good healing. 4. Repeat the above steps every day for 7 days unless otherwise directed by physician or nurse. 5. If any bleeding occurs, use a clean cotton or gauze, apply firm, direct pressure to the area for10 to 15 minutes. If the bleeding does not stop, call our office at [phone]. 6. The wound should improve daily. If you notice any increased redness, swelling, drainage, warmth,or pain in the area, please notify our office. Please be advised that it can take up to 2 weeks for these sites to heal. In some patients it may take even longer depending on location (lower legs / feet) and / or if the patient has history of diabetes. Our office will notify you of the results in about 2 weeks. documented in this [facility]01-16-2023 Miscellaneous Notes* Telephone Encounter - Negar Campuzano LPN - 07/22/2022 3:31 PM EST Order faxed to [facility] at [facility], can certainly reach out to scheduling to set up test if they have not contacted him. Detailed message left for patient re: same. Negar Campuzano LPN * Telephone Encounter - Belkys Segura RN - 07/22/2022 2:23 PM EST Patient calls office to ask when methacholine challenge is scheduled for? Dr. Jackson ordered at [facility] and patient wanted to get testing done at [facility]. Does patient need to call? He thought office was scheduling for him. [facility]23 Instructions* Patient Instructions* Sonja Jackson MD - 07/11/2022 8:56 AM EST Send [employer] message to Dr. Jackson once methacholine challenge testing is done. documented in this [facility]01-[facility]-2023 History of Present illness Narrative* Sonja Jackson MD - 07/11/2022 8:45 AM EST Images from the original note were not included. . [facility] [place] Note Patient name: Bernardo Carver PCP: Michael Jarquin MD CC: SOB HPI: Bernardo Carver 61 year old male former smoker with PMH significant for HTN, JEFFREY on CPAP, COVID infection 11/2021, vestibular schwannoma previously evaluated by Dr. Dockery in 2019 for episodic SOB. No pulmonary pathology found at that time. PFT normal, Nereida normal, chest imaging normal. Has continued to have intermittent SOB and chest tightness. Recent stress echo normal. Being referred backto pulmonary for evaluation. Intermittent SOB has been present for 10 years. Feels like he is unable to take a deep breath, chest constriction and frequent need to sigh. No obvious triggers. Some days better than others. No nocturnal awakenings. He is very active; takes a walk every day, hunts, works, without difficulty. No cough or wheezing. No worsening of his symptoms following his COVID infection. He was concerned when the SOB was occurring daily, precipitated by his recent stress testing. Past history is notable for environmental allergies. Immunotherapy had bee recommended in the past. Uses Zyrtec daily. DATA: PFT: Review of PFT is normal. No obstruction PFT 2020: Review of spirometry is normal. No obstruction SERVICE DATE: 09/07/2019 SERVICE TIME: 10:19 AM Oral Exhaled Nitric Oxide measurement: 16.0 (ppb) Labs: Review of labs do not show anemia Imaging / Diagnostic Studies: CONCLUSIONS: - Exam indication: Chest Pain - The exercise stress echo was negative for ischemia at 94 % of MPHR (8.0 METS). - The left ventricle is normal in size. Left ventricular systolic function is normal. EF = 66 5% (2D biplane) Normal left ventricular diastolic function. - The right ventricle is normal in size. Right ventricular systolic function is normal. - The patient has not had a prior CC echocardiographic exam for comparison. Last CXR 2019 and was normal ALLERGIES Allergen Reactions Seasonal Allergies Itching lisinopril (ZESTRIL, PRINIVIL) 20 mg tablet^take 1 tablet by mouth once daily^Disp: 90 tablet^Rfl: 3 tamsulosin (FLOMAX) 0.4 mg^Take 2 capsules by mouth daily at bedtime.^Disp: 90 capsule^Rfl: 3 cetirizine (ZYRTEC) 10 mg tablet^Take 1 tablet by mouth once daily.^Disp: 90 tablet^Rfl: 3 CPAP^Initiate CPAP @ 12 cm of water with humidification. Mask (per patient preference) optional chin strap (if indicated) , filters, tubing, humidifier and lifetime supplies. ResMed Mirage Quattro, size medium^Disp: 1 Each^Rfl: 0 Social History Tobacco Use Smoking status: Former Packs/day: 0.30 Years: 30.00 Pack years: 9.00 Types: Cigarettes Start date: 07/16/2015 Quit date: 03/09/2019 Years since quittin.3 Smokeless tobacco: Never Tobacco comments: Father smoked occasional cigar in home. NO ETS in adult home. 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 Rolando Valdez PAST SURGICAL HISTORY OF Craniotomy. Vestibular Schwannoma PMH, Social history, family history and surgical history reviewed and updated in EMR REVIEW OF SYSTEMS: CONSTITUTIONAL: No fevers, chills, nightsweats, unintended weight loss or fatigue HEENT: Deniesnasal congestion/sinus symptoms, problematic allergy EYES: No diplopia or blurry vision. CARDIOVASCULAR: No chest pain, palpitations, orthopnea, PND, edema. PULM: See HPI GI: No dysphagia/odynophagia, problematic reflux, constipation, diarrhea : BPH NEURO: No balance problems, peripheral weakness/paresthesias or numbness of concern. MUSC-SKEL: No joint pain, swelling, or erythema. PSY: No concerns regarding depression, anxiety INTEGUMENTARY: No new skin changes, rashes, sensitivity or eczema PHYSICAL EXAMINATION: BP 128/80 Pulse 68 Resp 14 Ht 5' 11" (1.80m) Wt 218 lb (98.9kg) SpO2 93% BMI 30.42 kg/(m^2). General Appearance: Age appropriate, anxious Skin: Skin color, texture, turgor normal, no suspicious rashes or lesions. Head: Normocephalic, no masses, lesions, tenderness or abnormalities. GALENA Eyes: Sclera, conjunctiva normal Oropharynx: No oral lesions or thrush Neck: No JVD, no masses Lungs: Not labored, normal to percussion, no wheezes or crackles Heart: RRR, no murmur Extremities: No edema, no clubbing Musculoskeletal: No joint deformities, no effusions Neurologic: Alert and oriented, no focal findings Lymph Nodes: No cervical lymphadenopathy and No supraclavicular lymphadenopathy. Assessment/Plan: SOB -No obvious pulmonary pathology -Clinical symptoms could be suggestive of possible asthma -Definitive LEELEE testing History of allergies -Continue antihistamine Sonja Jackson MD [facility] [place] documented in this [facility]01-[facility]23 History of Present illness Narrative* ALFREDA Choi - 07/11/2022 8:14 AM EST PULM FUNCTION SMARTBLOCK: Provider: Sonja Jackson MD Assisting Tech: ALFREDA Choi Spirometry: 1 documented in this encounterSy[facility] Center12-13-2022 Miscellaneous Notes* Addendum Note - Adraino Lima APRN.CNP - 06/18/2022 2:08 PM ESTAddended by: ADRIANO LIMA on: 06/18/2022 02:08 PM Modules accepted: Orders documented in this [facility]09-12-2022 Miscellaneous Notes* Telephone Encounter - Beverly Palma MA - 03/18/2022 10:03 AM EDT Patient active MyChart. Patient notified via [employer] message. Beverly Palma MA * Telephone Encounter - Adriano Lima APRN.CNP - 03/18/2022 9:43 AM EDT Please let the patient know that his labs look fine. PSA is normal. Cholesterol panel is fine. No changes to his medication. Adriano Lima APRN.CNP documented in this encounterSy[facility]09-09-2022 Instructions* Patient Instructions* Adriano Lima APRN.CNP - 03/15/2022 1:16 PM EDT Increase Flomax to 0.8 mg daily Continue current medications Get lab work Schedule stress testing. Go to the ER if you have chest pain or shortness of breath worsens or doesnot stop. Adriano Lima APRN.CNP documented in this encounterSy[facility]09-09-2022 History of Present illness Narrative* Adriano Lima APRN.CNP - 03/15/2022 1:00 PM EDT Chief Complaint Patient presents with: Medication Follow-up HPI Bernardo Carver is a 61 year old male who presents here today for Chronic Medical Conditions.. HTN: Patient is compliant with meds Yes Monitors bp at home: Yes. Normal at home, consistent with today's readings. Denies side effects: Yes. Chest pain: Yes. Dyspnea: Yes. Edema: No. Palpitations: No. Syncope: No. Headache: Yes. Dizziness: No. Patient stating that he has occasional shortness of breath. Some chest tightness at times. Was ableto spit wood at home today without problems but then had some chest tightness, difficulty with taking a deep breath. Had a headache last week when he had similar symptoms. No syncope. No wheezing. Noreflux symptoms. Has had similar symptoms in the past, had a normal pulmonary work up. Now chest pain is new feature. BPH: Requesting that his Flomax be increased as he has continued symptoms of nocturia. Not occurring nightly but still consistent. PSA was normal last year. JEFFREY: Using CPAP as prescribed nightly. Past medical history, appointments, medications, allergies reviewed. Previous Medical History PAST MEDICAL HISTORY Diagnosis Date Hypertension Medical history non-contributory JEFFREY on CPAP 2014 Snoring 2014 Vestibular schwannoma (HCC) 2016 Previous Surgical History PAST SURGICAL HISTORY Procedure Laterality Date COLONOSCOPY FLX DX W/COLLJ SPEC WHEN PFRMD 09/05/14 Colonoscopy L'SCOPE CHOLECYSTECTOMY 08/12/2017 Dr. Rolando Valdez NONE Family History FAMILY HISTORY Problem Relation Age of Onset No Known Problems Father No Known Problems Half-brother No Known Problems Half-sister Patient Allergies ALLERGIES Allergen Reactions Seasonal Allergies Itching Current Medications Current Outpatient Medications on File Prior to Visit Medication Sig guaiFENesin (MUCINEX) 600 mg 12 hr tablet Take 2 tablets by mouth twice daily. benzonatate (TESSALON PERLE) 100 mg capsule Take 1 capsule by mouth three times daily as needed. cetirizine (ZYRTEC) 10 mg tablet Take 1 tablet by mouth once daily. tamsulosin (FLOMAX) 0.4 mg Take 1 capsule by mouth daily at bedtime. lisinopril (ZESTRIL, PRINIVIL) 20 mg tablet Take 1 tablet by mouth once daily. CPAP Initiate CPAP @ 12 cm of water with humidification. Mask (per patient preference) optional chin strap (if indicated) , filters, tubing, humidifier and lifetime supplies. ResMed Mirage Quattro, size medium naproxen (NAPROSYN) 500 mg tablet Take 1 tablet by mouth twice daily as needed (for pain/inflammation). Take with food. No current facility-administered medications on file prior to visit. Social History Social History Tobacco Use Smoking status: Former Packs/day: 0.30 Years: 30.00 Pack years: 9.00 Types: Cigarettes Start date: 07/16/2015 Quit date: 03/09/2019 Years since quittin.0 Smokeless tobacco: Never Tobacco comments: Father smoked occasional cigar in home. NO ETS in adult home. Vaping Use Vaping Use: Never used Substance Use Topics Alcohol use: Yes Comment: weekends Drug use: No REVIEW OF SYSTEMS: as above Reviewed relevant PMHx, PSHx, Social Hx, current medications and allergies. EXAM: BP 130/86 Pulse 68 Temp 36.6 C (97.8 F) (Left Tympanic) Resp 16 Wt 97.5 kg (215 lb) BMI 30.85 kg/m General Appearance: Well appearing, alert, in no acute distress, well-hydrated, well nourished.. Neck: Supple, no adenopathy; thyroid symmetric, normal size Lungs: Lungs clear to auscultation. No wheezing, rhonchi, rales.. Heart: RRR without murmur, gallop, or rubs. No ectopy. Extremities: No deformities, edema Health Maintenance List COVID-19 VACCINE(1) Never done HIV SCREENING Never done SHINGRIX VACCINE(1 of 2) Never done ANNUAL PCP TEAM CHRONIC DISEASE VISIT due on 12/12/2021 BP CONTROLLED (<130/80) due on 12/12/2021 INFLUENZA(1) due on 03/07/2022 DEPRESSION SCREENING due on 03/12/2023 DIABETES SCREEN due on 06/11/2024 COLORECTAL CANCER SCREENING due on 09/05/2024 DTAP,TDAP,TD(2 - Td or Tdap) due on 09/21/2024 LIPID SCREEN due on 11/27/2025 PROSTATE CANCER SCREENING DISCUSSION due on 06/11/2026 HEPATITIS C SCREENING Completed ASSESSMENT/PLAN: 1. Essential hypertension - ICD9: 401.9, ICD10: I10 (primary diagnosis) - good control - Continue current medication(s) - Recommended regular aerobic exercise. - Recommend home blood pressure monitoring, to bring results in on next visit - Goal of BP <130/80 - COMP METABOLIC PANEL 2. Hyperlipidemia, mixed - ICD9: 272.2, ICD10: E78.2 - to be determined upon return of lab results - Encouraged following a low fat, low cholesterol diet. - Discussed the benefits of regular aerobic exercise and weight loss. - LIPID PANEL, NONFASTING 3. Pre-diabetes - ICD9: 790.29, ICD10: R73.03 - HGB A1C 4. Benign prostatic hyperplasia with weak urinary stream - ICD9: 600.01, 788.62, ICD10: N40.1, R39.12 - Increase tamsulonsin to 0.8 mg daily - TAMSULOSIN 0.4 MG CAPSULE - PSA/PROSTSPECAG DIAG 5. JEFFREY on CPAP - ICD9: 327.23, V46.8, ICD10: G47.33, Z99.89 - Stable with CPAP use 6. Other chest pain - ICD9: 786.59, ICD10: R07.89 Chest pain of unclear etiology, patient with significant risk factor(s) of Hypertension and ex-smoker, pre-diabetic, obesity - ECG was unchanged with the exception of inverted T waves in Lead III when compared to 2020 ECG. Sinus Bradycardia at 55 bpm. - ECG COMPLETE - STRESS ECHO TREADMILL - PERFLUTREN LIPID MICROSPHERES 1.1 MG/ML INJECTION IN NS 10 ML - SODIUM CHLORIDE 0.9 % (FLUSH) INJECTION SYRINGE - Discussed need to go to the ER if he has any worsening chest pain, shortness of breath. Adriano Lima APRN.CNP This note was partly generated using [employer] voice recognition dictation and may contain some misspelled or inaccurate words missed on review. documented in this encounterSy[facility] Center05-16-2022 Miscellaneous Notes* Addendum Note - Marlena Lund APRN.CNP - 11/19/2021 4:44 PM EDT Addended by: MARLENA LUND on: 11/19/2021 04:44 PM Modules accepted: Orders documented in this [facility]05-16-2022 Instructions* Patient Instructions* Marlena Lund APRN.CNP - 11/19/2021 3:36 PM EDT Rest, increase water intake Motrin or Tylenol as needed for fever or pain. Salt water gargles, chloraseptic spray or lozenges as needed for sore throat. Warm beverages, honey. Nasal saline spray as needed Cool mist humidifier at night Tylenol (generic acetaminophen) 500 mg-2 tabs every 8 hrs. as needed for fever and aches -Mucinex (generic is fine) Guaifenesin 1200 mg twice daily to help with cough and to thin out mucus Tessalon Perles 1-2 every 8 hours, do not combine this with robitussin or delsym If no improvement by Friday or worsening symptoms, start Augmentin * Seek medical care immediately, call 911, go to ER if you have chest pain, difficulty breathing, shortness of breath, inability to swallow. documented in this encounterSy[facility] Center05-16-2022 History of Present illness Narrative* Marlena Lund APRN.CNP - 11/19/2021 3:27 PM EDT Subjective The history is provided by the patient. No speech and language clinician was used. HPI Bernardo Carver is a 61 year old male who presents today for CC of sinus pressure and congestion for 6 days. He has used OTC alkaseltzer plus cold with short term relief. He was at a wedding and5 family members have tested positive. BP 160/82 Pulse (!) 50 Temp 36.5 C (97.7 F) Resp 21 Wt 101.4 kg (223 lb 9.6 oz) SpO2 98% BMI 32.08 kg/m BP recheck 144/80 Social History Tobacco Use Smoking status: Former Smoker Packs/day: 0.30 Years: 30.00 Pack years: 9.00 Types: Cigarettes Start date: 07/16/2015 Quit date: 03/09/2019 Years since quittin.7 Smokeless tobacco: Never Used Tobacco comment: Father smoked occasional cigar in home. NO ETS in adult home. Vaping Use Vaping Use: Never used Substance Use Topics Alcohol use: Yes Comment: weekends Drug use: No PAST MEDICAL HISTORY Diagnosis Date Hypertension Medical history non-contributory JEFFREY on CPAP 2015 Snoring 2015 Vestibular schwannoma (HCC) 2017 I have confirmed and edited as necessary, the [facility] Review of Systems Constitutional: Negative for chills and fever. HENT: Positive for congestion and sore throat. Negative for ear pain and sinus pain. Respiratory: Positive for cough. Negative for sputum production, shortness of breath and wheezing. Cardiovascular: Negative for chest pain. Musculoskeletal: Negative for myalgias. Neurological: Negative for headaches. Objective Physical Exam Vitals and nursing note reviewed. HENT: Head: Normocephalic and atraumatic. Right Ear: Tympanic membrane, ear canal and external ear normal. Left Ear: Tympanic membrane, ear canal and external ear normal. Nose: Mucosal edema and rhinorrhea present. Right Sinus: Maxillary sinus tenderness present. No frontal sinus tenderness. Left Sinus: Maxillary sinus tenderness present. No frontal sinus tenderness. Mouth/Throat: Pharynx: Uvula midline. No oropharyngeal exudate or posterior oropharyngeal erythema. Tonsils: No tonsillar abscesses. Cardiovascular: Rate and Rhythm: Normal rate and regular rhythm. Heart sounds: Normal heart sounds. Pulmonary: Effort: Pulmonary effort is normal. Breath sounds: Normal breath sounds. No decreased breath sounds, wheezing, rhonchi or rales. Lymphadenopathy: Head: Right side of head: No submental, submandibular, tonsillar or preauricular adenopathy. Left side of head: No submental, submandibular, tonsillar or preauricular adenopathy. Cervical: No cervical adenopathy. Right cervical: No superficial cervical adenopathy. Left cervical: No superficial cervical adenopathy. Declines covid testing ASSESSMENT/PLAN: 1. Viral URI with cough - ICD9: 465.9, ICD10: J06.9 - Discussed viral etiology and rationale for treatment. - Symptomatic treatment with prn analgesia - Supportive care with fluids and rest Comfort measures discussed - see patient instructions. When to seek higher level of care If no improvement by Friday to start Augmentin.Medical Decision Making: Problems: Moderate: Acute illness with systemic symptoms Risk: Moderate: Drug management Medical Decision Making Level: 4 - Moderate Diagnosis and treatment plan were discussed and questions were answered to the patient's satisfaction. Pt acknowledged understanding of concepts and follow up plan. Specific signs and symptoms that would indicate the need for higher level of care were discussed indetail warranting prompt ER evaluation. Marlena Lund APRN.ANDIE Lund APRN.PROFESSOR OF COMMUNICATION AND WRITING documented in this encounterSycamore [facility] Center05-19-2017 History of Past illness Narrative* Problem Noted Date Resolved Date Post-op pain 11/22/2016 12/05/2016 Overview: On fentanyl gtt with good pain control Acute respiratory failure 11/22/20162016 Overview: Post -op. Slow to wake up. Ventilator being weaned. Expect to extubate soon documented as of this encounter (statuses as of 11/19/2021) [facility] of Past illness Narrative* Problem Noted Date Resolved Date Post-op pain 11/22/2016 12/05/2016 Overview: On fentanyl gtt with good pain control Acute respiratory failure 11/22/20162016 Overview: Post -op. Slow to wake up. Ventilator being weaned. Expect to extubate soon documented as of this encounter (statuses as of 03/15/2022) [facility] of [facility] illness Narrative* Problem Noted Date Resolved Date Post-op pain 11/22/2016 12/05/2016 Overview: On fentanyl gtt with good pain control Acute respiratory failure 11/22/20162016 Overview: Post -op. Slow to wake up. Ventilator being weaned. Expect to extubate soon documented as of this encounter (statuses as of 03/18/2022) [facility] of [facility] illness Narrative* Problem Noted Date Resolved Date Post-op pain 11/22/2016 12/05/2016 Overview: On fentanyl gtt with good pain control Acute respiratory failure 11/22/20162016 Overview: Post -op. Slow to wake up. Ventilator being weaned. Expect to extubate soon documented as of this encounter (statuses as of 04/23/2022) [facility] of [facility] illness Narrative* Problem Noted Date Resolved Date Post-op pain 11/22/2016 12/05/2016 Overview: On fentanyl gtt with good pain control Acute respiratory failure 11/22/20162016 Overview: Post -op. Slow to wake up. Ventilator being weaned. Expect to extubate soon documented as of this encounter (statuses as of 06/18/2022) [facility] Narrative* Problem Noted Date Resolved Date Post-op pain 11/22/2016 12/05/2016 Overview: On fentanyl gtt with good pain control Acute respiratory failure 11/22/20162016 Overview: Post -op. Slow to wake up. Ventilator being weaned. Expect to extubate soon documented as of this encounter (statuses as of 06/18/2022) [address]19-2017 History of Past illness Narrative* Problem Noted Date Resolved Date Post-op pain 11/22/2016 12/05/2016 Overview: On fentanyl gtt with good pain control Acute respiratory failure 11/22/20162016 Overview: Post -op. Slow to wake up. Ventilator being weaned. Expect to extubate soon documented as of this encounter (statuses as of 07/12/2022) [address]19-2017 History of Past illness Narrative* Problem Noted Date Resolved Date Post-op pain 11/22/2016 12/05/2016 Overview: On fentanyl gtt with good pain control Acute respiratory failure 11/22/20162016 Overview: Post -op. Slow to wake up. Ventilator being weaned. Expect to extubate soon documented as of this encounter (statuses as of 07/12/2022) [facility] Narrative* Problem Noted Date Resolved Date Post-op pain 11/22/2016 12/05/2016 Overview: On fentanyl gtt with good pain control Acute respiratory failure 11/22/20162016 Overview: Post -op. Slow to wake up. Ventilator being weaned. Expect to extubate soon documented as of this encounter (statuses as of 07/22/2022) [address]19-2017 History of Past illness Narrative* Problem Noted Date Resolved Date Post-op pain 11/22/2016 12/05/2016 Overview: On fentanyl gtt with good pain control Acute respiratory failure 11/22/20162016 Overview: Post -op. Slow to wake up. Ventilator being weaned. Expect to extubate soon documented as of this encounter (statuses as of 08/05/2022) [facility] Narrative* Problem Noted Date Resolved Date Post-op pain 11/22/2016 12/05/2016 Overview: On fentanyl gtt with good pain control Acute respiratory failure 11/22/20162016 Overview: Post -op. Slow to wake up. Ventilator being weaned. Expect to extubate soon documented as of this encounter (statuses as of 10/14/2022) [facility] Narrative* Problem Noted Date Diagnosed Date Resolved Date Post-op pain 11/22/2016 12/05/2016 Overview: On fentanyl gtt with good pain control Acute respiratory failure 11/22/2016 Overview: Post -op. Slow to wake up. Ventilator being weaned. Expect to extubate soon documented as of this encounter (statuses as of 01/15/2023) [facility] [facility] of Past illness Narrative* Problem Noted Date Diagnosed Date Resolved Date Post-op pain 11/22/2016 12/05/2016 Overview: On fentanyl gtt with good pain control Acute respiratory failure 11/22/2016 Overview: Post -op. Slow to wake up. Ventilator being weaned. Expect to extubate soon documented as of this encounter (statuses as of 01/15/2023) [facility]05-[facility]2017 History of Past illness Narrative* Problem Noted Date Diagnosed Date Resolved Date Post-op pain 11/22/2016 12/05/2016 Overview: On fentanyl gtt with good pain control Acute respiratory failure 11/22/2016 Overview: Post -op. Slow to wake up. Ventilator being weaned. Expect to extubate soon documented as of this encounter (statuses as of 02/03/2023) [facility]05-19[facility]2017 History of Past illness Narrative* Problem Noted Date Diagnosed Date Resolved Date Post-op pain 11/22/2016 12/05/2016 Overview: On fentanyl gtt with good pain control Acute respiratory failure 11/22/2016 Overview: Post -op. Slow to wake up. Ventilator being weaned. Expect to extubate soon documented as of this encounter (statuses as of 02/27/2023) [facility] History of Past illness Narrative* Problem Noted Date Diagnosed Date Resolved Date Post-op pain 11/22/2016 12/05/2016 Overview: On fentanyl gtt with good pain control Acute respiratory failure 11/22/2016 Overview: Post -op. Slow to wake up. Ventilator being weaned. Expect to extubate soon documented as of this encounter (statuses as of 03/21/2023) [facility] History of Past illness Narrative* Problem Noted Date Diagnosed Date Resolved Date Post-op pain 11/22/2016 12/05/2016 Overview: On fentanyl gtt with good pain control Acute respiratory failure 11/22/2016 Overview: Post -op. Slow to wake up. Ventilator being weaned. Expect to extubate soon documented as of this encounter (statuses as of 05/12/2023) [facility] History of Past illness Narrative* Problem Noted Date Diagnosed Date Resolved Date Post-op pain 11/22/2016 12/05/2016 Overview: On fentanyl gtt with good pain control Acute respiratory failure 11/22/2016 Overview: Post -op. Slow to wake up. Ventilator being weaned. Expect to extubate soon documented as of this encounter (statuses as of 06/03/2023) [facility] History of Past illness Narrative* Problem Noted Date Diagnosed Date Resolved Date Post-op pain 11/22/2016 12/05/2016 Overview: On fentanyl gtt with good pain control Acute respiratory failure 11/22/2016 Overview: Post -op. Slow to wake up. Ventilator being weaned. Expect to extubate soon documented as of this encounter (statuses as of 06/06/2023) [facility] History of Past illness Narrative* Problem Noted Date Diagnosed Date Resolved Date Post-op pain 11/22/2016 12/05/2016 Overview: On fentanyl gtt with good pain control Acute respiratory failure 11/22/2016 Overview: Post -op. Slow to wake up. Ventilator being weaned. Expect to extubate soon documented as of this encounter (statuses as of 06/13/2023) [facility] History of Past illness Narrative* Problem Noted Date Diagnosed Date Resolved Date Post-op pain 11/22/2016 12/05/2016 Overview: On fentanyl gtt with good pain control Acute respiratory failure 11/22/2016 Overview: Post -op. Slow to wake up. Ventilator being weaned. Expect to extubate soon documented as of this encounter (statuses as of 06/27/2023) [facility] History of Past illness Narrative* Problem Noted Date Diagnosed Date Resolved Date Post-op pain 11/22/2016 12/05/2016 Overview: On fentanyl gtt with good pain control Acute respiratory failure 11/22/2016 Overview: Post -op. Slow to wake up. Ventilator being weaned. Expect to extubate soon documented as of this encounter (statuses as of 08/15/2023) [facility] History of Past illness Narrative* Problem Noted Date Diagnosed Date Resolved Date Post-op pain 11/22/2016 12/05/2016 Overview: On fentanyl gtt with good pain control Acute respiratory failure 11/22/2016 Overview: Post -op. Slow to wake up. Ventilator being weaned. Expect to extubate soon documented as of this encounter (statuses as of 08/15/2023) [facility] History of Past illness Narrative* Problem Noted Date Diagnosed Date Resolved Date Post-op pain 11/22/2016 12/05/2016 Overview: On fentanyl gtt with good pain control Acute respiratory failure 11/22/2016 Overview: Post -op. Slow to wake up. Ventilator being weaned. Expect to extubate soon documented as of this encounter (statuses as of 08/25/2023) [facility] History of Past illness Narrative* Problem Noted Date Diagnosed Date Resolved Date Post-op pain 11/22/2016 12/05/2016 Overview: On fentanyl gtt with good pain control Acute respiratory failure 11/22/2016 Overview: Post -op. Slow to wake up. Ventilator being weaned. Expect to extubate soon documented as of this encounter (statuses as of 08/28/2023) [facility] History of Past illness Narrative* Problem Noted Date Diagnosed Date Resolved Date Post-op pain 11/22/2016 12/05/2016 Overview: On fentanyl gtt with good pain control Acute respiratory failure 11/22/2016 Overview: Post -op. Slow to wake up. Ventilator being weaned. Expect to extubate soon documented as of this encounter (statuses as of 09/09/2023) [facility] History of Past illness Narrative* Problem Noted Date Diagnosed Date Resolved Date Post-op pain 11/22/2016 12/05/2016 Overview: On fentanyl gtt with good pain control Acute respiratory failure 11/22/2016 Overview: Post -op. Slow to wake up. Ventilator being weaned. Expect to extubate soon documented as of this encounter (statuses as of 09/10/2023) [facility] History of Past illness Narrative* Problem Noted Date Diagnosed Date Resolved Date Post-op pain 11/22/2016 12/05/2016 Overview: On fentanyl gtt with good pain control Acute respiratory failure 11/22/2016 Overview: Post -op. Slow to wake up. Ventilator being weaned. Expect to extubate soon documented as of this encounter (statuses as of 09/12/2023) [facility] History of Past illness Narrative* Problem Noted Date Diagnosed Date Resolved Date Post-op pain 11/22/2016 12/05/2016 Overview: On fentanyl gtt with good pain control Acute respiratory failure 11/22/2016 Overview: Post -op. Slow to wake up. Ventilator being weaned. Expect to extubate soon documented as of this encounter (statuses as of 10/20/2023) [facility] History of Past illness Narrative* Problem Noted Date Diagnosed Date Resolved Date Post-op pain 11/22/2016 12/05/2016 Overview: On fentanyl gtt with good pain control Acute respiratory failure 11/22/2016 Overview: Post -op. Slow to wake up. Ventilator being weaned. Expect to extubate soon documented as of this encounter (statuses as of 10/20/2023) [facility] No data available for this section [facility] Evaluation note* Diagnosis Viral URI with cough- Primary Acute upper respiratory infections of unspecified site Exposure to COVID-19 virus documented in this encounter [facility] note* Diagnosis Essential hypertension- Primary Unspecified essential hypertension Hyperlipidemia, mixed Mixed hyperlipidemia Pre-diabetes Other abnormal glucose Benign prostatic hyperplasia with weak urinary stream JEFFREY on CPAP Obstructive sleep apnea (adult) (pediatric) Other chest pain documented in this encounter [facility] note* Diagnosis Other chest pain documented in this encounter [facility] note* Diagnosis SOB (shortness of breath)- Primary Shortness of breath documented in this encounter [facility] note* Diagnosis SOB (shortness of breath) Shortness of breath documented in this encounter [facility] note* Diagnosis SOB (shortness of breath)- Primary Shortness of breath History of environmental allergies Other allergy, other than to medicinal agents documented in this encounter [facility] note* Diagnosis Benign prostatic hyperplasia with weak urinary stream documented in this encounter [facility] noteNo assessment information availableWMary [facility]* Diagnosis SOB (shortness of breath) on exertion- Primary Shortness of breath documented in this encounter [facility] note* Diagnosis Vestibular schwannoma (HCC)- Primary Benign neoplasm of cranial nerves documented in this encounter [facility] note* Diagnosis SOB (shortness of breath)- Primary Shortness of breath Primary hypertension Unspecified essential hypertension Dyslipidemia Other and unspecified hyperlipidemia documented in this encounter [facility] note* Diagnosis Vestibular schwannoma (HCC) Benign neoplasm of cranial nerves documented in this encounter [facility] note* Diagnosis SOB (shortness of breath) Shortness of breath documented in this encounter [facility] note* Diagnosis SOB (shortness of breath)- Primary Shortness of breath Hyperlipidemia, mixed Mixed hyperlipidemia documented in this encounter [facility] note* Diagnosis Multiple benign melanocytic nevi of both upper extremities, both lower extremities, and trunk- Primary Seborrheic keratosis Solar lentigo Other dyschromia Lamas angioma documented in this encounter [facility] note* Diagnosis Chorioretinal scar of both eyes- Primary Chorioretinal scar, unspecified Dry eye syndrome of bilateral lacrimal glands Tear film insufficiency, unspecified Hypermetropia, bilateral Regular astigmatism of both eyes Regular astigmatism Presbyopia documented in this encounter [facility] note* Diagnosis Hyperlipidemia, mixed- Primary Mixed hyperlipidemia documented in this encounter [facility] note* Diagnosis Plantar fasciitis- Primary Plantar fascial fibromatosis documented in this encounter [facility] note* Diagnosis Pain of left heel Pain in limb documented in this encounter [facility] note* Diagnosis Hypermetropia, bilateral- Primary Regular astigmatism of both eyes Regular astigmatism Presbyopia Chorioretinal scar of both eyes Chorioretinal scar, unspecified Dry eye syndrome of bilateral lacrimal glands Tear film insufficiency, unspecified documented in this encounter [facility] note* Diagnosis Benign prostatic hyperplasia with weak urinary stream documented in this encounter [facility] note* Diagnosis Hypertension- Primary Unspecified essential hypertension SOB (shortness of breath) Shortness of breath documented in this encounter [facility] note* Diagnosis Hypertension- Primary Unspecified essential hypertension Hyperlipidemia, mixed Mixed hyperlipidemia documented in this encounter [facility] note* Diagnosis Hypertension- Primary Unspecified essential hypertension Seasonal allergies- Primary Allergic rhinitis, cause unspecified Benign prostatic hyperplasia with weak urinary stream documented in this encounter [facility] note* Diagnosis Hypertension- Primary Unspecified essential hypertension Seasonal allergies Allergic rhinitis, cause unspecified documented in this encounter [facility] note* Diagnosis Hypertension- Primary Unspecified essential hypertension Wellness examination- Primary Essential hypertension Unspecified essential hypertension Hyperlipidemia, mixed Mixed hyperlipidemia H/O right coronary artery stent placement Postsurgical percutaneous transluminal coronary angioplasty status Benign prostatic hyperplasia with weak urinary stream Nocturia JEFFREY on CPAP Obstructive sleep apnea (adult) (pediatric) Seasonal allergies Allergic rhinitis, cause unspecified Vestibular schwannoma (HCC) Benign neoplasm of cranial nerves Colon cancer screening Special screening for malignant neoplasms, colon Encounter for screening examination for other mental health and behavioral disorders Screening for depression Screening for prostate cancer Special screening for malignant neoplasm of prostate documented in this encounter [facility] note* Diagnosis Hypertension- Primary Unspecified essential hypertension Colon cancer screening Special screening for malignant neoplasms, colon documented in this encounter [facility] note* Diagnosis Neoplasm of uncertain behavior of skin- Primary documented in this encounter [facility] note* Diagnosis Hypertension- Primary Unspecified essential hypertension Benign prostatic hyperplasia with nocturia- Primary Benign prostatic hyperplasia with weak urinary stream documented in this encounter [facility] note* Diagnosis Neoplasm of uncertain behavior of skin- Primary Multiple benign melanocytic nevi of both upper extremities, both lower extremities, and trunk Seborrheic keratosis Solar lentigo Other dyschromia Lamas angioma Inflamed seborrheic keratosis documented in this encounter [facility] note* Diagnosis Hypertension- Primary Unspecified essential hypertension Vestibular schwannoma (HCC) Benign neoplasm of cranial nerves documented in this encounter [facility] note* Diagnosis Hypertension- Primary Unspecified essential hypertension Vestibular schwannoma (HCC)- Primary Benign neoplasm of cranial nerves documented in this encounter [facility] note* Diagnosis Hypertension- Primary Unspecified essential hypertension Special screening for malignant neoplasms, colon- Primary Colon cancer screening Special screening for malignant neoplasms, colon [facility] Diagnosis Hypertension- Primary Unspecified essential hypertension Benign prostatic hyperplasia with nocturia- Primary Benign prostatic hyperplasia with weak urinary stream documented in this encounter [facility] note* Diagnosis Hypertension- Primary Unspecified essential hypertension Benign prostatic hyperplasia with urinary frequency [N40.1, R35.0]- Primary documented in this encounter [facility] note* Diagnosis Hypertension- Primary Unspecified essential hypertension Essential hypertension- Primary Unspecified essential hypertension Hyperlipidemia, mixed Mixed hyperlipidemia Benign prostatic hyperplasia with weak urinary stream JEFFREY on CPAP Obstructive sleep apnea (adult) (pediatric) H/O right coronary artery stent placement Postsurgical percutaneous transluminal coronary angioplasty status Acute pain of left knee Overweight with body mass index (BMI) of 29 to 29.9 in adult documented [facility]* Diagnosis Hypertension- Primary Unspecified essential hypertension Acute pain of left knee [facility]* Diagnosis Hypertension- Primary Unspecified essential hypertension Essential hypertension- Primary Unspecified essential hypertension Hyperlipidemia, mixed Mixed hyperlipidemia Elevated glucose Other abnormal glucose documented in this encounter [facility] note* Diagnosis Hypertension- Primary Unspecified essential hypertension Acute pain of left knee [facility]* Diagnosis Hypertension- Primary Unspecified essential hypertension Acute pain of left knee- Primary [facility]* Diagnosis Hypertension- Primary Unspecified essential hypertension Acute pain of left knee- Primary documented in this encounter [facility] note* Diagnosis Hypertension- Primary Unspecified essential hypertension Acute pain of left knee- Primary [facility] Hypertension- Primary Unspecified essential hypertension Overweight with body mass index (BMI) of 29 to 29.9 in adult [facility] Hypertension- Primary Unspecified essential hypertension Acute pain of left knee- Primary [facility] Diagnosis Hypertension- Primary Unspecified essential hypertension Acute pain of left knee- Primary [facility] Diagnosis Hypertension- Primary Unspecified essential hypertension Acute pain of left knee- Primary [facility] Diagnosis Hypertension- Primary Unspecified essential hypertension Vitreous hemorrhage of left eye (HCC)- Primary Vitreous hemorrhage Retinal hemorrhage, left eye Retinal hemorrhage Choroidal neovascularization of both eyes Retinal neovascularization NOS [facility] Diagnosis Hypertension- Primary Unspecified essential hypertension Vitreous hemorrhage of left eye (HCC)- Primary Vitreous hemorrhage 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 Retinal edema Choroidal neovascularization of both eyes Retinal neovascularization NOS Horseshoe retinal tear of left eye [place] tear of retina without detachment [facility] Diagnosis Hypertension- Primary Unspecified essential hypertension Acute pain of left knee [facility] Diagnosis Hypertension- Primary Unspecified essential hypertension Acute medial meniscus tear of left knee, initial encounter- Primary Tear of lateral meniscus of left knee, current, unspecified tear type, initial encounter [facility] Hypertension- Primary Unspecified essential hypertension Acute pain of left knee- Primary Acute medial meniscus tear of left knee, initial encounter Primary osteoarthritis of left knee Primary localized osteoarthrosis, lower leg Discoid lateral meniscus of left knee Presence of coronary angioplasty implant and graft Postsurgical percutaneous transluminal coronary angioplasty status [facility]* Diagnosis Hypertension- Primary Unspecified essential hypertension Acute pain of left knee- Primary Acute medial meniscus tear of left knee, initial encounter Osteoarthritis of left knee, unspecified osteoarthritis type Discoid meniscus of left knee Acute pain of left knee Acute medial meniscus tear of left knee, initial encounter Osteoarthritis of left knee, unspecified osteoarthritis type Discoid meniscus of left knee [facility] Hypertension- Primary Unspecified essential hypertension Pre-operative examination- Primary Preoperative examination, unspecified Essential hypertension Unspecified essential hypertension Hyperlipidemia, mixed Mixed hyperlipidemia Coronary artery disease involving [place] coronary artery of [place] heart without angina pectoris Vestibular schwannoma (HCC) Benign neoplasm of cranial nerves JEFFREY on CPAP Obstructive sleep apnea (adult) (pediatric) Former smoker Personal history of tobacco use, presenting hazards to health Elevated glucose Other abnormal glucose Obesity, Class I, BMI 30-34.9 Obesity, unspecified Benign prostatic hyperplasia with lower urinary tract symptoms, symptom details unspecified Acute pain of left knee Acute medial meniscus tear of left knee, initial encounter Osteoarthritis of left knee, unspecified osteoarthritis type Discoid meniscus of left knee * Assessment & Plan Note - Carlota Huffman APRN.CNP - 01/27/2025 8:53 AM EDT Associated Problem(s): BPH (benign prostatic hyperplasia) Assessment: controlled on rx * Assessment & Plan Note - Carlota Huffman APRN.CNP - 01/27/2025 8:52 AM EDT Associated Problem(s): Obesity, Class I, BMI 30-34.9 Assessment: Body mass index is 30.71 kg/m . * Assessment & Plan Note - Carlota Huffman APRN.CNP - 01/27/2025 8:52 AM EDT Associated Problem(s): Elevated glucose Assessment: diet controlled Hemoglobin A1C (%) Date Value 03/15/2022 5.7 06/11/2021 5.8 * Assessment & Plan Note - Carlota Huffman APRN.CNP - 01/27/2025 8:51 AM EDT Associated Problem(s): Former smoker Assessment: 0.3ppd/30 years, denies asthma or COPD, lungs CTA pulse ox 95% on RA * Assessment & Plan Note - Carlota Huffman APRN.CNP - 01/27/2025 8:50 AM EDT Associated Problem(s): JEFFREY on CPAP Assessment: c/w CPAP * Assessment & Plan Note - Carlota Huffman APRN.CNP - 01/27/2025 8:50 AM EDT Associated Problem(s): Vestibular schwannoma (HCC) Assessment: s/p resection, left ear hearing loss * Assessment & Plan Note - Carlota Huffman APRN.CNP - 01/27/2025 8:50 AM EDT Associated Problem(s): Coronary artery disease involving [place] coronary artery of [place] heart without angina pectoris Assessment: s/p stent, c/w Brilinta and ASA, following G, received AC instructions and optimization with last OV below: Scan on 01/18/2025 8:07 AM by Provider, External, PADorisC: Presurgical Documents * Assessment & Plan Note - Carlota Huffman APRN.CNP - 01/27/2025 8:48 AM EDT Associated Problem(s): Hyperlipidemia, mixed Assessment: c/w statin * Assessment & Plan Note - Carlota Huffman APRN.CNP - 01/27/2025 8:48 AM EDT Associated Problem(s): Essential hypertension Assessment: controlled on rx Last 14 BP Last 14 Encounter BP Readings: Date: BP: 01/27/2025 120/64 12/01/2024 118/75 11/22/2024 118/76 09/08/2024 110/65 08/18/2024 112/68 07/19/2024 104/70 05/31/2024 117/72 05/27/2024 104/66 07/09/2023 130/82 06/26/2023 130/84 06/12/2023 100/60 03/21/2023 120/70 01/16/2023 122/76 07/11/2022 128/80 documented in this encounter [facility] note* Diagnosis Hypertension- Primary Unspecified essential hypertension Pre-operative examination- Primary Preoperative examination, unspecified Essential hypertension Unspecified essential hypertension Hyperlipidemia, mixed Mixed hyperlipidemia Coronary artery disease involving [place] coronary artery of [place] heart without angina pectoris Vestibular schwannoma (HCC) Benign neoplasm of cranial nerves JEFFREY on CPAP Obstructive sleep apnea (adult) (pediatric) Former smoker Personal history of tobacco use, presenting hazards to health Elevated glucose Other abnormal glucose Obesity, Class I, BMI 30-34.9 Obesity, unspecified Benign prostatic hyperplasia with lower urinary tract symptoms, symptom details unspecified Horseshoe retinal tear of left eye- Primary Horseshoe tear of retina without detachment Vitreous hemorrhage of left eye (HCC) Vitreous hemorrhage Choroidal neovascularization of both eyes Retinal neovascularization NOS 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 Presbyopia Acute pain of left knee Acute medial meniscus tear of left knee, initial encounter Osteoarthritis of left knee, unspecified osteoarthritis type Discoid meniscus of left knee documented in this encounter [facility] note* Diagnosis Hypertension- Primary Unspecified essential hypertension Pre-operative examination- Primary Preoperative examination, unspecified Essential hypertension Unspecified essential hypertension Hyperlipidemia, mixed Mixed hyperlipidemia Coronary artery disease involving [place] coronary artery of [place] heart without angina pectoris Vestibular schwannoma (HCC) Benign neoplasm of cranial nerves JEFFREY on CPAP Obstructive sleep apnea (adult) (pediatric) Former smoker Personal history of tobacco use, presenting hazards to health Elevated glucose Other abnormal glucose Obesity, Class I, BMI 30-34.9 Obesity, unspecified Benign prostatic hyperplasia with lower urinary tract symptoms, symptom details unspecified Horseshoe retinal tear of left eye- Primary Horseshoe tear of retina without detachment Vitreous hemorrhage of left eye (HCC) Vitreous hemorrhage Choroidal neovascularization of both eyes Retinal neovascularization NOS [facility] Diagnosis Hypertension- Primary Unspecified essential hypertension Pre-operative examination- Primary Preoperative examination, unspecified Essential hypertension Unspecified essential hypertension Hyperlipidemia, mixed Mixed hyperlipidemia Coronary artery disease involving [place] coronary artery of [place] heart without angina pectoris Vestibular schwannoma (HCC) Benign neoplasm of cranial nerves JEFFREY on CPAP Obstructive sleep apnea (adult) (pediatric) Former smoker Personal history of tobacco use, presenting hazards to health Elevated glucose Other abnormal glucose Obesity, Class I, BMI 30-34.9 Obesity, unspecified Benign prostatic hyperplasia with lower urinary tract symptoms, symptom details unspecified Acute medial meniscus tear of left knee, initial encounter- Primary [facility] Diagnosis Hypertension- Primary Unspecified essential hypertension Pre-operative examination- Primary Preoperative examination, unspecified Essential hypertension Unspecified essential hypertension Hyperlipidemia, mixed Mixed hyperlipidemia Coronary artery disease involving [place] coronary artery of [place] heart without angina pectoris Vestibular schwannoma (HCC) Benign neoplasm of cranial nerves JEFFREY on CPAP Obstructive sleep apnea (adult) (pediatric) Former smoker Personal history of tobacco use, presenting hazards to health Elevated glucose Other abnormal glucose Obesity, Class I, BMI 30-34.9 Obesity, unspecified Benign prostatic hyperplasia with lower urinary tract symptoms, symptom details unspecified Horseshoe retinal tear of left eye Horseshoe tear of retina without detachment Vitreous hemorrhage of left eye (HCC) Vitreous hemorrhage Choroidal neovascularization of both eyes Retinal neovascularization NOS documented in this encounter [facility] Discharge instructions No data available for this section [facility] Progress note No data available for this section [facility] Reason for referral (narrative)* Outpatient Procedure (Routine) - Authorized Specialty Diagnoses / Procedures Referred By Contac t Referred To Contact [facility] Diagnoses Other chest pain Procedures STRESS ECHO TREADMILL ECHO TTHRC R-T 2D W/WO M-MODE COMPLETE REST&ST Adriano Lima, CASTING MACHINE SET UP OPERATOR.PROFESSOR OF COMMUNICATION AND WRITING [address] [place] [address] [facility] [place] [address] [place] [address] Referral ID Status Reason Start Date Expiration Date Visits Requested Visits Authorized [id number] Authorized Auto-Generat ed Referral 03/15/2022 03/15/2023 1 1 * Outpatient Procedure (Routine) - Pending Review Specialty Diagnoses / Procedures Referred By Contac t Referred To Contact [facility] Diagnoses Other chest pain Procedures ECG COMPLETE ECG ROUTINE ECG W/LEAST 12 LDS W/I&R Adriano Lima APRN.PROFESSOR OF COMMUNICATION AND WRITING [address] [place] [address] [facility] [address] [address] Referral ID Status Reason Start Date Expiration Date Visits Requested Visits Authorized [id number] Pending Review Auto-Generat ed Referral 03/15/2022 03/15/2023 1 1 [facility] for referral (narrative)* Outpatient Procedure (Routine) - Pending Review Specialty Diagnoses / Procedures Referred By Contac t Referred To Contact [facility] Diagnoses SOB (shortness of breath) Procedures SPIROMETRY - BASELINE AND POST DILATOR BRNCDILAT RSPSE SPMTRY PRE&POST-BRNCDILAT ADMN Adriano Lima APRN.PROFESSOR OF COMMUNICATION AND WRITING [address] [place] [address] [facility] [place] [address] [place] [address] Referral ID Status Reason Start Date Expiration Date Visits Requested Visits Authorized [id number] Pending Review Auto-Generat ed Referral 07/18/2023 1 1 * Outpatient Procedure (Routine) - Pending Review Specialty Diagnoses / Procedures Referred By Contac t Referred To Contact [facility] Diagnoses SOB (shortness of breath) Procedures LUNG VOLUMES Adriano Lima APRN.CNP [address] [place] [address] [facility] [place] [address] [place] [id number] Referral ID Status Reason Start Date Expiration Date Visits Requested Visits Authorized [id number] Pending Review Auto-Generat ed Referral 2 07/18/2023 1 1 [facility] for referral (narrative)* Outpatient Procedure (Routine) - Pending Review Specialty Diagnoses / Procedures Referred By Contac t Referred To Contact [facility] Diagnoses SOB (shortness of breath) on exertion Procedures CARDIOPULMONARY EXERCISE TEST PULMONARY STRESS TESTING Sonja Jackson MD [address] [facility] [place] [address] [facility] [place] [address] [place] [address] Referral ID Status Reason Start Date Expiration Date Visits Requested Visits Authorized [id number] Pending Review Auto-Generat ed Referral 10/14/2022 11/13/2023 1 1 [facility] (narrative)* Outpatient Procedure (Routine) - Pending Review Specialty Diagnoses / Procedures Referred By Contac t Referred To Contact [facility] Diagnoses Colon cancer screening Procedures COLONOSCOPY SCREENING COLONOSCOPY FLX DX W/COLLJ SPEC WHEN Elena Cortes APRN.CNP [address] [place] [address] [facility] [place] [address] [place] [address] Referral ID Status Reason Start Date Expiration Date Visits Requested Visits Authorized [id number] Pending Review Auto-Generat ed Referral 4 05/31/2025 1 1 [facility] for referral (narrative)* Outpatient Procedure (Routine) - New Request Specialty Diagnoses / Procedures Referred By Contac t Referred To Contact [facility] Diagnoses Benign prostatic hyperplasia with nocturia Benign prostatic hyperplasia with weak urinary stream Procedures CYSTO/TRUS ONLY CYSTOURETHROSCOPY US, TRANSRECTAL Russell Kay, RAQUEL.PROFESSOR OF COMMUNICATION AND WRITING, DNP [address] [place] [address] [facility] [address] [place] [address] Referral ID Status Reason Start Date Expiration Date Visits Requested Visits Authorized [id number] New Request Auto-Generat ed Referral 07/19/2024 07/19/2025 1 1 [facility] for referral (narrative)No reason for referral [facility] Work Phone: Reason for visit Narrative* Outpatient Procedure (Routine) - Closed Specialty Diagnoses / Procedures Referred By Mat moreira Referred To Contact [facility] [place] Diagnoses Other chest pain Procedures STRESS ECHO TREADMILL ECHO TTHRC R-T 2D W/WO M-MODE COMPLETE REST&ST Adriano Lima APRN.PROFESSOR OF COMMUNICATION AND WRITING [address] [place] [address] [id number] [place] [address] Referral ID Status Reason Start Date Expiration Date V isits Requested Visits Authorized [id number] Closed Auto-Generate d Referral 03/15/2022 03/15/2023 1 1 [facility] for visit Narrative* Diagnostic Procedure Only (Routine) - Closed Specialty Diagnoses / Procedures Referred By Mat moreira Referred To Contact XR IMAGING Diagnoses Pain of left heel Procedures XR FOOT GENERAL 3V AP/LAT/OBL LEFT RADEX FOOT COMPLETE MINIMUM 3 VIEWS Robert Hurley[address] [place] [address] Xr Imaging [facility] Referral ID Status Reason Start Date Expiration Date V isits Requested Visits Authorized [id number] Closed Auto-Generate d Referral 09/03/2023 10/02/2024 1 1 [facility] for visit Narrative* MRI/CT (Routine) - Closed Specialty Diagnoses / Procedures Referred By Mat moreira Referred To Contact MR IMAGING Diagnoses Vestibular schwannoma (HCC) Procedures MRI BRAIN WO/W IVCON MRI BRAIN BRAIN STEM W/O W/CONTRAST MATERIAL Anais Joaquin APRN.PROFESSOR OF COMMUNICATION AND WRITING [address] [place] [address] Phone: tel: fax: [place] [id number] Referral ID Status Reason Start Date Expiration Date V isits Requested Visits Authorized [id number] Closed Auto-Generate d Referral 08/25/2024 10/09/2024 1 1 [facility] for visit Narrative* Outpatient Procedure (Routine) - Closed Specialty Diagnoses / Procedures Referred By Contac t Referred To Contact [facility] Diagnoses Colon cancer screening Procedures COLONOSCOPY SCREENING COLONOSCOPY FLX DX W/COLLJ SPEC WHEN Elena Cortes CASTING MACHINE SET UP OPERATOR.PROFESSOR OF COMMUNICATION AND WRITING [address] [place] [address] Phone: tel: fax: [facility] [address] [place] [address] Referral ID Status Reason Start Date Expiration Date V isits Requested Visits Authorized [id number] Closed Auto-Generate d Referral 09/08/2024 12/07/2024 1 1 [facility] for visit Narrative* Diagnostic Procedure Only (Routine) - Closed Specialty Diagnoses / Procedures Referred By Contac t Referred To Contact XR IMAGING Diagnoses Acute pain of left knee Procedures XR KNEE GENERAL 4V AP BOTH/PA BOTH/LAT/MERC LEFT RADIOLOGIC EXAM KNEE COMPLETE 4/MORE VIEWS Adriano Lima, CASTING MACHINE SET UP OPERATOR.PROFESSOR OF COMMUNICATION AND WRITING [address] [place] [address] Phone: tel: fax: [place] [id number] Referral ID Status Reason Start Date Expiration Date V isits Requested Visits Authorized [id number] Closed Auto-Generate d Referral 11/22/2024 12/22/2025 1 1 [facility] for visit Narrative* MRI/CT (Routine) - Closed Specialty Diagnoses / Procedures Referred By Contac t Referred To Contact MR IMAGING Diagnoses Acute pain of left knee Procedures MRI KNEE WO IVCON LEFT MRI ANY JT LOWER EXTREM W/O CONTRAST Michael Manning MD [address] [place] [address] Phone: tel: fax: [place] [phone] Referral ID Status Reason Start Date Expiration Date V isits Requested Visits Authorized [id number] Closed Auto-Generate d Referral 12/29/2024 02/12/2025 1 1 [facility] Concerns Infection Onset Date Last Indicated Resolved Time COVID-19 Rule-Out 11/19/2021 11/19/2021 Advance Directives No Advanced Directives Records FoundDocuments on File Type Date Recorded Patient City Assessor Expl 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 Advance Directive(s) 11/21/2016 5:44 AM Advance Directive(s) 11/13/2016 12:14 PM Documents on File Type Date Recorded Patient City Assessor Expl anation Advance Directive(s) 11/21/2016 5:44 AM Documents on File Type Date Recorded Patient City Assessor Expl anation Advance Directive(s) 11/21/2016 5:44 AM Chief Complaint and Reason for Visit Chief Complaint SOB Shortness of breath Chief Complaint Admit Date 6 M FU February 24, 2025 8: 52am Reason for Visit Admit Date History of coronary artery stent placeme nt February 24, 2025 8:52am SOB (shortness of breath) February 24, 8:52am Essential hypertension February 24, 2025 8:52am Hyperlipidemia February 24, 2025 8: 52am Reason for Referral Specialty Diagnoses / Procedures Referred By Contac t Referred To Contact MR IMAGING Diagnoses Vestibular schwannoma (HCC) Procedures MRI BRAIN WO/W IVCON MRI BRAIN BRAIN STEM W/O W/CONTRAST MATERIAL Anais Joaquin, RAQUEL.PROFESSOR OF COMMUNICATION AND WRITING [address] [place] [id number] [facility] Referral ID Status Reason Start Date Expiration Date Visits Requested Visits Authorized [id number] Pending Review Auto-Generat ed Referral 01/14/2023 02/13/2024 1 1 Specialty Diagnoses / Procedures Referred By Contac t Referred To Contact CT IMAGING Diagnoses SOB (shortness of breath) Procedures CTA CORONARY W IVCON CTA HRT CORNRY ART/BYPASS GRFTS CONTRST [place] [address] [place] [address] [facility] [place] [address] Referral ID Status Reason Start Date Expiration Date Visits Requested Visits Authorized [id number] Pending Review Auto-Generat ed Referral 03/21/2023 04/19/2024 1 1 Specialty Diagnoses / Procedures Referred By Contac t Referred To Contact [facility] Diagnoses Primary hypertension Procedures ECG COMPLETE ECG ROUTINE ECG W/LEAST 12 LDS W/I&[place] [address] [place] [address] [facility] [place] [address] [place] [address] Referral ID Status Reason Start Date Expiration Date V isits Requested Visits Authorized [id number] Closed Auto-Generate d Referral 03/21/2023 03/20/2024 1 1 Specialty Diagnoses / Procedures Referred By Contac t Referred To Contact MR IMAGING Diagnoses Vestibular schwannoma (HCC) Procedures MRI BRAIN WO/W IVCON MRI BRAIN BRAIN STEM W/O W/CONTRAST MATERIAL Anais Joaquin, CASTING MACHINE SET UP OPERATOR.PROFESSOR OF COMMUNICATION AND WRITING [address] [place] [address] [facility] [place] [address] Referral ID Status Reason Start Date Expiration Date V isits Requested Visits Authorized [id number] Closed Auto-Generate d Referral 02/12/2023 03/29/2023 1 1 Specialty Diagnoses / Procedures Referred By Contac t Referred To Contact CT IMAGING Diagnoses SOB (shortness of breath) Procedures CTA CORONARY W IVCON CTA HRT CORNRY ART/BYPASS GRFTS CONTRST [place] [address] [place] [id number] [facility] [place] [address] Referral ID Status Reason Start Date Expiration Date V isits Requested Visits Authorized [id number] Closed Auto-Generate d Referral 05/19/2023 07/03/2023 1 1 Specialty Diagnoses / Procedures Referred By Contac t Referred To Contact Diagnoses Seasonal allergies Michael Jarquin MD [address] [place] [address] Referral ID Status Reason Start Date Expiration Date V isits Requested Visits Authorized [id number] Authorized 04/15/2024 04/14/2025 1 1 Specialty Diagnoses / Procedures Referred By Contac t Referred To Contact General Surgery Diagnoses Colon cancer screening Procedures CONSULT TO GENERAL SURGERY OFFICE/OUTPATIENT PENDING SALE TO [facility] MDM 60 MINUTES Jen Whitt, CASTING MACHINE SET UP OPERATOR.PROFESSOR OF COMMUNICATION AND WRITING [address] [place] [address] Referral ID Status Reason Start Date Expiration Date Visits Requested Visits Authorized [id number] Authorized PCP Requested Referral 4 05/27/2025 1 1 Specialty Diagnoses / Procedures Referred By Mat moreira Referred To Contact Urology Diagnoses Benign prostatic hyperplasia with weak urinary stream Nocturia Procedures CONSULT TO UROLOGY OFFICE/OUTPATIENT [facility] 60 MINUTES Jen Whitt APRN.PROFESSOR OF COMMUNICATION AND WRITING [address] [place] [address] Referral ID Status Reason Start Date Expiration Date Visits Requested Visits Authorized [id number] Authorized PCP Requested Referral 4 05/27/2025 1 1 Medications Administered Section Inactive Administered Medications - up to 3 most recent administrations Medication Order MAR Action Action Date Dose Rate Site nitroglycerin sublingual 0.3 mg tab(s) (NITROQUICK) 0.3 mg, SUBLINGUAL, ONCE, 1 dose, On Ruth 06/12/23 at 0900, Dissolve 1 tablet under the tongue one time only for 1 dose. To be administered in Radiology for CTA exam Place tablet under tongue and allow to dissolve; do not chew or break., Intraprocedure Given 06/12/2023 9:11 AM EST 0.3 mg Summary Purpose Family History No Family History Records FoundNo Family History Records Found No data available for this section No Family History Records FoundNo Family History Records FoundNo Family History Records FoundNo Family History Records FoundNo Family History Records FoundNo Family History Records Found Additional Source Comments Source Comments (unrecognize d section and content) In the event this informatio n is protected by the Federal Confidentiality of Alcohol and Drug Abuse Patient Records regulations: The Federal rules restrict any use of the information to criminally investigate or prosecute any alcohol or drug abuse patient.[facility] the event this information is protected by the Federal Confidentiality of Alcohol and Drug Abuse Patient Records regulations: The Federal rules restrict any use of the information to criminally investigate or prosecute any alcohol or drug abuse patient.[facility] the event this information is protected by the Federal Confidentiality of Alcohol and Drug Abuse Patient Records regulations: The Federal rules restrict any use of the information to criminally investigate or prosecute any alcohol or drug abuse patient.[facility] the event this information is protected by the Federal Confidentiality of Alcohol and Drug Abuse Patient Records regulations: The Federal rules restrict any use of the information to criminally investigate or prosecute any alcohol or drug abuse patient.[facility] Center[facility] the event this information is protected by the Federal Confidentiality of Alcohol and Drug Abuse Patient Records regulations: The Federal rules restrict any use of the information to criminally investigate or prosecute any alcohol or drug abuse patient.[facility] CenterIn the event this information is protected by the Federal Confidentiality of Alcohol and Drug Abuse Patient Records regulations: The Federal rules restrict any use of the information to criminally investigate or prosecute any alcohol or drug abuse patient.[facility] Center[facility] the event this information is protected by the Federal Confidentiality of Alcohol and Drug Abuse Patient Records regulations: The Federal rules restrict any use of the information to criminally investigate or prosecute any alcohol or drug abuse patient.[facility] Center[facility] the event this information is protected by the Federal Confidentiality of Alcohol and Drug Abuse Patient Records regulations: The Federal rules restrict any use of the information to criminally investigate or prosecute any alcohol or drug abuse patient.[facility] CenterIn the event this information is protected by the Federal Confidentiality of Alcohol and Drug Abuse Patient Records regulations: The Federal rules restrict any use of the information to criminally investigate or prosecute any alcohol or drug abuse patient.[facility] CenterIn the event this information is protected by the Federal Confidentiality of Alcohol and Drug Abuse Patient Records regulations: The Federal rules restrict any use of the information to criminally investigate or prosecute any alcohol or drug abuse patient.[facility] CenterIn the event this information is protected by the Federal Confidentiality of Alcohol and Drug Abuse Patient Records regulations: The Federal rules restrict any use of the information to criminally investigate or prosecute any alcohol or drug abuse patient.[facility] CenterIn the event this information is protected by the Federal Confidentiality of Alcohol and Drug Abuse Patient Records regulations: The Federal rules restrict any use of the information to criminally investigate or prosecute any alcohol or drug abuse patient.[facility] CenterIn the event this information is protected by the Federal Confidentiality of Alcohol and Drug Abuse Patient Records regulations: The Federal rules restrict any use of the information to criminally investigate or prosecute any alcohol or drug abuse patient.[facility] CenterIn the event this information is protected by the Federal Confidentiality of Alcohol and Drug Abuse Patient Records regulations: The Federal rules restrict any use of the information to criminally investigate or prosecute any alcohol or drug abuse patient.[facility] CenterIn the event this information is protected by the Federal Confidentiality of Alcohol and Drug Abuse Patient Records regulations: The Federal rules restrict any use of the information to criminally investigate or prosecute any alcohol or drug abuse patient.[facility] CenterIn the event this information is protected by the Federal Confidentiality of Alcohol and Drug Abuse Patient Records regulations: The Federal rules restrict any use of the information to criminally investigate or prosecute any alcohol or drug abuse patient.[facility] CenterIn the event this information is protected by the Federal Confidentiality of Alcohol and Drug Abuse Patient Records regulations: The Federal rules restrict any use of the information to criminally investigate or prosecute any alcohol or drug abuse patient.[facility] CenterIn the event this information is protected by the Federal Confidentiality of Alcohol and Drug Abuse Patient Records regulations: The Federal rules restrict any use of the information to criminally investigate or prosecute any alcohol or drug abuse patient.[facility] CenterIn the event this information is protected by the Federal Confidentiality of Alcohol and Drug Abuse Patient Records regulations: The Federal rules restrict any use of the information to criminally investigate or prosecute any alcohol or drug abuse patient.[facility] CenterIn the event this information is protected by the Federal Confidentiality of Alcohol and Drug Abuse Patient Records regulations: The Federal rules restrict any use of the information to criminally investigate or prosecute any alcohol or drug abuse patient.[facility] CenterIn the event this information is protected by the Federal Confidentiality of Alcohol and Drug Abuse Patient Records regulations: The Federal rules restrict any use of the information to criminally investigate or prosecute any alcohol or drug abuse patient.[facility] CenterIn the event this information is protected by the Federal Confidentiality of Alcohol and Drug Abuse Patient Records regulations: The Federal rules restrict any use of the information to criminally investigate or prosecute any alcohol or drug abuse patient.[facility] CenterIn the event this information is protected by the Federal Confidentiality of Alcohol and Drug Abuse Patient Records regulations: The Federal rules restrict any use of the information to criminally investigate or prosecute any alcohol or drug abuse patient.[facility] CenterIn the event this information is protected by the Federal Confidentiality of Alcohol and Drug Abuse Patient Records regulations: The Federal rules restrict any use of the information to criminally investigate or prosecute any alcohol or drug abuse patient.[facility] CenterIn the event this information is protected by the Federal Confidentiality of Alcohol and Drug Abuse Patient Records regulations: The Federal rules restrict any use of the information to criminally investigate or prosecute any alcohol or drug abuse patient.[facility] CenterIn the event this information is protected by the Federal Confidentiality of Alcohol and Drug Abuse Patient Records regulations: The Federal rules restrict any use of the information to criminally investigate or prosecute any alcohol or drug abuse patient.[facility] CenterIn the event this information is protected by the Federal Confidentiality of Alcohol and Drug Abuse Patient Records regulations: The Federal rules restrict any use of the information to criminally investigate or prosecute any alcohol or drug abuse patient.[facility] CenterIn the event this information is protected by the Federal Confidentiality of Alcohol and Drug Abuse Patient Records regulations: The Federal rules restrict any use of the information to criminally investigate or prosecute any alcohol or drug abuse patient.[facility] CenterIn the event this information is protected by the Federal Confidentiality of Alcohol and Drug Abuse Patient Records regulations: The Federal rules restrict any use of the information to criminally investigate or prosecute any alcohol or drug abuse patient.[facility] CenterIn the event this information is protected by the Federal Confidentiality of Alcohol and Drug Abuse Patient Records regulations: The Federal rules restrict any use of the information to criminally investigate or prosecute any alcohol or drug abuse patient.[facility] CenterIn the event this information is protected by the Federal Confidentiality of Alcohol and Drug Abuse Patient Records regulations: The Federal rules restrict any use of the information to criminally investigate or prosecute any alcohol or drug abuse patient.[facility] CenterIn the event this information is protected by the Federal Confidentiality of Alcohol and Drug Abuse Patient Records regulations: The Federal rules restrict any use of the information to criminally investigate or prosecute any alcohol or drug abuse patient.[facility] CenterIn the event this information is protected by the Federal Confidentiality of Alcohol and Drug Abuse Patient Records regulations: The Federal rules restrict any use of the information to criminally investigate or prosecute any alcohol or drug abuse patient.[facility] CenterIn the event this information is protected by the Federal Confidentiality of Alcohol and Drug Abuse Patient Records regulations: The Federal rules restrict any use of the information to criminally investigate or prosecute any alcohol or drug abuse patient.[facility] CenterIn the event this information is protected by the Federal Confidentiality of Alcohol and Drug Abuse Patient Records regulations: The Federal rules restrict any use of the information to criminally investigate or prosecute any alcohol or drug abuse patient.[facility] CenterIn the event this information is protected by the Federal Confidentiality of Alcohol and Drug Abuse Patient Records regulations: The Federal rules restrict any use of the information to criminally investigate or prosecute any alcohol or drug abuse patient.[facility] CenterIn the event this information is protected by the Federal Confidentiality of Alcohol and Drug Abuse Patient Records regulations: The Federal rules restrict any use of the information to criminally investigate or prosecute any alcohol or drug abuse patient.[facility] CenterIn the event this information is protected by the Federal Confidentiality of Alcohol and Drug Abuse Patient Records regulations: The Federal rules restrict any use of the information to criminally investigate or prosecute any alcohol or drug abuse patient.[facility] CenterIn the event this information is protected by the Federal Confidentiality of Alcohol and Drug Abuse Patient Records regulations: The Federal rules restrict any use of the information to criminally investigate or prosecute any alcohol or drug abuse patient.[facility] CenterIn the event this information is protected by the Federal Confidentiality of Alcohol and Drug Abuse Patient Records regulations: The Federal rules restrict any use of the information to criminally investigate or prosecute any alcohol or drug abuse patient.[facility] CenterIn the event this information is protected by the Federal Confidentiality of Alcohol and Drug Abuse Patient Records regulations: The Federal rules restrict any use of the information to criminally investigate or prosecute any alcohol or drug abuse patient.[facility] CenterIn the event this information is protected by the Federal Confidentiality of Alcohol and Drug Abuse Patient Records regulations: The Federal rules restrict any use of the information to criminally investigate or prosecute any alcohol or drug abuse patient.[facility] CenterIn the event this information is protected by the Federal Confidentiality of Alcohol and Drug Abuse Patient Records regulations: The Federal rules restrict any use of the information to criminally investigate or prosecute any alcohol or drug abuse patient.[facility] CenterIn the event this information is protected by the Federal Confidentiality of Alcohol and Drug Abuse Patient Records regulations: The Federal rules restrict any use of the information to criminally investigate or prosecute any alcohol or drug abuse patient.[facility] CenterIn the event this information is protected by the Federal Confidentiality of Alcohol and Drug Abuse Patient Records regulations: The Federal rules restrict any use of the information to criminally investigate or prosecute any alcohol or drug abuse patient.[facility] CenterIn the event this information is protected by the Federal Confidentiality of Alcohol and Drug Abuse Patient Records regulations: The Federal rules restrict any use of the information to criminally investigate or prosecute any alcohol or drug abuse patient.[facility] CenterIn the event this information is protected by the Federal Confidentiality of Alcohol and Drug Abuse Patient Records regulations: The Federal rules restrict any use of the information to criminally investigate or prosecute any alcohol or drug abuse patient.[facility] CenterIn the event this information is protected by the Federal Confidentiality of Alcohol and Drug Abuse Patient Records regulations: The Federal rules restrict any use of the information to criminally investigate or prosecute any alcohol or drug abuse patient.[facility] CenterIn the event this information is protected by the Federal Confidentiality of Alcohol and Drug Abuse Patient Records regulations: The Federal rules restrict any use of the information to criminally investigate or prosecute any alcohol or drug abuse patient.[facility] CenterIn the event this information is protected by the Federal Confidentiality of Alcohol and Drug Abuse Patient Records regulations: The Federal rules restrict any use of the information to criminally investigate or prosecute any alcohol or drug abuse patient.[facility] CenterIn the event this information is protected by the Federal Confidentiality of Alcohol and Drug Abuse Patient Records regulations: The Federal rules restrict any use of the information to criminally investigate or prosecute any alcohol or drug abuse patient.[facility] CenterIn the event this information is protected by the Federal Confidentiality of Alcohol and Drug Abuse Patient Records regulations: The Federal rules restrict any use of the information to criminally investigate or prosecute any alcohol or drug abuse patient.[facility] CenterIn the event this information is protected by the Federal Confidentiality of Alcohol and Drug Abuse Patient Records regulations: The Federal rules restrict any use of the information to criminally investigate or prosecute any alcohol or drug abuse patient.[facility] CenterIn the event this information is protected by the Federal Confidentiality of Alcohol and Drug Abuse Patient Records regulations: The Federal rules restrict any use of the information to criminally investigate or prosecute any alcohol or drug abuse patient.[facility] CenterIn the event this information is protected by the Federal Confidentiality of Alcohol and Drug Abuse Patient Records regulations: The Federal rules restrict any use of the information to criminally investigate or prosecute any alcohol or drug abuse patient.[facility] CenterIn the event this information is protected by the Federal Confidentiality of Alcohol and Drug Abuse Patient Records regulations: The Federal rules restrict any use of the information to criminally investigate or prosecute any alcohol or drug abuse patient.[facility] CenterIn the event this information is protected by the Federal Confidentiality of Alcohol and Drug Abuse Patient Records regulations: The Federal rules restrict any use of the information to criminally investigate or prosecute any alcohol or drug abuse patient.[facility] CenterIn the event this information is protected by the Federal Confidentiality of Alcohol and Drug Abuse Patient Records regulations: The Federal rules restrict any use of the information to criminally investigate or prosecute any alcohol or drug abuse patient.[facility] CenterIn the event this information is protected by the Federal Confidentiality of Alcohol and Drug Abuse Patient Records regulations: The Federal rules restrict any use of the information to criminally investigate or prosecute any alcohol or drug abuse patient.[facility] CenterIn the event this information is protected by the Federal Confidentiality of Alcohol and Drug Abuse Patient Records regulations: The Federal rules restrict any use of the information to criminally investigate or prosecute any alcohol or drug abuse patient.[facility] CenterIn the event this information is protected by the Federal Confidentiality of Alcohol and Drug Abuse Patient Records regulations: The Federal rules restrict any use of the information to criminally investigate or prosecute any alcohol or drug abuse patient.[facility] CenterIn the event this information is protected by the Federal Confidentiality of Alcohol and Drug Abuse Patient Records regulations: The Federal rules restrict any use of the information to criminally investigate or prosecute any alcohol or drug abuse patient.[facility] CenterIn the event this information is protected by the Federal Confidentiality of Alcohol and Drug Abuse Patient Records regulations: The Federal rules restrict any use of the information to criminally investigate or prosecute any alcohol or drug abuse patient.[facility] CenterIn the event this information is protected by the Federal Confidentiality of Alcohol and Drug Abuse Patient Records regulations: The Federal rules restrict any use of the information to criminally investigate or prosecute any alcohol or drug abuse patient.[facility] CenterIn the event this information is protected by the Federal Confidentiality of Alcohol and Drug Abuse Patient Records regulations: The Federal rules restrict any use of the information to criminally investigate or prosecute any alcohol or drug abuse patient.[facility] CenterIn the event this information is protected by the Federal Confidentiality of Alcohol and Drug Abuse Patient Records regulations: The Federal rules restrict any use of the information to criminally investigate or prosecute any alcohol or drug abuse patient.[facility] CenterIn the event this information is protected by the Federal Confidentiality of Alcohol and Drug Abuse Patient Records regulations: The Federal rules restrict any use of the information to criminally investigate or prosecute any alcohol or drug abuse patient.[facility] CenterIn the event this information is protected by the Federal Confidentiality of Alcohol and Drug Abuse Patient Records regulations: The Federal rules restrict any use of the information to criminally investigate or prosecute any alcohol or drug abuse patient.[facility] CenterIn the event this information is protected by the Federal Confidentiality of Alcohol and Drug Abuse Patient Records regulations: The Federal rules restrict any use of the information to criminally investigate or prosecute any alcohol or drug abuse patient.[facility] CenterIn the event this information is protected by the Federal Confidentiality of Alcohol and Drug Abuse Patient Records regulations: The Federal rules restrict any use of the information to criminally investigate or prosecute any alcohol or drug abuse patient.[facility] CenterIn the event this information is protected by the Federal Confidentiality of Alcohol and Drug Abuse Patient Records regulations: The Federal rules restrict any use of the information to criminally investigate or prosecute any alcohol or drug abuse patient.[facility] CenterIn the event this information is protected by the Federal Confidentiality of Alcohol and Drug Abuse Patient Records regulations: The Federal rules restrict any use of the information to criminally investigate or prosecute any alcohol or drug abuse patient.[facility] CenterIn the event this information is protected by the Federal Confidentiality of Alcohol and Drug Abuse Patient Records regulations: The Federal rules restrict any use of the information to criminally investigate or prosecute any alcohol or drug abuse patient.[facility] CenterIn the event this information is protected by the Federal Confidentiality of Alcohol and Drug Abuse Patient Records regulations: The Federal rules restrict any use of the information to criminally investigate or prosecute any alcohol or drug abuse patient.[facility] Reason for Visit (unrecogniz ed section and content) Reason Comments Sore Throat sinus, cough, runny nose, MARR x 1 week Reason Comments Medication Follow-up Reason Comments Results Reason Comments Spirometry Specialty Diagnoses / Procedures [facility] Diagnoses SOB (shortness of breath) Procedures SPIROMETRY - BASELINE AND POST DILATOR BRNCDILAT RSPSE SPMTRY PRE&POST-BRNCDILAT ADMN Adriano Lima, CASTING MACHINE SET UP OPERATOR.PROFESSOR OF COMMUNICATION AND WRITING [address] [place] [address] Res[facility] [place] [address] [place] [address] Referral ID Status Reason Start Date Expiration Date V isits Requested Visits Authorized [id number] Closed Auto-Generate d Referral 06/18/2022 07/18/2023 1 1 Reason Comments Shortness of Breath Specialty Diagnoses / Procedures [facility]erred To Contact Pulmonary and Critical Care Medicine / PULMONARY MEDICINE Diagnoses SOB (shortness of breath) Procedures CONSULT TO PULM/CRITICAL CARE OFFICE/OUTPATIENT [facility] MDM 60-74 MINUTES Adriano Lima, CASTING MACHINE SET UP OPERATOR.PROFESSOR OF COMMUNICATION AND WRITING [address] [place] [address] Pulm [facility] [address] [place] [address] Referral ID Status Reason Start Date Expiration Date V isits Requested Visits Authorized [id number] Closed PCP Requested Referral 06/18/2022 06/18/2023 1 1 Reason Comments Patient Question Reason Comments Results Zio Reason Comments New Patient SOB Specialty Diagnoses / Procedures Referred By [facility] Referred To Contact Cardiology Diagnoses SOB (shortness of breath) Procedures CONSULT TO CARDIOLOGY OFFICE/OUTPATIENT NEW HIGH MDM 60-74 MINUTES Jen Whitt, CASTING MACHINE SET UP OPERATOR.PROFESSOR OF COMMUNICATION AND WRITING [address] [place] [address] Referral ID Status Reason Start Date Expiration Date V isits Requested Visits Authorized [id number] Closed PCP Requested Referral 01/16/2023 01/16/2024 1 1 Specialty Diagnoses / Procedures [facility] To Contact MR IMAGING Diagnoses Vestibular schwannoma (HCC) Procedures MRI BRAIN WO/W IVCON MRI BRAIN BRAIN STEM W/O W/CONTRAST MATERIAL Anais Joaquin, CASTING MACHINE SET UP OPERATOR.PROFESSOR OF COMMUNICATION AND WRITING [address] [place] [address] Mr Imaging [facility] Referral ID Status Reason Start Date Expiration Date V isits Requested Visits Authorized [id number] Closed Auto-Generate d Referral 02/12/2023 03/29/2023 1 1 Reason Comments Appointment Reschedule following CTA (needs scheduled) Reason Comments Refill Request Specialty Diagnoses / Procedures Referred By [facility] Referred To Contact CT IMAGING Diagnoses SOB (shortness of breath) Procedures CTA CORONARY W IVCON CTA HRT CORNRY ART/BYPASS GRFTS CONTRST 3[place] [address] [place] [address] Ct Imaging [facility] Referral ID Status Reason Start Date Expiration Date V isits Requested Visits Authorized [id number] Closed Auto-Generate d Referral 05/19/2023 07/03/2023 1 1 Reason Comments Follow Up Breathing test in m[place] Reason Comments Skin Lesion (LMS) Reason Comments Eye Itching Left Eye 1 month Needs glasses For computer. Reason Comments Results Labs Reason Comments New Pain Reason Comments Difficulty Reading Both Eyes Reason Comments Order Issue Reason Comments Forms Medical Service Comp any; CPAP supplies Reason Onset Date Comments Refill Request 04/15/2024 Reason Comments Medication Problem Reason Comments Wellness Reason Comments Consult Colonoscopy consulta tion Specialty Diagnoses / Procedures Referred By [facility] Referred To Contact General Surgery Diagnoses Colon cancer screening Procedures CONSULT TO GENERAL SURGERY OFFICE/OUTPATIENT NEW HIGH MDM 60 MINUTES Jen Whitt, CASTING MACHINE SET UP OPERATOR.PROFESSOR OF COMMUNICATION AND WRITING [address] [place] [address] Referral ID Status Reason Start Date Expiration Date V isits Requested Visits Authorized [id number] Closed PCP Requested Referral 05/27/2024 05/27/2025 1 1 Reason Comments Skin Lesion (PKN) Reason Comments New Patient Benign Prostatic Hypertrophy Specialty Diagnoses / Procedures Referred By [facility] Referred To Contact Urology Diagnoses Benign prostatic hyperplasia with weak urinary stream Nocturia Procedures CONSULT TO UROLOGY OFFICE/OUTPATIENT NEW HIGH MDM 60 MINUTES Jen Whitt, CASTING MACHINE SET UP OPERATOR.PROFESSOR OF COMMUNICATION AND WRITING [address] [place] [address] Referral ID Status Reason Start Date Expiration Date V isits Requested Visits Authorized [id number] Closed PCP Requested Referral 05/27/2024 05/27/2025 1 1 Reason Comments Annual Exam Karson 07/21/2023 (ds) Reason Comments Follow Up Reason Comments 09-08-2024 Colon ASC Reason Onset Date Comments Refill Request 09/29/2024 Reason Comments Benign Prostatic Hypertrophy BPH with ABBEY TS Reason Comments Appointment Reason Comments BPH/Nocturia BPH/ Weak stream Reason Comments 6 Month Exam Reason Comments PT Eval Physical Therapy Specialty Diagnoses / Procedures Referred By [facility] Referred To Contact [facility] Diagnoses Acute pain of left knee Procedures CONSULT TO PHYSICAL THERAPY PHYSICAL THERAPY EVALUATION HIGH COMPLEX 45 MINS Adriano Lima, RAQUEL.PROFESSOR OF COMMUNICATION AND WRITING [address] [place] [address] Phone: tel: fax: [facility] [address] [place] [address] Referral ID Status Reason Start Date Expiration Date V isits Requested Visits Authorized [id number] Closed Auto-Generate d Referral 07/07/2024 07/06/2025 1 1 Reason Comments Physical Therapy Specialty Diagnoses / Procedures Referred By [facility] Referred To Contact [facility] Diagnoses Acute pain of left knee Procedures PT REHAB FOLLOW UP ORDER THERAPEUTIC EXERCISES RE, EA 15 MIN. [facility] [address] [place] [address] Phone: tel: fax: [facility] [address] [place] [address] Referral ID Status Reason Start Date Expiration Date Visits Requested Visits Authorized [id number] Authorized PCP Requested Referral Auto-Generate d Referral 12/03/2024 03/06/2025 6 6 Reason Comments Assessment Patient Education Specialty Diagnoses / Procedures Referred By [facility] Referred To Contact Nutrition Diagnoses Overweight with body mass index (BMI) of 29 to 29.9 in adult Procedures CONSULT TO NUTRITION THERAPY MEDICAL NUTRITION ASSMT&IVNTJ INDIV EACH 15 GA Adriano Lima, CASTING MACHINE SET UP OPERATOR.PROFESSOR OF COMMUNICATION AND WRITING [address] [place] [address] Phone: tel: fax: Referral ID Status Reason Start Date Expiration Date Visits Requested Visits Authorized [id number] Authorized PCP Requested Referral 11/22/2024 11/22/2025 1 4 Reason Comments Physical Therapy PT Discharge Specialty Diagnoses / Procedures Referred By [facility] Referred To Contact [facility] Diagnoses Acute pain of left knee Procedures PT REHAB FOLLOW UP ORDER THERAPEUTIC EXERCISES RE, EA 15 MIN. [facility] [address] [place] [address] Phone: tel: fax: [facility] [address] [place] [address] Referral ID Status Reason Start Date Expiration Date Visits Requested Visits Authorized [id number] Authorized PCP Requested Referral Auto-Generate d Referral 12/03/2024 03/06/2025 6 6 Reason Comments Floaters Left Eye Reason Onset Date Comments Results 01/12/2025 Reason Comments New Knee Pain Specialty Diagnoses / Procedures Referred By Mat t Referred To Contact Orthopedics Diagnoses Acute medial meniscus tear of left knee, initial encounter Tear of lateral meniscus of left knee, current, unspecified tear type, initial encounter Procedures CONSULT TO ORTHOPAEDICS OFFICE/OUTPATIENT NEW HIGH MDM 60 MINUTES Adriano Lima APRN.PROFESSOR OF COMMUNICATION AND WRITING [address] [place] [address] Phone: tel: fax: Referral ID Status Reason Start Date Expiration Date V isits Requested Visits Authorized [id number] Closed PCP Requested Referral 01/12/2025 01/12/2026 1 1 Reason Comments Schedule Surgery Reason Comments Consult surgery on 02/09/25 at [place] Reason Comments Horseshoe Tear Follow Up Reason Comments Horseshoe Tear Evaluation Choroidal Neovascular Membrane Follow Up [facility] Reason Comments Post Op 1 week 5 days post o p Left knee arthroscopic medial menisectomy, medial and PF chondroplasties Reason Comments Horseshoe Tear Follow Up Vitreous Hemorrhage Follow Up Care Teams (unrecognized sec tion and content) Zone Maintenance Technician Relationship Specialty Start Date End Date Michael Jarquin MD [address] [place] [address] PCP - General Family Practice 08/22/14 [place] [address] Pediatric Nephrology 05/23/17 [place] [address] [place] [address] Physician Radiation Oncology 05/23/17 Zone Maintenance Technician Relationship Specialty Start Date End Date Michael Jarquin MD [address] [place] [address] PCP - General Family Practice 08/22/14 [place] [address] Pediatric Nephrology 05/23/17 [place] [address] [place] [address] Physician Radiation Oncology 05/23/17 Zone Maintenance Technician Relationship Specialty Start Date End Date Michael Jarquin MD [address] [place] [address] PCP - General Family Practice 08/22/14 [place] [address] Pediatric Nephrology 05/23/17 [place] [address] [place] [address] Physician Radiation Oncology 05/23/17 Zone Maintenance Technician Relationship Specialty Start Date End Date Michael Jarquin MD [address] [place] [address] PCP - General Family Medicine 08/22/14 [place] [address] Pediatric Nephrology 05/23/17 [place] [address] [place] [address] Physician Radiation Oncology 05/23/17 Zone Maintenance Technician Relationship Specialty Start Date End Date Michael Jarquin MD [address] [place] [address] PCP - General Family Medicine 08/22/14 [place] [address] Pediatric Nephrology 05/23/17 [place] [address] [place] [address] Physician Radiation Oncology 05/23/17 Zone Maintenance Technician Relationship Specialty Start Date End Date Michael Jarquin MD [address] [place] [address] PCP - General Family Medicine 08/22/14 [place] [address] Pediatric Nephrology 05/23/17 [place] [address] [place] [address] Physician Radiation Oncology 05/23/17 Zone Maintenance Technician Relationship Specialty Start Date End Date Michael Jarquin MD [address] [place] [address] PCP - General Family Medicine 08/22/14 [place] [address] Pediatric Nephrology 05/23/17 [place] [address] [place] [address] Physician Radiation Oncology 05/23/17 Zone Maintenance Technician Relationship Specialty Start Date End Date Michael Jarquin MD [address] [place] [address] PCP - General Family Medicine 08/22/14 Reji Galvez [place], [place] [id number] Pediatric Nephrology 05/23/17 [place] [address] [place] [address] Physician Radiation Oncology 05/23/17 Zone Maintenance Technician Relationship Specialty Start Date End Date Michael Jarquin MD [address] [place] [address] PCP - General Family Medicine 08/22/14 [place] [address] Pediatric Nephrology 05/23/17 [place] [address] [place] [address] Physician Radiation Oncology 05/23/17 Team Status: Active Member Role Status Dates Dr. Eveline Cruz MD Primary Care Provider Active Team Status: Active Member Role Status Dates Dr. Sonja Jackson MD Referring Provider, Other Pro vider Active Dr. Eveline Cruz MD Primary Care Provider Active Dr. Navneet Jackson DO Attending Provider Active Team Status: Inactive Member Role Status Dates Dr. Sonja Jackson MD Attending Provider, Referring Provider Active Dr. Eveline Cruz MD Primary Care Provider Active Zone Maintenance Technician Relationship Specialty Start Date End Date Michael Jarquin MD [address] [place] [address] PCP - General Family Medicine 08/22/14 [place] [address] Pediatric Nephrology 05/23/17 [place] [address] [place] [address] Physician Radiation Oncology 05/23/17 Zone Maintenance Technician Relationship Specialty Start Date End Date Michael Jarquin MD [address] [place] [address] PCP - General Family Medicine 08/22/14 [place] [address] Pediatric Nephrology 05/23/17 [place] [address] [place] [address] Physician Radiation Oncology 05/23/17 Zone Maintenance Technician Relationship Specialty Start Date End Date Michael Jarquin MD [address] [place] [address] PCP - General Family Medicine 08/22/14 Reji [place] [address] Pediatric Nephrology 05/23/17 [place] [address] [place] [address] Physician Radiation Oncology 05/23/17 Zone Maintenance Technician Relationship Specialty Start Date End Date Michael Jarquin MD [address] [place] [address] PCP - General Family Medicine 08/22/14 Reji Galvez [place] [address] Pediatric Nephrology 05/23/17 [place] [address] [place] [address] Physician Radiation Oncology 05/23/17 Zone Maintenance Technician Relationship Specialty Start Date End Date Michael Jarquin MD [address] [place] [address] PCP - General Family Medicine 08/22/14 Reji [place] [address] Pediatric Nephrology 05/23/17 [place] [address] [place] [address] Physician Radiation Oncology 05/23/17 Zone Maintenance Technician Relationship Specialty Start Date End Date Michael Jarquin MD [address] [place] [address] PCP - General Family Medicine 08/22/14 Reji [place] [address] Pediatric Nephrology 05/23/17 [place] [address] [place] [address] Physician Radiation Oncology 05/23/17 Zone Maintenance Technician Relationship Specialty Start Date End Date Michael Jarquin MD [address] [place] [address] PCP - General Family Medicine 08/22/14 Reji Galvez [place] [id number] Pediatric Nephrology 05/23/17 [place] [address] [place] [address] Physician Radiation Oncology 05/23/17 Zone Maintenance Technician Relationship Specialty Start Date End Date Michael Jarquin MD [address] [place] [address] PCP - General Family Medicine 08/22/14 Reji Galvez [place] [address] Pediatric Nephrology 05/23/17 [place] [address] [place] [address] Physician Radiation Oncology 05/23/17 Zone Maintenance Technician Relationship Specialty Start Date End Date Michael Jarquin MD [address] [place] [address] PCP - General Family Medicine 08/22/14 Reji Galvez JOYCE VARELA [place] [address] Pediatric Nephrology 05/23/17 [place] [address] [place] [address] Physician Radiation Oncology 05/23/17 Zone Maintenance Technician Relationship Specialty Start Date End Date Michael Jarquin MD [address] [place] [address] PCP - General Family Medicine 08/22/14 Reji Galvez [address] [place] [id number] Pediatric Nephrology 05/23/17 [place] [address] [place] [address] Physician Radiation Oncology 05/23/17 Zone Maintenance Technician Relationship Specialty Start Date End Date Michael Jarquin [address] [place], [place] 946411 PCP - General 06/11/16 Zone Maintenance Technician Relationship Specialty Start Date End Date Michael Jarquin MD [address] [place], [place] [id number] PCP - General Family Medicine 08/22/14 Reji Galvez [place], [place] [id number] Pediatric Nephrology 05/23/17 [place] [address] [place] [address] Physician Radiation Oncology 05/23/17 Zone Maintenance Technician Relationship Specialty Start Date End Date Michael Jarquin MD [address] [place], [place] [id number] PCP - General Family Medicine 08/22/14 Reji Galvez [place], [place] [id number] Pediatric Nephrology 05/23/17 [place] [address] [place] [address] Physician Radiation Oncology 05/23/17 Zone Maintenance Technician Relationship Specialty Start Date End Date Michael Jarquin MD [address] [place] [address] PCP - General Family Medicine 08/22/14 Reji Galvez JOY[address] [place], [place] [address] Pediatric Nephrology 05/23/17 [place] [address] [place] [address] Physician Radiation Oncology 05/23/17 Zone Maintenance Technician Relationship Specialty Start Date End Date Michael Jarquin MD [address] [place] [address] PCP - General Family Medicine 08/22/14 Reji [place] [address] Pediatric Nephrology 05/23/17 [place] [address] [place] [address] Physician Radiation Oncology 05/23/17 Zone Maintenance Technician Relationship Specialty Start Date End Date Michael Jarquin MD [address] [place] [address] PCP - General Family Medicine 08/22/14 [place] [address] Pediatric Nephrology 05/23/17 [place] [address] [place] [address] Physician Radiation Oncology 05/23/17 Zone Maintenance Technician Relationship Specialty Start Date End Date Michael Jarquin MD [address] [place] [address] PCP - General Family Medicine 08/22/14 [place] [address] Pediatric Nephrology 05/23/17 [place] [address] [place] [address] Physician Radiation Oncology 05/23/17 Zone Maintenance Technician Relationship Specialty Start Date End Date Michael Jarquin MD [address] [place] [address] PCP - General Family Medicine 08/22/14 Reji [place] [address] Pediatric Nephrology 05/23/17 [place] [address] [place] [address] Physician Radiation Oncology 05/23/17 Zone Maintenance Technician Relationship Specialty Start Date End Date Michael Jarquin MD [address] [place] [address] PCP - General Family Medicine 08/22/14 Reji Galvez JOY[address] [place], [place] [address]23[address] Pediatric Nephrology 05/23/17 [place] [address] [place] [address] Physician Radiation Oncology 05/23/17 Zone Maintenance Technician Relationship Specialty Start Date End Date Michael Jarquin MD [address] [place], [place] 455241 PCP - General Family Medicine 08/22/14 Reji Galvez [place], [place] [address]95[address] Pediatric Nephrology 05/23/17 [place] [address] [place] [address] Physician Radiation Oncology 05/23/17 Zone Maintenance Technician Relationship Specialty Start Date End Date Michael Jarquin MD [address] [place] [address] PCP - General Family Medicine 08/22/14 [place] [address] Pediatric Nephrology 05/23/17 [place] [address] [place] [address] Physician Radiation Oncology 05/23/17 Zone Maintenance Technician Relationship Specialty Start Date End Date Michael Jarquin MD [address] [place] [address] PCP - General Family Medicine 08/22/14 Reji Galvez JOY[place], [place] [address] Pediatric Nephrology 05/23/17 [place] [address] [place] [address] Physician Radiation Oncology 05/23/17 Zone Maintenance Technician Relationship Specialty Start Date End Date Michael Jarquin MD [address] [place], [place] 793941 PCP - General Family Medicine 08/22/14 Reji Galvez JO[place], [place] [address] Pediatric Nephrology 05/23/17 [place] [address] [place], [place] 0732241 [phone] Physician Radiation Oncology 05/23/17 Zone Maintenance Technician Relationship Specialty Start Date End Date Michael Jarquin [address] [place], [place] 500171 PCP - General 06/11/16 Zone Maintenance Technician Relationship Specialty Start Date End Date Michael Jarquin MD [address] [place] [address] PCP - General Family Medicine 08/22/14 [place] [address] Pediatric Nephrology 05/23/17 [place] [address] [place] [address] Physician Radiation Oncology 05/23/17 Jen Whitt APRN.PROFESSOR OF COMMUNICATION AND WRITING [address] [place] [address] Tinsmith Apprentice Family Medicine 06/13/24 Adriano Lima APRN.PROFESSOR OF COMMUNICATION AND WRITING [address] [place] [address] Tinsmith Apprentice Family [facility] 06/22/24 Zone Maintenance Technician Relationship Specialty Start Date End Date Michael Jarquin [address] [place] [address] PCP - General 06/11/16 Zone Maintenance Technician Relationship Specialty Start Date End Date Michael Jarquin MD [address] [place] [address] PCP - General Family Medicine 08/22/14 Reji Galvez [facility] [place] [phone] Pediatric Nephrology 05/23/17 [place] [address] [address] [place] [address] Physician Radiation Oncology 05/23/17 Jen Whitt, CASTING MACHINE SET UP OPERATOR.PROFESSOR OF COMMUNICATION AND WRITING [address] [place] [address] [facility] 06/13/24 Adriano Lima APRN.PROFESSOR OF COMMUNICATION AND WRITING [address] [place] [address] Tinsmith Apprentice [facility] 06/22/24 Zone Maintenance Technician Relationship Specialty Start Date End Date Michael Jarquin MD [address] [place] [address] PCP - General Family Medicine 08/22/14 Reji Galvez [address] [employer] [place] [phone] Pediatric Nephrology 05/23/17 [place] [address] [place] [address] Physician Radiation Oncology 05/23/17 Jen Whitt APRN.PROFESSOR OF COMMUNICATION AND WRITING [address] [place] [address] Tinsmith Apprentice Family Medicine 06/13/24 Adriano Lima APRN.PROFESSOR OF COMMUNICATION AND WRITING [address] [place] [address] Tinsmith Apprentice [facility] 06/22/24 Zone Maintenance Technician Relationship Specialty Start Date End Date Michael Jarqiun MD [address] [place] [address] PCP - General Family Medicine 08/22/14 Reji Galvez [place], [place] 28429[address] Pediatric Nephrology 05/23/17 [place] [address] [place] [address] Physician Radiation Oncology 05/23/17 Jen Whitt APRN.PROFESSOR OF COMMUNICATION AND WRITING [address] [place] [address] Tinsmith Apprentice [facility] 06/13/24 Adriano Lima APRN.PROFESSOR OF COMMUNICATION AND WRITING [address] [place] [address] [facility] 06/22/24 Zone Maintenance Technician Relationship Specialty Start Date End Date Michael Jarquin MD [address] [place] [address] PCP - General Family Medicine 08/22/14 Reji Galvez JO[address] [place], [place] [address] Pediatric Nephrology 05/23/17 [place] [address] [place], [place] 6424606 Physician Radiation Oncology 05/23/17 Jen Whitt APRN.PROFESSOR OF COMMUNICATION AND WRITING [address] [place] [address] [facility] 06/13/24 Adriano Lima APRN.PROFESSOR OF COMMUNICATION AND WRITING [address] [place] [address] [facility] 06/22/24 Zone Maintenance Technician Relationship Specialty Start Date End Date Michael Jarquin MD [address] [place], [place] 270671 PCP - General Family Medicine 08/22/14 [place] [address] Pediatric Nephrology 05/23/17 [place] [address] [place] [address] Physician Radiation Oncology 05/23/17 Jen Whitt APRN.PROFESSOR OF COMMUNICATION AND WRITING [address] [place] [address] [facility] 06/13/24 Adriano Lima APRN.PROFESSOR OF COMMUNICATION AND WRITING [address] [place] [address] [facility] 06/22/24 Zone Maintenance Technician Relationship Specialty Start Date End Date Michael Jarquin MD [address] [place] [address] PCP - General Family Medicine 08/22/14 Reji Galvez [place], [place] [phone] Pediatric Nephrology 05/23/17 [place] [address] [place], [place] 1304106 [phone] Physician Radiation Oncology 05/23/17 Jen Whitt, CASTING MACHINE SET UP OPERATOR.PROFESSOR OF COMMUNICATION AND WRITING [address] [place] [address] [facility] 06/13/24 Adriano Lima CASTING MACHINE SET UP OPERATOR.PROFESSOR OF COMMUNICATION AND WRITING [address] [place] [address] [facility] 06/22/24 Zone Maintenance Technician Relationship Specialty Start Date End Date Michael Jarquin MD [address] [place] [address] PCP - General Family Medicine 08/22/14 Reji Galvez JOY[place], [place] [phone] Pediatric Nephrology 05/23/17 [place] [address] [facility] [place] [address] Physician Radiation Oncology 05/23/17 Jen Whitt, CASTING MACHINE SET UP OPERATOR.PROFESSOR OF COMMUNICATION AND WRITING [address] [place] [address] Tinsmith Apprentice [facility] 06/13/24 Adriano Lima APRN.PROFESSOR OF COMMUNICATION AND WRITING [address] [place] [address] Tinsmith Apprentice [facility] 06/22/24 Zone Maintenance Technician Relationship Specialty Start Date End Date Michael Jarquin MD [address] [place] [address] PCP - General Family Medicine 08/22/14 Reji Galvez [place] [address] Pediatric Nephrology 05/23/17 [place] [address] [place] [address] Physician Radiation Oncology 05/23/17 Jen Whitt APRN.PROFESSOR OF COMMUNICATION AND WRITING [address] [place] [address] [facility] 06/13/24 Adriano Lima APRN.PROFESSOR OF COMMUNICATION AND WRITING [address] [place] [address] [facility] 06/22/24 Zone Maintenance Technician Relationship Specialty Start Date End Date Michael Jarquin MD [address] [place] [address] PCP - General Family Medicine 08/22/14 Reij Galvez JOY[address] [place], [place] [phone] Pediatric Nephrology 05/23/17 [place] [address] [place] [address] Physician Radiation Oncology 05/23/17 Adriano Lima APRN.PROFESSOR OF COMMUNICATION AND WRITING [address] [place] [address] Tinsmith Apprentice [facility] 06/22/24 Zone Maintenance Technician Relationship Specialty Start Date End Date Michael Jarquin MD [address] [place] [address] PCP - General Family Medicine 08/22/14 Reji Galvez [place], [place] [phone] Pediatric Nephrology 05/23/17 [place] [address] [place] [address] Physician Radiation Oncology 05/23/17 Adriano Lima APRN.PROFESSOR OF COMMUNICATION AND WRITING [address] [place] [address] Tinsmith Apprentice [facility] 06/22/24 Zone Maintenance Technician Relationship Specialty Start Date End Date Michael Jarquin MD [address] [place] [address] PCP - General Family Medicine 08/22/14 Reji Galvez JOY[place], [place] [phone] Pediatric Nephrology 05/23/17 [place] [address] [place] [address] Physician Radiation Oncology 05/23/17 Adriano Lima APRN.PROFESSOR OF COMMUNICATION AND WRITING [address] [place] [address] [facility] 06/22/24 Zone Maintenance Technician Relationship Specialty Start Date End Date Michael Jarquin MD [address] [place] [address] PCP - General Family Medicine 08/22/14 Reji Galvez [place], [place] 9[address]46[address] Pediatric Nephrology 05/23/17 [place] [address] [place] [address] Physician Radiation Oncology 05/23/17 Adriano Lima APRN.PROFESSOR OF COMMUNICATION AND WRITING [address] [place] [address] [facility] 06/22/24 Zone Maintenance Technician Relationship Specialty Start Date End Date Michael Jarquin MD [address] [place] [address] PCP - General Family Medicine 08/22/14 [place] [address] Pediatric Nephrology 05/23/17 [place] [address] [address] [place] [address] Physician Radiation Oncology 05/23/17 Adriano Lima APRN.PROFESSOR OF COMMUNICATION AND WRITING [address] [place], [place] [id number] [phone] Tinsmith Apprentice Family [facility] 06/22/24 Zone Maintenance Technician Relationship Specialty Start Date End Date Michael Jarquin MD [address] [place] [address] PCP - General Family Medicine 08/22/14 Reji Galvez [place], [place] [phone] Pediatric Nephrology 05/23/17 [place] [address] [place] [address] Physician Radiation Oncology 05/23/17 Adriano Lima APRN.PROFESSOR OF COMMUNICATION AND WRITING [address] [place] [address] [facility] 06/22/24 Zone Maintenance Technician Relationship Specialty Start Date End Date Michael Jarquin MD [address] [place], [place] 514776 [phone] PCP - General Family Medicine 08/22/14 Reji Galvez [place], [place] 10987[address] Pediatric Nephrology 05/23/17 [place] [address] [place] [address] Physician Radiation Oncology 05/23/17 Adriano Lima APRN.PROFESSOR OF COMMUNICATION AND WRITING [address] [place] [address] Tinsmith Apprentice Family [facility] 06/22/24 Zone Maintenance Technician Relationship Specialty Start Date End Date Michael Jarquin MD [address] [place], [place] [address]2261 PCP - General Family Medicine 08/22/14 Reji Galvez JOY[address] [place], [place] [phone] Pediatric Nephrology 05/23/17 [place] [address] [place] [address] Physician Radiation Oncology 05/23/17 Adriano Lima APRN.PROFESSOR OF COMMUNICATION AND WRITING [address] [place] [address] Tinsmith Apprentice Family Medicine 06/22/24 Zone Maintenance Technician Relationship Specialty Start Date End Date Michael Jarquin MD [address] [place] [address] PCP - General Family Medicine 08/22/14 Reji [place] [address] Pediatric Nephrology 05/23/17 [place] [address] [place] [address] Physician Radiation Oncology 05/23/17 Adriano Lima APRN.PROFESSOR OF COMMUNICATION AND WRITING [address] [place] [address] Tinsmith Apprentice Family Medicine 06/22/24 Zone Maintenance Technician Relationship Specialty Start Date End Date Michael Jarquin MD [address] [place] [address] PCP - General Family Medicine 08/22/14 Reji Galvez JOY[address] [place], [place] 12088[address] Pediatric Nephrology 05/23/17 [place] [address] [place] [address] Physician Radiation Oncology 05/23/17 Adriano Liam, CASTING MACHINE SET UP OPERATOR.PROFESSOR OF COMMUNICATION AND WRITING [address] [place], [place] 908804 [phone] Tinsmith Apprentice Family Medicine 06/22/24 Zone Maintenance Technician Relationship Specialty Start Date End Date Michael Jarquin MD [address] [place], [place] [phone] PCP - General Family Medicine 08/22/14 Reji Galvez JOY[address] [place], [place] [phone] Pediatric Nephrology 05/23/17 [place] [address] [place] [address] Physician Radiation Oncology 05/23/17 Adriano Lima, CASTING MACHINE SET UP OPERATOR.PROFESSOR OF COMMUNICATION AND WRITING [address] [place] [address] Tinsmith Apprentice Family [facility] 06/22/24 Zone Maintenance Technician Relationship Specialty Start Date End Date Michael Jarquin MD [address] [place] [address] PCP - General Family Medicine 08/22/14 Reji Galvez JOY[address] [place], [place] 12947[address] Pediatric Nephrology 05/23/17 [place] [address] [place] [address] Physician Radiation Oncology 05/23/17 Adriano Lima, RAQUEL.PROFESSOR OF COMMUNICATION AND WRITING [address] [place] [address] [facility] 06/22/24 Zone Maintenance Technician Relationship Specialty Start Date End Date Michael Jarquin MD [address] [place], [place] 460247 [phone] PCP - General Family Medicine 08/22/14 Reji Galvez [place], [place] [phone] Pediatric Nephrology 05/23/17 [place] [address] [place] [address] Physician Radiation Oncology 05/23/17 Adriano Lima, CASTING MACHINE SET UP OPERATOR.PROFESSOR OF COMMUNICATION AND WRITING [address] [place] [address] [facility] 06/22/24 Zone Maintenance Technician Relationship Specialty Start Date End Date Michael Jarquin MD [address] [place] [address] PCP - General Family Medicine 08/22/14 Reji Galvez JOY[address] [place], [place] 13723[address] Pediatric Nephrology 05/23/17 [place] [address] [place] [address] Physician Radiation Oncology 05/23/17 Adriano Lima APRN.PROFESSOR OF COMMUNICATION AND WRITING [address] [place] [address] Tinsmith Apprentice [facility] 06/22/24 Zone Maintenance Technician Relationship Specialty Start Date End Date Michael Jarquin MD [address] [place] [address] PCP - General Family Medicine 08/22/14 Reji Galvez [address] [employer] [place], [place] [phone] Pediatric Nephrology 05/23/17 [place] [address] [place] [address] Physician Radiation Oncology 05/23/17 Adriano Lima APRN.PROFESSOR OF COMMUNICATION AND WRITING [address] [place] [address] Tinsmith Apprentice [facility] 06/22/24 Zone Maintenance Technician Relationship Specialty Start Date End Date Michael Jarquin MD [address] [place] [address] PCP - General Family Medicine 08/22/14 Reji Galvez [address] [employer] [place], [place] [phone] Pediatric Nephrology 05/23/17 [place] [address] [place] [address] Physician Radiation Oncology 05/23/17 Adriano Lima APRN.PROFESSOR OF COMMUNICATION AND WRITING [address] [place] [address] Tinsmith Apprentice [facility] 06/22/24 Zone Maintenance Technician Relationship Specialty Start Date End Date Michael Jarquin MD [address] [place] [address] PCP - General Family Medicine 08/22/14 Reji Galvez [place], [place] [phone] Pediatric Nephrology 05/23/17 [place] [address] [place] [address] Physician Radiation Oncology 05/23/17 Adriano Lima APRN.PROFESSOR OF COMMUNICATION AND WRITING [address] [place] [address] Tinsmith Apprentice [facility] 06/22/24 Zone Maintenance Technician Relationship Specialty Start Date End Date Michael Jarquin MD [address] [place] [address] PCP - General Family Medicine 08/22/14 [place] [address] Pediatric Nephrology 05/23/17 [place] [address] [place] [address] Physician Radiation Oncology 05/23/17 Adriano Lima APRN.PROFESSOR OF COMMUNICATION AND WRITING [address] [place] [address] [facility] 06/22/24 Zone Maintenance Technician Relationship Specialty Start Date End Date Michael Jarquin MD [address] [place], [place] [phone] PCP - General Family Medicine 08/22/14 Reji Galvez [place], [place] 82979308 Pediatric Nephrology 05/23/17 [place] [address] [place], [place] 9152206 Physician Radiation Oncology 05/23/17 Adriano Lima APRN.CNP [address] [place], [place] [id number] [facility] 06/22/24 Team Status: Active Member Role/Relationship Status Dates ENRIQUE العراقي Primary Care Provider Active Team Status: Inactive Member Role/Relationship Status Dates ENRIQUE العراقي Primary Care Provider Active Start: February 24, 2025 End: February 24, 2025 ENRIQUE العراقي Referring Provider Active Start: February 24, 2025 End: February 24, 2025 Ginny Ruiz PA, PA Attending Provider Active Start: February 24, 2025 End: February 24, 2025 Zone Maintenance Technician Relationship Specialty Start Date End Date Michael Jarquin MD [address] [place], [place] 580271 PCP - General Family Medicine 08/22/14 Reji Galvez [place], [place] [phone] Pediatric Nephrology 05/23/17 [place] [address] [place] [address] Physician Radiation Oncology 05/23/17 Adriano Lima APRN.PROFESSOR OF COMMUNICATION AND WRITING [address] [place] [address] Tinsmith Apprentice Family Medicine 06/22/24 Goals (unrecognized section and content) Goals may be documented in a n alternate section No data available for this sectionGoals may be documented in an alternate section (unrecognized sect ion and content) No Status Records FoundNo Status Records FoundNo Status Records FoundNo Status Records FoundNo Status Records FoundNo Status Records FoundNo Status Records FoundNo Status Records Found INFORMATION SOURCE (unrecogn ized section and content) DATE CREATED AUTHOR 06/14/2023 [facility] DATE CREATED AUTHOR AUTHOR'S ORGANIZ ATION 03/03/2024 [facility] DATE CREATED AUTHOR AUTHOR'S ORGANIZ ATION 06/11/2024 [facility] DATE CREATED AUTHOR AUTHOR'S ORGANIZ ATION 07/31/2024 [facility] DATE CREATED AUTHOR AUTHOR'S ORGANIZ ATION 02/11/2025 [facility] DATE CREATED AUTHOR AUTHOR'S ORGANIZ ATION 03/26/2025 [facility] DATE CREATED AUTHOR AUTHOR'S ORGANIZ ATION 04/01/2025 [facility] DATE CREATED AUTHOR AUTHOR'S ORGANIZ ATION 04/10/2025 [facility] Inactive Administered Medications - up to 3 most recent administrations Administered Medications (un recognized section and content) Medication Order MAR Action Action Date Dose Rate Site PHENYLephrine 2.5 % 1 Drop (AK-DILATE, SHARI-SYNEPHRINE) 1 Drop, BOTH EYES, ONCE, 1 dose, On Fri08/25/23 at 0900, FOR OPHTHALMIC USE ONLY PROTECT FROM LIGHT Given 08/25/2023 9:00 AM EST 1 Drop proparacaine 0.5 % 1 Drop (ALCAINE) 1 Drop, BOTH EYES, ONCE, 1 dose, On Fri08/25/23 at 0900, FOR THE EYE Given 08/25/2023 9:00 AM EST 1 Drop tropicamide 1 % 1 Drop (MYDRIACYL) 1 Drop, BOTH EYES, ONCE, 1 dose, On Fri08/25/23 at 0900, FOR [facility] Given 08/25/2023 9:00 AM EST 1 Drop Inactive Administered Medications - up to 3 most recent administrations Medication Order MAR Action Action Date Dose Rate Site BUPivacaine (PF) 0.5 % (5 mg/mL) 2.5 mg injection 2.5 mg (0.5 mL), INTRA-ARTICULAR, ONCE, 1 dose, On Fri09/09/23 at 0900 Given 09/09/2023 8:57 AM EST 2.5 mg Foot, Left dexAMETHasone sodium phosphate 2 mg injection (DECADRON) 2 mg, INTRA-ARTICULAR, ONCE, 1 dose, On Fri09/09/23 at 0900 Given 09/09/2023 8:58 AM EST 2 mg Foot, Left triamcinolone acetonide 5 mg injection (KeNALog 10) 5 mg, INTRA-ARTICULAR, ONCE, 1 dose, On Fri09/09/23 at 0900 Given 09/09/2023 8:58 AM EST 5 mg Foot, Left FOR RECORDS PERTAINING TO PATIENTS WHO ARE OR HAVE BEEN ENROLLED IN A CHEMICAL DEPENDENCY/SUBSTANCEABUSE PROGRAM, SOME INFORMATION MAY BE OMITTED. This clinical summary was aggregated from multiple sources. Caution should be exercised in using it in the provision of clinical care. This summary normalizes information from multiple sources, and as a consequence, information in this document may materially change the coding, format and clinical context of patient data. In addition, data may be omitted in some cases. CLINICAL DECISIONS SHOULD BE BASED ON THE PRIMARY CLINICAL RECORDS. [employer] provides no warranty or guarantee of the accuracy or completeness of information in this document.
--- NOTE | 2025-04-11 12:37 | STRESSREP_ITS ---
Stress Test Report Exercise myocardial perfusion stress test. 64-year-old man with a history of dyspnea on exertion. Stress protocol: Resting EKG demonstrates sinus bradycardia rhythm with a rate of 45 bpm resting blood pressure is 112/74 mmHg. The patient exercised according to the regular Ernesto protocol for a total duration of 9 minutes attaining a maximum heart rate of 155 bpm which was 98% of maximum predicted heart rate; the maximum workload was 10.1 metabolic equivalents. At rest there were no ST or T wave changes noted to suggest ischemia and at peak exercise approximately [address] depression was noted in lead V5 and V6 as well as lead III and lead II. The above was suggestive of ischemia but became upright immediately in the po strecovery period. Ventricular couplets were noted. No clinical angina was noted the test was terminated due to the target heart rate being achieved/fatigue. The peak blood pressure was 168/88 mmHg. Rate-pressure product was 23,300. Myocardial perfusion protocol. 14.6 mCi of technetium 99m sestamibi was injected at rest. The patient exercised according to regular Ernesto protocol for total duration of 9 minutes and at peak exercise 45 mCi of technetium 99m sestamibi was injected stress images were obtained stress and rest images were reconstructed in comparing the short axis vertical long and horizontal long axis. Gated images were also obtained. Perfusion SPECT analysis: Review of the stress images demonstrate normal uptake of tracer noted in all areas of the myocardium. The resting images similarly demonstrate normal uptake of tracer noted in all areas of the myocardium. No areas of reversibility are noted to suggest ischemia no previous infarct was noted. Gated SPECT analysis: The gated ejection fraction is 64%. Conclusion: Abnormal EKG exercise stress test with abnormal EKG findings at peak exercise suggestive of ischemia. Normal myocardial perfusion imaging at a high workload No clinical angina noted.
== END | disposition home or self-care (01) ==
LOC: CVS 06:00
PROVIDERS: PCP Nurse Practitioner Family; Referring Provider Physician Assistant Medical; Visit Provider Physician Assistant Medical
DX: R06.02 Shortness of breath (principal); Z95.5 Presence of coronary angioplasty implant and graft
CPT/HCPCS: 78452; 93017; A9500